=== PATIENT | female | born 1965 | race Caucasian/White ===

== ENCOUNTER → 2024-02-15 14:57 | Outpatient (REF) | payer MEDICAID, SELFPAY | LOC: RAD 14:57 | PROVIDERS: ATTENDING PHYSICIAN Internal Medicine Rheumatology | DX: M05.79 Rheumatoid arthritis with rheumatoid factor of multiple sites without organ or systems involvement (principal); Z51.81 Encounter for therapeutic drug level monitoring; R76.12 Nonspecific reaction to cell mediated immunity measurement of gamma interferon antigen response without active tuberculosis; Z91.89 Other specified personal risk factors, not elsewhere classified | CPT/HCPCS: 71046 ==

== ENCOUNTER 2025-05-18 16:03 | Inpatient (IN) | payer MEDICAID, SELFPAY ==
[2025-05-18] VITALS (9 sets, daily range): BP systolic 98–126; BP diastolic 67–84; BMI 17.4; BMI 16.2
[2025-05-18 13:56] LABS: Hematocrit 32.2 % (37.0-47.0); Hemoglobin 10.4 g/dL (12.0-16.0); Mean Corp Hgb Conc. 32.3 g/dL (33.0-37.0); Mean Corpuscular Volume 77.2 fL (81.0-99.0); Nucleated Red Blood Cells % 0 %; Platelet Count 519 10^3/uL (130-400); Red Cell Dist. Width 14.6 % (11.5-14.5)
[2025-05-18 14:26] LABS: Troponin I < 0.012 ng/ml
[2025-05-18 14:39] LABS: Blood Urea Nitrogen 48 mg/dl (7-17); Calcium 9.3 mg/dl (8.4-10.2); Carbon Dioxide 12 mmol/L (22-30); Chloride 107 mmol/L (98-107); Estimated Creatinine Clearance 53 ml/min; Glucose 101 mg/dl (70-99); Magnesium 2.2 mg/dl (1.6-2.3); Sodium 127 mmol/L (135-145); eGFR > 60.00
--- NOTE | 2025-05-18 14:40 | ED.GENMED ---
History of Present Illness
General
Chief Complaint: Weakness
Source: patient
Time Seen by Provider: 05/18/25 14:20
History of Present Illness
History of Present Illness:
59-year-old female presents to the emergency room for evaluation from [facility]. Patient has been undergoing wound care treatment there for lower extremity wounds. She has been developing increased swelling, erythema and pain.
Today they noted that she was lethargic. No known fever. Patient is tolerating oral intake. Patient resides at [facility] due to debilitating rheumatoid arthritis. She is taking a biologic, Orcenia, rheumatoid arthritis
Past History
Past History
ED Past Medical History: Other (RA)
ED Past Surgical History: None
Social History
Tobacco: Non-smoker
Alcohol: None
Drug: None
Personal: Single
Living: homeless
Phy Exam
Physical Exam
Physical Exam:
General: Awake, Alert, Oriented X3. Very thin, chronically ill-appearing
Vitals: Tachycardic
Head: Atraumatic
Eyes: Pupils equal, EOMI
Throat: Airway intact, no exudates
Neck: Trachea midline
Lungs: Clear and equal b/l
Heart: Regular rate, no murmurs
Abd: Soft, Nontender, No pulsatile mass
Neuro: Nonfocal
Skin: Warm, dry, no rash
Extremities: Joint deformities consistent with RA, pulses equal b/l, 1+ edema lower extremity, significant erythema bilateral lower leg, warmth to the bilateral lower extremities large ulcerative wounds bilaterally as well.
Course
Orders/Labs/Results
Orders:
Orders
05/18/25 13:36
EKG [Electrocardiogram (*1)] Urgent
Reason for Study: Fatigue / Weakness
05/18/25 13:37
EKG- Treatment ONCE
05/18/25 13:38
Basic Metabolic Panel Urgent
Complete Blood Count/With Diff Urgent
Ferritin Urgent
Comment: ADD ON
Folate Urgent
Comment: ADD ON
Magnesium Urgent
TSH Reflex To Free T4 Urgent
Comment: ADD ON
Troponin I Urgent
Vitamin B12 Urgent
Comment: ADD ON
05/18/25 14:40
CeFAZolin 2 GRAM [Ancef] 2 grams in 10 ml IV NOW
05/18/25 14:44
0.9% Sodium Chloride 1000 ml [Nss] 1,000 ml IV BOLUS
05/18/25 14:57
Potassium Urgent
Venous Blood Gas Urgent
%Oxygen/Room Air: ra
Blood Culture Q30M
VAL Source: Blood/Venous
Specimen Description:
05/18/25 15:05
Add On- LAB Urgent
Tests Added?: tsh with free t4 reflex, ferritin, tibc, iron, folate b12
Urine Osmolality Random [Osmolality, Random Urine] Routine
Date Specimen was Collected: 05/18/25
Time Specimen was Collected: 16:10
Urine Sodium Routine
Date Specimen was Collected: 05/18/25
Time Specimen was Collected: 16:10
05/18/25 15:24
Tramadol HCl [Ultram] 50 mg PO NOW STA
05/18/25 15:26
Albuterol Sulfate [Ventolin Nebules] 10 mg INH R NOW STA
Calcium Gluconate 1,000 mg IV NOW STA
Dextrose 50%-Water [Dextrose 50% Syringe] 12.5 grams IV [id number] PRN
Dextrose 50%-Water [Dextrose 50% Syringe] 25 grams IV NOW STA
Insulin Human Regular [Novolin R] 10 units IV NOW STA
Sodium Zirconium Cyclosilicate [Lokelma] 10 gram PO NOW STA
05/18/25 15:28
Bedside Glucose PRE IV Insulin- HyperK+ NOW
05/18/25 15:40
Admit/Transfer Patient As Directed
Co-Sign Provider:
Level of Care: Inpatient admission
Assign to:: Telemetry
Physician / Group: sebastián lee
Diagnosis: Hyperkalemia, metabolic acidosis, bilateral leg cellulitis, hypo-NA
Reason for Telemetry: Arrhythmia
Date to Stop Telemetry: 05/21/25
Time to Stop Telemetry: 11:00
Reason for Hospitalization: Hyperkalemia, metabolic acidosis, bilateral leg cellulitis, hypo-NA
Expected length of stay greater than two midnights?: Yes
ELOS- Estimated Length of Stay in days: 5
I certify the patient meets the requirements for IP care: Yes
Code Status As Directed
Resuscitation Status: Full Code
05/18/25 15:44
PRN Pain Medication Management As Directed
May give lesser potent ordered pain med per pt: Yes
preference::
Protocol:: Medication orders for pain may be administered in a
manner that supports deferring to patient preference
when the pt is:
- Requesting an ordered lesser potent pain medication.
Least to most potent pain medications are defined
as: acetaminophen < NSAID < tramadol < opioids
(morphine, oxycodone, hydromorphone).
- Requesting a lesser dose of the same medication IF
ORDERED.
- Requesting a less intrusive route of administration
if both routes are prescribed by the provider (PO <
IV).
05/18/25 16:09
Osmolality Serum [Serum Osmolality] Routine
Blood Culture Q30M
VAL Source: Blood/Venous
Specimen Description:
05/18/25 16:10
Urine Culture Reflexed from UA [Urinalysis Reflex To Culture] Routine
Date Specimen was Collected: 05/18/25
Time Specimen was Collected: 16:09
05/18/25 16:58
Bedside Glucose POST IV Insulin- HyperK+ Q1HX2,Q2HX2
05/18/25 17:58
Potassium Urgent
Comment: draw 2 hours after regular insulin IV administration
05/18/25 19:58
Potassium Urgent
Comment: draw 4 hours after Lokelma administered
05/21/25 11:00
DC Protocol for Telemetry ONCE
Abnormal Lab Results
05/18/25 05/18/25
13:38 14:57
WBC 13.0 H 10^3/uL
(4.8-10.8)
RBC 4.17 L 10^6/uL
(4.20-5.40)
Hgb 10.4 L g/dL
(12.0-16.0)
Hct 32.2 L %
(37.0-47.0)
MCV 77.2 L fL
(81.0-99.0)
MCH 24.9 L pg
(27.0-31.0)
MCHC 32.3 L g/dL
(33.0-37.0)
RDW 14.6 H %
(11.5-14.5)
Plt Count 519 H 10^3/uL
(130-400)
Abs Immat Gran (auto) 0.2 H 10^3/uL
(0-0.05)
Absolute Neuts (auto) 10.2 H 10^3/uL
(1.4-6.5)
Absolute Monos (auto) 1.2 H 10^3/uL
(0.1-0.6)
Immature Gran % 1.4 H %
(0-0.5)
Neutrophils % 78.7 H %
(42.2-75.2)
Lymphocytes % 9.9 L %
(20.5-51.1)
VBG pH 7.26 L
(7.32-7.43)
VBG pCO2 32 L mmHg
(35-48)
VBG pO2 56 H mmHg
(30-50)
VBG HCO3 14.4 L mmol/L
(22-27)
Sodium 127 L mmol/L
(135-145)
Potassium 7.0 H* mmol/L
(3.5-5.1)
Carbon Dioxide 12 L* mmol/L
(22-30)
BUN 48 H mg/dl
(7-17)
Glucose 101 H mg/dl
(70-99)
05/18/25 13:38
05/18/25 14:57
Vital Signs
Initial and Last Documented VS:
Initial Vital Signs
Pulse Resp Pulse Ox
119 18 99
05/18/25 13:38 05/18/25 13:38 05/18/25 13:38
Last Documented Vital Signs
Temp Pulse Resp BP Pulse Ox
97.5 F 114 14 114/79 99
05/18/25 13:46 05/18/25 14:00 05/18/25 14:00 05/18/25 14:00 05/18/25 14:43
MDM/Problems Addressed
Differential Diagnosis Includes:
Patient presents with weakness in addition to lower extremity redness and pain. Differential includes chronic venous stasis with cellulitis, lymphedema with cellulitis, dehydration, electrolyte abnormality
MDM/Problems Addressed:
Patient presents with weakness, lower extremity redness and pain. Clinically it appears she has a acute cellulitis of both of her lower extremities. She appears dry. Labs show significant abnormalities including prerenal azotemia with a BUN of
48. Sodium somewhat low at 127. She has a significantly low bicarb at 12 though no anion gap. Serum potassium is 7.0. Her EKG does show some peaking of her T waves. Therefore hyperkalemia was aggressively treated with calcium gluconate,
albuterol, insulin and dextrose, Lokelma. I suspect her potassium homeostasis will improve with hydration. I believe her bicarb will improve with hydration. VBG was obtained which shows the pH is a bit low at 7.7 but I do not think she would
require IV bicarb at this point.
*Pulse Oximetry
SaO2: 99
Oxygen Mode of Delivery: Room air
Patient hypoxic: no
*EKG
Interpreted by ED Provider?: Yes
Interpretation: abnormal
Heart Rate: 115
Rate: tachycardiac
Rhythm: sinus tachycardia
[place]: normal axis
Interval: normal interval
QRS Pattern: normal QRS
Ischemia: other (Peaked T waves)
*Windshield Technician Interpretation
Rate: tachycardiac
Interpretation: abnormal
Heart Rate: 115
Rhythm: sinus tachycardia
*Critical Care Note
Total Time (30-74mins, 75-104mins- exclusive of procedures): 38 min
comment:
Critical care statement: A total of 38 minutes of critical care time was provided for this patient. This includes management of unstable vital signs, evaluation of the patient at bedside, reviewing the patient's pertinent medical records, discussion
with consultants, review of old EKGs and review of pertinent medical records. This time with separate from time utilized to perform the aforementioned documented procedures
ED Attending Note
-
Portions of this chart may have been created with voice recognition software.� Occasional wrong word or��sound alike� substitutions may have occurred due to the inherent limitations of voice recognition software.
Discharge Plan
Departure
Patient Disposition: Admit
Date of Disposition: 05/18/25
Time of Disposition: 14:47
Admit to: Med/Surg
Presentation/result/management discussed w/ accepting MD/DO: Hospitalist
Condition: Fair
Discharge Problem:
Cellulitis of both lower extremities, Dehydration, Acute hyponatremia
Interventions
Interventions:
*Risk Screen - Suicide Last Done: 05/18/25 13:46
*General Assessment Last Done: 05/18/25 13:46
*Neglect/Abuse Screening Last Done: 05/18/25 13:46
*ED- Fall Risk Assessment Last Done: 05/18/25 13:46
*ED COVID-19 Vaccine History Last Done: 05/18/25 13:46
ED- Cardiac Assessment Last Done: 05/18/25 13:46
ED- Neurological Assessment Last Done: 05/18/25 13:46
ED- Pulmonary Assessment Last Done: 05/18/25 13:46
[2025-05-18] MEDS: ANCEF 10 IV (14:50)
[2025-05-18] MEDS: NSS 1000 IV ×2 (14:50→17:56)
[2025-05-18 15:09] LABS: Venous Blood Gas B.E. -11.6 mmol/L (-4 to +4); Venous Blood Gas O2 Sat % 90.6 %
--- NOTE | 2025-05-18 15:11 | HPS.HSE ---
Addendum entered and electronically signed by Ashwini Abdi MD 05/18/25 17:54:
I have personally seen and examined the patient. I have reviewed the patient with PROTECTIVE SIGNAL OPERATIONS SUPERVISOR or PA and agree with their note.
59-year-old female with rheumatoid arthritis, chronic lymphedema presenting with bilateral lower extremity cellulitis.
On exam patient appears to be in mild distress from pain, exhibits bilateral lower extremity edema with weeping, tenderness, erythema, and warmth. MMM, heart RRR, +murmur, abd soft, NT/ND/NABS, Lungs CTAB.
Assessment:
Sepsis secondary to bilateral lower extremity cellulitis
Acute metabolic acidosis
acute hyperkalemia
Hypovolemic hyponatremia
Anemia
Plan:
Check blood cultures
Empiric IV antibiotics
Hold off diuretics and give IV fluids until electrolytes normalized
Treat hyperkalemia with with protocol, monitor on telemetry
Check anemia panel, suspect iron deficiency will need iron supplementation when infection improves
Agree with holding immunosuppressants for RA in setting of acute infection
Original Note:
Family Physician
-
Family Physician: Ish Hall
Chief Complaint
-
Bilateral leg ulcerations with erythema, nausea, leg pain
History of Present Illness
59-year-old female from [facility] complaining of bilateral leg ulcerations for the past several months she has had erythema unknown duration and increased pain in her lower legs she has history of chronic bilateral leg lymphedema
chronic scales to lower extremities she stands walks only a few steps to a wheelchair. She complains of nausea With inability to eat she has not taken any of her a.m. pain medication today. She denies fever, chills, chest pain, palpitations, cough,
shortness of breath, abdominal pain, diarrhea
She has past medical history rheumatoid arthritis on Orencia and leflunomide, severe bilateral glenohumeral arthrosis, chronic rotator cuff arthropathy, chronic bilateral shoulder pain, depression, chronic pain on chronic oral opiates as needed,
chronic bilateral lower leg edema hypothyroidism, HTN, HLD,
Medical History
Past Medical History
Past Medical History: Reports Other
Additional Past Medical History:
rheumatoid arthritis on Orencia and leflunomide
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
Chronic ambulatory dysfunction uses wheelchair
severe bilateral glenohumeral arthrosis
chronic rotator cuff arthropathy
chronic bilateral shoulder pain
depression
chronic pain on chronic oral opiates as needed,
chronic bilateral lower leg edema
hypothyroidism
HTN
HLD
Past Surgical History: Reports None
Social History
Tobacco: Non-smoker
Alcohol: None
Drug: None
Personal: (Patient reports last year at age 54 [place])
Living: Alone
Employment: Disabled
Family History
Family History: Not pertinent
Allergies / Home Medications
Allergies reflects when Allergies were last updated in [employer].
Home Medications with original date entered in [employer]
Allergy/Medication List:
Allergies
Allergy/AdvReac Type Severity Reaction Status Date / Time
No Known Allergies Allergy Unverified 12/08/22 19:34
Home Medications
abatacept 125 mg/mL subcutaneous syringe (Orencia) 125 mg SC Q7D 05/18/25
acetaminophen 325 mg tablet (Tylenol) 650 mg PO Q4HPRN PRN fever 05/18/25
acetaminophen 325 mg tablet (Tylenol) 650 mg PO Q6HPRN PRN mild pain 05/18/25
aspirin 81 mg tablet,delayed release 81 mg PO DAILY 05/18/25
bisacodyl 10 mg rectal suppository (Dulcolax (bisacodyl)) 10 mg AL DAILYPRN PRN if no bm aftr mom 05/18/25
bupropion HCl 300 mg 24 hr tablet, extended release (Wellbutrin XL) 300 mg PO DAILY 05/18/25
celecoxib 100 mg capsule 100 mg PO DAILY 05/18/25
clopidogrel 75 mg tablet (Plavix) 75 mg PO DAILY 05/18/25
furosemide 40 mg tablet (Lasix) 40 mg PO DAILY 05/18/25
gabapentin 300 mg capsule 300 mg PO HS 05/18/25
gabapentin 300 mg capsule 600 mg PO DAILY 05/18/25
gemfibrozil 600 mg tablet 600 mg PO QPM 05/18/25
insulin lispro 100 unit/mL subcutaneous pen (Humalog KwikPen (U-100) Insulin) 1 sliding scale dose SC ACHS 05/18/25
leflunomide 20 mg tablet 20 mg PO DAILY 05/18/25
levothyroxine 150 mcg tablet (Synthroid) 150 mcg PO DAILY 05/18/25
mirtazapine 30 mg tablet (Remeron) 30 mg PO HS 05/18/25
naproxen 500 mg tablet 500 mg PO BID 05/18/25
nifedipine 60 mg tablet,extended release 24 hr 60 mg PO DAILY 05/18/25
oxycodone 10 mg tablet 10 mg PO Q6HPRN PRN severe pains(7-10) 05/18/25
oxycodone 5 mg tablet 5 mg PO Q4HPRN PRN severe pains (4-6) 05/18/25
polyethylene glycol 3350 17 gram oral powder packet (Miralax) 17 g PO BIDPRN PRN constipation 05/18/25
polyethylene glycol 3350 17 gram oral powder packet (Miralax) 17 g PO DAILY 05/18/25
rosuvastatin 20 mg tablet (Crestor) 20 mg PO QPM 05/18/25
sennosides 8.6 mg tablet (senna) 17.2 mg PO DAILY 05/18/25
sevelamer HCl 800 mg tablet 800 mg PO AC 05/18/25
tizanidine 2 mg tablet 2 mg PO Q6HPRN PRN spasms 05/18/25
tramadol 50 mg tablet 50 mg PO BID 05/18/25
tramadol 50 mg tablet 50 mg PO Q6HPRN PRN moderate pains 05/18/25
valsartan 320 mg tablet 320 mg PO DAILY 05/18/25
zinc oxide 10 % topical cream 1 applic topical DAILY b/l legs 05/18/25
Review of Systems
-
History Source: Patient
A 12 point ROS was completed and negative except as noted: Yes
Constitutional: Reports Fatigue; Denies Fever
EENT: Denies Sore Throat or Runny Nose
Respiratory: Denies Cough or Trouble Breathing
Cardiac: Denies Chest Pain, Palpitations or Syncope
Abdomen/GI: Reports Nausea; Denies Abdominal Pain, Vomiting, Diarrhea or Constipated
: Denies Dysuria, Frequency, Flank Pain, Incontinence or Difficulty Voiding
Musculoskeletal: Reports Edema (Bilateral lower legs +1 nonpitting); Denies Joint Pain
Skin: Reports Other (Scales to bilateral lower legs with anterior lower cruz ulcerations +1 nonpitting edema, ulceration left foot second anterior toe); Denies Itching or Rash
Neurological: Reports Weakness; Denies Dizzy or Headache
Endocrine: Reports No Symptoms
Hematologic/Lymphatic: Reports No Symptoms
Psych: Reports Calm
Physical Exam
Vital Signs
Vital Signs
Temp Pulse Resp BP Pulse Ox
97.5 F 114 14 114/79 99
05/18/25 13:46 05/18/25 14:00 05/18/25 14:00 05/18/25 14:00 05/18/25 14:43
Physical Exam
General: Comfortable, Conversant, Pain and Cachectic; No Fever, Chills or Slurred Speech
HEENT: NormoCephalic, Anicteric, Moist mucous membranes, PERRLA, [place] Conjunctivae and No Ptosis
Respiratory: Clear; No Wheezes, Rales or Rhonchi
Cardiac: S1/S2 and Tachycardia (Sinus); No Murmur, Rub or Gallop
Breast: Deferred by me
GI: Soft, Non Tender, Non Distended, Normal Bowel Sounds and No Hepatosplenomegaly
Rectal: Deferred by Provider
Genito-urinary: Deferred by me
Musculoskeletal: No Clubbing, No Cyanosis, No Edema (Scales to bilateral lower legs with anterior lower cruz ulcerations +1 nonpitting edema, ulceration left foot second anterior toe) and Other (Chronic deformities to fingers secondary to RA); No
Edema, Left Upper Extremity or Edema, Right Upper Extremity
Skin: Warm and Dry; No Jaundice
Neuro: AO x 3, Nonfocal/grossly intact, Cranial Nerves Intact and No Sensory Deficits; No Slurred Speech, Facial Droop, Tremors or Sedated
Psych: Calm
Laboratory Results
-
05/18/25 13:38
Laboratory Results
Total Bilirubin Cancelled 05/18/25 13:38
AST Cancelled 05/18/25 13:38
ALT Cancelled 05/18/25 13:38
Alkaline Phosphatase Cancelled 05/18/25 13:38
Troponin I < 0.012 ng/ml 05/18/25 13:38
Data Reviewed
-
Lab Data: Labs Reviewed by me
Impression/Plan
-
Impression/plan:
Admit to telemetry
#Bilateral leg cellulitis with chronic anterior ulcerations
#Chronic bilateral leg edema
- WBC 13 with left shift, afebrile 90 7.5F
- Blood cultures x 2
- IV Ancef
- Patient missed dose of tramadol naproxen this a.m. due to vomiting we will give tramadol now with crackers
#Acute dehydration with tachycardia secondary to diuretic/lack oral intake
# Acute metabolic acidosis
Bun 48, CO2 12
-Hold Lasix 40 mg daily
-VBG pending pH 7.26, pCO2 32, HCO3 14.4
- IV NSS 1 L given
-Continue IV NSS 60 cc an hour
#Acute hyperkalemia
K 7.0
IV insulin, IV dextrose, Lokelma 10 g now, calcium gluconate 1000 mg IV now
Repeat BMP in 4 hours follow BMP daily
-IV NSS 60 cc an hour
-- EKG sinus tach 115 bpm, QTc 370 no peaked T waves
- Continue 7 [place] 800 mg with meals
#Hypovolemic hyponatremia
NA 127
-Check TSH with free T4
-Check urine NA, urine Osmo, serum Osmo
#Anemia�microcytic
Hgb 10.4
-Check iron panel, B12, folate
#Hypothyroidism
-Check TSH with free T4 reflex
-Continue Synthroid 150 mcg p.o. daily,,
#Rheumatoid arthritis
#Chronic bilateral shoulder pain with severe bilateral glenohumeral arthrosis
# Chronic rotator cuff arthropathy
# Chronic ambulatory dysfunction uses walker at baseline
-HOLD Orencia and Leflunomide due to leg cellulitis
- Continue oxycodone 5 mg every 4 H as needed severe pain, oxycodone 10 mg every 6 hours as needed severe pain, tramadol 50 mg twice daily and every 6 hours as needed moderate pain, MiraLAX 17 g daily and twice daily as needed, senna 17.2 mg daily
-Continue Zanaflex 2 mg every 6 hours as needed spasms
- Continue gabapentin 600 mg a.m., 300 mg at bedtime
- Continue Celebrex 100 mg daily
#HTN
BP 114/79
-Continue valsartan 320 mg daily with hold parameters
#HLD
-Continue gemfibrozil 600 mg p.o. every afternoon, Crestor 20 mg every afternoon
#Protein calorie malnutrition/cachexia�BMI 17.4 kg
-Consult dietary
DVT prophylaxis
Subcu heparin
Full code
[2025-05-18 15:20] LABS: Potassium 7.0 mmol/L (3.5-5.1)
[2025-05-18] MEDS: ULTRAM 50 MG PO ×2 (15:59→20:42)
[2025-05-18 16:00] LABS: Glucose - Point of Care 95 mg/dl (70-99)
[2025-05-18] MEDS: LOKELMA 10 GRAM PO ×2 (16:00→22:19)
[2025-05-18] MEDS: CALCIUM GLUCONATE 1000 MG IV (16:02)
[2025-05-18] MEDS: VENTOLIN NEBULES 10 MG INH (16:02)
[2025-05-18] MEDS: DEXTROSE 50% SYRINGE 25 GRAMS IV (16:02)
[2025-05-18] MEDS: NOVOLIN R 10 UNITS IV (16:03)
[2025-05-18] MEDS: DILAUDID 1 MG IV (16:17)
--- NOTE | 2025-05-18 16:33 | EDRN ---
this RN called the receiving unit and notified them that paper report was going to be tubed up
[2025-05-18 16:54] LABS: Iron 34 ug/dl (37-170)
[2025-05-18 17:04] LABS: Total Iron Binding Capacity 216 ug/dl (265-497)
[2025-05-18 17:05] LABS: Glucose - Point of Care 163 mg/dl (70-99)
[2025-05-18] MEDS: ROXICODONE 10 MG PO (18:13)
--- NOTE | 2025-05-18 18:23 | PTCARENOTE ---
Pt admission completed. Reviewed med rec w/ patient, she denies taking many of the listed medications. Edelmira Black notified, awaiting her med list to be sent over.
[2025-05-18 18:24] LABS: Glucose - Point of Care 81 mg/dl (70-99)
[2025-05-18 19:25] LABS: Ferritin 70.5 ng/ml (11.1-264.0)
[2025-05-18 19:35] LABS: Urine Character Cloudy (Clear)
[2025-05-18 19:46] LABS: Blood Urea Nitrogen 44 mg/dl (7-17); Calcium 9.6 mg/dl (8.4-10.2); Carbon Dioxide 14 mmol/L (22-30); Chloride 108 mmol/L (98-107); Estimated Creatinine Clearance 58 ml/min; Glucose 111 mg/dl (70-99); Potassium 6.8 mmol/L (3.5-5.1); Sodium 126 mmol/L (135-145); eGFR > 60.00
[2025-05-18 19:53] LABS: Urine Squamous Cell 26-30 /LPF (Few)
[2025-05-18 19:56] LABS: Urine White Cell 26-30 /HPF (0-5)
[2025-05-18 19:57] LABS: Folate > 20.0 ng/ml (2.76-20); Vitamin B12 743 pg/ml (239-931)
[2025-05-18 20:00] LABS: Glucose - Point of Care 149 mg/dl (70-99)
[2025-05-18] MEDS: HEPARIN 5000 UNITS SC (20:43)
[2025-05-18] MEDS: REMERON PO (21:53)
[2025-05-18] MEDS: ANCEF 5 IV (22:19)
[2025-05-18 22:30] LABS: Glucose - Point of Care 125 mg/dl (70-99)
--- NOTE | 2025-05-18 23:53 | PTCARENOTE ---
received med list form [id number] and reconciled- house signaling design engineer corrected ordered meds
[2025-05-19] VITALS (8 sets, daily range): BP systolic 87–111; BP diastolic 50–76; PULSE 110; O2SAT 99; BMI 16.8
[2025-05-19] MEDS: ROXICODONE 10 MG PO ×4 (01:59→21:35)
[2025-05-19 02:47] LABS: Blood Urea Nitrogen 36 mg/dl (7-17); Calcium 8.8 mg/dl (8.4-10.2); Carbon Dioxide 15 mmol/L (22-30); Chloride 110 mmol/L (98-107); Estimated Creatinine Clearance 51 ml/min; Glucose 85 mg/dl (70-99); Potassium 6.2 mmol/L (3.5-5.1); Sodium 129 mmol/L (135-145); eGFR > 60.00
--- NOTE | 2025-05-19 03:03 | PTCARENOTE ---
pt with Lokelma x2 and iv inulin/ d50%- k and co2 improving. last k was critical 6.2- vp corporate partnerships ordered bolus and changed fluids to fluids with bicarb see mar
[2025-05-19] MEDS: NSS 500 IV (03:07)
[2025-05-19] MEDS: SODIUM BICARBONATE 1150 MEQ IV ×2 (03:59→15:00)
[2025-05-19] MEDS: ANCEF 5 IV ×3 (05:04→21:35)
[2025-05-19] MEDS: ULTRAM 50 MG PO ×2 (07:14→19:10)
[2025-05-19 08:06] LABS: Hematocrit 26.7 % (37.0-47.0); Hemoglobin 8.7 g/dL (12.0-16.0); Mean Corp Hgb Conc. 32.6 g/dL (33.0-37.0); Mean Corpuscular Volume 76.1 fL (81.0-99.0); Nucleated Red Blood Cells % 0 %; Platelet Count 397 10^3/uL (130-400); Red Cell Dist. Width 14.6 % (11.5-14.5)
[2025-05-19] MEDS: HEPARIN 5000 UNITS SC ×2 (08:46→19:10)
[2025-05-19] MEDS: LOKELMA 10 GRAM PO (08:47)
[2025-05-19 09:05] LABS: ALT (SGPT) < 10 U/L (0-35); AST (SGOT) 15 U/L (14-36); Albumin 2.5 g/dl (3.5-5.0); Alkaline Phosphatase 79 U/L (38-126); Blood Urea Nitrogen 28 mg/dl (7-17); Calcium 8.3 mg/dl (8.4-10.2); Carbon Dioxide 16 mmol/L (22-30); Chloride 111 mmol/L (98-107); Estimated Creatinine Clearance 68 ml/min; Glucose 93 mg/dl (70-99); Potassium 5.2 mmol/L (3.5-5.1); Sodium 131 mmol/L (135-145); Total Protein 5.5 g/dl (6.3-8.2); eGFR > 60.00
--- NOTE | 2025-05-19 11:29 | WOUNDNOTE ---
L MEDIAL POSTERIOR LOWER LEG
--- NOTE | 2025-05-19 11:31 | WOUNDNOTE ---
WO RN note: Patient admitted with Cellulitis of lower legs.
See H&P for complete history. Lives at [facility].
PMH: 59-year-old female with rheumatoid arthritis, chronic lymphedema presenting with bilateral lower extremity cellulitis.
Wound Location and type/assessment: Patient admitted with: redness, swelling and open draining full thickness ulcers on lower legs. PCT Catherine assisted with leg elevation to change dressing, patient reports severe pain upon touch. Drainage large plaza
color with foul odor. Heels are blanchable red, toes are deformed with a few scabs from RA. Patient reports she is most comfortable when legs dependent. Has had wounds for a few months and being treated at [facility]. Skin warm and dry, faint pedal pulses
palpable. Suspect wounds are vasculitic in nature due to pain and history of RA. Nurse Tracy reports she checked her sacrum and is intact, protective foam in use.
Appetite: Good.
Pressure redistribution devices in place: On Accumax, needs assist with turning and lifting legs. Air cushion placed under heels, tolerating for now. Encouraged leg elevation with pillow under legs to offload heels and control edema. Pressure ulcer
prevention measures reviewed with patient, states she understands.
Plan: Will order Dakin's for cleaning/soak prn odor if tolerates. Local wound care applied. Foams applied to heels. Will order Michael wraps to start in am if tolerates. Patient states she uses michael wraps daily at [facility] and removes at bedtime.
Will confirm orders with hospitalist and updated nurse.
Updated care plan and will follow as needed.
Note to case management of equipment requested for discharge: none
Recommend follow up at wound care center upon discharge.
[2025-05-19 13:43] LABS: Blood Urea Nitrogen 25 mg/dl (7-17); Calcium 7.8 mg/dl (8.4-10.2); Carbon Dioxide 20 mmol/L (22-30); Chloride 106 mmol/L (98-107); Estimated Creatinine Clearance 59 ml/min; Glucose 100 mg/dl (70-99); Potassium 4.4 mmol/L (3.5-5.1); Sodium 129 mmol/L (135-145); eGFR > 60.00
--- NOTE | 2025-05-19 16:15 | W.PN.HOSP.TC ---
Today's Communication/Plan
-
Continue IV fluids, IV antibiotics
Monitor sodium, bicarb, and potassium
Assessment / Plan
Assessment / Plan
59-year-old female with rheumatoid arthritis, chronic lymphedema presenting with bilateral lower extremity cellulitis.
#Sepsis secondary to bilateral lower extremity cellulitis
Insetting of bilateral lymphedema
Seen by wound care concern for vasculitis per them
Blood cultures no growth to date, urine cultures neg
Erythema is improving with Ancef continue for now
#Acute dehydration with tachycardia secondary to diuretic/lack oral intake
#Acute metabolic acidosis
Bun 48, CO2 12
-Hold Lasix 40 mg daily
-VBG pending pH 7.26, pCO2 32, HCO3 14.4
- IV NSS 1 L given
Patient is on D5 with sodium bicarb
#Acute hyperkalemia
no peak t waves on EKG
K 7.0 --> 5.2 after IV insulin/IV dextrose, Lokelma 10 g x3, calcium gluconate 1000 mg IV
Monitor BMP
Dietitian placed patient on low potassium diet
#Hypovolemic hyponatremia
NA 127-->131->129
TSH is within normal limit
Urine sodium is less than 5, U OSM 647 serum OSM 290
Concern for dehydration
#Anemia�microcytic
Hgb 10.4
-Checked iron panel, patient has low iron/TIBC/percent sat with normal ferritin, normal B12, elevated folate
will need IV iron supplementation when infection improves
#Hypothyroidism
TSH is within normal limit
-Continue Synthroid 150 mcg p.o. daily
#Rheumatoid arthritis
#Chronic bilateral shoulder pain with severe bilateral glenohumeral arthrosis
# Chronic rotator cuff arthropathy
# Chronic ambulatory dysfunction uses walker at baseline
-HOLD Orencia and Leflunomide due to leg cellulitis
- Continue oxycodone 5 mg every 4 H as needed severe pain, oxycodone 10 mg every 6 hours as needed severe pain, tramadol 50 mg twice daily and every 6 hours as needed moderate pain, MiraLAX 17 g daily and twice daily as needed, senna 17.2 mg daily
-Continue Zanaflex 2 mg every 6 hours as needed spasms
- Continue gabapentin 600 mg a.m., 300 mg at bedtime
- Continue Celebrex 100 mg daily
#HTN
BP is controlled
-Continue valsartan 320 mg daily with hold parameters
#HLD
-Continue gemfibrozil 600 mg p.o. every afternoon, Crestor 20 mg every afternoon
#Protein calorie malnutrition/cachexia�BMI 17.4 kg
-Consulted dietary
DVT prophylaxis
Subcu heparin
Anticipated Discharge: > 48 hours
Subjective/Interval History
-
Date of Service: May 19, 2025
Patient feels about the same but her legs are less red
Objective Data
-
Labs:
Laboratory Results
05/19/25 05/19/25 05/19/25
07:33 11:39 16:00
WBC 6.9
Hgb 8.7 L
Hct 26.7 L
Plt Count 397 D
Sodium 131 L 129 L Pending
Potassium 5.2 H 4.4 Pending
Chloride 111 H 106 Pending
Carbon Dioxide 16 L 20 L Pending
BUN 28 H 25 H Pending
Creatinine 0.7 0.8 Pending
Glucose 93 100 H Pending
Calcium 8.3 L 7.8 L Pending
Total Bilirubin 0.3
AST 15
ALT < 10
Alkaline Phosphatase 79
Vital Signs:
Vital Signs
Temp Pulse Resp BP Pulse Ox
98.3 F 116 18 102/76 94
05/19/25 15:31 05/19/25 15:31 05/19/25 15:31 05/19/25 15:31 05/19/25 15:31
I&O
05/18/25 05/19/25 05/20/25
06:59 06:59 06:59
Intake Total 1789
Balance 1789
Review of Systems
-
All other systems: Reviewed and negative
Physical Exam
-
General: No Apparent Distress and Cachectic
HEENT: Moist Mucous Membranes and PERRLA
Cardiac: Regular Rhythm, S1/S2 and Murmur
GI: Soft, Nontender, Nondistended and Normal Bowel Sounds
Musculoskeletal: Edema, Right Lower Extrem, Edema, Left Lower Extrem and Other ( Bilateral hands with deformities off interphalangeal joints and contractions similar appearance of the toes as well.)
Skin: Warm, Dry and Rash (Improving erythema of BLE, continued swelling and dry skin)
Neuro: Awake, Alert and AO x 3
Psych: Calm
[2025-05-19 20:24] LABS: Blood Urea Nitrogen 23 mg/dl (7-17); Calcium 7.4 mg/dl (8.4-10.2); Carbon Dioxide 27 mmol/L (22-30); Chloride 102 mmol/L (98-107); Estimated Creatinine Clearance 59 ml/min; Glucose 131 mg/dl (70-99); Potassium 4.1 mmol/L (3.5-5.1); Sodium 128 mmol/L (135-145); eGFR > 60.00
[2025-05-19] MEDS: REMERON PO (21:25)
[2025-05-20] VITALS (11 sets, daily range): BP systolic 76–133; BP diastolic 42–80; BMI 17.5
[2025-05-20] MEDS: ULTRAM 50 MG PO ×2 (01:32→07:49)
[2025-05-20] MEDS: SODIUM BICARBONATE 1150 MEQ IV (01:33)
[2025-05-20] MEDS: ANCEF 5 IV ×3 (05:02→21:41)
[2025-05-20] MEDS: ROXICODONE 10 MG PO ×2 (05:02→11:13)
[2025-05-20] MEDS: HEPARIN 5000 UNITS SC (07:50)
[2025-05-20 08:19] LABS: Hematocrit 22.3 % (37.0-47.0); Hemoglobin 7.4 g/dL (12.0-16.0); Mean Corp Hgb Conc. 33.2 g/dL (33.0-37.0); Mean Corpuscular Volume 75.9 fL (81.0-99.0); Nucleated Red Blood Cells % 0 %; Platelet Count 353 10^3/uL (130-400); Red Cell Dist. Width 14.4 % (11.5-14.5)
[2025-05-20 08:58] LABS: ALT (SGPT) < 10 U/L (0-35); AST (SGOT) 15 U/L (14-36); Albumin 2.2 g/dl (3.5-5.0); Alkaline Phosphatase 72 U/L (38-126); Blood Urea Nitrogen 16 mg/dl (7-17); Calcium 7.4 mg/dl (8.4-10.2); Carbon Dioxide 35 mmol/L (22-30); Chloride 97 mmol/L (98-107); Estimated Creatinine Clearance 83 ml/min; Glucose 98 mg/dl (70-99); Potassium 3.4 mmol/L (3.5-5.1); Sodium 130 mmol/L (135-145); Total Protein 4.9 g/dl (6.3-8.2); eGFR > 60.00
--- NOTE | 2025-05-20 09:41 | W.PN.HOSP.TC ---
Today's Communication/Plan
-
see bold
Assessment / Plan
Assessment / Plan
59-year-old female with rheumatoid arthritis, chronic lymphedema presenting with bilateral lower extremity cellulitis.
#Sepsis secondary to bilateral lower extremity cellulitis
Insetting of bilateral lymphedema
Seen by wound care - concern for vasculitis per them
Blood cultures no growth to date, urine cultures neg
Erythema is improving with Ancef continue for now
#Hypovolemic hyponatremia
TSH is within normal limit. Urine sodium is less than 5, U OSM 647 serum OSM 290
Concern for dehydration
Improving on IV fluids, add fluid restriction
# Iron deficiency anemia
Iron panel reviewed, patient has low iron/TIBC/percent sat with normal ferritin, normal B12, elevated folate
Will need PO iron supplementation when infection improves
#Acute dehydration with tachycardia secondary to diuretic/lack oral intake
#Acute metabolic acidosis
Bun 48, CO2 12, VBG pending pH 7.26, pCO2 32, HCO3 14.4
Hold Lasix 40 mg daily
Acidosis resolved on sodium bicarb
#Acute hyperkalemia
No peak t waves on EKG
Resolved status post IV insulin/IV dextrose, Lokelma 10 g x3, calcium gluconate 1000 mg IV
Changed to regular diet as patient's potassium is now low at 3.4
Trend potassium
#Hypothyroidism
TSH is within normal limit
Continue Synthroid 150 mcg p.o. daily
#Rheumatoid arthritis
#Chronic bilateral shoulder pain with severe bilateral glenohumeral arthrosis
#Chronic rotator cuff arthropathy
#Chronic ambulatory dysfunction uses walker at baseline
HOLD Orencia and Leflunomide due to leg cellulitis
Continue oxycodone 5 mg every 4 H as needed severe pain, oxycodone 10 mg every 6 hours as needed severe pain, tramadol 50 mg twice daily and every 6 hours as needed moderate pain, MiraLAX 17 g daily and twice daily as needed, senna 17.2 mg daily
Continue Zanaflex 2 mg every 6 hours as needed spasms
Continue gabapentin 600 mg a.m., 300 mg at bedtime
Continue Celebrex 100 mg daily
#Chronic debility
From [facility]
#HTN
Hold home valsartan 320 mg daily due to soft blood pressure
#HLD
Continue gemfibrozil 600 mg p.o. every afternoon, Crestor 20 mg every afternoon
#Protein calorie malnutrition/cachexia�BMI 17.4 kg
Dietary following
DVT prophylaxis - Subcu lovenox
Total time spent to see the patient on the floor, examine the patient, review data and lab results, discuss treatment plan with patient, nursing staff around 50 minutes.
Physical Exam
General: Appears chronically debilitated, no acute distress
HEENT: Normocephalic, Atraumatic, EOMI, MMM
Respiratory: Clear to Auscultation bilaterally
Cardiac: Normal S1/S2, Regular Rate and Rhythm
GI: Soft, Nontender, Nondistended, Normal Bowel Sounds
Extremities: No Clubbing, Cyanosis
Bilateral lower extremity edema noted
Wounds on bilateral lower extremity with scattered erythema
Neuro: Nonfocal/Grossly Intact
Psych: Appears anxious and teary
Anticipated Discharge: > 48 hours
Subjective/Interval History
-
Date of Service: May 20, 2025
Patient complains of diffuse pain from her rheumatoid arthritis. She also complains of bilateral leg pain. No fever, no vomiting.
Objective Data
-
Labs:
Laboratory Results
05/20/25
07:59
WBC 5.4
Hgb 7.4 L
Hct 22.3 L
Plt Count 353
Sodium 130 L
Potassium 3.4 L
Chloride 97 L
Carbon Dioxide 35 H
BUN 16
Creatinine 0.6
Glucose 98
Calcium 7.4 L
Total Bilirubin 0.3
AST 15
ALT < 10
Alkaline Phosphatase 72
Vital Signs:
Vital Signs
Temp Pulse Resp BP Pulse Ox
98.6 F 104 16 133/65 98
05/20/25 07:22 05/20/25 07:22 05/20/25 07:22 05/20/25 07:22 05/20/25 07:22
I&O
05/19/25 05/20/25 05/21/25
06:59 06:59 06:59
Intake Total 1790 / 1790 1800 / 1800
Output Total 1200 / 1200
Balance 1790 / 1790 600 / 600
--- NOTE | 2025-05-20 12:34 | CM ---
Met with patient to obtain information for assessment. 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 She receives assistance with her ADLs, personal care, dressing and bathing. She is able to feed herself and is set up by
staff. She uses a w/c and is not very ambulatory. She did relay that she can transfer independently from the bed to the chair, from the toilet to the chair.
Plan: Case management will continue to follow and assist with discharge planning. Back to [facility] when stable.
[2025-05-20] MEDS: DAKIN'S SOLUTION 0.125% 1/4 STRENGTH 473 ML TOPICAL (13:57)
[2025-05-20] MEDS: HYDROPHOR 1 APPLIC TOPICAL (13:58)
[2025-05-20] MEDS: DILAUDID 0.5 MG IV (14:17)
--- NOTE | 2025-05-20 15:25 | PTCARENOTE ---
Dr. Patel made aware pt. b/p 80/52 manually. New orders to follow.
--- NOTE | 2025-05-20 15:49 | PTCARENOTE ---
Rcvd Pt from primary RN. Pt is laying comfortably in bed. Pt is receiving a 250 bolus of NS due to hypotension. Per MD give bolus and midodrine. Pt is tolerating well. Will recheck BP
[2025-05-20] MEDS: NSS 250 IV ×2 (15:52→21:41)
[2025-05-20] MEDS: LOVENOX 40 MG SC (17:43)
[2025-05-20] MEDS: TYLENOL 650 MG PO (20:12)
[2025-05-20] MEDS: TORADOL 15 MG IV (20:22)
[2025-05-20] MEDS: ULTRAM PO (21:23)
[2025-05-20 22:11] LABS: Hematocrit 22.1 % (37.0-47.0); Hemoglobin 7.1 g/dL (12.0-16.0)
[2025-05-20] MEDS: REMERON PO (22:40)
[2025-05-21] VITALS (11 sets, daily range): BP systolic 80–118; BP diastolic 46–70; PULSE 93–94; O2SAT 95–97; BMI 17.8
--- NOTE | 2025-05-21 | PTCARENOTE ---
Patient manual BP 76/54 at 2132 after PRN midodrine at 2010. Patient AAOx3, other VS stable. C/o some light headedness and dizziness. 1x dose of NSS bolus and additional Midodrine ordered my DIRECTOR CONSUMER, see JAN. BP at 2239 was 87/54. Patient now
asymptomatic. DIRECTOR CONSUMER came to the floor to assess pt. H&H ordered. Hgb dropped from 7.4 to 7.1. Patient educated about a possible blood transfusion given low BP and hgb drop. Patient refused blood transfusion at this time stating she had a reaction in
the past, however, unable to provide specific adverse reactions to RN and DIRECTOR CONSUMER. DIRECTOR CONSUMER aware, no new orders at this time. BP 86/53 @ 2340. Call todd is within reach.
[2025-05-21] MEDS: TYLENOL 650 MG PO ×2 (04:04→20:57)
[2025-05-21] MEDS: ANCEF 5 IV ×3 (05:46→21:00)
[2025-05-21 07:32] LABS: Hematocrit 24.2 % (37.0-47.0); Hemoglobin 7.7 g/dL (12.0-16.0); Mean Corp Hgb Conc. 31.8 g/dL (33.0-37.0); Mean Corpuscular Volume 77.3 fL (81.0-99.0); Platelet Count 327 10^3/uL (130-400); Red Cell Dist. Width 14.6 % (11.5-14.5)
[2025-05-21 08:16] LABS: Blood Urea Nitrogen 19 mg/dl (7-17); Calcium 7.2 mg/dl (8.4-10.2); Carbon Dioxide 31 mmol/L (22-30); Chloride 97 mmol/L (98-107); Estimated Creatinine Clearance 63 ml/min; Glucose 90 mg/dl (70-99); Magnesium 1.6 mg/dl (1.6-2.3); Potassium 3.4 mmol/L (3.5-5.1); Sodium 128 mmol/L (135-145); eGFR > 60.00
--- NOTE | 2025-05-21 08:22 | PN.CDI ---
CDI
- -
CDI:
Physician Documentation Request
Admit Date: 05/18/25 16:03
Dear Doctor Do,
Patient admitted with sepsis.
05/20 PN, 'Protein calorie malnutrition/cachexia�BMI 17.4 kg.'
05/19 Nutrition note, 'With weight loss of > 7.5% in 3 months and < 75% estimated needs > 1 month pt meets AND/ASPEN criteria for moderate protein calorie malnutrition of SEC.'
Please provide in your note the diagnosis associated with above nutritional findings and your assessment:
Moderate protein calorie malnutrition
Other (please specify)
[place] Criteria ([facility] Hospitalist 2017)
2 or more criteria must be present for either
non severe or severe malnutrition
Note that the criteria differs related to the
presence of an acute or chronic illness
Acute Illness Chronic Illness
Energy Intake Non Severe: <75% for >7 days Non Severe: <75% for >1 month
Severe: <50% for >5 days Severe: <75% for >1 month
Weight Loss Non Severe: 1-2% over 1 week Non Severe: 5% over 1 month
5% over 1 month 7.5% over 3 months
7.5% over 3 months 10% over 6 months
1 year N/A 20% over 1 year
Severe: >2% over 1 week Severe: >5% over 1 month
>5% over 1 month >7.5% over 3 months
>7.5% over 3 months >10% over 6 months
1 year N/A >20% over 1 year
Body Fat Non Severe: Mild Decrease Non Severe: Mild Loss
Severe: Moderate Decrease Severe: Severe Loss
Muscle Mass Non Severe: Mild Decrease Non Severe: Mild Loss
Severe: Moderate Decrease Severe: Severe Loss
Fluid Accumulation Non Severe: Mild Accumulation Non Severe: Mild Accumulation
Severe: Moderate to severe Severe: Moderate to severe
accumulation accumulation
Reduced Chemical Engineering Professor Strength Non Severe: N/A Non Severe: N/A
Severe: Measurably reduced Severe: Measurably reduced
Use of terms such as suspected, likely, concern for, or probable (associated with a specific diagnosis that is being evaluated, monitored, or treated as if it exists) are acceptable and can be coded in the inpatient setting, when documented at the
time of discharge.
Thank you,
Carole PHILIPPE,RN,CCDS
CDI Specialist
Available via [place] text
Please use your independent medical judgment in providing your response.
[2025-05-21 08:34] LABS: Cortisol, Random 16.3 ug/dl
[2025-05-21] MEDS: ULTRAM PO ×2 (08:42→20:59)
--- NOTE | 2025-05-21 12:08 | W.CON.NEPH ---
Consultation
-
Date/Time Consultation Requested: 05/21/25 0900
Date/Time Consultation Performed: 05/21/25 1100
Requesting Provider: José Westbrook Do
Performing Provider: Julissa Webster
Reason for Consultation: Hyponatremia
Medical History
-
Chief Complaint: Bilateral leg ulcerations with erythema, nausea, leg pain
History of Present Illness:
59-year-old female With multiple medical problems resident of [facility] presented on 05/18 with complaining of bilateral leg ulcerations for the past several months with redness. She has a long-standing lower extremity lymphedema
along with the pain for which she takes narcotics. She diagnosed with the cellulitis of her legs and abscess. She also has significant hyperkalemia potassium of 7 and bicarbonate of 12 she was given bicarbonate fluids with holding Lasix. She
received Lokelma too. Now her potassium has improved significantly in fact on the low end at 3.4. Resolved metabolic acidosis with a bicarbonate level of 31 currently. She has mild hyponatremia since that admission at 127 which was improved with
the fluids to 131 however now decreasing trend to 128 hence nephrology consulted. she is a poor historian, currently only mumbling post tramadol. Her blood pressure also low end. She denies any chest pain or shortness of breath. No abdominal
pain. Has complaints about lower extremity pain. No reported fever. She maintains on Ancef for cellulitis.
Note she has past medical history rheumatoid arthritis on Orencia and leflunomide, severe bilateral glenohumeral arthrosis, chronic rotator cuff arthropathy, chronic bilateral shoulder pain, depression On Remeron, chronic pain on chronic oral
opiates as needed, naproxen, chronic bilateral lower leg edema on Lasix.
Past Medical History
rheumatoid arthritis on Orencia and leflunomide
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
Chronic ambulatory dysfunction uses wheelchair
severe bilateral glenohumeral arthrosis
chronic rotator cuff arthropathy
chronic bilateral shoulder pain
depression
chronic pain on chronic oral opiates as needed,
chronic bilateral lower leg edema
hypothyroidism
HTN
HLD
Social History
Tobacco: Non-Smoker
Alcohol: None
Drug: None
Personal: (Patient reports last year at age 54 MT)
Living: [facility]
Employment: Disabled
Family History
Family History: Unable to Obtain
Allergies / Home Medications
Allergy/AdvReac Type Severity Reaction Status Date / Time
No Known Allergies Allergy Unverified 12/08/22 19:34
�Medication �Instructions �Recorded �Confirmed �Type
abatacept 125 mg/mL subcutaneous 125 mg SC QWEEK Antirheumatic 05/18/25 05/18/25 History
syringe
acetaminophen 325 mg tablet 650 mg PO PRN PRN pain/fever 05/18/25 05/18/25 History
furosemide 40 mg tablet (Lasix) 40 mg PO DAILY Fluid 05/18/25 05/18/25 History
Retention/Swelling
leflunomide 20 mg tablet 20 mg PO DAILY Antirheumatic 05/18/25 05/18/25 History
mirtazapine 15 mg tablet (Remeron) 15 mg PO HS Mental Health/Anxiety 05/18/25 05/18/25 History
naproxen 500 mg tablet 500 mg PO BID INFLAMMATION/PAIN 05/18/25 05/18/25 History
oxycodone 10 mg tablet 10 mg PO Q6HPRN PRN severe 05/18/25 05/18/25 History
pains(7-10)
polyethylene glycol 3350 17 gram 17 g PO DAILY Constipation 05/18/25 05/18/25 History
oral powder packet (Miralax)
sennosides 8.6 mg capsule (senna) 8.6 mg PO DAILY Constipation 05/18/25 05/18/25 History
tramadol 50 mg tablet 50 mg PO BID Pain 05/18/25 05/18/25 History
tramadol 50 mg tablet 50 mg PO Q6HPRN PRN moderate pains 05/18/25 05/18/25 History
Review of Systems
-
poor historian has pain meds just before
Unable to obtain full review of systems at this time due to: Acuity
Physical Exam
Vital Signs
Vital Signs
Temp Pulse Resp BP Pulse Ox
99 F 103 16 90/51 100
05/21/25 11:37 05/21/25 11:37 05/21/25 11:37 05/21/25 11:37 05/21/25 11:37
Lab Results
WBC 5.6 10^3/uL (4.8-10.8) 05/21/25 07:12
RBC 3.13 10^6/uL (4.20-5.40) L 05/21/25 07:12
Hgb 7.7 g/dL (12.0-16.0) L 05/21/25 07:12
Hct 24.2 % (37.0-47.0) L 05/21/25 07:12
Plt Count 327 10^3/uL (130-400) 05/21/25 07:12
Sodium 128 mmol/L (135-145) L 05/21/25 07:12
Potassium 3.4 mmol/L (3.5-5.1) L 05/21/25 07:12
Chloride 97 mmol/L (98-107) L 05/21/25 07:12
Carbon Dioxide 31 mmol/L (22-30) H 05/21/25 07:12
BUN 19 mg/dl (7-17) H 05/21/25 07:12
Creatinine 0.8 mg/dL (0.6-1.0) 05/21/25 07:12
eGFR > 60.00 05/21/25 07:12
Glucose 90 mg/dl (70-99) 05/21/25 07:12
Calcium 7.2 mg/dl (8.4-10.2) L 05/21/25 07:12
Phosphorus 3.5 mg/dl (2.5-4.5) 05/21/25 07:12
Albumin 2.2 g/dl (3.5-5.0) L 05/20/25 07:59
Physical Exam
General: No Distress, Nontoxic and Other (sleepy)
HEENT: Ear/Nose Intact and Facial Symmetry
Respiratory: Clear (anteriorly), Normal Excursion and Nonlabored Respirations
Cardiac: S1/S2 and Regular Rate/Rhythm
Breast: Deferred by me
Abdomen: Soft, Nontender and Nondistended
Musculoskeletal: Edema (3+)
Skin: Other (LE wounds in bandage)
Neuro: Nonfocal/Grossly Intact
Psych: Appropriate
Data Reviewed
-
Labs: Labs Reviewed by me, Discussed with Nurse and Discussed with Patient
Assessment/Plan
-
IMP:
Sepsis secondary to bilateral lower extremity cellulitis
bilateral leg lymphedema
Hyponatremia
Hypotension without shock
hypoalbuminemia
Iron deficiency anemia
severe hyperkalemia with metabolic acidosis on admit-resolved
now mildly hypokalemia
Hypothyroidism
Rheumatoid arthritis
Chronic bilateral shoulder pain with severe bilateral glenohumeral arthrosis
Chronic rotator cuff arthropathy
Chronic ambulatory dysfunction uses walker at baseline
Chronic debility
HTN
HLD
Moderate protein calorie malnutrition/cachexia�BMI 17.4
Plan:
A/w LE cellulitis and sepsis
severe hyperkalemia and met acidosis improved post IVF bicarb
hyponatremia seem hypervolemia currently
U osmo 249, U na low at 6-poor po solute intake
check BNP, if high start lasix
BP are soft, cortisol ok -add midodrine
check echo
NSAIDs also will not help free water excretion-try to avoid
replace k
follow h/h, prn transfusion, ok for IV fe course as bld cx are neg
d/w nursing
labs in am
[2025-05-21] MEDS: ULTRAM 50 MG PO (12:42)
[2025-05-21] MEDS: KCL 10 MEQ PO (12:42)
--- NOTE | 2025-05-21 13:02 | W.PN.HOSP.TC ---
Today's Communication/Plan
-
see bold
Assessment / Plan
Assessment / Plan
59-year-old female with rheumatoid arthritis, chronic lymphedema presenting with bilateral lower extremity cellulitis.
#Sepsis secondary to bilateral lower extremity cellulitis
Insetting of bilateral lymphedema
Seen by wound care - concern for vasculitis per them
Blood cultures no growth to date, urine cultures neg
Erythema is improving with Ancef, continue for now
Can transition to Keflex upon discharge to complete a 10-day course
#Hyponatremia
Initially hypovolemic hyponatremia, now hypervolemic hyponatremia
TSH is within normal limit. 05/18 Urine sodium is less than 5, U OSM 647 serum OSM 290
05/21 serum OSM 269
Likely needs Lasix but blood pressure soft
Continue fluid restriction, recheck urine Na, urine OSM, consult nephrology
#Hypotension without shock
Due to hypoalbuminemia and opioids
Limit opioids, encourage protein intake, continue midodrine as needed, continue holding valsartan
# Iron deficiency anemia
Iron panel reviewed, patient has low iron/TIBC/percent sat with normal ferritin, normal B12, elevated folate
Will need PO iron supplementation when infection improves
#Acute dehydration with tachycardia secondary to diuretic/lack oral intake
#Acute metabolic acidosis
Bun 48, CO2 12, VBG pending pH 7.26, pCO2 32, HCO3 14.4
Hold Lasix 40 mg daily
Acidosis resolved on sodium bicarb
#Acute hyperkalemia, now mildly hypokalemia
No peak t waves on EKG
Resolved status post IV insulin/IV dextrose, Lokelma 10 g x3, calcium gluconate 1000 mg IV
Changed to regular diet as patient's potassium is now low at 3.4
Trend potassium
#Hypothyroidism
TSH is within normal limit
Continue Synthroid 150 mcg p.o. daily
#Rheumatoid arthritis
#Chronic bilateral shoulder pain with severe bilateral glenohumeral arthrosis
#Chronic rotator cuff arthropathy
#Chronic ambulatory dysfunction uses walker at baseline
HOLD Orencia and Leflunomide due to leg cellulitis
Continue oxycodone 5 mg every 4 H as needed severe pain, oxycodone 10 mg every 6 hours as needed severe pain, tramadol 50 mg twice daily and every 6 hours as needed moderate pain, MiraLAX 17 g daily and twice daily as needed, senna 17.2 mg daily
Continue Zanaflex 2 mg every 6 hours as needed spasms
Continue gabapentin 600 mg a.m., 300 mg at bedtime
Continue Celebrex 100 mg daily
#Chronic debility
From [facility]
#HTN
Hold home valsartan 320 mg daily due to soft blood pressure
#HLD
Continue gemfibrozil 600 mg p.o. every afternoon, Crestor 20 mg every afternoon
#Moderate protein calorie malnutrition/cachexia�BMI 17.4 kg
Patient's albumin is 2.2
Start chocolate Ensure twice daily�recommend continuing at [facility]
DVT prophylaxis - Subcu lovenox
Total time spent to see the patient on the floor, examine the patient, review data and lab results, discuss treatment plan with patient, nursing staff around 51 minutes.
Physical Exam
General: Appears chronically debilitated, no acute distress
HEENT: Normocephalic, Atraumatic, EOMI, MMM
Respiratory: Clear to Auscultation bilaterally
Cardiac: Normal S1/S2, Regular Rate and Rhythm
GI: Soft, Nontender, Nondistended, Normal Bowel Sounds
Extremities: No Clubbing, Cyanosis
Bilateral lower extremity edema noted
Wounds on bilateral lower extremity with scattered erythema
Neuro: Nonfocal/Grossly Intact
Psych: Appears anxious and teary
Anticipated Discharge: > 48 hours
Subjective/Interval History
-
Date of Service: May 21, 2025
Patient's blood pressure dropped yesterday after receiving IV Dilaudid. She reports having some lightheadedness with it. Lightheadedness currently resolved. She is in chronic pain from her rheumatoid arthritis. Also complains of pain in her
lower extremities. No fever, no vomiting.
Objective Data
-
Labs:
Laboratory Results
05/21/25
07:12
WBC 5.6
Hgb 7.7 L
Hct 24.2 L
Plt Count 327
Sodium 128 L
Potassium 3.4 L
Chloride 97 L
Carbon Dioxide 31 H
BUN 19 H
Creatinine 0.8
Glucose 90
Calcium 7.2 L
Vital Signs:
Vital Signs
Temp Pulse Resp BP Pulse Ox
99 F 94 16 107/65 100
05/21/25 11:37 05/21/25 12:28 05/21/25 11:37 05/21/25 12:28 05/21/25 11:37
I&O
05/20/25 05/21/25 05/22/25
06:59 06:59 06:59
Intake Total 1800 / 1800 1370 / 1370
Output Total 1200 / 1200 525 / 525
Balance 600 / 600 845 / 845
--- NOTE | 2025-05-21 13:30 | CM ---
Addendum entered by Heidi Cruz RN 05/21/25 14:29:
[facility] admissions liaison confirmed patient is [facility] resident of facility.
Original Note:
Reviewed the chart notes. CM left voice message for covering liaison from [facility] to confirm [facility] bed status. CM continues to be available to patient/family and is monitoring medical plan for needs at discharge.
Plan: Discharge back to [facility] when medically stable.
Call report to: [phone]
Fax report to: [phone]
[2025-05-21] MEDS: NAPROSYN 500 MG PO ×2 (14:22→20:58)
[2025-05-21] MEDS: HYDROPHOR 1 APPLIC TOPICAL (18:14)
[2025-05-21] MEDS: DAKIN'S SOLUTION 0.125% 1/4 STRENGTH 1 ML TOPICAL (18:14)
[2025-05-21] MEDS: LOVENOX SC (18:48)
--- NOTE | 2025-05-21 19:12 | PTCARENOTE ---
Patient refused IV Lasix and PO potassium. Education was provided on importance of taking her medication. Patient will reattempt to take with pbx inspector. Updated with pbx inspector RN.
[2025-05-21] MEDS: KCL 20 MEQ PO (20:57)
[2025-05-21] MEDS: REMERON PO (20:59)
[2025-05-22] MEDS: NSS 250 IV (00:11)
[2025-05-22 03:26] VITALS: BP 112/64
[2025-05-22 06:00] VITALS: BMI 18.2
[2025-05-22] MEDS: ANCEF 5 IV ×2 (06:14→13:46)
[2025-05-22 06:49] LABS: Hematocrit 24.1 % (37.0-47.0); Hemoglobin 7.8 g/dL (12.0-16.0); Mean Corp Hgb Conc. 32.4 g/dL (33.0-37.0); Mean Corpuscular Volume 77.0 fL (81.0-99.0); Platelet Count 381 10^3/uL (130-400); Red Cell Dist. Width 14.7 % (11.5-14.5)
[2025-05-22 07:00] VITALS: BP 110/68
[2025-05-22 07:15] LABS: Blood Urea Nitrogen 19 mg/dl (7-17); Calcium 7.6 mg/dl (8.4-10.2); Carbon Dioxide 31 mmol/L (22-30); Chloride 100 mmol/L (98-107); Estimated Creatinine Clearance 74 ml/min; Glucose 80 mg/dl (70-99); Potassium 4.0 mmol/L (3.5-5.1); Sodium 131 mmol/L (135-145); eGFR > 60.00
[2025-05-22 08:56] LABS: Glucose - Point of Care 78 mg/dl (70-99)
[2025-05-22] MEDS: ULTRAM 50 MG PO ×3 (09:04→20:55)
[2025-05-22] MEDS: NAPROSYN 500 MG PO (09:06)
--- NOTE | 2025-05-22 09:27 | W.PN.HOSP.TC ---
Today's Communication/Plan
-
Plan for discharge back to [facility] on Sunday
Assessment / Plan
Assessment / Plan
59-year-old female with rheumatoid arthritis, chronic lymphedema presenting with bilateral lower extremity cellulitis.
#Sepsis secondary to bilateral lower extremity cellulitis
Insetting of bilateral lymphedema
Seen by wound care - concern for vasculitis per them
Blood cultures no growth to date, urine cultures neg
Erythema is improving with Ancef D5, change to Keflex to complete a 10-day course
#Hyponatremia
Initially hypovolemic hyponatremia, now hypervolemic hyponatremia
TSH is within normal limit. 05/18 Urine sodium is less than 5, U OSM 647 serum OSM 290
05/21 serum OSM 269
05/22 sodium improved status post IV Lasix
Continue Lasix as per nephrology
#Hypotension without shock
Due to hypoalbuminemia and opioids
Limit opioids, encourage protein intake, continue midodrine as needed, continue holding valsartan
Started on midodrine 2.5 mg 3 times daily by nephrology
# Iron deficiency anemia
Iron panel reviewed, patient has low iron/TIBC/percent sat with normal ferritin, normal B12, elevated folate
Will need PO iron supplementation when infection improves
#Acute dehydration with tachycardia secondary to diuretic/lack oral intake
#Acute metabolic acidosis
Bun 48, CO2 12, VBG pending pH 7.26, pCO2 32, HCO3 14.4
Hold Lasix 40 mg daily
Acidosis resolved on sodium bicarb
#Acute hyperkalemia, now mildly hypokalemia
No peak t waves on EKG
Resolved status post IV insulin/IV dextrose, Lokelma 10 g x3, calcium gluconate 1000 mg IV
Potassium normal today
Trend potassium
#Hypothyroidism
TSH is within normal limit
Continue Synthroid 150 mcg p.o. daily
#Rheumatoid arthritis
#Chronic bilateral shoulder pain with severe bilateral glenohumeral arthrosis
#Chronic rotator cuff arthropathy
#Chronic ambulatory dysfunction uses walker at baseline
HOLD Orencia and Leflunomide due to leg cellulitis
Continue oxycodone 5 mg every 4 H as needed severe pain, oxycodone 10 mg every 6 hours as needed severe pain, tramadol 50 mg twice daily and every 6 hours as needed moderate pain, MiraLAX 17 g daily and twice daily as needed, senna 17.2 mg daily
Continue Zanaflex 2 mg every 6 hours as needed spasms
Continue gabapentin 600 mg a.m., 300 mg at bedtime
Continue Celebrex 100 mg daily
#Chronic debility
From [facility]
#HTN
Hold home valsartan 320 mg daily due to soft blood pressure
#HLD
Continue gemfibrozil 600 mg p.o. every afternoon, Crestor 20 mg every afternoon
#Moderate protein calorie malnutrition/cachexia�BMI 17.4 kg
Patient's albumin is 2.2
Started chocolate Ensure twice daily�recommend continuing at [facility]
DVT prophylaxis - Subcu lovenox
Total time spent to see the patient on the floor, examine the patient, review data and lab results, discuss treatment plan with patient, nursing staff around 41 minutes.
Physical Exam
General: Appears chronically debilitated, no acute distress
HEENT: Normocephalic, Atraumatic, EOMI, MMM
Respiratory: Clear to Auscultation bilaterally
Cardiac: Normal S1/S2, Regular Rate and Rhythm
GI: Soft, Nontender, Nondistended, Normal Bowel Sounds
Extremities: No Clubbing, Cyanosis
Bilateral lower extremity edema noted
Wounds on bilateral lower extremity with scattered erythema
Neuro: Nonfocal/Grossly Intact
Psych: Appears anxious and teary
Anticipated Discharge: 24 - 48 hours
Subjective/Interval History
-
Date of Service: May 22, 2025
Patient continues to complain of bilateral leg pain. Denies chest pain, shortness of breath.
Objective Data
-
Labs:
Laboratory Results
05/22/25
06:13
WBC 5.1
Hgb 7.8 L
Hct 24.1 L
Plt Count 381
Sodium 131 L
Potassium 4.0
Chloride 100
Carbon Dioxide 31 H
BUN 19 H
Creatinine 0.7
Glucose 80
Calcium 7.6 L
Vital Signs:
Vital Signs
Temp Pulse Resp BP Pulse Ox
98.6 F 103 20 110/78 99
05/22/25 07:00 05/22/25 09:05 05/22/25 07:00 05/22/25 09:05 05/22/25 07:00
I&O
05/21/25 05/22/25 05/23/25
06:59 06:59 06:59
Intake Total 1370 / 1370 1330 / 1330
Output Total 525 / 525 600 / 600
Balance 845 / 845 730 / 730
[2025-05-22 11:00] VITALS: BP 92/58
[2025-05-22] MEDS: DAKIN'S SOLUTION 0.125% 1/4 STRENGTH 473 ML TOPICAL (13:48)
[2025-05-22] MEDS: HYDROPHOR 1 APPLIC TOPICAL (13:48)
--- NOTE | 2025-05-22 15:03 | W.PN.NEPH.PH ---
Today's Communication / Plan
-
Maintain fluid restriction
Provide 20 mg of IV Lasix
Check urine protein to creatinine ratio artery edema in setting of albuminuria and hypoalbuminemia
Assessment/Plan
-
IMP:
Sepsis secondary to bilateral lower extremity cellulitis
bilateral leg lymphedema
Hyponatremia
Hypotension without shock
hypoalbuminemia
Iron deficiency anemia
severe hyperkalemia with metabolic acidosis on admit-resolved
now mildly hypokalemia
Hypothyroidism
Rheumatoid arthritis
Chronic bilateral shoulder pain with severe bilateral glenohumeral arthrosis
Chronic rotator cuff arthropathy
Chronic ambulatory dysfunction uses walker at baseline
Chronic debility
HTN
HLD
Moderate protein calorie malnutrition/cachexia�BMI 17.4
Plan:
A/w LE cellulitis and sepsis
severe hyperkalemia and met acidosis improved post IVF bicarb
hyponatremia seem hypervolemia responding to IV laix
U osmo 249, U na low at 6-poor po solute intake
BP are soft, cortisol ok : maintain midodrine
checkedecho
NSAIDs also will not help free water excretion-try to avoid
Quantitate underlying proteinuria with urine protein to creatinine ratio
follow h/h, prn transfusion, ok for IV fe course as bld cx are neg
d/w nursing
labs in am
-
-
Date of Service: May 22, 2025
CC / HPI / ROS
-
Chief Complaint:
Hyponatremia
Proteinuria
History of Present Illness:
Serum sodium up to 131
Hypotensive on midodrine
Review of Systems:
Grossly non oliguric
Continuous edema
No chest pain or shortness of breath at rest
Labs
-
Labs:
WBC 5.1 10^3/uL (4.8-10.8) 05/22/25 06:13
RBC 3.13 10^6/uL (4.20-5.40) L 05/22/25 06:13
Hgb 7.8 g/dL (12.0-16.0) L 05/22/25 06:13
Hct 24.1 % (37.0-47.0) L 05/22/25 06:13
Plt Count 381 10^3/uL (130-400) 05/22/25 06:13
Sodium 131 mmol/L (135-145) L 05/22/25 06:13
Potassium 4.0 mmol/L (3.5-5.1) 05/22/25 06:13
Chloride 100 mmol/L (98-107) 05/22/25 06:13
Carbon Dioxide 31 mmol/L (22-30) H 05/22/25 06:13
BUN 19 mg/dl (7-17) H 05/22/25 06:13
Creatinine 0.7 mg/dL (0.6-1.0) 05/22/25 06:13
eGFR > 60.00 05/22/25 06:13
Glucose 80 mg/dl (70-99) 05/22/25 06:13
Calcium 7.6 mg/dl (8.4-10.2) L 05/22/25 06:13
Phosphorus 3.5 mg/dl (2.5-4.5) 05/21/25 07:12
Qas-K-Qsjvtpthedk Pept 3490 pg/ml 05/21/25 07:12
Albumin 2.2 g/dl (3.5-5.0) L 05/20/25 07:59
Physical Exam
-
Vital Signs:
Vital Signs
Temp Pulse Resp BP Pulse Ox
98.5 F 110 18 91/52 99
05/22/25 11:00 05/22/25 13:48 05/22/25 11:00 05/22/25 13:48 05/22/25 11:18
Cardiovascular:: Regular rate and rhythm
Respiratory:: Bilateral: CTA
Lung Excursion:: Normal
Abdomen:: Nontender and Soft
Bowel Sounds:: Normal
Extremity Edema:: +2: Bilateral:
Trejo Catheter: No
[2025-05-22] MEDS: LASIX 20 MG IV (16:00)
[2025-05-22 16:06] VITALS: BP 89/52
[2025-05-22] MEDS: KEFLEX 500 MG PO ×2 (17:09→20:54)
[2025-05-22] MEDS: LOVENOX SC (17:09)
[2025-05-22 19:55] VITALS: BP 90/60
[2025-05-22] MEDS: REMERON 15 MG PO (20:55)
[2025-05-22 23:57] VITALS: BP 92/64
[2025-05-23 03:42] VITALS: BP 130/82
[2025-05-23] MEDS: ROXICODONE 10 MG PO ×2 (05:50→14:16)
[2025-05-23 06:00] VITALS: BMI 17.8
[2025-05-23 07:00] VITALS: BP 94/59
[2025-05-23] MEDS: KEFLEX 500 MG PO ×4 (07:45→20:25)
[2025-05-23] MEDS: ULTRAM 50 MG PO ×2 (07:45→20:24)
--- NOTE | 2025-05-23 08:37 | W.PN.HOSP.TC ---
Today's Communication/Plan
-
Discharge back to [facility] tomorrow if cleared by nephrology
Assessment / Plan
Assessment / Plan
59-year-old female with rheumatoid arthritis, chronic lymphedema presenting with bilateral lower extremity cellulitis.
#Sepsis secondary to bilateral lower extremity cellulitis
Insetting of bilateral lymphedema
Seen by wound care - concern for vasculitis per them
Blood cultures no growth to date, urine cultures neg
Erythema is improving with Ancef, changed to Keflex D6/10
#Hyponatremia
Initially hypovolemic hyponatremia, now hypervolemic hyponatremia
TSH is within normal limit. 05/18 Urine sodium is less than 5, U OSM 647 serum OSM 290
05/21 serum OSM 269
05/22 sodium improved status post IV Lasix
Continue IV Lasix as per nephrology
#Hypotension without shock
#Hypoalbuminemia
Hypotension due to hypoalbuminemia and opioids, nephrotic syndrome ruled out
Limit opioids, encourage protein intake
Started on midodrine 2.5 mg 3 times daily by nephrology
Continue midodrine as needed, continue holding valsartan
# Iron deficiency anemia
Iron panel reviewed, patient has low iron/TIBC/percent sat with normal ferritin, normal B12, elevated folate
Will need PO iron supplementation when infection improves
#Acute dehydration with tachycardia secondary to diuretic/lack oral intake
#Acute metabolic acidosis
Bun 48, CO2 12, VBG pending pH 7.26, pCO2 32, HCO3 14.4
Hold Lasix 40 mg daily
Acidosis resolved on sodium bicarb
#Acute hyperkalemia, now mildly hypokalemia
No peak t waves on EKG
Resolved status post IV insulin/IV dextrose, Lokelma 10 g x3, calcium gluconate 1000 mg IV
Potassium normal, trend potassium
#Hypothyroidism
TSH is within normal limit
Continue Synthroid 150 mcg p.o. daily
#Rheumatoid arthritis
#Chronic bilateral shoulder pain with severe bilateral glenohumeral arthrosis
#Chronic rotator cuff arthropathy
#Chronic ambulatory dysfunction uses walker at baseline
HOLD Orencia and Leflunomide due to leg cellulitis
Continue oxycodone 5 mg every 4 H as needed severe pain, oxycodone 10 mg every 6 hours as needed severe pain, tramadol 50 mg twice daily and every 6 hours as needed moderate pain, MiraLAX 17 g daily and twice daily as needed, senna 17.2 mg daily
Continue Zanaflex 2 mg every 6 hours as needed spasms
Continue gabapentin 600 mg a.m., 300 mg at bedtime
Continue Celebrex 100 mg daily
#Chronic debility
From [facility]
#HTN
Hold home valsartan 320 mg daily due to soft blood pressure
#HLD
Continue gemfibrozil 600 mg p.o. every afternoon, Crestor 20 mg every afternoon
#Moderate protein calorie malnutrition/cachexia�BMI 17.4 kg
Patient's albumin is 2.2
Started chocolate Ensure twice daily�recommend continuing at [facility]
DVT prophylaxis - Subcu lovenox
Total time spent to see the patient on the floor, examine the patient, review data and lab results, discuss treatment plan with patient, nursing staff around 40 minutes.
Physical Exam
General: Appears chronically debilitated, no acute distress
HEENT: Normocephalic, Atraumatic, EOMI, MMM
Respiratory: Clear to Auscultation bilaterally
Cardiac: Normal S1/S2, Regular Rate and Rhythm
GI: Soft, Nontender, Nondistended, Normal Bowel Sounds
Extremities: No Clubbing, Cyanosis
Bilateral lower extremity edema noted
Wounds on bilateral lower extremity with scattered erythema
Neuro: Nonfocal/Grossly Intact
Psych: Appears anxious and teary
Anticipated Discharge: Within 24 hours
Subjective/Interval History
-
Date of Service: May 23, 2025
Patient continues to complain of diffuse pain, especially in her legs. Denies chest pain, denies shortness of breath. No fever, no vomiting.
Objective Data
-
Labs:
Laboratory Results
05/23/25
06:00
WBC Pending
Hgb Pending
Hct Pending
Plt Count Pending
Sodium Pending
Potassium Pending
Chloride Pending
Carbon Dioxide Pending
BUN Pending
Creatinine Pending
Glucose Pending
Calcium Pending
Vital Signs:
Vital Signs
Temp Pulse Resp BP Pulse Ox
98.0 F 95 18 94/59 99
05/23/25 03:42 05/23/25 07:46 05/23/25 03:42 05/23/25 07:46 05/23/25 03:42
I&O
05/22/25 05/23/25 05/24/25
06:59 06:59 06:59
Intake Total 1330 / 1330 960 / 960
Output Total 600 / 600 1260 / 1260
Balance 730 / 730 -300 / -300
[2025-05-23 08:59] LABS: Hematocrit 25.9 % (37.0-47.0); Hemoglobin 8.2 g/dL (12.0-16.0); Mean Corp Hgb Conc. 31.7 g/dL (33.0-37.0); Mean Corpuscular Volume 77.5 fL (81.0-99.0); Platelet Count 406 10^3/uL (130-400); Red Cell Dist. Width 14.9 % (11.5-14.5)
[2025-05-23 09:23] LABS: Blood Urea Nitrogen 15 mg/dl (7-17); Calcium 7.9 mg/dl (8.4-10.2); Carbon Dioxide 30 mmol/L (22-30); Chloride 101 mmol/L (98-107); Estimated Creatinine Clearance 72 ml/min; Glucose 131 mg/dl (70-99); Potassium 4.0 mmol/L (3.5-5.1); Sodium 134 mmol/L (135-145); eGFR > 60.00
[2025-05-23 11:00] VITALS: BP 85/51
--- NOTE | 2025-05-23 12:35 | W.PN.NEPH.PH ---
Today's Communication / Plan
-
Maintain fluid restriction and IV Lasix
Follow BMP
Urine protein to creatinine ratio was not significant for nephrotic syndrome and thus does not explain hypoalbuminemia
Assessment/Plan
-
IMP:
Sepsis secondary to bilateral lower extremity cellulitis
bilateral leg lymphedema
Hyponatremia
Hypotension without shock
hypoalbuminemia
Iron deficiency anemia
severe hyperkalemia with metabolic acidosis on admit-resolved
now mildly hypokalemia
Hypothyroidism
Rheumatoid arthritis
Chronic bilateral shoulder pain with severe bilateral glenohumeral arthrosis
Chronic rotator cuff arthropathy
Chronic ambulatory dysfunction uses walker at baseline
Chronic debility
HTN
HLD
Moderate protein calorie malnutrition/cachexia�BMI 17.4
Plan:
A/w LE cellulitis and sepsis
Serum sodium rising to 134
severe hyperkalemia and met acidosis improved post IVF bicarb and diuresis
hyponatremia seem hypervolemia responding to IV lasix which will be continued
U osmo 249, U na low at 6-poor po solute intake
BP are soft, cortisol ok : maintain midodrine : Likely a product of compromised effective circulating volume in the setting of profound hypoalbuminemia
checked echo
NSAIDs also will not help free water excretion-try to avoid
Quantitate underlying proteinuria with urine protein to creatinine ratio: 1.3 grams, not consistent with nephrotic range proteinuria
follow h/h, prn transfusion, ok for IV fe course as bld cx are neg
labs in am
-
-
Date of Service: May 23, 2025
CC / HPI / ROS
-
Chief Complaint:
Hyponatremia
Proteinuria
History of Present Illness:
Serum sodium up to 134
Hypotensive on midodrine
Review of Systems:
Grossly non oliguric
Continuous edema
No chest pain or shortness of breath at rest
Labs
-
Labs:
WBC 5.5 10^3/uL (4.8-10.8) 05/23/25 08:37
RBC 3.34 10^6/uL (4.20-5.40) L 05/23/25 08:37
Hgb 8.2 g/dL (12.0-16.0) L 05/23/25 08:37
Hct 25.9 % (37.0-47.0) L 05/23/25 08:37
Plt Count 406 10^3/uL (130-400) H 05/23/25 08:37
Sodium 134 mmol/L (135-145) L 05/23/25 08:37
Potassium 4.0 mmol/L (3.5-5.1) 05/23/25 08:37
Chloride 101 mmol/L (98-107) 05/23/25 08:37
Carbon Dioxide 30 mmol/L (22-30) 05/23/25 08:37
BUN 15 mg/dl (7-17) 05/23/25 08:37
Creatinine 0.7 mg/dL (0.6-1.0) 05/23/25 08:37
eGFR > 60.00 05/23/25 08:37
Glucose 131 mg/dl (70-99) H 05/23/25 08:37
Calcium 7.9 mg/dl (8.4-10.2) L 05/23/25 08:37
Phosphorus 3.5 mg/dl (2.5-4.5) 05/21/25 07:12
Qlz-D-Duvpgyrykpa Pept 3490 pg/ml 05/21/25 07:12
Albumin 2.2 g/dl (3.5-5.0) L 05/20/25 07:59
Physical Exam
-
Vital Signs:
Vital Signs
Temp Pulse Resp BP Pulse Ox
98 F 102 16 85/51 100
05/23/25 11:00 05/23/25 12:10 05/23/25 11:00 05/23/25 12:10 05/23/25 11:00
Cardiovascular:: Regular rate and rhythm
Respiratory:: Bilateral: CTA
Lung Excursion:: Normal
Abdomen:: Nontender and Soft
Bowel Sounds:: Normal
Extremity Edema:: +2: Bilateral:
Trejo Catheter: No
[2025-05-23] MEDS: LASIX 20 MG IV (14:11)
[2025-05-23] MEDS: HYDROPHOR 1 APPLIC TOPICAL (14:17)
[2025-05-23] MEDS: DAKIN'S SOLUTION 0.125% 1/4 STRENGTH 473 ML TOPICAL (14:17)
[2025-05-23 15:00] VITALS: BP 97/60
--- NOTE | 2025-05-23 15:48 | CM ---
Patient seen at bedside on . Patient with no concerns today and Patient plan is to return to SNF when medically appropriate. CM will continue to follow for discharge planning needs.
Plan; return to SNF; [facility]
Call report to: [phone]
Fax report to: [phone]
[2025-05-23] MEDS: LOVENOX SC (17:15)
[2025-05-23 19:15] VITALS: BP 111/72
[2025-05-23] MEDS: REMERON 15 MG PO (20:24)
[2025-05-23 23:17] VITALS: BP 109/70
[2025-05-24 03:54] VITALS: BP 138/78
[2025-05-24] MEDS: ROXICODONE 10 MG PO ×3 (05:32→17:46)
[2025-05-24 06:00] VITALS: BMI 18.1
[2025-05-24 07:50] VITALS: BP 99/66
[2025-05-24 08:43] LABS: Blood Urea Nitrogen 15 mg/dl (7-17); Calcium 7.9 mg/dl (8.4-10.2); Carbon Dioxide 32 mmol/L (22-30); Chloride 101 mmol/L (98-107); Estimated Creatinine Clearance 86 ml/min; Glucose 103 mg/dl (70-99); Potassium 4.3 mmol/L (3.5-5.1); Sodium 134 mmol/L (135-145); eGFR > 60.00
[2025-05-24] MEDS: ULTRAM 50 MG PO (09:04)
[2025-05-24] MEDS: LASIX 20 MG IV (09:05)
[2025-05-24] MEDS: KEFLEX 500 MG PO ×2 (09:05→13:36)
--- NOTE | 2025-05-24 09:17 | W.PN.HOSP.TC ---
Today's Communication/Plan
-
Cleared by nephrology for discharge back to [facility] today
Assessment / Plan
Assessment / Plan
59-year-old female with rheumatoid arthritis, chronic lymphedema presenting with bilateral lower extremity cellulitis.
#Sepsis secondary to bilateral lower extremity cellulitis
#Chronic lower extremity wounds
Insetting of bilateral lymphedema
Seen by wound care - concern for vasculitis per them
Blood cultures no growth to date, urine cultures neg
Status post IV Ancef, continue Keflex D7/10 to complete a 10-day course
Needs stephen wrap 24x7 to the legs, along with elevation of the feet to the level of the heart 2h out of 6h
#Hyponatremia
Initially hypovolemic hyponatremia, now hypervolemic hyponatremia
TSH a.m. cortisol within normal limits
Appreciate nephrology input, patient's sodium has improved with IV Lasix
Nephrology recommends discharge on Lasix 80 mg p.o. daily, increased from her previous dose of 40 mg p.o. daily
#Hypotension without shock
#Hypoalbuminemia
Hypotension due to hypoalbuminemia and opioids, nephrotic syndrome ruled out
Limit opioids, encourage protein intake
Started on midodrine 2.5 mg 3 times daily by nephrology -continue upon discharge
Continue midodrine as needed, permanently discontinue her previous antihypertensives
# Iron deficiency anemia
Iron panel reviewed, patient has low iron/TIBC/percent sat with normal ferritin, normal B12, elevated folate
Will discharge on oral iron daily
#Acute dehydration with tachycardia secondary to diuretic/lack oral intake
#Acute metabolic acidosis
Bun 48, CO2 12, VBG pending pH 7.26, pCO2 32, HCO3 14.4
Hold Lasix 40 mg daily
Acidosis resolved on sodium bicarb
#Acute hyperkalemia, now mildly hypokalemia
No peak t waves on EKG
Resolved status post IV insulin/IV dextrose, Lokelma 10 g x3, calcium gluconate 1000 mg IV
Potassium normal, trend potassium
#Hypothyroidism
TSH is within normal limit
Continue Synthroid 150 mcg p.o. daily
#Rheumatoid arthritis
#Chronic bilateral shoulder pain with severe bilateral glenohumeral arthrosis
#Chronic rotator cuff arthropathy
#Chronic ambulatory dysfunction uses walker at baseline
HOLD Orencia and Leflunomide due to leg cellulitis
Continue oxycodone 5 mg every 4 H as needed severe pain, oxycodone 10 mg every 6 hours as needed severe pain, tramadol 50 mg twice daily and every 6 hours as needed moderate pain, MiraLAX 17 g daily and twice daily as needed, senna 17.2 mg daily
Continue Zanaflex 2 mg every 6 hours as needed spasms
Continue gabapentin 600 mg a.m., 300 mg at bedtime
Continue Celebrex 100 mg daily
#Chronic debility
From [facility]
#HTN
Hold home valsartan 320 mg daily due to soft blood pressure
#HLD
Continue gemfibrozil 600 mg p.o. every afternoon, Crestor 20 mg every afternoon
#Moderate protein calorie malnutrition/cachexia�BMI 17.4 kg
Patient's albumin is 2.2
Started chocolate Ensure twice daily�recommend continuing at [facility]
DVT prophylaxis - Subcu lovenox
Physical Exam
General: Appears chronically debilitated, no acute distress
HEENT: Normocephalic, Atraumatic, EOMI, MMM
Respiratory: Clear to Auscultation bilaterally
Cardiac: Normal S1/S2, Regular Rate and Rhythm
GI: Soft, Nontender, Nondistended, Normal Bowel Sounds
Extremities: No Clubbing, Cyanosis
Bilateral lower extremity edema noted
Wounds on bilateral lower extremity with scattered erythema
Neuro: Nonfocal/Grossly Intact
Psych: Appears anxious and teary
Anticipated Discharge: Today
Subjective/Interval History
-
Date of Service: May 24, 2025
Patient continues to have chronic diffuse body pain, bilateral lower extremity leg pain as well. She states the leg pain has been more recent. No chest pain, no shortness of breath. No fever, no vomiting.
Objective Data
-
Labs:
Laboratory Results
05/24/25
08:17
Sodium 134 L
Potassium 4.3
Chloride 101
Carbon Dioxide 32 H
BUN 15
Creatinine 0.6
Glucose 103 H
Calcium 7.9 L
Vital Signs:
Vital Signs
Temp Pulse Resp BP Pulse Ox
98.9 F 93 16 100/66 99
05/24/25 07:50 05/24/25 07:50 05/24/25 07:50 05/24/25 09:05 05/24/25 07:50
I&O
05/23/25 05/24/25 05/25/25
06:59 06:59 06:59
Intake Total 960 / 960 600 / 600
Output Total 1260 / 1260 750 / 750 275 / 275
Balance -300 / -300 -150 / -150 -275 / -275
[2025-05-24 11:05] VITALS: BP 101/58
--- NOTE | 2025-05-24 12:18 | W.PN.NEPH.PH ---
Today's Communication / Plan
-
Stable for discharge
Would discharge on 80 mg p.o. daily of Lasix
Assessment/Plan
-
IMP:
Sepsis secondary to bilateral lower extremity cellulitis
bilateral leg lymphedema
Hyponatremia
Hypotension without shock
hypoalbuminemia
Iron deficiency anemia
severe hyperkalemia with metabolic acidosis on admit-resolved
now mildly hypokalemia
Hypothyroidism
Rheumatoid arthritis
Chronic bilateral shoulder pain with severe bilateral glenohumeral arthrosis
Chronic rotator cuff arthropathy
Chronic ambulatory dysfunction uses walker at baseline
Chronic debility
HTN
HLD
Moderate protein calorie malnutrition/cachexia�BMI 17.4
Plan:
A/w LE cellulitis and sepsis
Serum sodium rising to 134
severe hyperkalemia and met acidosis improved post IVF bicarb and diuresis
hyponatremia seem hypervolemia responding to IV lasix
Stable for discharge I would escalate Lasix to 80 mg p.o. daily at discharge
U osmo 249, U na low at 6-poor po solute intake
BP are soft, cortisol ok : maintain midodrine : Likely a product of compromised effective circulating volume in the setting of profound hypoalbuminemia
checked echo
NSAIDs also will not help free water excretion-try to avoid
Quantitated underlying proteinuria with urine protein to creatinine ratio: 1.3 grams, not consistent with nephrotic range proteinuria
f
-
-
Date of Service: May 24, 2025
CC / HPI / ROS
-
Chief Complaint:
Hyponatremia
Proteinuria
History of Present Illness:
Serum sodium up to 134
Hypotensive on midodrine
Review of Systems:
Grossly non oliguric
Continuous edema
No chest pain or shortness of breath at rest
Labs
-
Labs:
WBC 5.5 10^3/uL (4.8-10.8) 05/23/25 08:37
RBC 3.34 10^6/uL (4.20-5.40) L 05/23/25 08:37
Hgb 8.2 g/dL (12.0-16.0) L 05/23/25 08:37
Hct 25.9 % (37.0-47.0) L 05/23/25 08:37
Plt Count 406 10^3/uL (130-400) H 05/23/25 08:37
Sodium 134 mmol/L (135-145) L 05/24/25 08:17
Potassium 4.3 mmol/L (3.5-5.1) 05/24/25 08:17
Chloride 101 mmol/L (98-107) 05/24/25 08:17
Carbon Dioxide 32 mmol/L (22-30) H 05/24/25 08:17
BUN 15 mg/dl (7-17) 05/24/25 08:17
Creatinine 0.6 mg/dL (0.6-1.0) 05/24/25 08:17
eGFR > 60.00 05/24/25 08:17
Glucose 103 mg/dl (70-99) H 05/24/25 08:17
Calcium 7.9 mg/dl (8.4-10.2) L 05/24/25 08:17
Phosphorus 3.5 mg/dl (2.5-4.5) 05/21/25 07:12
Eeg-F-[place] Pept 3490 pg/ml 05/21/25 07:12
Albumin 2.2 g/dl (3.5-5.0) L 05/20/25 07:59
Physical Exam
-
Vital Signs:
Vital Signs
Temp Pulse Resp BP Pulse Ox
98.8 F 99 16 101/58 100
05/24/25 11:05 05/24/25 11:05 05/24/25 11:05 05/24/25 11:05 05/24/25 11:05
Cardiovascular:: Regular rate and rhythm
Respiratory:: Bilateral: CTA
Lung Excursion:: Normal
Abdomen:: Nontender and Soft
Bowel Sounds:: Normal
Extremity Edema:: +2: Bilateral:
Trejo Catheter: No
--- NOTE | 2025-05-24 13:56 | CM ---
Patient seen at bedside on . Patient for return to SNF and asking for late transfer. Patient completed IMM and signed form placed on chart. CM notified Admissions at [facility] and transfer forms completed for transfer. CM will continue
to follow for discharge planning needs.
Plan; return to SNF; [facility]
Call report to: [phone]
Fax report to: [phone]
--- NOTE | 2025-05-24 14:45 | W.DCSUMMARY ---
Discharge Summary
Discharge Data
Date of Admission: 05/18/25
Date of Discharge: 05/24/25
-
Pending Results: No
Hospital Course
Discharge diagnosis:
Sepsis secondary to bilateral lower extremity cellulitis
Chronic lymphedema with chronic lower extremity wounds
Hypotension without shock
Hypoalbuminemia
Iron deficiency anemia
Hyperkalemia followed by hypokalemia
Dehydration
Acute metabolic acidosis
Hypothyroidism
Rheumatoid arthritis
Chronic bilateral shoulder pain with severe bilateral glenohumeral arthrosis
Chronic rotator cuff arthropathy
Chronic ambulatory dysfunction uses walker at baseline
Chronic debility
Moderate protein calorie malnutrition
Consults: Nephrology
Hospital course:
59-year-old female with a past medical history of rheumatoid arthritis, chronic pain syndrome on chronic opioids, hypertension, and hypothyroidism who was admitted for sepsis secondary to bilateral lower extremity cellulitis. Patient was treated
with IV Ancef. Her leukocytosis resolved. She is transitioned to Keflex to complete a 10-day course. She has chronic lymphedema, and needs to use her Michael wraps 24 hours a day 7 days a week to the legs, along with elevation of the feet to the
level of the heart.
Patient was initially hyperkalemic with a potassium of 7.0. She was treated with IV insulin, IV dextrose, Lokelma, and calcium gluconate. Hyperkalemia resolved. She then was hypokalemic, and received potassium supplementation. Her potassium
normalized.
Patient initially had hypovolemic hyponatremia. She was treated with IV fluids. Her sodium improved. She then had hypervolemic hyponatremia. She was seen in conjunction with nephrology. She was treated with IV Lasix. Nephrology recommends that
she be discharged on Lasix 80 mg p.o. daily, increased from her previous dose of 40 mg p.o. daily.
Patient had hypotension without shock. This is due to hypoalbuminemia from moderate protein calorie malnutrition, and chronic opioid use. She was started on midodrine 2.5 mg TID by nephrology, and can continue this upon discharge. Her previous
antihypertensive medications were discontinued.
Patient also had iron deficiency anemia. She is discharged on ferrous sulfate 325 mg p.o. daily.
Patient has chronic diffuse pain. She states that her bilateral lower extremity pain is new. She does have a history of rheumatoid arthritis. Recommend that she follow-up with her usual farm machinery engine mechanic in the office as soon as possible. She also
needs to follow-up with her primary care doctor in 1 week.
Disposition: [facility]
Discharge planning: Required 41 minutes
Discharge Plan
-
Patient Disposition: Jail/SNF
Discharge Diagnosis/Procedures: Lower extremity cellulitis, hyponatremia, protein calorie malnutrition, hypotension, rheumatoid arthritis with chronic pain
Condition: Fair
Diet: 2 Gram Sodium
Additional Diets: Ensure chocolate protein shake twice a day
Activity: As tolerated
Activity Restrictions/Additional Instructions:
Continue Keflex 500 mg 4 times a day for 4 more days.
Increase your protein intake.
Needs michael wrap 24x7 to the legs, along with elevation of the feet to the level of the heart 2h out of 6h.
Local care to the wounds
Follow-up with your primary care doctor in 1 week, and your usual farm machinery engine mechanic as soon as possible.
Wound Care Instructions
moisturize legs with mineral oil/aquaphor daily after bathing
Legs: Dakin's for cleaning/soak prn odor if tolerates, otherwise use saline
Adaptic, alginate, abd pad and kerlix daily and prn drainage/odor.
Michael wraps knee high daily, remove at hs
Leg elevation when sitting
Follow up at wound care center call for an appointment.
Referrals:
Ish Hall MD [Family Provider] - in one week
Prescriptions:
New
midodrine 5 mg Tablet
2.5 mg PO TID@0800,1300,1800 Qty: 30 0RF
cephalexin 500 mg Capsule
500 mg PO QID 4 Days Qty: 0 0RF
ferrous sulfate 325 mg (65 mg iron) tablet
325 mg PO DAILY Qty: 30 0RF
Continued
tramadol 50 mg Tablet
50 mg PO BID
tramadol 50 mg Tablet
50 mg PO Q6HPRN PRN (Reason: moderate pains)
oxycodone 10 mg Tablet
10 mg PO Q6HPRN PRN (Reason: severe pains(7-10))
acetaminophen 325 mg Tablet
650 mg PO PRN PRN (Reason: pain/fever)
polyethylene glycol 3350 [Miralax] 17 gram Powder In Packet
17 g PO DAILY
leflunomide 20 mg Tablet
20 mg PO DAILY
mirtazapine [Remeron] 15 mg Tablet
15 mg PO HS
senna 8.6 mg Capsule
8.6 mg PO DAILY
abatacept 125 mg/mL Syringe
125 mg SC QWEEK
Changed
furosemide [Lasix] 40 mg Tablet
80 mg PO DAILY Qty: 0 0RF
Discontinued
naproxen 500 mg Tablet
500 mg PO BID
Discharge Orders:
Discharge Patient (As Directed); Ordered 05/24/25
Ordered By: José Patel
Discharge Date and Time
Print Language: MAURITIAN
[2025-05-24 15:10] VITALS: BP 98/58
[2025-05-24] MEDS: DAKIN'S SOLUTION 0.125% 1/4 STRENGTH 5 ML TOPICAL (15:16)
[2025-05-24] MEDS: HYDROPHOR 1 APPLIC TOPICAL (15:17)
--- NOTE | 2025-05-24 16:20 | PTCARENOTE ---
Patient non compliant with leg elevation and stephen wraps. Patients reports she can not tolerate. Education provided. Edelmira hare notified in report.
== END 2025-05-24 18:28 | DRG 872 ==
LOC: 4 EAST ACU 16:03
PROVIDERS: Clinical Nurse Specialist Family Health; Nurse Practitioner Family; Specialist; Student in an Organized Health Care Education/Training Program; ADMITTING PHYSICIAN Internal Medicine; ATTENDING PHYSICIAN Family Medicine; CONSULT PHYSICIAN Internal Medicine; EMERGENCY PHYSICIAN Emergency Medicine; FAMILY PHYSICIAN Internal Medicine
DX: A41.9 Sepsis, unspecified organism (principal); L03.115 Cellulitis of right lower limb; E87.1 Hypo-osmolality and hyponatremia; L03.116 Cellulitis of left lower limb; E87.21 Acute metabolic acidosis; E44.0 Moderate protein-calorie malnutrition; Z68.1 Body mass index [BMI] 19.9 or less, adult; R64 Cachexia; L97.919 Non-pressure chronic ulcer of unspecified part of right lower leg with unspecified severity; L97.929 Non-pressure chronic ulcer of unspecified part of left lower leg with unspecified severity; Z59.00 Homelessness unspecified; T50.2X5A Adverse effect of carbonic-anhydrase inhibitors, benzothiadiazides and other diuretics, initial encounter; E86.0 Dehydration; E86.1 Hypovolemia; E87.5 Hyperkalemia; I89.0 Lymphedema, not elsewhere classified; D50.9 Iron deficiency anemia, unspecified; M06.9 Rheumatoid arthritis, unspecified; I10 Essential (primary) hypertension; I95.9 Hypotension, unspecified; E88.09 Other disorders of plasma-protein metabolism, not elsewhere classified; E03.9 Hypothyroidism, unspecified; E78.5 Hyperlipidemia, unspecified; M19.011 Primary osteoarthritis, right shoulder; M19.012 Primary osteoarthritis, left shoulder; R26.2 Difficulty in walking, not elsewhere classified; R53.81 Other malaise; F32.A Depression, unspecified; R80.9 Proteinuria, unspecified; E87.6 Hypokalemia; Z79.899 Other long term (current) drug therapy; Z79.1 Long term (current) use of non-steroidal anti-inflammatories (NSAID); Z79.891 Long term (current) use of opiate analgesic
CPT/HCPCS: 80048; 80053; 81003; 81015; 82533; 82570; 82607; 82728; 82746; 82805; 82962; 83540; 83550; 83605; 83735; 83880; 83930; 83935; 84100; 84132; 84156; 84300; 84443; 84484; 85014; 85018; 85025; 85027; 86850; 86900; 86901; 87040; 87070; 87086; 93005; 93306; 96361; 96374; 97163; 97167; 97530; 97535; 99291

== ENCOUNTER 2025-06-04 16:55 | Inpatient (IN) | payer MEDICAID, SELFPAY ==
[2025-06-04] VITALS (11 sets, daily range): BP systolic 103–152; BP diastolic 57–100; BMI 14.7; BMI 16.2
[2025-06-04 12:40] LABS: Hematocrit 31.0 % (37.0-47.0); Hemoglobin 9.6 g/dL (12.0-16.0); Mean Corp Hgb Conc. 31.0 g/dL (33.0-37.0); Mean Corpuscular Volume 76.0 fL (81.0-99.0); Platelet Count 937 10^3/uL (130-400); Red Cell Dist. Width 15.5 % (11.5-14.5)
[2025-06-04 12:56] LABS: Nucleated Red Blood Cells % 0 %
--- NOTE | 2025-06-04 14:05 | ED.GENMED ---
History of Present Illness
<Lory Barnes SECTION CHIEF - Last Filed: 06/04/25 22:55>
General
Chief Complaint: Skin Problem
Source: patient and jail records
Exam Limitations: none
Time Seen by Provider: 06/04/25 14:05
Nursing documentation reviewed up to this point in time: agreed with except (Patient denies difficulty swallowing. She states it 'just because my throat is so dry.' She is drinking water at this time without problem)
History of Present Illness
History of Present Illness:
59-year-old female from [facility], with history of GERD, malnutrition, PVD, depression, RA, bilateral lower extremity cellulitis/lymphedema, depression presents from [facility] for bilateral LE pain, swelling, oozing. Has severe
burning pain in her legs. She reports that this pain has been persistent and is significant in intensity. The patient denies experiencing any fever, chills, chest pain, difficulty breathing, or abdominal pain.
Past History
<Lory Barnes SECTION CHIEF - Last Filed: 06/04/25 22:55>
Past History
ED Past Medical History: Other (RA, malnutrition, bilateral LE lymphedema, cellulitis, PVD, depression, GERD, RA, polyarthritis)
ED Past Surgical History: None
Social History
Tobacco: Non-smoker
Alcohol: None
Drug: None
Personal: Single
Living: jail
Review of Systems
<Lory Barnes, SECTION CHIEF - Last Filed: 06/04/25 22:55>
Review of Systems
Allergies reviewed?: Yes
All Other Systems: ROS reviewed and negative except as documented in HPI and ROS
Constitutional: Denies fever
Respiratory: Denies trouble breathing
Cardiac: Denies chest pain
ABD/GI: Denies abdominal pain, nausea, vomiting or diarrhea
: Denies dysuria
Musculoskeletal: Reports edema (Bilateral lower extremity, significant swelling,)
Skin: Reports other (Seeping Wounds of bilateral lower extremities, swelling, pain)
Phy Exam
<Lory Barnes SECTION CHIEF - Last Filed: 06/04/25 22:55>
Physical Exam
Physical Exam:
GENERAL: No acute distress. A&Ox3. Cachectic
CONSTITUTIONAL: Temp 98.7 p.o.
EYES: clear, conjunctivae normal
ENMT: Very dry cracked lips, dry mucus membranes, Pharynx nl
RESPIRATORY: Regular respirations, nonlabored, lungs clear.
CARDIOVASCULAR: Regular rate and rhythm, no murmurs, no rubs. Tachycardic 130, sinus on bedside monitor
GI: Soft, nontender, normal BS
MUSCULOSKELETAL: Significant bilateral lower extremity edema. Limited range of motion of legs due to the pain and size of the legs
SKIN: Warm, dry, pink, seeping wounds bilateral lower extremities, from just below knees to the tips of toes: swelling, redness, exquisitely tender. Feet are warm, reddened
PSYCH: Depressed mood and affect. Well kept, interactive and appropriate
NEUROLOGIC: Awake, alert and oriented. No focal neurological deficits
Course
<Lory Barnes, SECTION CHIEF - Last Filed: 06/04/25 22:55>
Orders/Labs/Results
Orders:
Orders
06/04/25 Lunch
Potassium, 2 Gram
06/04/25 12:27
Complete Blood Count/With Diff Urgent
06/04/25 14:12
HYDROmorphone [Dilaudid] 0.5 mg IV NOW STA
06/04/25 14:13
Ondansetron Injectable [Zofran] 4 mg IV NOW STA
06/04/25 14:23
IV Insert/Care/Rem.- Treatment PRN
0.9% Sodium Chloride 1000 ml [Nss] 1,300 ml IV NOW STA
HYDROmorphone [Dilaudid] 0.5 mg IV NOW STA
Ondansetron Injectable [Zofran] 4 mg IV NOW STA
Piperacillin/Tazo 4.5 Gram [Zosyn] 4.5 gram in 100 ml IV NOW
06/04/25 14:24
CR Chest Portable - 1 View Urgent
Comment:
Reason For Exam: sepsis
Reason Study Needs to be Portable: Patient Unstable
06/04/25 14:35
Comprehensive Metabolic Panel Urgent
Lactic Acid Q4H
Comment: CANCEL 2nd LACTIC ACID IF 1st LACTIC ACID IS LESS THAN 2
Blood Culture Q30M
VAL Source: Blood/Venous
Specimen Description:
Blood Culture Q30M
VAL Source: Blood/Venous
Specimen Description:
06/04/25 14:39
Acetaminophen [Tylenol] 1,000 mg PO NOW STA
06/04/25 15:34
Electrocardiogram (*1) Urgent
Reason for Study: Other
Other Reason for Exam: Hyperkalemia
EKG- Treatment ONCE
06/04/25 15:35
0.9% Sodium Chloride 1000 ml [Nss] 1,000 ml IV BOLUS
Calcium Gluconate 1,000 mg IV NOW STA
Dextrose 50%-Water [Dextrose 50% Syringe] 12.5 grams IV [id number] PRN
Dextrose 50%-Water [Dextrose 50% Syringe] 25 grams IV NOW STA
Insulin Human Regular [Novolin R] 10 units IV NOW STA
Sodium Bicarbonate 50 meq IV NOW STA
Bedside Glucose PRE IV Insulin- HyperK+ NOW
06/04/25 15:36
Bladder Scan- Treatment ONCE
06/04/25 15:41
Sodium Zirconium Cyclosilicate [Lokelma] 10 gram PO NOW STA
06/04/25 16:45
Admit/Transfer Patient As Directed
Co-Sign Provider:
Level of Care: Inpatient admission
Assign to:: IMU- Intermediate Care
Physician / Group: Christiane Starkey
Diagnosis: sepsis cellulitis, hyperkalemia
Reason for Hospitalization: sepsis cellulitis, hyperkalemia
Expected length of stay greater than two midnights?: Yes
ELOS- Estimated Length of Stay in days: 4
I certify the patient meets the requirements for IP care: Yes
PRN Pain Medication Management As Directed
May give lesser potent ordered pain med per pt: Yes
preference::
Protocol:: Medication orders for pain may be administered in a
manner that supports deferring to patient preference
when the pt is:
- Requesting an ordered lesser potent pain medication.
Least to most potent pain medications are defined
as: acetaminophen < NSAID < tramadol < opioids
(morphine, oxycodone, hydromorphone).
- Requesting a lesser dose of the same medication IF
ORDERED.
- Requesting a less intrusive route of administration
if both routes are prescribed by the provider (PO <
IV).
06/04/25 16:46
Code Status As Directed
Resuscitation Status: Full Code
06/04/25 16:49
Urinalysis Reflex To Culture Urgent
Date Specimen was Collected: 06/04/25
Time Specimen was Collected: 16:48
Urine Creatinine Routine
Date Specimen was Collected: 06/04/25
Time Specimen was Collected: 16:48
Urine Microscopic Reflex Cult Urgent
Urine Sodium Routine
Date Specimen was Collected: 06/04/25
Time Specimen was Collected: 16:48
Urine Culture Urgent
VAL Source: U
Specimen Description:
Date Specimen was Collected: 06/04/25
Time Specimen was Collected: 16:48
06/04/25 17:05
Bedside Glucose POST IV Insulin- HyperK+ Q1HX2,Q2HX2
06/04/25 17:23
HYDROmorphone [Dilaudid] 0.5 mg IV Q3HPRN PRN
06/04/25 18:35
BMP [Basic Metabolic Panel] Urgent
06/04/25 19:40
Acetaminophen [Tylenol] 650 mg PO Q4HPRN PRN mild pain/fever
Bisacodyl [Dulcolax] 10 mg RECTAL [id number] PRN
Docusate W/Senna [Senokot-S] 1 tablet PO BIDPRN PRN
Midodrine [ProAmatine] 2.5 mg PO TID@0800,1300,1800
Oxycodone [Roxicodone] 10 mg PO Q6HPRN PRN severe pain severe pain
Polyethylene Glycol Powder [Miralax] 17 grams PO DAILYPRN PRN
Polyethylene Glycol Powder [Miralax] 17 grams PO DAILYPRN PRN Constipation
Sterile Water For Inj [Sterile Water For Injection 1000 ml] 1,000 ml Sodium Bicarbonate 150 meq IV 125 mls/hr
06/04/25 19:40
NEPHROLOGY CONSULT Routine
Consulting Provider: Arvind Dolan
Was physician already notified: Yes
WOUND/OSTOMY CONSULT Routine
Reason for Consult: bilateral lower extremity wounds
Activity As Directed
Activity Level: As Tolerated
Vital Signs As Directed
Frequency: Per unit guidelines
DX Deep Vein Thrombosis Video Routine
06/04/25 20:00
Heparin 5,000 units SC Q12
Tramadol HCl [Ultram] 50 mg PO BID
06/04/25 22:00
Ferrous Sulfate [Feosol] 325 mg PO HS
Mirtazapine [Remeron] 15 mg PO HS
Piperacillin/Tazo 2.25 Gram [Zosyn] 2.25 grams in 50 ml IV Q6H
06/05/25 06:00
Basic Metabolic Panel IN AM
Complete Blood Count/With Diff IN AM
Magnesium IN AM
06/05/25 08:00
Sennosides [Senokot] 8.6 mg PO DAILY
Abnormal Lab Results
06/04/25 06/04/2525
12:27 14:35 16:04
WBC 25.3 H 10^3/uL
(4.8-10.8)
RBC 4.08 L 10^6/uL
(4.20-5.40)
Hgb 9.6 L g/dL
(12.0-16.0)
Hct 31.0 L %
(37.0-47.0)
MCV 76.0 L fL
(81.0-99.0)
MCH 23.5 L pg
(27.0-31.0)
MCHC 31.0 L g/dL
(33.0-37.0)
RDW 15.5 H %
(11.5-14.5)
Plt Count 937 H 10^3/uL
(130-400)
Abs Immat Gran (auto) 1.8 H 10^3/uL
(0-0.05)
Absolute Neuts (auto) 20.5 H 10^3/uL
(1.4-6.5)
Absolute Monos (auto) 0.9 H 10^3/uL
(0.1-0.6)
Immature Gran % 7.0 H %
(0-0.5)
Neutrophils % 80.9 H %
(42.2-75.2)
Lymphocytes % 7.9 L %
(20.5-51.1)
Sodium 126 L mmol/L
(135-145)
Potassium 8.1 H* mmol/L
(3.5-5.1)
Carbon Dioxide 16 L mmol/L
(22-30)
BUN 91 H mg/dl
(7-17)
Creatinine 2.2 H mg/dL
(0.6-1.0)
Alkaline Phosphatase 153 H U/L
(38-126)
Albumin 3.1 L g/dl
(3.5-5.0)
Ur Occult Blood Reflex
Leukocyte Esterase Rfl
Urine RBC
Urine WBC (Reflex)
Urine Bacteria (Reflex)
Urine Sodium
Urine Albumin (Reflex)
POC Glucose 316 H mg/dl
(70-99)
06/04/25
16:49
WBC
RBC
Hgb
Hct
MCV
MCH
MCHC
RDW
Plt Count
Abs Immat Gran (auto)
Absolute Neuts (auto)
Absolute Monos (auto)
Immature Gran %
Neutrophils %
Lymphocytes %
Sodium
Potassium
Carbon Dioxide
BUN
Creatinine
Alkaline Phosphatase
Albumin
Ur Occult Blood Reflex 4+ A
(Negative)
Leukocyte Esterase Rfl 3+ A
(Negative)
Urine RBC 30-40 A /HPF
(0-2)
Urine WBC (Reflex) 70-80 A /HPF
(0-5)
Urine Bacteria (Reflex) Many A
(Negative)
Urine Sodium 5 L mmol/L
(30-90)
Urine Albumin (Reflex) 2+ A
(Neg - Trace)
POC Glucose
06/04/25 12:27
06/04/25 14:35
Vital Signs
Initial and Last Documented VS:
Initial Vital Signs
BP
152/100
06/04/25 12:03
Last Documented Vital Signs
Temp Pulse Resp BP Pulse Ox
98.0 F 124 21 118/77 99
06/04/25 22:28 06/04/25 20:43 06/04/25 12:15 06/04/25 20:43 06/04/25 19:30
<Jose R Ortiz, DO - Last Filed: 06/04/25 15:43>
Orders/Labs/Results
Orders:
Orders
06/04/25 Lunch
Potassium, 2 Gram
06/04/25 12:27
Complete Blood Count/With Diff Urgent
06/04/25 14:12
HYDROmorphone [Dilaudid] 0.5 mg IV NOW STA
06/04/25 14:13
Ondansetron Injectable [Zofran] 4 mg IV NOW STA
06/04/25 14:23
IV Insert/Care/Rem.- Treatment PRN
0.9% Sodium Chloride 1000 ml [Nss] 1,300 ml IV NOW STA
HYDROmorphone [Dilaudid] 0.5 mg IV NOW STA
Ondansetron Injectable [Zofran] 4 mg IV NOW STA
Piperacillin/Tazo 4.5 Gram [Zosyn] 4.5 gram in 100 ml IV NOW
06/04/25 14:24
CR Chest Portable - 1 View Urgent
Comment:
Reason For Exam: sepsis
Reason Study Needs to be Portable: Patient Unstable
06/04/25 14:35
Comprehensive Metabolic Panel Urgent
Lactic Acid Q4H
Comment: CANCEL 2nd LACTIC ACID IF 1st LACTIC ACID IS LESS THAN 2
Blood Culture Q30M
VAL Source: Blood/Venous
Specimen Description:
Blood Culture Q30M
VAL Source: Blood/Venous
Specimen Description:
06/04/25 14:39
Acetaminophen [Tylenol] 1,000 mg PO NOW STA
06/04/25 15:34
Electrocardiogram (*1) Urgent
Reason for Study: Other
Other Reason for Exam: Hyperkalemia
EKG- Treatment ONCE
06/04/25 15:35
0.9% Sodium Chloride 1000 ml [Nss] 1,000 ml IV BOLUS
Calcium Gluconate 1,000 mg IV NOW STA
Dextrose 50%-Water [Dextrose 50% Syringe] 12.5 grams IV [id number] PRN
Dextrose 50%-Water [Dextrose 50% Syringe] 25 grams IV NOW STA
Insulin Human Regular [Novolin R] 10 units IV NOW STA
Sodium Bicarbonate 50 meq IV NOW STA
Bedside Glucose PRE IV Insulin- HyperK+ NOW
06/04/25 15:36
Bladder Scan- Treatment ONCE
06/04/25 15:41
Sodium Zirconium Cyclosilicate [Lokelma] 10 gram PO NOW STA
06/04/25 16:45
Admit/Transfer Patient As Directed
Co-Sign Provider:
Level of Care: Inpatient admission
Assign to:: IMU- Intermediate Care
Physician / Group: Christiane Starkey
Diagnosis: sepsis cellulitis, hyperkalemia
Reason for Hospitalization: sepsis cellulitis, hyperkalemia
Expected length of stay greater than two midnights?: Yes
ELOS- Estimated Length of Stay in days: 4
I certify the patient meets the requirements for IP care: Yes
PRN Pain Medication Management As Directed
May give lesser potent ordered pain med per pt: Yes
preference::
Protocol:: Medication orders for pain may be administered in a
manner that supports deferring to patient preference
when the pt is:
- Requesting an ordered lesser potent pain medication.
Least to most potent pain medications are defined
as: acetaminophen < NSAID < tramadol < opioids
(morphine, oxycodone, hydromorphone).
- Requesting a lesser dose of the same medication IF
ORDERED.
- Requesting a less intrusive route of administration
if both routes are prescribed by the provider (PO <
IV).
06/04/25 16:46
Code Status As Directed
Resuscitation Status: Full Code
06/04/25 16:49
Urinalysis Reflex To Culture Urgent
Date Specimen was Collected: 06/04/25
Time Specimen was Collected: 16:48
Urine Creatinine Routine
Date Specimen was Collected: 06/04/25
Time Specimen was Collected: 16:48
Urine Microscopic Reflex Cult Urgent
Urine Sodium Routine
Date Specimen was Collected: 06/04/25
Time Specimen was Collected: 16:48
Urine Culture Urgent
VAL Source: U
Specimen Description:
Date Specimen was Collected: 06/04/25
Time Specimen was Collected: 16:48
06/04/25 17:05
Bedside Glucose POST IV Insulin- HyperK+ Q1HX2,Q2HX2
06/04/25 17:23
HYDROmorphone [Dilaudid] 0.5 mg IV Q3HPRN PRN
06/04/25 18:35
BMP [Basic Metabolic Panel] Urgent
06/04/25 19:40
Acetaminophen [Tylenol] 650 mg PO Q4HPRN PRN mild pain/fever
Bisacodyl [Dulcolax] 10 mg RECTAL Q49HLRY PRN
Docusate W/Senna [Senokot-S] 1 tablet PO BIDPRN PRN
Midodrine [ProAmatine] 2.5 mg PO TID@0800,1300,1800
Oxycodone [Roxicodone] 10 mg PO Q6HPRN PRN severe pain severe pain
Polyethylene Glycol Powder [Miralax] 17 grams PO DAILYPRN PRN
Polyethylene Glycol Powder [Miralax] 17 grams PO DAILYPRN PRN Constipation
Sterile Water For Inj [Sterile Water For Injection 1000 ml] 1,000 ml Sodium Bicarbonate 150 meq IV 125 mls/hr
06/04/25 19:40
NEPHROLOGY CONSULT Routine
Consulting Provider: Arvind Dolan
Was physician already notified: Yes
WOUND/OSTOMY CONSULT Routine
Reason for Consult: bilateral lower extremity wounds
Activity As Directed
Activity Level: As Tolerated
Vital Signs As Directed
Frequency: Per unit guidelines
DX Deep Vein Thrombosis Video Routine
06/04/25 20:00
Heparin 5,000 units SC Q12
Tramadol HCl [Ultram] 50 mg PO BID
06/04/25 22:00
Ferrous Sulfate [Feosol] 325 mg PO HS
Mirtazapine [Remeron] 15 mg PO HS
Piperacillin/Tazo 2.25 Gram [Zosyn] 2.25 grams in 50 ml IV Q6H
06/05/25 06:00
Basic Metabolic Panel IN AM
Complete Blood Count/With Diff IN AM
Magnesium IN AM
06/05/25 08:00
Sennosides [Senokot] 8.6 mg PO DAILY
Abnormal Lab Results
06/04/25 06/04/25 06/04/25
12:27 14:35 16:04
WBC 25.3 H 10^3/uL
(4.8-10.8)
RBC 4.08 L 10^6/uL
(4.20-5.40)
Hgb 9.6 L g/dL
(12.0-16.0)
Hct 31.0 L %
(37.0-47.0)
MCV 76.0 L fL
(81.0-99.0)
MCH 23.5 L pg
(27.0-31.0)
MCHC 31.0 L g/dL
(33.0-37.0)
RDW 15.5 H %
(11.5-14.5)
Plt Count 937 H 10^3/uL
(130-400)
Abs Immat Gran (auto) 1.8 H 10^3/uL
(0-0.05)
Absolute Neuts (auto) 20.5 H 10^3/uL
(1.4-6.5)
Absolute Monos (auto) 0.9 H 10^3/uL
(0.1-0.6)
Immature Gran % 7.0 H %
(0-0.5)
Neutrophils % 80.9 H %
(42.2-75.2)
Lymphocytes % 7.9 L %
(20.5-51.1)
Sodium 126 L mmol/L
(135-145)
Potassium 8.1 H* mmol/L
(3.5-5.1)
Carbon Dioxide 16 L mmol/L
(22-30)
BUN 91 H mg/dl
(7-17)
Creatinine 2.2 H mg/dL
(0.6-1.0)
Alkaline Phosphatase 153 H U/L
(38-126)
Albumin 3.1 L g/dl
(3.5-5.0)
Ur Occult Blood Reflex
Leukocyte Esterase Rfl
Urine RBC
Urine WBC (Reflex)
Urine Bacteria (Reflex)
Urine Sodium
Urine Albumin (Reflex)
POC Glucose 316 H mg/dl
(70-99)
06/04/25
16:49
WBC
RBC
Hgb
Hct
MCV
MCH
MCHC
RDW
Plt Count
Abs Immat Gran (auto)
Absolute Neuts (auto)
Absolute Monos (auto)
Immature Gran %
Neutrophils %
Lymphocytes %
Sodium
Potassium
Carbon Dioxide
BUN
Creatinine
Alkaline Phosphatase
Albumin
Ur Occult Blood Reflex 4+ A
(Negative)
Leukocyte Esterase Rfl 3+ A
(Negative)
Urine RBC 30-40 A /HPF
(0-2)
Urine WBC (Reflex) 70-80 A /HPF
(0-5)
Urine Bacteria (Reflex) Many A
(Negative)
Urine Sodium 5 L mmol/L
(30-90)
Urine Albumin (Reflex) 2+ A
(Neg - Trace)
POC Glucose
06/04/25 12:27
06/04/25 14:35
Vital Signs
Initial and Last Documented VS:
Initial Vital Signs
BP
152/100
06/04/25 12:03
Last Documented Vital Signs
Temp Pulse Resp BP Pulse Ox
98.0 F 124 21 118/77 99
06/04/25 22:28 06/04/25 20:43 06/04/25 12:15 06/04/25 20:43 06/04/25 19:30
<Lory Barnes SECTION CHIEF - Last Filed: 06/04/25 22:55>
MDM/Problems Addressed
Differential Diagnosis Includes:
The Differential Diagnosis includes, in no particular order and is not limited to:
1. Peripheral neuropathy
2. Chronic venous insufficiency
3. Deep vein thrombosis (DVT)
4. Peripheral artery disease (PAD)
MDM/Problems Addressed:
59-year-old female from [facility], with history of GERD, malnutrition, PVD, depression, RA, bilateral lower extremity cellulitis/lymphedema, depression presents from [facility] for bilateral LE pain, swelling, oozing. Has severe
burning pain in her legs. She reports that this pain has been persistent and is significant in intensity. The patient denies experiencing any fever, chills, chest pain, difficulty breathing, or abdominal pain.
Afebrile
Plan:
1. The patient will be admitted to the hospital.
2. Admit for Administration of intravenous antibiotics.
3. Pain management to ensure the patient is comfortable.
4. US to r/o DVT
CBC: WBC 25.3 with a shift
CMP: Potassium 8.1, sodium 126, BUN/creatinine 81/2.[address] Ortiz consulted and into evaluate patient. Hyperkalemia protocol followed
Plan: Admit: ICU, Dr. Ortiz spoke with hospitalist and transportation refrigeration technician. Leg ultrasounds canceled
<Lory Barnes SECTION CHIEF - Last Filed: 06/04/25 22:55>
*Pulse Oximetry
SaO2: 100
Patient hypoxic: no
*Critical Care Note
Total Time (30-74mins, 75-104mins- exclusive of procedures): Not Applicable
ED Attending Note
<Lory Barnes SECTION CHIEF - Last Filed: 06/04/25 22:55>
-
Portions of this chart may have been created with voice recognition software.� Occasional wrong word or��sound alike� substitutions may have occurred due to the inherent limitations of voice recognition software.
<Jose R Ortiz, DO - Last Filed: 06/04/25 15:43>
ED Attending Note
Patient seen and examined by attending physician: Yes
I performed the substantive portion of visit, reviewed & personally made and approve the management plan that is documented in note by myself or CAMERON.: Yes
ED Attending Note:
Seen with SECTION CHIEF examined independently ill-appearing female malodorous wounds labs noted SABINA hyperkalemia leukocytosis
Admitted previously with similar presentation
Will treat her aggressively for hyperkalemia, nephrology consultation hospitalist admission
Discharge Plan
Departure
Patient Disposition: Admit
Date of Disposition: 06/04/25
Time of Disposition: 15:54
Admit to: ICU
Presentation/result/management discussed w/ accepting MD/DO: Hospitalist
Condition: Serious
Discharge Problem:
Cellulitis of both lower extremities, Sepsis, SABINA (acute kidney injury), Acute hyperkalemia, Acute hyponatremia
Interventions
Interventions:
*Risk Screen - Suicide Last Done: 06/04/25 12:03
*General Assessment Last Done: 06/04/25 12:03
*Neglect/Abuse Screening Last Done: 06/04/25 12:03
*ED- Fall Risk Assessment Last Done: 06/04/25 12:03
*ED COVID-19 Vaccine History Last Done: 06/04/25 20:02
*Nursing Disposition Last Done: 06/04/25 19:34
ED-Skin Assessment Last Done: 06/04/25 12:40
Discharge Date and Time
Discharge Date/Time: 06/04/25 19:35
[2025-06-04] MEDS: ZOSYN 100 IV (14:45)
[2025-06-04] MEDS: TYLENOL 1000 MG PO (14:45)
[2025-06-04] MEDS: ZOFRAN 4 MG IV (14:45)
[2025-06-04] MEDS: DILAUDID 0.5 MG IV ×3 (14:46→22:42)
[2025-06-04] MEDS: NSS 1300 ML IV (14:46)
[2025-06-04 15:06] LABS: ALT (SGPT) < 10 U/L (0-35); AST (SGOT) 18 U/L (14-36); Albumin 3.1 g/dl (3.5-5.0); Alkaline Phosphatase 153 U/L (38-126); Blood Urea Nitrogen 91 mg/dl (7-17); Calcium 9.1 mg/dl (8.4-10.2); Carbon Dioxide 16 mmol/L (22-30); Chloride 99 mmol/L (98-107); Estimated Creatinine Clearance 19 ml/min; Glucose 86 mg/dl (70-99); Potassium 8.1 mmol/L (3.5-5.1); Sodium 126 mmol/L (135-145); Total Protein 6.9 g/dl (6.3-8.2); eGFR 25.51
[2025-06-04] MEDS: NOVOLIN R 10 UNITS IV (15:42)
[2025-06-04] MEDS: CALCIUM GLUCONATE 1000 MG IV (15:44)
[2025-06-04] MEDS: SODIUM BICARBONATE 50 MEQ IV (15:45)
[2025-06-04] MEDS: LOKELMA 10 GRAM PO ×2 (15:51→20:46)
[2025-06-04] MEDS: DEXTROSE 50% SYRINGE 25 GRAMS IV ×2 (15:55→21:17)
[2025-06-04] MEDS: NSS 1000 IV (15:56)
[2025-06-04 16:06] LABS: Glucose - Point of Care 316 mg/dl (70-99)
--- NOTE | 2025-06-04 16:09 | HPS.HSE ---
Family Physician
-
Family Physician: Ish Hall
Chief Complaint
-
bilateral lower extremity pain and oozing
History of Present Illness
Ms. Yeimi Day is a 59 yo woman with hx chronic lymphedema with chronic bilateral lower extremity wounds, JANIYA, hypothyroidism, chronic pain syndrome on opiates, RA, chronic ambulatory dysfunction, presents to the ER from [facility] for
bilateral lower extremity pain and oozing.
Patient is a poor historian. She states her legs are very painful and it has been going on for a couple of months. She is a [place] resident and non-ambulatory at baseline.
She denies fevers/chills. No chest pain or shortness of breath. When asked if she has been eating or drinking she reports 'a little.'
Patient was hospitalized 05/18-05/24/25 for sepsis secondary to bilateral lower extremity cellulitis. She was treated with IV Cefazolin and discharged on oral Keflex. During this admission she also presented with hyperkalemia. Her lasix dose was
increased from 40mg to 80mg. She was started on midodrine for hypotension.
Medical History
Past Medical History
Past Medical History: Reports Other
Additional Past Medical History:
rheumatoid arthritis on Orencia and leflunomide
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
Chronic ambulatory dysfunction uses wheelchair
severe bilateral glenohumeral arthrosis
chronic rotator cuff arthropathy
chronic bilateral shoulder pain
depression
chronic pain on chronic oral opiates as needed,
chronic bilateral lower leg edema
hypothyroidism
HTN
HLD
Past Surgical History: Reports None
Social History
Tobacco: Non-smoker
Alcohol: None
Drug: None
Personal: (Patient reports last year at age 54 PA)
Living: Alone
Employment: Disabled
Family History
Family History: Not pertinent
Allergies / Home Medications
Allergies reflects when Allergies were last updated in [facility].
Home Medications with original date entered in [facility]
Allergy/Medication List:
Allergies
Allergy/AdvReac Type Severity Reaction Status Date / Time
No Known Allergies Allergy Unverified 12/08/22 19:34
Home Medications
acetaminophen 325 mg tablet 650 mg PO Q4HPRN PRN mild pain/fever 05/18/25
leflunomide 20 mg tablet 20 mg PO DAILY@1200 Antirheumatic 05/18/25
mirtazapine 15 mg tablet (Remeron) 15 mg PO HS Mental Health/Anxiety 05/18/25
oxycodone 10 mg tablet 10 mg PO Q6HPRN PRN severe pain 05/18/25
polyethylene glycol 3350 17 gram oral powder packet (Miralax) 17 g PO DAILYPRN PRN Constipation 05/18/25
tramadol 50 mg tablet 50 mg PO BID Pain 05/18/25
tramadol 50 mg tablet 50 mg PO Q6HPRN PRN moderate pain 05/18/25
furosemide 40 mg tablet (Lasix) 80 mg (2 x 40 mg) PO DAILY Fluid Retention/Swelling #0 tabs 05/24/25
midodrine 5 mg tablet 2.5 mg (1/2 x 5 mg) PO TID@0800,1300,1800 #30 tabs 05/24/25
abatacept 125 mg/mL subcutaneous syringe (Orencia) 125 mg SC MO 06/04/25
acetic acid 0.25 % irrigation solution 1 irrig irrigation BID B/L LE WOUND 06/04/25
ferrous sulfate 325 mg (65 mg iron) tablet 325 mg PO HS 06/04/25
naproxen 500 mg tablet (Naprosyn) 500 mg PO BID Pain 06/04/25
sennosides 8.6 mg tablet (senna) 8.6 mg PO DAILY 06/04/25
zinc oxide 10 % topical cream 1 applic topical DAILY B/L LEGS 06/04/25
Review of Systems
-
History Source: Patient
A 12 point ROS was completed and negative except as noted: Yes
Physical Exam
Vital Signs
Vital Signs
Pulse Resp BP Pulse Ox
130 21 109/57 99
06/04/25 16:00 06/04/25 12:15 06/04/25 16:00 06/04/25 15:45
Physical Exam
General: Appears Chronically Ill and Other (frail appearing)
HEENT: PERRLA
Respiratory: Clear; No Wheezes
Cardiac: S1/S2 and Regular Rhythm
GI: Soft and Non Tender
Musculoskeletal: Edema, Left Lower Extremity and Edema, Right Lower Extremity
Skin: Other (bilateral lymphedema with chronic wounds and skin peeling )
Neuro: AO x 3
Psych: Calm
Laboratory Results
-
06/04/25 12:27
Laboratory Results
Lactic Acid 1.7 mmol/L (0.7-2.0) 06/04/25 14:35
Total Bilirubin 0.7 mg/dl (0.2-1.3) 06/04/25 14:35
AST 18 U/L (14-36) 06/04/25 14:35
ALT < 10 U/L (0-35) 06/04/25 14:35
Alkaline Phosphatase 153 U/L (38-126) H 06/04/25 14:35
Data Reviewed
-
Diagnostic Radiology: Report Reviewed by me
Lab Data: Labs Reviewed by me
Impression/Plan
-
Ms. Yeimi Day is a 59 yo woman with hx chronic lymphedema with chronic bilateral lower extremity wounds, JANIYA, hypothyroidism, chronic pain syndrome on opiates, RA, chronic ambulatory dysfunction, presents to the ER from [facility] for
bilateral lower extremity pain and oozing.
Triage VS: P 116, RR 21, BP 152/100, SpO2 99%
LABS: WBC 25.3, Hg 9.6, PLT 937, Na 126, K+ 8.1, Cr 2.2, Alk Phos 153
CXR
IMPRESSION:
No acute cardiopulmonary process.
MAR: calcium, IV insulin with glucose, sodium bicarb, Lokelma, Tylenol, Dilaudid x 2
Severe Sepsis secondary to Lower extremity cellulitis
-patient with leukocytosis, tachycardia and tachypnea with e/o end organ damage with SABINA
-admit to IMU (given hyper K)
-follow up cultures
-patient recently admitted for b/l LE cellulitis responded to IV Cefazolin
-will broaden to IV Zosyn for now
-MRSA swab negative last admit
-ID consulted
-wound care
-hold ELECTRIC SHIPYARD OPERATOR Leflunomide
-hold ELECTRIC SHIPYARD OPERATOR Lasix
Hyperkalemia
-s/p treatment with IV calcium, IV insulin, Lokelma, 2L IVF
-repeat K at 6PM with remainder of BMP
Chronic bilateral lower extremity lymphedema and swelling
-hold ELECTRIC SHIPYARD OPERATOR lasix
-wound consult as above
Acute Kidney Injury
-patient appears dry, s/p 2L as above
-sodium bicarb drip
-bladder scan
-renal US
-nephrology consulted
-hold ELECTRIC SHIPYARD OPERATOR NSAID
Chronic Hypotension
-ELECTRIC SHIPYARD OPERATOR midodrine
chronic pain
opiate dependence
RA
-hold ELECTRIC SHIPYARD OPERATOR Leflunomide
-patient receives abatacept on Mondays
Anxiety
-ELECTRIC SHIPYARD OPERATOR Remeron
DVT Ppx Hep subQ
FULL CODE
76 minutes spent on patient care
--- NOTE | 2025-06-04 16:49 | W.CON.NEPH ---
Consultation
-
Date/Time Consultation Requested: June 04, 2025 at 3 PM
Date/Time Consultation Performed: June 04, 2025 at 4:30 PM
Requesting Provider: Dr. Ortiz
Performing Provider: Dr. Dolan
Reason for Consultation: Acute kidney injury
Medical History
-
Chief Complaint: Acute kidney injury
History of Present Illness:
59-year-old female from [facility], with history of GERD, malnutrition, PVD, depression, RA, bilateral lower extremity cellulitis/lymphedema, depression presents from [facility] for bilateral LE pain, swelling, oozing.
Patient acute kidney injury and hyperkalemia with a creatinine of 2.2 from baseline 0.6 and a potassium of 8.1.
She has severe rheumatoid arthritis and recently started on Orencia.
Receiving IV fluids in the emergency room. She was a given hyperkalemia protocol to include insulin, sodium bicarbonate, calcium gluconate.
Past Medical History
rheumatoid arthritis on Orencia and leflunomide
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
Chronic ambulatory dysfunction uses wheelchair
severe bilateral glenohumeral arthrosis
chronic rotator cuff arthropathy
chronic bilateral shoulder pain
depression
chronic pain on chronic oral opiates as needed,
chronic bilateral lower leg edema
hypothyroidism
HTN
HLD
Social History
Tobacco: Non-Smoker
Alcohol: None
Drug: None
Personal: (Patient reports last year at age 54 [place])
Living: Intermediate
Employment: Disabled
Family History
Family History: Unable to Obtain
Allergies / Home Medications
Allergy/AdvReac Type Severity Reaction Status Date / Time
No Known Allergies Allergy Unverified 12/08/22 19:34
�Medication �Instructions �Recorded �Confirmed �Type
acetaminophen 325 mg tablet 650 mg PO Q4HPRN PRN mild 05/18/25 06/04/25 History
pain/fever
leflunomide 20 mg tablet 20 mg PO DAILY@1200 Antirheumatic 05/18/25 06/04/25 History
mirtazapine 15 mg tablet (Remeron) 15 mg PO HS Mental Health/Anxiety 05/18/25 06/04/25 History
oxycodone 10 mg tablet 10 mg PO Q6HPRN PRN severe pain 05/18/25 06/04/25 History
polyethylene glycol 3350 17 gram 17 g PO DAILYPRN PRN Constipation 05/18/25 06/04/25 History
oral powder packet (Miralax)
tramadol 50 mg tablet 50 mg PO BID Pain 05/18/25 06/04/25 History
tramadol 50 mg tablet 50 mg PO Q6HPRN PRN moderate pain 05/18/25 06/04/25 History
furosemide 40 mg tablet (Lasix) 80 mg (2 x 40 mg) PO DAILY Fluid 05/24/25 06/04/25 Rx
Retention/Swelling #0 tabs
midodrine 5 mg tablet 2.5 mg (1/2 x 5 mg) PO 05/24/25 06/04/25 Rx
TID@0800,1300,1800 #30 tabs
abatacept 125 mg/mL subcutaneous 125 mg SC MO 06/04/25 06/04/25 History
syringe (Orencia)
acetic acid 0.25 % irrigation 1 irrig irrigation BID B/L LE WOUND 06/04/25 06/04/25 History
solution
ferrous sulfate 325 mg (65 mg 325 mg PO HS 06/04/25 06/04/25 History
iron) tablet
naproxen 500 mg tablet (Naprosyn) 500 mg PO BID Pain 06/04/25 06/04/25 History
sennosides 8.6 mg tablet (senna) 8.6 mg PO DAILY 06/04/25 06/04/25 History
zinc oxide 10 % topical cream 1 applic topical DAILY B/L LEGS 06/04/25 06/04/25 History
Review of Systems
-
Leg edema with oozing and pain
All other systems: Negative unless noted
Physical Exam
Vital Signs
Vital Signs
Pulse Resp BP Pulse Ox
118 21 109/57 100
06/04/25 16:30 06/04/25 12:15 06/04/25 16:00 06/04/25 16:30
Lab Results
WBC 25.3 10^3/uL (4.8-10.8) H 06/04/25 12:27
RBC 4.08 10^6/uL (4.20-5.40) L 06/04/25 12:27
Hgb 9.6 g/dL (12.0-16.0) L 06/04/25 12:27
Hct 31.0 % (37.0-47.0) L 06/04/25 12:27
Plt Count 937 10^3/uL (130-400) H 06/04/25 12:27
eGFR 25.51 06/04/25 14:35
Albumin 3.1 g/dl (3.5-5.0) L 06/04/25 14:35
Physical Exam
General no acute distress
HEENT no cephalic atraumatic extraocular muscle intact no scleral icterus no JVD neck supple
lungs clear to auscultation bilateral
heart regular S1-S2 positive
abdomen soft nontender positive bowel sounds
extremities edema with bruising lower extremity bilateral with upper extremity contractions
Neurologically nonfocal alert and oriented x 3
Skin no lesions no abrasions no petechiae
Psych normal affect no bizarre behavior
Data Reviewed
-
Radiology: Image Personally Visualized and interpreted
Labs: Labs Reviewed by me, Discussed with Physician and Discussed with Patient
Assessment/Plan
-
59-year-old female from [facility], with history of GERD, malnutrition, PVD, depression, RA, bilateral lower extremity cellulitis/lymphedema, depression presents from [place] for bilateral LE pain, swelling, oozing.
Patient acute kidney injury and hyperkalemia with a creatinine of 2.2 from baseline 0.6 and a potassium of 8.1.
She has severe rheumatoid arthritis and recently started on Orencia.
IMP:
Acute kidney injury with life-threatening hyperkalemia
Sepsis secondary to bilateral lower extremity cellulitis
bilateral leg lymphedema
Hyponatremia
hypoalbuminemia
Iron deficiency anemia
Hypothyroidism
Rheumatoid arthritis
Chronic bilateral shoulder pain with severe bilateral glenohumeral arthrosis
Chronic rotator cuff arthropathy
Chronic ambulatory dysfunction uses walker at baseline
Chronic debility
HTN
HLD
Moderate protein calorie malnutrition/cachexia�BMI 17.4
Plan:
Agree with IV fluids
Last admission indicated 1.3 g proteinuria
Await urine indices
Panculture
Status post insulin bicarbonate calcium gluconate
Recheck labs ordered for 6 PM
Check renal imaging
Monitor urine output
Renal dose all medications
Outpatient records show naproxen 500 mg twice a day
At this time no acute need for hemodialysis though did discuss with the patient if potassium does not improve that would be indicated though I expect with IV fluids we will see improvement
[2025-06-04 16:58] LABS: Urine Character Cloudy (Clear)
[2025-06-04 17:06] LABS: Glucose - Point of Care 118 mg/dl (70-99)
[2025-06-04 17:20] LABS: Urine Squamous Cell 26-30 /LPF (Few)
[2025-06-04 17:22] LABS: Urine Red Blood Cell 30-40 /HPF (0-2); Urine White Cell 70-80 /HPF (0-5)
[2025-06-04 19:02] LABS: Blood Urea Nitrogen 80 mg/dl (7-17); Calcium 8.1 mg/dl (8.4-10.2); Carbon Dioxide 18 mmol/L (22-30); Chloride 104 mmol/L (98-107); Estimated Creatinine Clearance 21 ml/min; Glucose 67 mg/dl (70-99); Potassium 6.6 mmol/L (3.5-5.1); Sodium 129 mmol/L (135-145); eGFR 28.60
[2025-06-04] MEDS: ROXICODONE 10 MG PO (19:49)
[2025-06-04] MEDS: ULTRAM 50 MG PO (20:41)
[2025-06-04] MEDS: HEPARIN 5000 UNITS SC (20:44)
[2025-06-04] MEDS: FEOSOL 325 MG PO ×2 (20:44→20:45)
--- NOTE | 2025-06-04 20:52 | W.PN.UPDATE ---
Update Note
Progress Note Update
K improved from 8.1 to 6.6. Patient had low blood glucose to 67 improved post eating to 109
IV Calcium ordered
Further Lokelma dosing ordered
I will order insulin 5 units IV + dextrose; changed sodium bicarb drip to include D5
will check glucose 1 and 2 hours post administration with next BMP scheduled for 11PM
Renal consult in place for tomorrow
plan discussed with RN
[2025-06-04 20:57] LABS: Glucose - Point of Care 109 mg/dl (70-99)
[2025-06-04] MEDS: SODIUM BICARBONATE 1150 MEQ IV (21:16)
[2025-06-04] MEDS: NOVOLIN R 0.05 UNITS IV (21:17)
[2025-06-04] MEDS: CALCIUM GLUCONATE 100 IV (22:08)
[2025-06-04 22:17] LABS: Glucose - Point of Care 212 mg/dl (70-99)
--- NOTE | 2025-06-04 22:20 | PTCARENOTE ---
Patient arrived to IMU at change of shift. Patient aao x3, c/o pain 9/10 throughout body. Patient relates pain to RA and b/l LE weeping wounds. Pain medication administered as ordered. Patient refusing some pm medications. VAT RN contacted, 2 new
lines placed. B/L Le with alginate covering entire LE from ankle to knee, and resting on covidien, sacrum and perineum noted with MASD and scattered stage 2 PU's. Calazyme ointment applied to sacrum and perineum. Purewick applied to lessen moisture.
Patient remains on 1:1. Call todd within reach. Will continue to monitor patient closely.
[2025-06-04] MEDS: ZOSYN 50 IV (22:41)
[2025-06-04 23:33] LABS: Glucose - Point of Care 158 mg/dl (70-99)
[2025-06-05] VITALS (20 sets, daily range): BP systolic 91–118; BP diastolic 54–79; BMI 16.2
[2025-06-05 00:12] LABS: Blood Urea Nitrogen 73 mg/dl (7-17); Calcium 8.5 mg/dl (8.4-10.2); Carbon Dioxide 17 mmol/L (22-30); Chloride 104 mmol/L (98-107); Estimated Creatinine Clearance 26 ml/min; Glucose 135 mg/dl (70-99); Potassium 6.1 mmol/L (3.5-5.1); Sodium 128 mmol/L (135-145); eGFR 37.38
[2025-06-05 00:15] LABS: Glucose - Point of Care 135 mg/dl (70-99)
[2025-06-05] MEDS: DILAUDID 0.5 MG IV ×2 (00:20→12:31)
[2025-06-05] MEDS: LOKELMA 10 GRAM PO ×3 (00:44→05:06)
--- NOTE | 2025-06-05 01:28 | PTCARENOTE ---
Wound care provided, RN spent approx 1.5 hours soaking and removing Alginate dressing from NH. Unable to remove all alginate despite all attempts. Patient c/o 10/10 pain during wound care despite medication prior to performing wound care. 1x dose of
dilaudid 0.5mg iv ordered and administered. RN reviewed wound care with patient. RN cleansed wounds with soap and water, covered with adaptic and abd pads beneath b/l le. Foul odor noted from b/l le wounds, pink wound bed in some areas, other areas
covered with yellow slough, few areas of necrosis noted as well.
Patients 2300 potassium level 6.1, FURNITURE DESIGNER aware, lokelma ordered and administered. Will continue to monitor patient closely.
[2025-06-05 01:58] LABS: Glucose - Point of Care 119 mg/dl (70-99)
[2025-06-05 04:11] LABS: Glucose - Point of Care 123 mg/dl (70-99)
[2025-06-05] MEDS: ZOSYN 50 IV ×2 (05:06→09:23)
[2025-06-05] MEDS: SODIUM BICARBONATE 1150 MEQ IV (05:06)
[2025-06-05] MEDS: ROXICODONE 10 MG PO ×3 (05:39→21:41)
[2025-06-05 05:48] LABS: Hematocrit 20.5 % (37.0-47.0); Hemoglobin 6.7 g/dL (12.0-16.0); Mean Corp Hgb Conc. 32.7 g/dL (33.0-37.0); Mean Corpuscular Volume 72.4 fL (81.0-99.0); Platelet Count 631 10^3/uL (130-400); Red Cell Dist. Width 14.8 % (11.5-14.5)
--- NOTE | 2025-06-05 05:51 | PTCARENOTE ---
Received call from lab, patients hgb 6.7, down from 9.6 last night in the ED. RN notified BEHAVIORAL HEALTH TECH. Am care provided, patient medicated prior to am care.
[2025-06-05 06:05] LABS: Nucleated Red Blood Cells % 0.1 %
[2025-06-05 06:07] LABS: Blood Urea Nitrogen 58 mg/dl (7-17); Calcium 7.5 mg/dl (8.4-10.2); Carbon Dioxide 23 mmol/L (22-30); Chloride 101 mmol/L (98-107); Estimated Creatinine Clearance 38 ml/min; Glucose 122 mg/dl (70-99); Magnesium 2.1 mg/dl (1.6-2.3); Potassium 4.8 mmol/L (3.5-5.1); Sodium 131 mmol/L (135-145); eGFR 52.80
--- NOTE | 2025-06-05 07:16 | PTCARENOTE ---
Medication Quinten accidently scanned 2x around midnight, only 1 dose given. Unable to edit as second rn no longer present to correct.
[2025-06-05] MEDS: ULTRAM 50 MG PO ×2 (07:58→19:32)
[2025-06-05] MEDS: HEPARIN 5000 UNITS SC (07:59)
[2025-06-05] MEDS: SENOKOT PO (07:59)
[2025-06-05 08:13] LABS: Hematocrit 21.1 % (37.0-47.0); Hemoglobin 6.8 g/dL (12.0-16.0); Mean Corp Hgb Conc. 32.2 g/dL (33.0-37.0); Mean Corpuscular Volume 74.0 fL (81.0-99.0); Platelet Count 612 10^3/uL (130-400); Red Cell Dist. Width 15.1 % (11.5-14.5)
--- NOTE | 2025-06-05 08:25 | CON.ID ---
Consultation
-
Date/Time Consultation Requested: June 04, 20251939
Date/Time Consultation Performed: June 05, 2025 0830
Requesting Provider: Dr. Christiane Starkey
Performing Provider: Dr. Kitty Carpenter
Reason for Consultation: Lymphedema with bilateral lower extremity wounds
Chief Complaint / Past History
Chief Complaint
Painful and draining bilateral lower extremity wounds.
History of Present Illness
59-year-old female with history of RA on leflunomide and biologic, bilateral lower extremity lymphedema with chronic bilateral lower extremity wound who presented from [facility] yesterday with significant drainage from bilateral lower
extremity wounds. She reports the wounds started approximately 3 months ago and have been nonhealing. She has chronic lower extremity lymphedema from rheumatoid arthritis for which she was using compressions. She reports she had vascular workup
with good arterial circulation. Her biologic treatment were recently changed twice due to possible source of her lower extremity wounds. She was recently hospitalized here May 18 to May 24 for cellulitis of the lower extremities, treated with IV
cefazolin then discharged on cephalexin x 4 more days. However patient reports no significant improvement. The wounds deteriorated, then started draining copious yellowish fluids. The dressings were soaked. She complains of wound pain. No
fevers or chills. In ED white count 25.3, patient in SABINA, potassium 8.1. She is currently on Zosyn.
Past History
Additional Past Medical History:
RA on leflunomide and Orencia
HTN
Hypothyroidism
BLE lymphedema
Chronic BLE wounds
Chronic pain
Depression
Non-ambulatory
[facility] resident
Allergy History:
No Known Allergies Allergy (Unverified 12/08/22 19:34)
Medications Reviewed: Yes
Current Antibiotics:
Zosyn d2
Social History
Tobacco: Non-Smoker
Alcohol: None
Drug: None
Personal:
Living: Skilled Nursing ([facility])
Family History
Family History: Not Pertinent
Review of Systems
Review of Systems
General: Negative Fever, Chills or Change in Appetite
HEENT: Negative Sinus Problems or Headache
Cardiovascular: Negative Chest Pain
Respiratory: Negative Dyspnea or Cough
Gasteroenterology: Negative Nausea, Vomiting or Diarrhea
Endocrine: Weakness
All systems: All other systems were reviewed and were negative
Vital Signs
Temp Pulse Resp BP Pulse Ox
98.1 F 105 23 101/54 98
06/05/25 07:01 06/05/25 07:59 06/05/25 06:15 06/05/25 07:59 06/05/25 06:15
Physical Exam
Physical Exam
Constitutional: Chronically Ill, Non-toxic and Cachetic
Eyes: No Conjunctival Hemorrhage and Sclera Anicteric
Cardiovascular: Regular Rate and S1/S2
Pulmonary: Clear
Gastrointestinal: Soft, Non Tender, Non Distended and Normal Bowel Sounds
Genito-Urinary: Negative CVA Tenderness
Extremities: Edema (BLE) and Erythema (bilateral ankle/foot; dressings dry)
Musculoskeletal: Other (Joint deformities from RA)
Wound: Other (Reviewed wound photos from ED: BLE very dry skin. BLE cruz to ankle with skin breakdown, large superficial wounds, yellow-plaza exudate slough. )
Neurological: AO x 3
Lab / Diagnostic Study Results
06/05/25 07:15
06/05/25 05:24
Abs Immat Gran (auto) 1.0 10^3/uL (0-0.05) H 06/05/25 05:24
Absolute Neuts (auto) 14.0 10^3/uL (1.4-6.5) H 06/05/25 05:24
Absolute Lymphs (auto) 1.3 10^3/uL (1.2-3.4) 06/05/25 05:24
Absolute Monos (auto) 0.8 10^3/uL (0.1-0.6) H 06/05/25 05:24
Absolute Basos (auto) 0.1 10^3/uL (0-0.2) 06/05/25 05:24
Immature Gran % 6.0 % (0-0.5) H 06/05/25 05:24
Neutrophils % 81.6 % (42.2-75.2) H 06/05/25 05:24
Lymphocytes % 7.4 % (20.5-51.1) L 06/05/25 05:24
Monocytes % 4.4 % (1.7-9.3) 06/05/25 05:24
Eosinophils % 0.2 % (0-6) 06/05/25 05:24
Basophils % 0.4 % (0-2) 06/05/25 05:24
Lactic Acid Cancelled 06/04/25 18:30
Ur Squamous Epith Cells 26-30 /LPF (Few) 06/04/25 16:49
Microbiology Results
Micro:
06/04/25 23:44 MRSA Screen - Pending
Nose
06/04/25 16:49 Urine Culture - Pending
Urine
06/04/25 14:35 Blood Culture - Pending
Blood/Venous
06/04/25 14:35 Blood Culture - Pending
Blood/Venous
06/04/25 CXR: No acute cardiopulmonary process.
Assessment / Plan
# BLE wound cellulitis
# Leukocytosis
# SABINA
# Chronic non-healing wounds BLE
# Chronic lymphedema
# RA on Orencia, leflunomide
# Protein-calorie malnutrition
- Wound care consulted
- KAL compression as tolerated
- Elevate LE
- Replace Zosyn with meropenem (renally adjusted), for possible MDRO ([facility] resident)
- Trend wbc
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
RA on leflunomide and Orencia
HTN
Hypothyroidism
BLE lymphedema
Chronic BLE wounds
Chronic pain
Depression
Non-ambulatory
SNF resident
--- NOTE | 2025-06-05 08:30 | PTCARENOTE ---
Dr. Resendiz and Dr. Shearer made aware that patient's hmg is 6.8. Dr. Shearer at bedside. Care ongoing.
[2025-06-05] MEDS: NSS 1000 IV (10:53)
--- NOTE | 2025-06-05 11:36 | W.PN.NEPH.PH ---
Today's Communication / Plan
-
Normal saline
Assessment/Plan
-
59-year-old female from [facility], with history of GERD, malnutrition, PVD, depression, RA, bilateral lower extremity cellulitis/lymphedema, depression presents from [facility] for bilateral LE pain, swelling, oozing.
Patient acute kidney injury and hyperkalemia with a creatinine of 2.2 from baseline 0.6 and a potassium of 8.1.
She has severe rheumatoid arthritis and recently started on Orencia.
IMP:
Acute kidney injury with life-threatening hyperkalemia
Sepsis secondary to bilateral lower extremity cellulitis
bilateral leg lymphedema
Hyponatremia
hypoalbuminemia
Iron deficiency anemia
Hypothyroidism
Rheumatoid arthritis
Chronic bilateral shoulder pain with severe bilateral glenohumeral arthrosis
Chronic rotator cuff arthropathy
Chronic ambulatory dysfunction uses walker at baseline
Chronic debility
HTN
HLD
Moderate protein calorie malnutrition/cachexia�BMI 17.4
Plan:
Agree with IV fluids
Last admission indicated 1.3 g proteinuria
Await urine indices
Panculture
Status post insulin bicarbonate calcium gluconate
Check renal imaging= no obstructive pathology
Monitor urine output
Renal dose all medications
Outpatient records show naproxen 500 mg twice a day
Renal function and potassium improved with medical management
Hemoglobin 6.7 transfuse deferred to primary team
-
-
Date of Service: June 05, 2025
CC / HPI / ROS
-
Chief Complaint:
Presents with leg bruising and pain
History of Present Illness:
Acute kidney injury and hyperkalemia prerenal responded to IV fluids with lower extremity cellulitis on antibiotics
Review of Systems:.
No chest pain or shortness of breath
Labs
-
Labs:
WBC 16.9 10^3/uL (4.8-10.8) H 06/05/25 07:15
RBC 2.85 10^6/uL (4.20-5.40) L 06/05/25 07:15
Hgb 6.8 g/dL (12.0-16.0) L* 06/05/25 07:15
Hct 21.1 % (37.0-47.0) L 06/05/25 07:15
Plt Count 612 10^3/uL (130-400) H 06/05/25 07:15
Sodium 131 mmol/L (135-145) L 06/05/25 05:24
Potassium 4.8 mmol/L (3.5-5.1) 06/05/25 05:24
Chloride 101 mmol/L (98-107) 06/05/25 05:24
Carbon Dioxide 23 mmol/L (22-30) 06/05/25 05:24
BUN 58 mg/dl (7-17) H 06/05/25 05:24
Creatinine 1.2 mg/dL (0.6-1.0) H 06/05/25 05:24
eGFR 52.80 06/05/25 05:24
Glucose 122 mg/dl (70-99) H 06/05/25 05:24
Calcium 7.5 mg/dl (8.4-10.2) L 06/05/25 05:24
Albumin 3.1 g/dl (3.5-5.0) L 06/04/25 14:35
Physical Exam
-
Vital Signs:
Vital Signs
Temp Pulse Resp BP Pulse Ox
99.6 F 94 15 93/63 96
06/05/25 11:21 06/05/25 11:12 06/05/25 11:12 06/05/25 11:12 06/05/25 11:12
Cardiovascular:: Regular rate and rhythm
Respiratory:: Bilateral: CTA
Lung Excursion:: Normal
Abdomen:: Nontender and Soft
Bowel Sounds:: Normal
Extremity Edema:: +2: Bilateral:
Trejo Catheter: No
--- NOTE | 2025-06-05 11:44 | CM ---
Patient from [facility] with Hx severe rheumatoid arthritis with Dx BLE wound cellulitis, sepsis, Hyperkalemia, SABINA. Room air. Receiving IVF, IV Abx, Lokelma. Per nurse; assist of 2, bedrest, 1:1 Observation for suicide risk. Wound care
nurse consult pending. Psych Consult pending.
CM Consult: Suicide Risk and Advanced Directive
Met with patient who says she feels she is being treated okay at [facility] and she wishes to return there.
Provided Advanced Directive with pen and instructions; patient unsure if she will complete.
Patient confirms she has no family. Her only contact is Ayla Zhang, a friend.
Spoke with Adolfo Aguilar & Bassem, Engineering Programmer [facility];
the patient resides there in LTC on an PR bed hold.
She is A/O at baseline, assisted with ADLs.
The patient is w/c bound and transfers independently.
She is seen by their wound care nurse weekly.
Per Bassem, the patient needs a lot of encouragement in regard to her care.
She has been depressed since her boyfriend several months ago.
The ph for report [phone], fax [phone].
Plan return to [facility] when medically ready.
--- NOTE | 2025-06-05 13:44 | CON.MD ---
Addendum entered and electronically signed by Andreea Alvarez MD 06/05/25 14:13:
tsh b12 folate all checked and nl in may
Original Note:
Consultation - Medical
-
patient seen chart reviewed. this consult is being done on june 05 2025. i spoke with nursing. the patient is a 59 year old woman with multiple medical problems who is in constant pain.she resides at [facility]. she comes to w cellulitis of
lower limbs superimposed on chronic lymphedema. she was here in may for same and rx with antibiotics. she has long hx of depression. she has never wanted to be on antidepressants but did consent months ago (she was seen by dr handy in 2022 and
had never taken antidep meds up until then) but does not feel mirtazapine 15 mg has helped her at all. she would like to stop taking it. she had made some comments about wanting to hence this consult but said she did not mean it...she had no
intent or plan..has never made a suicide attempt and would not make one. she has trouble sleeping bc of the pain. she does not enjoy much. she has very little energy (see list of medical issues below). there is nothing to suggest bipolar or
psychosis. very poor appetite bmi has fallen considerably since last seen by psych. patient has some hesitation re transfusion although i did explain to her the risk vs benefit here and she seemed to understand
past psych hx no prior psych hospital stays. she had not taken meds until the last year or so. she has been in psychotherapy in the distant past.
family hx denied
substance abuse denied
medical hx see above..recent admit for sepsis secondary to cellulitis... rheumatoid arthritis all over joint pain significant deformity in her hands...hypothyroid...severe anemia w hgb 6.8 transfusion was suggested but patient refused. ..ghada cr
normalizing now 1.2....htn hld hyperkalemia 8.1 on admit to 4+.... dehydrated at admit bun even now is 58 sodium 131 ca 7.5 glucose 122
social resides at [facility] given her infirmity. currently not ambulatory. lost sig other over a year ago. . she and ex had tried to get back together did not work. no kids. had two cats forced to give up when went to [facility]. 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 had three sisters one dec not close to the other two. grew up in [facility] mother when she was only [age] years old
mse alert ox3 pleasant and cooperative patient obviously very frail and in some discomfort. speech soft nl rate goal directed mood is depressed affect appropriate no si aver intelligence insight judgment impaired.
dx major depression recurrent severe
recommendation will halve dose of remeron and dc in a few days to avoid cholinergic rebound. would suggest cymbalta but only in kidney function improves and serum sodium comes up a bit. it could help with pain as well. patient agreeable to this
plan. i explained to her why she should accept transfusion and how in my opinion the benefits outweigh the risks. it is my impression she will allow transfusion. in any case i do think she has capacity to make her own medical decisions at this
point . psych will see her over the weekend.
[2025-06-05] MEDS: STERILE WATER FOR INJECTION 10 ML IV ×2 (14:03→21:27)
[2025-06-05] MEDS: MERREM 500 MG IV ×2 (14:03→21:27)
[2025-06-05] MEDS: BENADRYL 25 MG PO (14:10)
[2025-06-05] MEDS: TYLENOL 650 MG PO (14:10)
--- NOTE | 2025-06-05 14:17 | W.PN.HOSP.TC ---
Today's Communication/Plan
-
Stop Sodium Bicarbonate and D5, change to NSS 100ml/hr
Transfuse 1 pack RBC
Psychiatic consult
1-1 observation watch
Continue wound care
Surgical consult for wound debridement
Assessment / Plan
Assessment / Plan
59 year old female from [facility], with history past medical history ambulatory dysfunction, depression, rheumatoid arthritis, peripheral vascular disease, and gastroesophageal reflux disease presents to the ER with bilateral leg
pain on bilateral lower extremity erythematous wound with serous exudate and desquamation of surrounding skin. She reported persistent pain in her legs describe as severe and persistent.� The patient denies experiencing any fever, chills, chest
pain, difficulty breathing, or abdominal pain.�
The patient recently admitted was recently admitted from May 18, 2025 to May 24, 2025 for sepsis secondary to bilateral lower extremity cellulitis.�
Severe Sepsis secondary to Lower extremity cellulitis
-patient with leukocytosis, tachycardia and tachypnea signs of Acute Kidney Injury (1.2 H creatinine)
-URINE: occult blood reflex 4+, RBC- 30-40, wbc 70-80, urine albumin 2+, Leukocyte esterase 3+, bacteria- many
(WBC was 25.3, current:17.1)
Chest xray: no acute cardiopulmonary process
Renal: unremarkable
-follow up cultures: mrsa,urine, blood/venous pending
-Start IV Zosyn
-ID consulted
-wound care, surgical consult for wound debridement
-hold RECORDS ANALYSIS MANAGER Leflunomide
-hold RECORDS ANALYSIS MANAGER Lasix
#Anemia:
Hgb: 6.7 Low
-1 packed RBC given, Hgb post transfusion: 8.8
-currently on NSS 100ml/hr
Hyperkalemia
Was 6.1H�> 4.8�
ECG- sinus tachycardia
-given treatment with IV calcium, IV insulin, Lokelma, 2L IVF
-glucose- 122
-repeat K at 6PM with remainder of BMP
Hba1c pending
#Acute Kidney Injury
-sodium bicarb drip given
-renal US: unremarkable
-nephrology consulted
-hold NSAID
#Depression
- Psychiatric consult initiated
- 1-1 Observation watch
#Chronic Hypotension
-continue midodrine
#Rheumatoid Arthritis
-hold Leflunomide
-patient receives abatacept on Mondays
#Anxiety
-Continue Remeron
Anticipated Discharge: > 48 hours
Subjective/Interval History
-
Date of Service: June 05, 2025
The patient states that she feels tired and complained about her wound pain. She stated that she felt overwhelmed and was teary when procedures were being explained.
Objective Data
-
Labs:
Laboratory Results
06/05/25 06/05/25
05:24 07:15
WBC 17.1 H 16.9 H
Hgb 6.7 L* D 6.8 L*
Hct 20.5 L* 21.1 L
Plt Count 631 H D 612 H
Sodium 131 L
Potassium 4.8
Chloride 101
Carbon Dioxide 23
BUN 58 H
Creatinine 1.2 H
Glucose 122 H
Calcium 7.5 L
Vital Signs:
Vital Signs
Temp Pulse Resp BP Pulse Ox
98.6 F 92 14 92/61 97
06/05/25 14:10 06/05/25 12:30 06/05/25 12:00 06/05/25 12:30 06/05/25 12:00
I&O
06/04/25 06/05/25 06/06/25
06:59 06:59 06:59
Intake Total 1030 / 1030
Balance 1030 / 1030
Review of Systems
-
History Source: Patient
Constitutional: Reports Weakness and Other (Denies fever or chills)
EENT: Reports Other
Respiratory: Reports Other (Denies cough, trouble breathing, wheezing)
Cardiac: Reports Other (Denies chest pain, palpitations)
Abdomen/GI: Reports Other (Denies vomiting and diarrhea)
Musculoskeletal: Reports Joint Pain
Skin: Reports Other (bilateral lower extremity erythema, serous exudate, desquamation of surrounding skin.)
Neuro: Reports Weakness
Psych: Reports Depressed and Other
Physical Exam
-
General: Conversant, Appears Chronically Ill and Cachectic
HEENT: Normocephalic, Atraumatic and Anicteric
Respiratory: Clear to Auscultation
Cardiac: Regular Rhythm and S1/S2
Breast: Deferred by me
GI: Soft and Nontender
Musculoskeletal: Edema, Left Upper Extrem, Edema, Right Lower Extrem and Other ((+) contractures on both hands)
Skin: Warm
Neuro: AO x 3
Psych: Depressed
--- NOTE | 2025-06-05 14:53 | PTCARENOTE ---
1:1 for suicide removed d/t psych deeming patient not suicidal. Safe environment maintained. Call todd within reach. Care ongoing.
[2025-06-05] MEDS: DAKIN'S SOLUTION 0.125% 1/4 STRENGTH 473 ML TOPICAL ×2 (14:58→21:26)
--- NOTE | 2025-06-05 15:28 | CON.GS ---
Addendum entered and electronically signed by Adolfo David MD 06/05/25 17:13:
Patient seen and examined with surgical FEEDER OPERATOR AUTOMATIC. Agree with documented consultation with additions noted here.
HPI: 59-year-old female with advanced rheumatoid arthritis resulting in severe bilateral glenohumeral arthrosis, rotator cuff arthropathy, chronic shoulder pain, hand and foot arthropathy with contractures limiting her mobility. She also has a
history of chronic bilateral lower extremity lymphedema she was recently hospitalized. 05/18/2025 through 05/24/2025 With bilateral lower extremity cellulitis and sepsis. Local wound care was provided as it was predominantly a cellulitic process
with overlying skin changes but no open wounds. She resides at [facility] and was readmitted to the hospitalist service yesterday afternoon due to worsening bilateral lower extremity wounds and pain.
Patient advises that she has been unable to ambulate now for a significant amount of time, at least months and her pain has been progressive and deteriorating in her lower extremities.
Afebrile, tachycardia but normotensive.
Chronically ill-appearing, older than her stated age. She appears to be in distress secondary to chronic pain and acute pain from her lower extremities.
Wound care nursing present during our evaluation and had removed the dressing. Below the level of the knees and down through the ankle there are multiple superficial to full-thickness areas of skin with circumferentially with areas of thin and
thick eschar and sloughing. She has extreme tenderness limiting evaluation. No areas of wet gangrene. No purulence.
Assessment/plan: 59-year-old female nonambulatory due to progressive severe rheumatoid arthritis and chronic lower extremity lymphedema presenting with cellulitis and necrotic bilateral lower extremity wounds.
Difficult situation with poor long-term wound healing chances. In the immediate future recommend local wound care with Dakin's to allow a bit more further demarcation of the current eschars. Will continue to follow as anticipating need for
surgical debridement in the near future.
Original Note:
Consultation
-
Date/Time Consultation Performed: 06/05/25 [id number]
Performing Provider: Negar
Medical History
-
Chief Complaint: BLLE pain/wounds
History of Present Illness:
Ms Day is a 59 yo female with a h/o RA, lower extremity lymphedema for which she uses compression wraps and nonhealing wounds to the bilateral lower extremities which developed a few months ago with recent admission in mid May for lower
extremity cellulitis treated with cefazolin then cephalexin who presents from [facility] with worsening wounds to both lower extremities and increased pain and drainage. Below the level of the knees and down to below the ankles, there are
multiple superficial to full thickness skin wounds circumferentially with several areas of eschar and multiple areas of slough. The largest area of eschar is just lateral to the mid tibial area of the right leg. She reports significant pain and
tenderness to her legs. She denies fevers or chills. She denies numbness or tingling.
Past Medical History
Past Medical History: HTN, Hypothyroidism, Psychiatric (depression) and Other (RA on Leflunomide and Orencia, nonambulatory, BLLE wound and lymphedema, chronic pain)
Past Surgical History: None
Social History
Tobacco: Non-Smoker
Alcohol: None
Personal:
Living: Senior Living
Employment: Disabled
Family History
Family History: Reviewed & Not Pertinent
Allergies / Home Medications
Allergy/AdvReac Type Severity Reaction Status Date / Time
No Known Allergies Allergy Unverified 12/08/22 19:34
�Medication �Instructions �Recorded �Confirmed �Type
acetaminophen 325 mg tablet 650 mg PO Q4HPRN PRN mild 05/18/25 06/04/25 History
pain/fever
leflunomide 20 mg tablet 20 mg PO DAILY@1200 Antirheumatic 05/18/25 06/04/25 History
mirtazapine 15 mg tablet (Remeron) 15 mg PO HS Mental Health/Anxiety 05/18/25 06/04/25 History
oxycodone 10 mg tablet 10 mg PO Q6HPRN PRN severe pain 05/18/25 06/04/25 History
polyethylene glycol 3350 17 gram 17 g PO DAILYPRN PRN Constipation 05/18/25 06/04/25 History
oral powder packet (Miralax)
tramadol 50 mg tablet 50 mg PO BID Pain 05/18/25 06/04/25 History
tramadol 50 mg tablet 50 mg PO Q6HPRN PRN moderate pain 05/18/25 06/04/25 History
furosemide 40 mg tablet (Lasix) 80 mg (2 x 40 mg) PO DAILY Fluid 05/24/25 06/04/25 Rx
Retention/Swelling #0 tabs
midodrine 5 mg tablet 2.5 mg (1/2 x 5 mg) PO 05/24/25 06/04/25 Rx
TID@0800,1300,1800 #30 tabs
abatacept 125 mg/mL subcutaneous 125 mg SC MO Rheumatoid arthritis 06/04/25 06/04/25 History
syringe (Orencia)
acetic acid 0.25 % irrigation 1 irrig irrigation BID B/L LE WOUND 06/04/25 06/04/25 History
solution
ferrous sulfate 325 mg (65 mg 325 mg PO HS Supplement 06/04/25 06/04/25 History
iron) tablet
naproxen 500 mg tablet (Naprosyn) 500 mg PO BID Pain 06/04/25 06/04/25 History
sennosides 8.6 mg tablet (senna) 8.6 mg PO DAILY Constipation 06/04/25 06/04/25 History
zinc oxide 10 % topical cream 1 applic topical DAILY B/L LEGS 06/04/25 06/04/25 History
Review of Systems
-
History Source: Patient
All other systems: Negative unless noted
A 10 point review of systems was completed, and was negative except as per HPI.
Physical Exam
Vital Signs
Temp Pulse Resp BP Pulse Ox
98.5 F 113 21 104/61 100
06/05/25 15:03 06/05/25 15:03 06/05/25 15:03 06/05/25 15:03 06/05/25 15:03
06/04/25 06/05/25 06/06/25
06:59 06:59 06:59
Actual Weight 46.777 kg
Body Mass Index (BMI) 16.2
Lab Results
06/05/25 05:24
WBC 16.9 10^3/uL (4.8-10.8) H 06/05/25 07:15
Hgb 6.8 g/dL (12.0-16.0) L* 06/05/25 07:15
Hct 21.1 % (37.0-47.0) L 06/05/25 07:15
Plt Count 612 10^3/uL (130-400) H 06/05/25 07:15
Abs Immat Gran (auto) 1.0 10^3/uL (0-0.05) H 06/05/25 05:24
Neutrophils % 81.6 % (42.2-75.2) H 06/05/25 05:24
Physical Exam
General: Pain (with exam); Negative Comfortable
HEENT: Normocephalic
Cardiac: Peripheral Edema (1+ BLLE) and Other (cap refill <3 sec, DP by doppler/palpable)
Skin: Warm and Other (Below the level of the knees and down to just below the ankles; multiple superficial to full thickness skin wounds circumferentially with several areas of eschar and multiple areas of slough)
Neuro: Awake, Alert and AO x 3
Psych: Other (anxious, crying out)
Data Reviewed
-
Labs: Labs Reviewed by me, Discussed with Physician, Discussed with Nurse and Discussed with Family
Old Records: Reviewed
Assessment / Plan
-
Ms Day is a 59 yo female with a h/o RA, lower extremity lymphedema for which she uses compression wraps and nonhealing wounds to the bilateral lower extremities which developed a few months ago with recent admission in mid May for lower
extremity cellulitis treated with cefazolin then cephalexin who presents from [facility] with worsening wounds to both lower extremities and increased pain and drainage.
Below the level of the knees and down to just below the ankles, there are multiple superficial to full thickness skin wounds circumferentially with several areas of eschar and multiple areas of slough. The largest area of eschar is just lateral to
the mid tibial area of the right leg. Afebrile. VSS. Leukocytosis present, trended down from 25.3 to 16.9 since admission. Chronic anemia present, h/h decreased with volume resuscitation (declined transfusion). Wounds are not bleeding. SABINA present
on arrival with improvement after volume resuscitation.
Plan:
Continue local wound care with Dakin's soaks and BID dressing changes. No compression wraps
Continue ABX as per ID
Cx pending
Analgesics/medical management as per primary team
Will likely need eventual operative debridement of her wounds, timing TBD. Tentatively early next week pending pt course
--- NOTE | 2025-06-05 16:11 | WOUNDNOTE ---
BUTTOCKS 1965 [id number]
--- NOTE | 2025-06-05 16:13 | WOUNDNOTE ---
WO RN note: Patient admitted with bilateral LE wounds , SABINA
See H&P for complete history.
PMH: RA, lymphedema, HTN, hypothyroidism, worsening LE wounds when comparing wounds from prior admission
Wound Location and type/assessment: Patient admitted with LE wounds. Patient reports wounds worsened after staff put on compression too tight recently. Some areas of the wounds appear to be superficial, and other areas are covered with thick slough
and and soft eschar. Wound run circumferentially bilaterally.
Patient was medicated for pain before and during wound care. + audible pulses. Support given by nursing staff during all aspects of care. Patient has Purwick for moisture management. Buttocks with scattered open areas likely related to MASD. Also
noted on buttock was some darker, chronic appearing blanchable skin. Heels intact.
Appetite: Poor
Pressure redistribution devices in place: Centrella Max Air, heels off-loaded with pillows under calves.
Plan: Wounds cleaned with Dakins and adaptic, ABD and kerlix applied. Plan is for local wound care over the weekend and tentative debridement by surgery next week. Wound cultures also completed. Orders confirmed with Dr. Shearer and EDUARDO Abraham updated.
Will continue to follow
Will confirm orders with hospitalist and update nurse.
Updated care plan and will follow as needed.
Note to case management of equipment requested for discharge: Patient should have air mattress at facility
Recommend follow up at wound care center upon discharge.
--- NOTE | 2025-06-05 18:00 | PTCARENOTE ---
Patient AOx3. Patient is flat and withdrawn. Lethargic throughout shift, but arouses to voice. On RA with SpO2 greater than 92%. NSR-sinus tachy on monitor. BP soft, but gets scheduled midodrine. Incontinent to urine. Purewick in place. Poor
appetite. Takes pills with applesauce. Wound care completed with C nurse. Assist x2 in bed. IVF running per order. 1 unit of PRBC's infused per order. Tylenol and Benadryl given prior to infusion per order. Pain medication provided to patient per
MAR. Call todd within reach, bed in lowest position, and bed of wheels locked. Safe environment maintained.
[2025-06-05 18:33] LABS: Hematocrit 27.0 % (37.0-47.0); Hemoglobin 8.8 g/dL (12.0-16.0); Mean Corp Hgb Conc. 32.6 g/dL (33.0-37.0); Mean Corpuscular Volume 75.8 fL (81.0-99.0); Platelet Count 587 10^3/uL (130-400); Red Cell Dist. Width 15.7 % (11.5-14.5)
[2025-06-05] MEDS: FEOSOL 325 MG PO (19:32)
[2025-06-05] MEDS: HEPARIN SC (19:40)
[2025-06-06] VITALS (11 sets, daily range): BP systolic 90–109; BP diastolic 56–75; BMI 17.2
[2025-06-06] MEDS: NSS 1000 IV ×2 (00:43→09:28)
--- NOTE | 2025-06-06 01:05 | PTCARENOTE ---
patient AAOx3, flat and withdrawn. On RA sating in high 90s. NSR on monitor, BPs can be soft. Patient refuses certain medications for this RN, see MAR. Patient incontinent, purewick in place. NS running at 100ml/hr. Assessment and vital signs as
documented. call todd in reach.
[2025-06-06] MEDS: ROXICODONE 10 MG PO ×4 (04:05→22:24)
[2025-06-06] MEDS: DILAUDID 0.5 MG IV ×2 (04:51→15:47)
[2025-06-06] MEDS: STERILE WATER FOR INJECTION 10 ML IV ×3 (05:26→22:24)
[2025-06-06] MEDS: MERREM 500 MG IV ×3 (05:26→22:24)
--- NOTE | 2025-06-06 05:58 | PTCARENOTE ---
pre medicated patient prior to wound care. Patient was reluctant to receive wound care because of the intense pain. pain medication given, see MAR. otherwise no acute events overnight. assessment and vital signs as charted. call todd in reach.
[2025-06-06 05:59] LABS: Hematocrit 24.0 % (37.0-47.0); Hemoglobin 7.8 g/dL (12.0-16.0); Mean Corp Hgb Conc. 32.5 g/dL (33.0-37.0); Mean Corpuscular Volume 75.7 fL (81.0-99.0); Platelet Count 553 10^3/uL (130-400); Red Cell Dist. Width 15.4 % (11.5-14.5)
[2025-06-06 06:13] LABS: Blood Urea Nitrogen 36 mg/dl (7-17); Calcium 7.1 mg/dl (8.4-10.2); Carbon Dioxide 29 mmol/L (22-30); Chloride 103 mmol/L (98-107); Estimated Creatinine Clearance 61 ml/min; Glucose 89 mg/dl (70-99); Potassium 3.9 mmol/L (3.5-5.1); Sodium 134 mmol/L (135-145); eGFR > 60.00
[2025-06-06] MEDS: SENOKOT PO ×2 (09:27→09:34)
[2025-06-06] MEDS: ULTRAM 50 MG PO ×2 (09:27→19:32)
[2025-06-06] MEDS: HEPARIN SC ×2 (09:28→19:32)
[2025-06-06] MEDS: DAKIN'S SOLUTION 0.125% 1/4 STRENGTH TOPICAL ×2 (09:29→19:32)
--- NOTE | 2025-06-06 10:01 | PTCARENOTE ---
Assumed care of pt at change of shift. Pt resting comfortably in bed. Refused Heparin and senakot with AM meds - educated on blood clot prevention and bowel regimen. Pt stated that she only has a BM once a week - no BM documented since admission,
abd soft. RAC and R wrist IV's infiltrated when flushed - both IV's removed. Reports 8/10 pain, informed unable to get Oxy until 1000, refused dilaudid at this time. Will continue to monitor and assess.
--- NOTE | 2025-06-06 11:26 | W.PN.SURGUPD ---
Surgical Update
Surgical Update
Patient seen in follow-up. Resting comfortably in hospital bed.
She underwent dressing changes this morning which she tolerated but with considerable discomfort.
Overall feeling better than at time of admission.
Will reassess her wounds tomorrow a.m. with dressing change. Advised nursing to notify our service for evaluation at that time.
Probable plan for OR debridement and washout this upcoming week now that medically stabilizing (transfused, creatinine improving)
--- NOTE | 2025-06-06 11:55 | W.PN.ID1 ---
Date of Service
Date of Service: June 06, 2025
Today's Communication
Continue meropenem.
Assessment / Plan
# BLE wound cellulitis
# Leukocytosis - trending down
# SABINA
# Chronic non-healing wounds BLE
# Chronic lymphedema
# RA on Orencia, leflunomide
# Protein-calorie malnutrition
- Wound care consulted
- KAL compression as tolerated
- Elevate LE
- Appreciate surgical eval
- Continue meropenem (renally adjusted)
- Trend wbc
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
RA on leflunomide and Orencia
HTN
Hypothyroidism
BLE lymphedema
Chronic BLE wounds
Chronic pain
Depression
Non-ambulatory
SNF resident
Chief Complaint
-: Cellulitis
Subjective / Review of Systems
Wound pain stable.
Vital Signs / Physical Exam
Vital Signs
Vital Signs
Temp Pulse Resp BP Pulse Ox
98.4 F 77 12 109/75 97
06/06/25 11:18 06/06/25 03:30 06/06/25 03:30 06/06/25 09:27 06/06/25 03:30
Physical Exam
Constitutional: Chronically Ill and Cachetic
Cardiovascular: Regular Rate and S1/S2
Pulmonary: Clear
Gastrointestinal: Soft, Non Tender and Non Distended
Extremities: Edema (BLE) and Erythema (Foot erythema improved)
Wound: Other (Reviewed wound photos: BLE large wounds with necrotic tissue)
Neurological: AO x 3
Objective Data
Lab Data
Lab Results
06/06/25 05:06
06/06/25 05:06
Estimated Creat Clear 61 ml/min 06/06/25 05:06
Lactic Acid Cancelled 06/04/25 18:30
Total Bilirubin 0.7 mg/dl (0.2-1.3) 06/04/25 14:35
AST 18 U/L (14-36) 06/04/25 14:35
ALT < 10 U/L (0-35) 06/04/25 14:35
Alkaline Phosphatase 153 U/L (38-126) H 06/04/25 14:35
Most recent labs reviewed.
Micro Results:
06/04/25 23:44 MRSA Screen - Final
Nose No Methicillin Resistant Staphylococcus aureus isolated.
06/05/25 15:03 Wound Culture - Pending
Leg - Left Gram Stain - Preliminary
06/05/25 15:03 Wound Culture - Pending
Leg - Right Gram Stain - Preliminary
06/04/25 14:35 Blood Culture - Preliminary
Blood/Venous No Growth in 24 hours- Final report to follow
06/04/25 14:35 Blood Culture - Preliminary
Blood/Venous No Growth in 24 hours- Final report to follow
06/04/25 16:49 Urine Culture - Final
Urine
06/04/25 CXR: No acute cardiopulmonary process.
--- NOTE | 2025-06-06 12:02 | W.PN.UPDATE ---
Update Note
Progress Note Update
Patient initially was rather depressed particularly about being in pain and feeling pessimistic about her progress. Later in our conversation she became more engaged and talked about some positive times and memories from her past, particularly
related to her who unfortunately from [place].
She denies hopelessness or suicidal thoughts; does not like her current placement as apparently most of the residents have dementia and allegedly walk into her room and take her possessions.
She does not want to continue taking the Remeron and refused it yesterday so I will D/C. At this time she is not interested in trying Cymbalta.
Supportive intervention given.
Will continue F/U.
--- NOTE | 2025-06-06 14:24 | W.PN.HOSP.TC ---
Addendum entered and electronically signed by Parker Resendiz MD 06/06/25 15:16:
Chronic nonhealing wounds bilateral lower extremity
Presenting with severe sepsis likely related to chronic wounds which have been nonhealing
Continue IV antibiotics, started on meropenem per ID recs
IV fluids
Wound care
Surgery consult for eval of wound debridement
Wound culture
Michael compression
SABINA complicated by none anion gap metabolic acidosis along with hyperkalemia
Improving on bicarb drip
Transition bicarb drip to NS
Monitor urinary output
Avoid nephrotoxins hypotension
Hyperkalemia resolved
Avoid QT sparing agents
Original Note:
Today's Communication/Plan
-
Remeron stopped
Continue monitoring the patient
Continue wound care with Dakin's Solution
Continue Meropenem
Assessment / Plan
Assessment / Plan
59 year old female from [facility], with history past medical history ambulatory dysfunction, depression, rheumatoid arthritis, peripheral vascular disease, and gastroesophageal reflux disease presents to the ER with bilateral leg
pain on bilateral lower extremity erythematous wound with serous exudate and desquamation of surrounding skin. She reported persistent pain in her legs describe as severe and persistent.� The patient denies experiencing any fever, chills, chest
pain, difficulty breathing, or abdominal pain.�
The patient recently admitted was recently admitted from May 18, 2025 to May 24, 2025 for sepsis secondary to bilateral lower extremity cellulitis.�
Severe Sepsis secondary to Lower extremity cellulitis
-patient with leukocytosis, tachycardia and tachypnea signs of Acute Kidney Injury (1.2 H creatinine)
-URINE: occult blood reflex 4+, RBC- 30-40, wbc 70-80, urine albumin 2+, Leukocyte esterase 3+, bacteria- many
(WBC was 25.3, current:12.1)
Chest xray and Renal KIKA- unremarkable
-follow up cultures: urine, blood/venous pending
MRSA (-)
-On IV meropenem
-Continue wound care with Dakins--- surgery suggest further demarcation of current eschars before proceeding with surgical debridement.
- Continue pain management- Tramadol 50mg PO BID
-hold at home Leflunomide
-hold at home Lasix
ID, Surgery following
#Anemia:
Hgb: 6.7 Low
-1 packed RBC given, Hgb post transfusion: 8.8--> currently: 7.8
-currently on NSS 100ml/hr
-Ferrous Sulfate 325mg PO
-continue to monitor Hgb and sign of bleeding
-Transfuse <7hgb
Hyperkalemia
Was 6.1H�> 3.9 today
ECG- sinus tachycardia
-given treatment with IV calcium, IV insulin, Lokelma, 2L IVF
-glucose- 89
-Hba1c- 5.3
#Acute Kidney Injury
-Creatinine- 0.8 N today
-renal US: unremarkable
-hold NSAID
Nephrology following
#Major Depression, recurrent severe
#Anxiety
-1-1 Observation watch as needed
Psychiatric consult: Patient is with Major Depression, recurrent, severe
Plan: Discontinue Remeron per patient's request , Start Cymbalta when kidney function and serum sodium increases
Psychiatry following
#Chronic Hypotension
-continue midodrine
#Rheumatoid Arthritis
-hold Leflunomide
-patient receives abatacept on Mondays
Anticipated Discharge: > 48 hours
Subjective/Interval History
-
Date of Service: June 06, 2025
The patient says she feels better, and had no adverse reaction to the blood transfusion. Her legs are still painful, with accompanying tingling sensations.
Objective Data
-
Labs:
Laboratory Results
06/06/25
05:06
WBC 12.6 H
Hgb 7.8 L
Hct 24.0 L
Plt Count 553 H
Sodium 134 L
Potassium 3.9
Chloride 103
Carbon Dioxide 29
BUN 36 H
Creatinine 0.8
Glucose 89
Calcium 7.1 L
Vital Signs:
Vital Signs
Temp Pulse Resp BP Pulse Ox
98.4 F 84 12 101/58 98
06/06/25 11:18 06/06/25 13:00 06/06/25 13:00 06/06/25 13:28 06/06/25 13:00
I&O
06/05/25 06/06/25 06/07/25
06:59 06:59 06:59
Intake Total 2079 / 2079
Output Total 700 / 700
Balance 1380 / 1380
Review of Systems
-
History Source: Patient
Constitutional: Reports Weakness (less compared to yesterday) and Other (No fever, no chills)
Respiratory: Reports Other (Denies cough, trouble breathing, wheezing)
Cardiac: Reports Other (Denies chest pain, palpitations)
Abdomen/GI: Reports Other (Denies vomiting and diarrhea)
Genitourinary: Reports Other (Denies dysuria)
Musculoskeletal: Reports Joint Pain
Skin: Reports Other (bilateral lower extremity erythema, serous exudate, desquamation of surrounding skin.)
Neuro: Reports Weakness
Psych: Reports Depressed
Physical Exam
-
General: Conversant, Appears Chronically Ill and Cachectic
HEENT: Normocephalic, Atraumatic, Anicteric and Other ((+) erythematous sores with yellowish exudates on the lips)
Respiratory: Clear to Auscultation
Cardiac: Regular Rhythm and S1/S2
Breast: Deferred by me
GI: Soft and Nontender
Musculoskeletal: Edema, Left Upper Extrem, Edema, Right Lower Extrem and Other ((+) contractures on both hands)
Skin: Warm and Other (bilateral lower extremity erythema, serous exudate, desquamation of surrounding skin)
Neuro: AO x 3
Psych: Calm
--- NOTE | 2025-06-06 16:42 | W.PN.NEPH.PH ---
Today's Communication / Plan
-
follow labs
Assessment/Plan
-
59-year-old female from [facility], with history of GERD, malnutrition, PVD, depression, RA, bilateral lower extremity cellulitis/lymphedema, depression presents from [facility] for bilateral LE pain, swelling, oozing.
Patient acute kidney injury and hyperkalemia with a creatinine of 2.2 from baseline 0.6 and a potassium of 8.1.
She has severe rheumatoid arthritis and recently started on Orencia.
IMP:
Acute kidney injury with life-threatening hyperkalemia
Sepsis secondary to bilateral lower extremity cellulitis
bilateral leg lymphedema
Hyponatremia
hypoalbuminemia
Iron deficiency anemia
Hypothyroidism
Rheumatoid arthritis
Chronic bilateral shoulder pain with severe bilateral glenohumeral arthrosis
Chronic rotator cuff arthropathy
Chronic ambulatory dysfunction uses walker at baseline
Chronic debility
HTN
HLD
Moderate protein calorie malnutrition/cachexia�BMI 17.4
Plan:
cr now normalized
hyponatremia improving too
hyperkalemia resolved, renal US non acute
Last admission indicated 1.3 g proteinuria-need to f/u as out pt
BP soft chronically
wt is increasing, likely wean off IVF
felt LE edema is likely from hypoalbuminemia
avoid nephrotoxins and NSAIDs
-
-
Date of Service: June 06, 2025
CC / HPI / ROS
-
Chief Complaint:
SABINA
History of Present Illness:
cr normal 0.8, k normal
sodium better at 134
hb low 7.8
wt is up
Review of Systems:.
No chest pain or shortness of breath
chr LE edema with wounds
Labs
-
Labs:
WBC 12.6 10^3/uL (4.8-10.8) H 06/06/25 05:06
RBC 3.17 10^6/uL (4.20-5.40) L 06/06/25 05:06
Hgb 7.8 g/dL (12.0-16.0) L 06/06/25 05:06
Hct 24.0 % (37.0-47.0) L 06/06/25 05:06
Plt Count 553 10^3/uL (130-400) H 06/06/25 05:06
Sodium 134 mmol/L (135-145) L 06/06/25 05:06
Potassium 3.9 mmol/L (3.5-5.1) 06/06/25 05:06
Chloride 103 mmol/L (98-107) 06/06/25 05:06
Carbon Dioxide 29 mmol/L (22-30) 06/06/25 05:06
BUN 36 mg/dl (7-17) H 06/06/25 05:06
Creatinine 0.8 mg/dL (0.6-1.0) 06/06/25 05:06
eGFR > 60.00 06/06/25 05:06
Glucose 89 mg/dl (70-99) 06/06/25 05:06
Calcium 7.1 mg/dl (8.4-10.2) L 06/06/25 05:06
Albumin 3.1 g/dl (3.5-5.0) L 06/04/25 14:35
Physical Exam
-
Vital Signs:
Vital Signs
Temp Pulse Resp BP Pulse Ox
98.4 F 84 12 101/58 97
06/06/25 11:18 06/06/25 13:00 06/06/25 13:00 06/06/25 13:28 06/06/25 15:16
Cardiovascular:: Regular rate and rhythm
Respiratory:: Bilateral: CTA
Lung Excursion:: Normal
Abdomen:: Nontender and Soft
Bowel Sounds:: Normal
Extremity Edema:: +2: Bilateral:
Trejo Catheter: No
[2025-06-06] MEDS: NSS IV (17:39)
--- NOTE | 2025-06-06 18:03 | PTCARENOTE ---
Pt continues to refuse all turns due to lower leg pain; Pt became soiled with urine due to purewick not working properly - did eventually agree to allow nurses to clean her. Perineal care done and purewick changed - sacral foam applied over
multiple small stage II pressure ulcers, small foam applied over st II's on right buttock and small foam placed over large pressure ulcer or possible skin tear on left buttock. Pt refused daytime wound care for b/l lower legs; Will continue to
monitor and assess.
--- NOTE | 2025-06-06 20:02 | PTCARENOTE ---
Received patient from previous RN. Patient refused wound care to be done during day shift. This RN asked patient if wound care could be done tonight before bed with pre medication. Patient refused wound care before bed as well. Explained and
educated patient on importance of wound care of lower extremities. Patient stated she will see how she feels in the morning and could possibly do wound care then. Patient also refused to be turned or moved in the bed due to pain. Will continue to
monitor patient. call todd in reach.
[2025-06-07] VITALS (12 sets, daily range): BP systolic 92–119; BP diastolic 56–86; BMI 17.0
[2025-06-07 04:08] LABS: Hematocrit 26.4 % (37.0-47.0); Hemoglobin 8.3 g/dL (12.0-16.0); Mean Corp Hgb Conc. 31.4 g/dL (33.0-37.0); Mean Corpuscular Volume 77.2 fL (81.0-99.0); Platelet Count 528 10^3/uL (130-400); Red Cell Dist. Width 15.9 % (11.5-14.5)
[2025-06-07 04:30] LABS: Blood Urea Nitrogen 21 mg/dl (7-17); Calcium 7.7 mg/dl (8.4-10.2); Carbon Dioxide 27 mmol/L (22-30); Chloride 106 mmol/L (98-107); Estimated Creatinine Clearance 80 ml/min; Glucose 82 mg/dl (70-99); Potassium 3.7 mmol/L (3.5-5.1); Sodium 135 mmol/L (135-145); eGFR > 60.00
[2025-06-07] MEDS: STERILE WATER FOR INJECTION 10 ML IV ×4 (04:53→23:49)
[2025-06-07] MEDS: MERREM 500 MG IV ×4 (04:53→23:49)
[2025-06-07] MEDS: ROXICODONE 10 MG PO ×3 (04:53→19:41)
[2025-06-07] MEDS: DAKIN'S SOLUTION 0.125% 1/4 STRENGTH TOPICAL (09:41)
[2025-06-07] MEDS: HEPARIN SC ×2 (09:41→19:45)
[2025-06-07] MEDS: ULTRAM 50 MG PO ×2 (09:42→19:42)
[2025-06-07] MEDS: SENOKOT PO (09:42)
--- NOTE | 2025-06-07 09:45 | W.PN.ID1 ---
Date of Service
Date of Service: June 07, 2025
Today's Communication
Continue meropenem.
Assessment / Plan
# BLE wound cellulitis
# Leukocytosis - trending down
# SABINA - resolved
# Chronic non-healing wounds BLE
# Chronic lymphedema
# RA on Orencia, leflunomide
# Protein-calorie malnutrition
- Elevate LE
- Appreciate surgical eval
- Continue meropenem(d3), dose increased
- Trend wbc
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
RA on leflunomide and Orencia
HTN
Hypothyroidism
BLE lymphedema
Chronic BLE wounds
Chronic pain
Depression
Non-ambulatory
SNF resident
Chief Complaint
-: Cellulitis
Subjective / Review of Systems
Wounds pain stable
Vital Signs / Physical Exam
Vital Signs
Vital Signs
Temp Pulse Resp BP Pulse Ox
97.5 F 86 13 100/61 95
06/07/25 07:33 06/07/25 02:00 06/07/25 02:00 06/07/25 02:00 06/06/25 20:58
Physical Exam
Constitutional: Chronically Ill
Cardiovascular: Regular Rate and S1/S2
Pulmonary: Clear
Gastrointestinal: Soft, Non Tender and Non Distended
Extremities: Edema (BLE)
Wound: Other (BLE dressings with drainage strikethrough)
Neurological: AO x 3
Objective Data
Lab Data
Lab Results
06/07/25 03:56
06/07/25 03:56
Estimated Creat Clear 80 ml/min 06/07/25 03:56
Lactic Acid Cancelled 06/04/25 18:30
Total Bilirubin 0.7 mg/dl (0.2-1.3) 06/04/25 14:35
AST 18 U/L (14-36) 06/04/25 14:35
ALT < 10 U/L (0-35) 06/04/25 14:35
Alkaline Phosphatase 153 U/L (38-126) H 06/04/25 14:35
Most recent labs reviewed.
Micro Results:
06/05/25 15:03 Wound Culture - Preliminary
Leg - Right Gram Stain - Preliminary
06/04/25 14:35 Blood Culture - Preliminary
Blood/Venous No Growth in 48 hours- Final report to follow
06/04/25 14:35 Blood Culture - Preliminary
Blood/Venous No Growth in 48 hours- Final report to follow
06/05/25 15:03 Wound Culture - Preliminary
Leg - Left Gram Stain - Preliminary
06/04/25 23:44 MRSA Screen - Final
Nose No Methicillin Resistant Staphylococcus aureus isolated.
06/04/25 16:49 Urine Culture - Final
Urine
06/04/25 CXR: No acute cardiopulmonary process.
[2025-06-07] MEDS: DILAUDID 0.5 MG IV (10:03)
--- NOTE | 2025-06-07 10:19 | W.PN.GS2 ---
Addendum entered and electronically signed by Adolfo David MD 06/07/25 10:31:
Patient seen and examined with surgical AIRCRAFT STRESS ANALYST and nursing staff.
Dilaudid administered for dressing change. Despite this patient still with rather severe and inadequately controlled pain.
AFVSS
Leukocytosis improving. SABINA resolved.
Bilateral lower extremities with areas of superficial sloughing and necrosis. Patient did not tolerate more than visual inspection.
Strong 2+ palpable right dorsalis pedis pulse, left side insert but suspected 1+ palpable dorsalis pedis pulse
Assessment/plan: 59-year-old female with acute on chronic lower extremity wounds with resultant ulceration/necrosis and superimposed cellulitis with complicated skin infection. Polymicrobial including Pseudomonas, Enterobacter and strep
Recommended further evaluation under anesthesia with local debridement of bilateral lower extremity wounds and thorough washout.
This will require a full general endotracheal anesthesia
Appears to be medically stable in comparison to the time of admission to undergo surgery
Nursing requesting assessment of sacral wound as well while under anesthesia
Patient added onto the OR schedule for tomorrow 06/08/2025
N.p.o. after midnight except clears
Antibiotics per ID
Original Note:
Today's Communication / Plan
-
Debridement in OR Sunday
Assessment / Plan
-
59-year-old female jail patient who is nonambulatory due to progressive severe rheumatoid arthritis and chronic lower extremity lymphedema presenting with cellulitis and necrotic bilateral lower extremity wounds
AFVSS
Leukocytosis improved. H/H stable s/p transfusion
SABINA resolved
Wound cx with gram +cocci and rods, ID and sensitivities pending
Plan:
Will plan debridement of the lower extremities in the OR tomorrow
NPO after MN for OR
Analgesics prn
ABX as per ID
Subjective Data
-
Date of Service: June 07, 2025
Pt seen and examined at bedside with Dr. David. Denies n/v. Severe pain with dressing changes.
Objective Data
-
Intake and Output
06/06/25 06/07/25 06/08/25
06:59 06:59 06:59
Intake Total 2079 / 2080
Output Total 700 / 700 450 / 450
Balance 1380 / 1380 -450 / -450
Intake:
Oral fluids 480 / 480
IV fluids (Total) 1300 / 1300
IV piggybacks 50 / 50
Blood Product Amount Infused ( 250 / 250
mL)
Packed Rbc Leukoreduced Unit 250 / 250
[id number]
Output:
Urine, Voided 700 / 700 450 / 450
Vital Signs
Temp Pulse Resp BP Pulse Ox
97.5 F 86 13 100/61 95
06/07/25 07:33 06/07/25 02:00 06/07/25 02:00 06/07/25 02:00 06/06/25 20:58
Lab Results
06/07/25 03:56
06/07/25 03:56
Calcium 7.7 mg/dl (8.4-10.2) L 06/07/25 03:56
Magnesium 2.1 mg/dl (1.6-2.3) 06/05/25 05:24
Total Bilirubin 0.7 mg/dl (0.2-1.3) 06/04/25 14:35
AST 18 U/L (14-36) 06/04/25 14:35
ALT < 10 U/L (0-35) 06/04/25 14:35
Alkaline Phosphatase 153 U/L (38-126) H 06/04/25 14:35
Total Protein 6.9 g/dl (6.3-8.2) 06/04/25 14:35
Albumin 3.1 g/dl (3.5-5.0) L 06/04/25 14:35
Physical Exam
-
NAD
BLLE knee to just below ankle circumferentially with superficial to full-thickness areas of skin with areas of thin and thick eschar and sloughing. skin pealing. Malodorous thick, purulent drainage.
+DP pulses right stronger than left but palpable, unable to palpate PT pulses d/t wounds, good cap refill
--- NOTE | 2025-06-07 11:20 | W.PN.HOSP.TC ---
Addendum entered and electronically signed by Parker Resendiz MD 06/07/25 17:01:
Acute on Chronic nonhealing wounds bilateral lower extremity
Presenting with severe sepsis likely related to chronic wounds which have been nonhealing
Continue IV antibiotics, started on meropenem per ID recs
IV fluids
Wound care
Surgery plans for OR on Sunday for debridement
Wound culture growing pseudo and enterbacter cloacae and group g streo
Michael compression
SABINA resolved
Hyperkalemia resolved
Avoid QT sparing agents
Original Note:
Today's Communication/Plan
-
Continue monitoring the patient
Continue wound care with Dakin's Solution
Continue Meropenem
Assessment / Plan
Assessment / Plan
59 year old female from [facility], with history past medical history ambulatory dysfunction, depression, rheumatoid arthritis, peripheral vascular disease, and gastroesophageal reflux disease presents to the ER with bilateral leg
pain on bilateral lower extremity erythematous wound with serous exudate and desquamation of surrounding skin. She reported persistent pain in her legs describe as severe and persistent.� The patient denies experiencing any fever, chills, chest
pain, difficulty breathing, or abdominal pain.�
The patient recently admitted was recently admitted from May 18, 2025 to May 24, 2025 for sepsis secondary to bilateral lower extremity cellulitis.�
#Severe Sepsis secondary to Lower extremity Wounds
-patient with leukocytosis, tachycardia and tachypnea signs of Acute Kidney Injury�
-URINE: occult blood reflex 4+, RBC- 30-40, wbc 70-80, urine albumin 2+, Leukocyte esterase 3+, bacteria- many
(WBC was 25.3, current:12.1)
Chest xray and Renal KIKA- unremarkable
(1.2 H creatinine�> 0.6N
Wound culture- (+) enterobacter cloacae, pseudomonas aeruginosa, Group G streptococcus
MRSA (-)
-Continue IV meropenem 500mg
-Continue wound care with Dakins--- For OR tomorrow
- Continue pain management- Tramadol 50mg PO BID
-hold at home Leflunomide
-hold at home Lasix
ID, Surgery following
#Anemia:
Hgb: 8.3 N, MCV Low
-Ferrous Sulfate 325mg PO
-continue to monitor Hgb and sign of bleeding
-Transfuse <7hgb
-IV fluids terminated
#Hyperkalemia
3.7 Stable
Hba1c- 5.3
ECG- sinus tachycardia
-given treatment with IV calcium, IV insulin, Lokelma, 2L IVF
-glucose- 82
#Acute Kidney Injury
-Creatinine- 0.6 N today
-Sodium: 135 N
-renal US: unremarkable
-continue to avoid nephrotoxins and hold NSAID
-Proteinuria follow up as outpatient
-Nephrology following
#Hypocalcemia
7.7 L corrected for albumin 7.65
-patient asymptomatic, normal rhythm
#Major Depression, recurrent severe
#Anxiety
Psychiatric consult: Patient is with Major Depression, recurrent, severe
Plan: Discontinue Remeron per patient's request ,
refused cymbalta for now)
Want to change in senior living expressed
Psychiatry following
#Chronic Hypotension
-continue midodrine
#Rheumatoid Arthritis
-hold Leflunomide
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
Anticipated Discharge: > 48 hours
Subjective/Interval History
-
Date of Service: June 07, 2025
The patient continues pain in her legs with some tingling sensation that she describes as 'little needles poking her feet'
Objective Data
-
Labs:
Laboratory Results
06/07/25
03:56
WBC 10.9 H
Hgb 8.3 L
Hct 26.4 L
Plt Count 528 H
Sodium 135
Potassium 3.7
Chloride 106
Carbon Dioxide 27
BUN 21 H
Creatinine 0.6
Glucose 82
Calcium 7.7 L
Vital Signs:
Vital Signs
Temp Pulse Resp BP Pulse Ox
97.5 F 109 17 96/62 95
06/07/25 07:33 06/07/25 10:00 06/07/25 10:00 06/07/25 10:00 06/06/25 20:58
I&O
06/06/25 06/07/25 06/08/25
06:59 06:59 06:59
Intake Total 2079
Output Total 700 / 700 450 / 450
Balance 1380 / 1380 -450 / -450
Review of Systems
-
History Source: Patient
Constitutional: Reports Weakness (less compared to yesterday) and Other (No fever, no chills)
EENT: Reports Other
Respiratory: Reports Other (Denies cough, trouble breathing, wheezing)
Cardiac: Reports Other (Denies chest pain, palpitations)
Abdomen/GI: Reports Other (Denies vomiting and diarrhea)
Genitourinary: Reports Other (Denies dysuria)
Musculoskeletal: Reports Joint Pain
Skin: Reports Other (needle like sensation on the wound site)
Neuro: Reports Weakness
Psych: Reports Anxious
Physical Exam
-
General: Conversant, Appears Chronically Ill and Cachectic
HEENT: Normocephalic, Atraumatic, Anicteric and Other ((+) erythematous sores with yellowish exudates on the lips)
Respiratory: Clear to Auscultation
Cardiac: Regular Rhythm and S1/S2
Breast: Deferred by me
GI: Soft and Nontender
Rectal: Deferred by Provider
Musculoskeletal: Edema, Left Upper Extrem, Edema, Right Lower Extrem and Other ((+) contractures on both hands)
Skin: Warm and Other (bilateral lower extremity erythema, serous exudate, desquamation of surrounding skin)
Neuro: AO x 3
Psych: Calm
--- NOTE | 2025-06-07 12:52 | W.PN.NEPH.PH ---
Today's Communication / Plan
-
prn lasix
Assessment/Plan
-
59-year-old female from [facility], with history of GERD, malnutrition, PVD, depression, RA, bilateral lower extremity cellulitis/lymphedema, depression presents from [facility] for bilateral LE pain, swelling, oozing.
Patient acute kidney injury and hyperkalemia with a creatinine of 2.2 from baseline 0.6 and a potassium of 8.1.
She has severe rheumatoid arthritis and recently started on Orencia.
IMP:
Acute kidney injury with life-threatening hyperkalemia
Sepsis secondary to bilateral lower extremity cellulitis
bilateral leg lymphedema
Hyponatremia
hypoalbuminemia
Iron deficiency anemia
Hypothyroidism
Rheumatoid arthritis
Chronic bilateral shoulder pain with severe bilateral glenohumeral arthrosis
Chronic rotator cuff arthropathy
Chronic ambulatory dysfunction uses walker at baseline
Chronic debility
HTN
HLD
Moderate protein calorie malnutrition/cachexia�BMI 17.4
Plan:
hyponatremia and SABINA resolved
renal US non acute
Last admission indicated 1.3 g proteinuria-need to f/u as out pt
BP soft chronically on low dose midodrine
wt is up from admit, prn lasix
avoid nephrotoxins and NSAIDs
abx per ID , for OR tomorrow
will s/o, call with?s
-
-
Date of Service: June 07, 2025
CC / HPI / ROS
-
Chief Complaint:
SABINA
History of Present Illness:
cr normal 0.8, k normal
sodium better at 135
hb better at 8.3
wt no change today
Review of Systems:.
No chest pain or shortness of breath
chr LE edema with wounds
Labs
-
Labs:
WBC 10.9 10^3/uL (4.8-10.8) H 06/07/25 03:56
RBC 3.42 10^6/uL (4.20-5.40) L 06/07/25 03:56
Hgb 8.3 g/dL (12.0-16.0) L 06/07/25 03:56
Hct 26.4 % (37.0-47.0) L 06/07/25 03:56
Plt Count 528 10^3/uL (130-400) H 06/07/25 03:56
Sodium 135 mmol/L (135-145) 06/07/25 03:56
Potassium 3.7 mmol/L (3.5-5.1) 06/07/25 03:56
Chloride 106 mmol/L (98-107) 06/07/25 03:56
Carbon Dioxide 27 mmol/L (22-30) 06/07/25 03:56
BUN 21 mg/dl (7-17) H 06/07/25 03:56
Creatinine 0.6 mg/dL (0.6-1.0) 06/07/25 03:56
eGFR > 60.00 06/07/25 03:56
Glucose 82 mg/dl (70-99) 06/07/25 03:56
Calcium 7.7 mg/dl (8.4-10.2) L 06/07/25 03:56
Albumin 3.1 g/dl (3.5-5.0) L 06/04/25 14:35
Physical Exam
-
Vital Signs:
Vital Signs
Temp Pulse Resp BP Pulse Ox
99.0 F 109 17 96/62 95
06/07/25 11:52 06/07/25 10:00 06/07/25 10:00 06/07/25 10:00 06/06/25 20:58
Cardiovascular:: Regular rate and rhythm
Respiratory:: Bilateral: CTA
Lung Excursion:: Normal
Abdomen:: Nontender and Soft
Bowel Sounds:: Normal
Extremity Edema:: +3: Bilateral:
Trejo Catheter: No
--- NOTE | 2025-06-07 13:52 | W.PN.UPDATE ---
Update Note
Progress Note Update
Patient was in good mood, hopeful about her surgical procedure scheduled tomorrow. She would rather not return to [facility] facility as she feels she is not getting adequate care there but does not know if there are other options. On the long
run she wants to live independently with assistance. Denies depression or hopelessness, affect is brighter.
Discussed mindfulness and strategies to distract herself with activities she finds interesting and enjoyable.
She is glad she is off the Remeron and is considering trying Cymbalta.
Supportive intervention given.
--- NOTE | 2025-06-07 14:55 | PTCARENOTE ---
pt refusing turning in bed. RN educated patient on importance of turning in order to prevent further skin breakdown. Educated pt that we could give her medication for turning being painful. Pt continued to decline.
[2025-06-07] MEDS: DAKIN'S SOLUTION 0.125% 1/4 STRENGTH 473 ML TOPICAL (22:12)
[2025-06-07] MEDS: FEOSOL 325 MG PO (22:15)
[2025-06-08] VITALS (15 sets, daily range): BP systolic 96–144; BP diastolic 59–108; BMI 17.9
--- NOTE | 2025-06-08 00:48 | PTCARENOTE ---
Assumed care for patient overnight. Pt AAOx3, anxious, tearful at times due to pain. Pt experiencing 9/10 pain to b/l lower legs. PRN Oxycodone administered see JAN. NSR to ST on the monitor. SpO2 95% on room air. Pt is incontinent of urine. Pure
wick replaced and perineal care done. Full bed bath and linens changed. Sacral foam reinforced. Pt tolerating turning. Pt does complain of pain when repositioning. IV abx administered see JAN. Pt NPO for debridement 06/08. Call todd is within reach.
[2025-06-08] MEDS: ROXICODONE 10 MG PO ×2 (02:30→20:10)
--- NOTE | 2025-06-08 03:45 | PTCARENOTE ---
Patient originally allowing turns and repositioning. Pt now requesting the pillow be removed from her side and refusing to be turned due to pain.
[2025-06-08] MEDS: MERREM 500 MG IV (05:17)
[2025-06-08] MEDS: STERILE WATER FOR INJECTION 10 ML IV ×3 (05:17→23:06)
--- NOTE | 2025-06-08 05:32 | PTCARENOTE ---
Patient refusing wound care for b/l lower legs. Pre medication offered. Despite education and encouragement pt adamantly refusing due to level of pain an discomfort. Plans to go to OR today for debridement. Explained to pt the need for wound care
following the debridement and the importance, pt is agreeable. Will pass along to dayshift.
[2025-06-08 06:01] LABS: Hematocrit 23.6 % (37.0-47.0); Hemoglobin 7.5 g/dL (12.0-16.0); Mean Corp Hgb Conc. 31.8 g/dL (33.0-37.0); Mean Corpuscular Volume 77.1 fL (81.0-99.0); Platelet Count 424 10^3/uL (130-400); Red Cell Dist. Width 16.1 % (11.5-14.5)
[2025-06-08 06:21] LABS: Blood Urea Nitrogen 11 mg/dl (7-17); Calcium 7.3 mg/dl (8.4-10.2); Carbon Dioxide 26 mmol/L (22-30); Chloride 105 mmol/L (98-107); Estimated Creatinine Clearance 84 ml/min; Glucose 93 mg/dl (70-99); Sodium 132 mmol/L (135-145); eGFR > 60.00
[2025-06-08 06:26] LABS: Potassium 3.9 mmol/L (3.5-5.1)
--- NOTE | 2025-06-08 09:01 | PTCARENOTE ---
Patient received from metal framer. Patient resting comfortably inbed. AAO, VSS. Continues with complaints of pain all over, especially in the lower legs. Wound care done overnight, will attempt wound care depending on when she is going to OR.
Plan for OR today for debriedment and remains NPO, no other testing scheduled. Call todd in reach.
[2025-06-08] MEDS: DAKIN'S SOLUTION 0.125% 1/4 STRENGTH 473 ML TOPICAL (09:13)
[2025-06-08] MEDS: HEPARIN SC ×2 (09:13→20:11)
[2025-06-08] MEDS: ULTRAM 50 MG PO ×2 (09:14→20:10)
[2025-06-08] MEDS: SENOKOT PO (09:15)
--- NOTE | 2025-06-08 11:17 | PTCARENOTE ---
Patient off to OR. Noon Amanda sent with patient. Chart with patient.
[2025-06-08] MEDS: MERREM IV (11:52)
[2025-06-08] MEDS: STERILE WATER FOR INJECTION IV (11:52)
--- NOTE | 2025-06-08 12:49 | CM ---
CM reviewed chart- pt remains in IMU and ADC >48 hours
Per pysch note from 06/07, pt may not want to return to [facility] for continued LTC
CM attempted bedside meeting to further discuss
Pt off unit in OR for excision and debridement of B/L wounds
Plan to follow up with pt on dc dispo
Discharge Disposition- return to [facility] for LTC vs new bed search
[2025-06-08] MEDS: DILAUDID 0.25 MG IV (13:13)
--- NOTE | 2025-06-08 14:38 | W.IMMPOSTOP ---
Surgical Immed Post Op Note
-
Primary Surgeon: Twan Veronica MD
Assisting Surgeon: None
Pre-op Diagnosis: Infected bilateral lower extremity wounds
Post-op Diagnosis: Infected bilateral lower extremity wounds, stage II decubitus ulcer
Procedure Performed: Excision and debridement of bilateral lower extremity wounds (RLE: 24 x 30 cm, LLE: 20 x 30 cm)
Anesthesia Type: General
Specimen / Cultures: Bilateral lower extremity wounds for tissue culture
Estimated Blood Loss: 7 cc
Complications: None
Operative Findings: Large but superficial bilateral circumferential lower extremity purulent/infected wounds. Some areas of necrosis debrided back to healthy tissue. The right lower extremity was slightly larger, roughly 24 x 30 cm. The left
lower extremity final wound dimensions was 20 x 30 cm. We also examined the patient's sacral area, she did have a small stage II decubitus ulcer over her right ischium (roughly 2.5 cm in diameter), stage I ulcers were noted over the sacrum and left
ischium.
POST OP PLAN:
Imaging: None
Labs: Routine AM
Diet: Advance to Regular as tolerated
Analgesia: Pain control per primary
Neuro/vascular checks: Per unit
AC/AP: Okay to resume therapeutic anticoagulation, okay for DVT prophylaxis.
Activity: Ad Beatriz, offload wounds as much as possible.
Wound/Incisions/Drains: Change wound dressings daily. Adaptic over the superficial wounds (3-4 large strips were needed to cover her wounds), followed by Cosmo and Roe.
Abx: Continue antibiotics, follow-up culture
Dispo: IMU.
--- NOTE | 2025-06-08 14:45 | PN.CDI ---
CDI
- -
CDI:
Physician Documentation Request
Admit Date: 06/04/25 16:55
Dear So,
Patient admitted with severe sepsis.
06/05 Nursing skin assessment, 'Stage 2 bilateral buttock pressure injuries, POA.'
Physician documentation of the type and location of wounds is required for compliant documentation. Based on the above clinical findings and your assessment, please provide the following in your progress note:
Type (etiology) of ulcer/wound:
- Pressure (decubitus) ulcer
- Other
- Unable to determine
For a pressure ulcer, please also include the stage* of the ulcer:
- Stage 1 - Skin intact, non-blanchable redness
- Stage 2 - Partial thickness loss of dermis, includes intact or open blister
- Stage 3 - Full thickness tissue not including bone, tendon or muscle
- Stage 4 - Full thickness tissue loss, including exposed bone, tendon or muscle
- Unstageable - Full thickness loss in which the base of the ulcer is covered by slough (yellow, plaza, cosme, green or brown) and/or eschar (plaza, brown or black) in the wound bed.
- Unable to determine
Use of terms such as suspected, likely, concern for, or probable (associated with a specific diagnosis that is being evaluated, monitored, or treated as if it exists) are acceptable and can be coded in the inpatient setting, when documented at the
time of discharge.
Thank you,
Carole PHILIPPE,RN,CCDS
CDI Specialist
Available via [employer] text
Please use your independent medical judgment in providing your response.
*Source: National Pressure Ulcer Advisory Panel (NPUAP)
--- NOTE | 2025-06-08 16:14 | W.PN.ID1 ---
Date of Service
Date of Service: June 08, 2025
Today's Communication
Replace meropenem with cefepime.
Assessment / Plan
# BLE wound cellulitis
# Leukocytosis - resolved
# SABINA - resolved
# Chronic non-healing wounds BLE
# Chronic lymphedema
# RA on Orencia, leflunomide
# Protein-calorie malnutrition
- Appreciate surgical eval s/p I+D today, cx pending
- Deescalate meropenem(d4), to cefepime
# Conditions BUSINESS DEVELOPMENT
RA on leflunomide and Orencia
HTN
Hypothyroidism
BLE lymphedema
Chronic BLE wounds
Chronic pain
Depression
Non-ambulatory
SNF resident
Chief Complaint
-: Cellulitis
Vital Signs / Physical Exam
Vital Signs
Vital Signs
Temp Pulse Resp BP Pulse Ox
97.5 F 65 11 127/77 96
06/08/25 15:41 06/08/25 14:14 06/08/25 14:00 06/08/25 14:14 06/08/25 14:00
Physical Exam
Constitutional: Chronically Ill
Cardiovascular: Regular Rate and S1/S2
Pulmonary: Clear
Gastrointestinal: Soft, Non Tender and Non Distended
Extremities: Edema (BLE)
Wound: Other (BLE postop dressings)
Neurological: AO x 3
Objective Data
Lab Data
Lab Results
06/08/25 05:14
06/08/25 05:14
Estimated Creat Clear 84 ml/min 06/08/25 05:14
Lactic Acid Cancelled 06/04/25 18:30
Total Bilirubin 0.7 mg/dl (0.2-1.3) 06/04/25 14:35
AST 18 U/L (14-36) 06/04/25 14:35
ALT < 10 U/L (0-35) 06/04/25 14:35
Alkaline Phosphatase 153 U/L (38-126) H 06/04/25 14:35
Most recent labs reviewed.
Micro Results:
06/08/25 12:40 Wound Culture - Pending
Leg - Left Gram Stain - Preliminary
06/04/25 14:35 Blood Culture - Preliminary
Blood/Venous No Growth in 4 days- Final report to follow
06/04/25 14:35 Blood Culture - Preliminary
Blood/Venous No Growth in 4 days- Final report to follow
06/05/25 15:03 Wound Culture - Final
Leg - Left Enterobacter cloacae
Pseudomonas aeruginosa
Group G Streptococcus
Gram Stain - Final
06/05/25 15:03 Wound Culture - Final
Leg - Right Enterobacter cloacae
Pseudomonas aeruginosa
Group G Streptococcus
Gram Stain - Final
06/04/25 23:44 MRSA Screen - Final
Nose No Methicillin Resistant Staphylococcus aureus isolated.
06/04/25 16:49 Urine Culture - Final
Urine
06/04/25 CXR: No acute cardiopulmonary process.
--- NOTE | 2025-06-08 17:24 | W.SUR.PREOP ---
Pre-Operative Surgical Note
-
I have examined this patient prior to the performance of the scheduled procedure.
The patient's condition is unchanged from the time of the current History and
Physical and the patient is able to undergo the scheduled procedure.
--- NOTE | 2025-06-08 17:24 | OR.RPT ---
Operative Report
Operative Report
Patient Name: Yeimi Day
: 1965
Date of Operation: 06/08/2025
Preoperative Diagnosis: Infected bilateral lower extremity wounds
Postoperative Diagnosis: Infected bilateral lower extremity wounds, stage II d decubitus ulcer
Procedure(s):
Excision and debridement of right lower extremity infected wound (RLE: 24 x 30 cm)
Excisional debridement of left lower extremity infected wound (LLE: 20 x 30 cm)
Surgeon(s):
Dr. Veronica
Elementary School Registrar(s):
None
Anesthesia: General
Estimated Blood Loss: 7 cc
Urine Output: None
Drains/Lines/Implants: None
Specimens:
Bilateral lower extremity wound tissue for culture and Gram stain
Indication for surgery:
This is a 59-year-old female with severe rheumatoid arthritis who was found to have extensive infected/necrotic wounds bilateral lower extremities who was unable to tolerate bedside debridement.. After thorough discussion of the risk benefits and
alternatives the patient was consented for an open debridement under anesthesia.
Operative Findings: Large but superficial bilateral circumferential lower extremity purulent/infected wounds. Some areas of necrosis debrided back to healthy tissue. The right lower extremity was slightly larger, roughly 24 x 30 cm. The left
lower extremity final wound dimensions was 20 x 30 cm. We also examined the patient's sacral area, she did have a small stage II decubitus ulcer over her left ischial tuberosity (roughly 2.5 cm in diameter), stage I ulcers were noted over the
sacrum and right ischial tuberosity.
Details of the operation:
The patient was brought to the operating room, placed supine and general anesthesia was initiated with the help of an LMA. Bilateral lower extremities were prepped and draped in the usual fashion with Betadine. A team timeout was performed
confirming the patient, location of the wound and intended procedure as well as confirming all appropriate preoperative antibiotics and medications have been given.
The patient had an irregularly shaped superficial but circumferential wound on her right lower extremity with necrotic tissue that was debrided until we encountered healthy bleeding tissue underneath. There was a fair amount of pus which was sent
along with the skin for tissue culture. The wounds were irrigated and hemostasis was achieved. The right lower extremity wound measured 24 x 30 cm. It was covered with Adaptic followed by ABDs and Kerlix wrap. We then turned our attention to the
left lower extremity wound which was managed in a similar way, with sharp debridement using 15 blade scalpel. Here the wound measured roughly 20 x 30 cm. This was also addressed in a similar manner to the right wound. The patient was then rotated
on her side briefly to examine her sacrum demonstrated the stage I decubitus ulcers over her sacrum and right ischial tuberosity. She had a small roughly 2.5 cm very superficial stage II decubitus ulcer over her left ischial tuberosity. These were
dressed with padded dressings. The patient was brought to the PACU for recovery. All counts were correct at the end of the procedure.
I was the attending physician and performed the procedure with no assistance. I was present for all portions of the case
Twan Veronica MD
[2025-06-08] MEDS: MAXIPIME 1000 MG IV ×2 (17:47→23:06)
--- NOTE | 2025-06-08 18:02 | W.PN.HOSP.TC ---
Addendum entered and electronically signed by Renan Boland MD 06/08/25 20:55:
Attending Addendum-
I saw and evaluated the patient. I reviewed the resident�s note and agree with findings and plan as documented in the resident�s note. Sub: Complains of mild pain in b/l LE. Denies fevers chills CP SOB. Full 12 point ROS reviewed and negative except
as documented Exam: Vitals reviewed in chart GEN-NAD heart RRR lungs clear abd soft b/L LE wrapped lymphedema pulses intact
Plan:
#Sepsis secondary to B/L LE cellulitis secondary to chronic LE wounds
-Wound culture- (+) enterobacter cloacae, pseudomonas aeruginosa, Group G streptococcus, MRSA (-)
-Continue meropenem for now day #4-sensi pending
-For OR today for debridement
-Continue pain management
-ID, Surgery following- appreciate input
# Iron Def Anemia
-cont PO iron
-continue to monitor Hgb
-trending down
-Transfuse <7hgb
#Hyponatremia
- hypervolemic, check serum osm
- CTM
- repeat BMP in am
#Hyperkalemia
- resolved
#Acute Kidney Injury
-resolved
-Nephrology following
-repeat BMP in am
#Major Depression, recurrent severe
#Anxiety
Psych on board
Remeron DC'd cont cymbalta
# Stage 2 b/l buttock pressure ulcer-POA
- cont wound care
#Chronic Hypotension
-continue midodrine
#Rheumatoid Arthritis
-hold Leflunomide
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
Code- FULL
DVTp- hep
Dispo From [facility] would like to explore different facility
ACP
Patient consented to discuss, was alone, time spent explanation of advance directives, changes in health status, patient�s health care wishes if the patient becomes unable to make health decisions, goals of care, code status, and prognosis 'do
whatever you can to save me'- 16 minutes
Time spent coordinating care, review of plan of care with resident, personally reviewed previous records in EMR, med rec, labs, radiology, d/w nursing, total time documented is exclusive of any additional time listed that was spent in advance care
planning discussion -� 51 minutes
Original Note:
Today's Communication/Plan
-
Post Excision and debridement
Wound care as surgery recommendation
Wound culture pending
Meropenem changed to Cefepime
Continue monitoring the patient
Assessment / Plan
Assessment / Plan
59 year old female from [facility], with history past medical history ambulatory dysfunction, depression, rheumatoid arthritis, peripheral vascular disease, and gastroesophageal reflux disease presents to the ER with bilateral leg
pain on bilateral lower extremity erythematous wound with serous exudate and desquamation of surrounding skin. She reported persistent pain in her legs describe as severe and persistent.� The patient denies experiencing any fever, chills, chest
pain, difficulty breathing, or abdominal pain.�
The patient recently admitted was recently admitted from May 18, 2025 to May 24, 2025 for sepsis secondary to bilateral lower extremity cellulitis.�
#Severe Sepsis secondary to Lower extremity Wounds
-patient with leukocytosis, tachycardia and tachypnea signs of Acute Kidney Injury�
-URINE: occult blood reflex 4+, RBC- 30-40, wbc 70-80, urine albumin 2+, Leukocyte esterase 3+, bacteria- many
(WBC was 25.3, current:12.1)
Chest xray and Renal KIKA- unremarkable
(1.2 H creatinine�> 0.6N
Wound culture- (+) enterobacter cloacae, pseudomonas aeruginosa, Group G streptococcus
MRSA (-)
Excision and Debridement:
Infected bilateral lower extremity wounds, stage II decubitus ulcer over right ischium (2.5cm diameter), stage I ulcers over sacrum, left ischium
-Started on cefepime
-Per surgery: offload wounds, change wound dressings daily.� Adaptic over the superficial wounds (3-4 large strips were needed to cover her wounds), followed by Cosmo and Roe
-Wound culture pending
-Diet to regular as tolerated
- Continue pain management- Tramadol 50mg PO BID
-hold at home Leflunomide
-hold at home Lasix
ID, Surgery following
#Anemia:
Hgb: 7.5, MCV Low
-Ferrous Sulfate 325mg PO
-continue to monitor Hgb and sign of bleeding
-Transfuse <7hgb
#Hyperkalemia
3.9 Stable
#Acute Kidney Injury
-Creatinine- 0.6 N today
-Sodium: 132 L
-renal US: unremarkable
-continue to avoid nephrotoxins and hold NSAID
-Proteinuria follow up as outpatient
-Nephrology following
#Hypocalcemia
7.3 L corrected for albumin 8.8
-patient asymptomatic, normal rhythm
#Major Depression, recurrent severe
#Anxiety
Psychiatric consult: Patient is with Major Depression, recurrent, severe
Want to change in [facility]DC expressed
Psychiatry following
Psychiatric consult as outpatient
#Chronic Hypotension
-continue midodrine
#Rheumatoid Arthritis
-hold Leflunomide
Anticipated Discharge: 24 - 48 hours
Subjective/Interval History
-
Date of Service: June 08, 2025
Objective Data
-
Labs:
Laboratory Results
06/08/25
05:14
Sodium 132 L
Potassium 3.9
Chloride 105
Carbon Dioxide 26
BUN 11
Creatinine 0.6
Glucose 93
Calcium 7.3 L
Vital Signs:
Vital Signs
Temp Pulse Resp BP Pulse Ox
97.5 F 97 11 106/63 96
06/08/25 15:41 06/08/25 17:46 06/08/25 14:00 06/08/25 17:46 06/08/25 14:00
I&O
06/07/25 06/08/25 06/09/25
06:59 06:59 06:59
Intake Total 50 / 50
Output Total 450 / 450 250 / 250
Balance -450 / -450 -250 / -250 50 / 50
[2025-06-08] MEDS: FEOSOL 325 MG PO (23:06)
--- NOTE | 2025-06-08 23:45 | PTCARENOTE ---
Addendum entered by Leigh Davila RN 06/09/25 05:43:
Patient experiencing 8/10 pain to b/l lower legs, despite oral dose of Oxycodone. Pt tearful at this time. Emotional support provided. PRN Dilaudid administered for breakthrough pain see JAN.
Original Note:
Assumed care for patient overnight. Pt overall in better spirits after debridement in OR today. Pt AAOx3, slightly drowsy. Pt had 8/10 pain in lower legs, PRN Oxycodone administered see JAN. NSR on the monitor. Pt remains on room air. Purewick in
place. Pt had episode of saturated incontinence. Full linen change and partial bath. Sacral foams intact. Original post op dressings of b/l lower legs intact. Call todd is within reach.
[2025-06-09] VITALS (12 sets, daily range): BP systolic 88–127; BP diastolic 57–85; BMI 17.6
[2025-06-09] MEDS: ROXICODONE 10 MG PO ×3 (02:14→15:14)
[2025-06-09] MEDS: TYLENOL 650 MG PO (02:15)
[2025-06-09] MEDS: MAXIPIME 1000 MG IV ×3 (05:20→17:48)
[2025-06-09] MEDS: STERILE WATER FOR INJECTION 10 ML IV ×3 (05:20→17:48)
[2025-06-09] MEDS: DILAUDID 0.5 MG IV ×2 (05:29→09:47)
[2025-06-09 05:36] LABS: Hematocrit 24.0 % (37.0-47.0); Hemoglobin 7.7 g/dL (12.0-16.0); Mean Corp Hgb Conc. 32.1 g/dL (33.0-37.0); Mean Corpuscular Volume 76.7 fL (81.0-99.0); Platelet Count 370 10^3/uL (130-400); Red Cell Dist. Width 16.6 % (11.5-14.5)
[2025-06-09 06:04] LABS: Blood Urea Nitrogen 16 mg/dl (7-17); Calcium 7.5 mg/dl (8.4-10.2); Carbon Dioxide 25 mmol/L (22-30); Chloride 108 mmol/L (98-107); Estimated Creatinine Clearance 83 ml/min; Glucose 114 mg/dl (70-99); Potassium 4.3 mmol/L (3.5-5.1); Sodium 133 mmol/L (135-145); eGFR > 60.00
--- NOTE | 2025-06-09 07:24 | W.PN.GS2 ---
Addendum entered and electronically signed by Octavio Pedersen MD 06/09/25 10:46:
Patient seen and examined.
Dressing change performed at bedside. Bilateral LE with scattered superficial wounds extending from knee to ankle, clean and dry with no worsening evidence of erythema or signs of infection. Significant pain with dressing changes.
-- No need for further surgical debridement
-- Continue with local bedside wound care
-- Call with questions or concerns
Original Note:
Today's Communication / Plan
-
sterile dressing done.
Assessment / Plan
-
59-year-old female halfway patient who is nonambulatory due to progressive severe rheumatoid arthritis and chronic lower extremity lymphedema presenting with cellulitis and necrotic bilateral lower extremity wounds.
# B/L lower extremities pain secondary to cellulitis/ Severe sepsis:
-Patient is afebrile, stable vitals.
-WBC-10.8-->15.9 (h)
-Wound cx with Enterobacter cloacae, Pseudomonas aeruginosa, Group G streptococcus.
-s/p DAY 1 : B/L lower extremities excision and debridement.
-Meropenamstopped and switched to Cefipime 1000mg DAY 1.
- Sterile dressing applied to wound.
-offload wounds, change wound dressings daily.� Adaptic over the superficial wounds (3-4 large strips were needed to cover her wounds), followed by Paola
# SABINA resolved
Subjective Data
-
Date of Service: June 09, 2025
Overnight the patient does concern for b/l lower extremity pain like yesterday. Non radiating, not associated with fever, chills, edema, numbness.
Objective Data
-
Intake and Output
06/08/25 06/09/25 06/10/25
06:59 06:59 06:59
Intake Total 290 / 290
Output Total 250 / 250 100 / 100
Balance -250 / -250 190 / 190
Intake:
Oral fluids 240 / 240
IV fluids (Total) 50 / 50
normosol 50 / 50
Output:
Urine, Voided 250 / 250 100 / 100
Other:
How many times incontinent 1
SMALL amount urine
How many times incontinent 1 1
SATURATED amount urine
Vital Signs
Temp Pulse Resp BP Pulse Ox
98.1 F 71 17 117/61 98
06/09/25 03:12 06/09/25 04:00 06/09/25 04:00 06/09/25 04:00 06/09/25 04:00
Lab Results
06/09/25 05:19
06/09/25 05:19
Calcium 7.5 mg/dl (8.4-10.2) L 06/09/25 05:19
Magnesium 2.1 mg/dl (1.6-2.3) 06/05/25 05:24
Total Bilirubin 0.7 mg/dl (0.2-1.3) 06/04/25 14:35
AST 18 U/L (14-36) 06/04/25 14:35
ALT < 10 U/L (0-35) 06/04/25 14:35
Alkaline Phosphatase 153 U/L (38-126) H 06/04/25 14:35
Total Protein 6.9 g/dl (6.3-8.2) 06/04/25 14:35
Albumin 3.1 g/dl (3.5-5.0) L 06/04/25 14:35
Physical Exam
-
Patient has a romero catheter: No
Patient has a central line: No
--- NOTE | 2025-06-09 08:20 | PTCARENOTE ---
Patient received from scene shifter. Patient resting comfortably in bed. AAO, VSS. Continues with complaints of pain all over, especially in the lower legs. Wound care to be done later today, will reach out to wound RN for first post-op change.
No testing scheduled at this time. Call todd in reach.
[2025-06-09] MEDS: ULTRAM 50 MG PO ×2 (08:38→19:44)
[2025-06-09] MEDS: HEPARIN SC ×2 (08:38→19:44)
[2025-06-09] MEDS: SENOKOT PO (08:38)
--- NOTE | 2025-06-09 09:21 | W.PN.HOSP.TC ---
Addendum entered and electronically signed by Renan Boland MD 06/09/25 21:09:
Attending Addendum-
I saw and evaluated the patient. I reviewed the resident�s note and agree with findings and plan as documented in the resident�s note. Sub: complains of considerable pain in b/l LE s/p dressing change this am. Denies fevers chills CP SOB. Full 12
point ROS reviewed and negative except as documented Exam: Vitals reviewed in chart GEN-NAD heart RRR lungs clear abd soft b/L LE wrapped, very sensitive to touch, pulses intact Skin dry poor skin turgor
Plan:
#Sepsis secondary to B/L LE cellulitis secondary to chronic LE wounds
- new leukocytosis likely stress related- repeat BMP in am
-Wound culture-Enterobacter, pseudomonas, Group G strep- sensi resulted
-deescalated meropenem -> cefepime (day#5)
-/- OR b/l excision and debridement
-Continue pain management
-ID, Surgery following- appreciate input
# Iron Def Anemia
-cont PO iron
-continue to monitor Hgb
-trending down
-Transfuse <7hgb
#Hyponatremia
- improving
- hypovolemic, hypotonic
- start IVF
- CTM
- repeat BMP in am
#Acute Kidney Injury
-resolved
-Nephrology signed off
#Major Depression, recurrent severe
#Anxiety
Psych on board
Remeron DC'd patient does not want to start Cymbalta yet
# Stage 2 b/l buttock pressure ulcer-POA
- cont wound care
#Chronic Hypotension
-continue midodrine
#Rheumatoid Arthritis
-hold Leflunomide
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
Code- FULL
DVTp- hep
Dispo- From [facility]
Time spent coordinating care, review of plan of care with resident, personally reviewed previous records in EMR, med rec, labs, radiology, d/w nursing, total time -� 52 minutes
Original Note:
Today's Communication/Plan
-
Wound care as surgery recommendation
Wound culture pending
Step down patient level of care
NSS 70m/hrl to hydrate
Cefepime day #2
PRN pain medication before dressing change
Continue monitoring the patient
SNF plan (?)
Assessment / Plan
Assessment / Plan
59 year old female from [facility], with history past medical history ambulatory dysfunction, depression, rheumatoid arthritis, peripheral vascular disease, and gastroesophageal reflux disease presents to the ER with bilateral leg
pain on bilateral lower extremity erythematous wound with serous exudate and desquamation of surrounding skin. She reported persistent pain in her legs describe as severe and persistent.� The patient denies experiencing any fever, chills, chest
pain, difficulty breathing, or abdominal pain.�
The patient recently admitted was recently admitted from May 18, 2025 to May 24, 2025 for sepsis secondary to bilateral lower extremity cellulitis.�
#Severe Sepsis secondary to Bilateral Lower extremity Cellulitis due to chronic Lower Extremity Wounds
#Stage 2 bilateral buttock pressure injuries, POA
Wound culture- (+) enterobacter cloacae, pseudomonas aeruginosa, Group G streptococcus
MRSA (-)
Excision and Debridement:
Infected bilateral lower extremity wounds, stage II decubitus ulcer over right ischium (2.5cm diameter), stage I ulcers over sacrum, left ischium
WBC 15.9 , tachycardia noted
-Started on cefepime 1000mg #1
-Per surgery: offload wounds, change wound dressings daily.� Adaptic over the superficial wounds (3-4 large strips were needed to cover her wounds), followed by [facility]
-Wound culture pending
-Diet to regular as tolerated
- Continue pain management- Tramadol 50mg PO BID
-NSS 70ml/hr to rehydrate
-hold at home Leflunomide
-hold at home Lasix
ID, Surgery following
#Anemia:
Hgb: 7.7, MCV Low
-Ferrous Sulfate 325mg PO
-continue to monitor Hgb and sign of bleeding
-Transfuse <7hgb
#Hyperkalemia
4.3 Stable
#Acute Kidney Injury
-resolved
-Creatinine- 0.5 N today
-Sodium: 133 L
-continue to avoid nephrotoxins and hold NSAID
-Proteinuria follow up as outpatient
-Nephrology following
#Hypocalcemia
7.5 L corrected for albumin 9
-patient asymptomatic, normal rhythm
#Major Depression, recurrent severe
#Anxiety
Psychiatric consult: Patient is with Major Depression, recurrent, severe
Expressed wanting to change alf, but is expressed that she is okay going back today
Psychiatry following
Psychiatric consult as outpatient
#Chronic Hypotension
-continue midodrine
#Rheumatoid Arthritis
-hold Leflunomide
DVT prophylaxis: Heparin
Anticipated Discharge: 24 - 48 hours
Subjective/Interval History
-
Date of Service: June 09, 2025
The patient still reports some pain in her legs, but she states that she's feeling better. She had bowel movement yesterday. No weakness, lightheaded, fever noted today.
Objective Data
-
Labs:
Laboratory Results
06/09/25
05:19
WBC 15.9 H
Hgb 7.7 L
Hct 24.0 L
Plt Count 370
Sodium 133 L
Potassium 4.3
Chloride 108 H
Carbon Dioxide 25
BUN 16
Creatinine 0.5 L
Glucose 114 H
Calcium 7.5 L
Vital Signs:
Vital Signs
Temp Pulse Resp BP Pulse Ox
98.3 F 107 17 105/74 98
06/09/25 07:36 06/09/25 08:38 06/09/25 04:00 06/09/25 08:38 06/09/25 04:00
I&O
06/08/25 06/09/25 06/10/25
06:59 06:59 06:59
Intake Total 290 / 290
Output Total 250 / 250 100 / 100
Balance -250 / -250 190 / 190
Review of Systems
-
History Source: Patient
Constitutional: Reports Other (No fever, no chills)
EENT: Reports No Symptoms Reported
Respiratory: Reports Other (Denies cough, trouble breathing, wheezing)
Cardiac: Reports Other (Denies chest pain, palpitations)
Abdomen/GI: Reports Other (Denies vomiting and diarrhea)
Genitourinary: Reports Other (Denies dysuria)
Musculoskeletal: Reports Joint Pain
Skin: Reports Other (pain at lower extremities)
Neuro: Reports Other (Denies numbness, headaches, weakness, lightheadedness)
Psych: Reports Anxious
Physical Exam
-
General: Conversant and Cachectic
HEENT: Normocephalic, Atraumatic and Anicteric
Respiratory: Clear to Auscultation
Cardiac: Regular Rhythm and S1/S2
Breast: Deferred by me
GI: Soft and Nontender
Rectal: Deferred by Provider
Musculoskeletal: Edema, Left Upper Extrem, Edema, Right Lower Extrem and Other ((+) contractures on both hands)
Skin: Warm and Other ((+) bilateral lower extremity wounds)
Neuro: AO x 3
Psych: Calm
--- NOTE | 2025-06-09 10:36 | WOUNDNOTE ---
BILATERAL LEGS POST DEBRIDEMENT
--- NOTE | 2025-06-09 10:37 | WOUNDNOTE ---
WOC RN NOTE: Followed up with patient today for dressing change of LE. Patient is s/p bilateral LE debridement 06/08. Wound care completed today as ordered with Dr. Pedersen. Patient was medicated for pain prior to wound care. Patient reported and
demonstrated high level of pain during wound care. Support was given and breaks were taken to help improve tolerance. EDUARDO Graham given update. Will continue to follow during in-patient stay.
[2025-06-09] MEDS: NSS 1000 IV (12:30)
--- NOTE | 2025-06-09 13:37 | W.PN.ID1 ---
Date of Service
Date of Service: June 09, 2025
Today's Communication
Continue cefepime.
Assessment / Plan
# BLE wound cellulitis
# Leukocytosis - postop
# SABINA - resolved
# Chronic non-healing wounds BLE
# Chronic lymphedema
# RA on Orencia, leflunomide
# Protein-calorie malnutrition
- 8/4 s/p I+D today, cx pending
- Continue cefepime
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
RA on leflunomide and Orencia
HTN
Hypothyroidism
BLE lymphedema
Chronic BLE wounds
Chronic pain
Depression
Non-ambulatory
SNF resident
Chief Complaint
-: Cellulitis
Subjective / Review of Systems
Some post-op pain.
Vital Signs / Physical Exam
Vital Signs
Vital Signs
Temp Pulse Resp BP Pulse Ox
98.8 F 108 17 127/78 98
06/09/25 11:48 06/09/25 12:31 06/09/25 04:00 06/09/25 12:31 06/09/25 04:00
Physical Exam
Constitutional: No Acute Distress and Comfortable
Gastrointestinal: Soft, Non Tender and Non Distended
Extremities: Edema (BLE)
Wound: Other (BLE dressings dry)
Neurological: AO x 3
Objective Data
Lab Data
Lab Results
06/09/25 05:19
06/09/25 05:19
Estimated Creat Clear 83 ml/min 06/09/25 05:19
Lactic Acid Cancelled 06/04/25 18:30
Total Bilirubin 0.7 mg/dl (0.2-1.3) 06/04/25 14:35
AST 18 U/L (14-36) 06/04/25 14:35
ALT < 10 U/L (0-35) 06/04/25 14:35
Alkaline Phosphatase 153 U/L (38-126) H 06/04/25 14:35
Most recent labs reviewed.
Micro Results:
06/08/25 12:40 Wound Culture - Preliminary
Leg - Left Gram Stain - Preliminary
06/04/25 14:35 Blood Culture - Preliminary
Blood/Venous No Growth in 4 days- Final report to follow
06/04/25 14:35 Blood Culture - Preliminary
Blood/Venous No Growth in 4 days- Final report to follow
06/05/25 15:03 Wound Culture - Final
Leg - Left Enterobacter cloacae
Pseudomonas aeruginosa
Group G Streptococcus
Gram Stain - Final
06/05/25 15:03 Wound Culture - Final
Leg - Right Enterobacter cloacae
Pseudomonas aeruginosa
Group G Streptococcus
Gram Stain - Final
06/04/25 23:44 MRSA Screen - Final
Nose No Methicillin Resistant Staphylococcus aureus isolated.
06/04/25 16:49 Urine Culture - Final
Urine
06/04/25 CXR: No acute cardiopulmonary process.
--- NOTE | 2025-06-09 14:07 | W.PN.UPDATE ---
Update Note
Progress Note Update
Pt seen, reviewed with nursing staff. Pt had excision and debridement of bilat lower extremity wounds yesterday. Pt resting comfortably, alert. Pt continues to c/o generalized pain, has hands severely affected by RA. Pt states her mood is as
usual, appetite is okay- ate lunch. Sodium is slowly improving, still slightly low at 133. Discussed the option of trying Cymbalta- pt stated she really doesn't want to take an additional medication.
Imp: Unspecified depressive d/o, stable overall
Rec: will follow intermittently, hold off antidepressant for now per pt's preference, reassess as needed
--- NOTE | 2025-06-09 14:56 | CM ---
CM reviewed chart
Post-op therapy orders placed and pending
Bedside meeting with pt
Discussed different SNF options- reviewed [place] [facility] on the [place] area
Advised search could be extended to surrounding area
Pt declined alternative SNF bed search at this time
Plan at this time is to return to [facility]
CM will continue to follow for dc planning
Discharge Disposition- return [facility] for LTC
[2025-06-09] MEDS: FEOSOL 325 MG PO (23:59)
[2025-06-10] VITALS (12 sets, daily range): BP systolic 91–124; BP diastolic 55–85; BMI 18.4
[2025-06-10] MEDS: MAXIPIME 1000 MG IV ×5 (00:59→23:50)
[2025-06-10] MEDS: STERILE WATER FOR INJECTION 10 ML IV ×5 (00:59→23:51)
[2025-06-10] MEDS: NSS 1000 IV (04:15)
[2025-06-10] MEDS: ROXICODONE 10 MG PO ×4 (04:15→20:58)
[2025-06-10] MEDS: TYLENOL 650 MG PO (04:15)
[2025-06-10 05:00] LABS: Hematocrit 24.9 % (37.0-47.0); Hemoglobin 7.9 g/dL (12.0-16.0); Mean Corp Hgb Conc. 31.7 g/dL (33.0-37.0); Mean Corpuscular Volume 77.8 fL (81.0-99.0); Platelet Count 354 10^3/uL (130-400); Red Cell Dist. Width 16.8 % (11.5-14.5)
--- NOTE | 2025-06-10 05:12 | PTCARENOTE ---
Patient slept well throughout the night. NSR on the monitor. Remains on room air. IVF cont. IV abx administered. Pt having 8/10 pain, PRN Oxycodone and PRN Tylenol administered see JAN. Pt continues to refuse turning due to pain and discomfort
despite thorough education about skin breakdown prevention. b/l legs raised on a pillow, dressings clean dry and intact. Call todd within reach.
[2025-06-10 05:26] LABS: Blood Urea Nitrogen 15 mg/dl (7-17); Calcium 7.4 mg/dl (8.4-10.2); Carbon Dioxide 24 mmol/L (22-30); Chloride 110 mmol/L (98-107); Estimated Creatinine Clearance 87 ml/min; Glucose 87 mg/dl (70-99); Potassium 4.5 mmol/L (3.5-5.1); Sodium 135 mmol/L (135-145); eGFR > 60.00
[2025-06-10] MEDS: ULTRAM 50 MG PO ×2 (07:42→20:57)
[2025-06-10] MEDS: HEPARIN SC ×2 (09:23→20:57)
[2025-06-10] MEDS: SENOKOT PO (09:24)
--- NOTE | 2025-06-10 09:50 | W.PN.ID1 ---
Date of Service
Date of Service: June 10, 2025
Today's Communication
- Continue cefepime
- At time of dc, transition to Levofloxacin 750mg po daily 06/15.
Assessment / Plan
# BLE wound cellulitis
# Leukocytosis - postop
# SABINA - resolved
# Chronic non-healing wounds BLE
# Chronic lymphedema
# RA on Orencia, leflunomide
# Protein-calorie malnutrition
- 06/08 s/p I+D, cx GNR, Group G strep
- Continue cefepime
- At time of dc, transition to Levofloxacin 750mg po daily 06/15.
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
RA on leflunomide and Orencia
HTN
Hypothyroidism
BLE lymphedema
Chronic BLE wounds
Chronic pain
Depression
Non-ambulatory
SNF resident
Chief Complaint
-: Cellulitis
Subjective / Review of Systems
Feeling improved.
Vital Signs / Physical Exam
Vital Signs
Vital Signs
Temp Pulse Resp BP Pulse Ox
98.7 F 83 18 97/59 99
06/10/25 07:24 06/10/25 06:08 06/10/25 06:08 06/10/25 06:08 06/10/25 06:08
Physical Exam
Constitutional: No Acute Distress and Comfortable
Gastrointestinal: Soft, Non Tender and Non Distended
Extremities: Edema (BLE)
Wound: Other (Reviewed 06/09 wound photos, BLE wound much improved without necrosis/drainage)
Neurological: AO x 3
Objective Data
Lab Data
Lab Results
06/10/25 04:40
06/10/25 04:40
Estimated Creat Clear 87 ml/min 06/10/25 04:40
Lactic Acid Cancelled 06/04/25 18:30
Total Bilirubin 0.7 mg/dl (0.2-1.3) 06/04/25 14:35
AST 18 U/L (14-36) 06/04/25 14:35
ALT < 10 U/L (0-35) 06/04/25 14:35
Alkaline Phosphatase 153 U/L (38-126) H 06/04/25 14:35
Most recent labs reviewed.
Micro Results:
06/08/25 12:40 Wound Culture - Preliminary
Leg - Left Gram negative bacilli
Group G Streptococcus
Gram Stain - Preliminary
06/04/25 14:35 Blood Culture - Final
Blood/Venous No Growth - Final Report
06/04/25 14:35 Blood Culture - Final
Blood/Venous No Growth - Final Report
06/05/25 15:03 Wound Culture - Final
Leg - Left Enterobacter cloacae
Pseudomonas aeruginosa
Group G Streptococcus
Gram Stain - Final
06/05/25 15:03 Wound Culture - Final
Leg - Right Enterobacter cloacae
Pseudomonas aeruginosa
Group G Streptococcus
Gram Stain - Final
06/04/25 23:44 MRSA Screen - Final
Nose No Methicillin Resistant Staphylococcus aureus isolated.
06/04/25 16:49 Urine Culture - Final
Urine
06/04/25 CXR: No acute cardiopulmonary process.
--- NOTE | 2025-06-10 11:18 | PN.CDI ---
CDI
- -
CDI:
Physician Documentation Request
Admit Date: 06/04/25 16:55
Dear ,
Patient admitted with severe sepsis.
06/08 Nutrition note, 'BMI: 16.2 (underweight). Weight history (12/08/22) 128 lbs. Patient meets AND and ASPEN criteria for severe protein calorie malnutrition of chronic disease due to a loss of more than 7.5% BW over 3 months and less than 75% of
estimated nutrition needs met for more than 1 month.
Please provide in your note the diagnosis associated with the above findings and your assessment:
Severe protein calorie malnutrition of chronic illness
Other (please specify)
[place] Criteria ([facility] Hospitalist 2017)
2 or more criteria must be present for either
non severe or severe malnutrition
Note that the criteria differs related to the
presence of an acute or chronic illness
Chronic Illness
Energy Intake Non Severe: <75% for >1 month
Severe: <75% for >1 month
Weight Loss Non Severe: 5% over 1 month
7.5% over 3 months
10% over 6 months
20% over 1 year
Severe: >5% over 1 month
>7.5% over 3 months
>10% over 6 months
>20% over 1 year
Body Fat Non Severe: Mild Loss
Severe: Severe Loss
Muscle Mass Non Severe: Mild Loss
Severe: Severe Loss
Fluid Accumulation Non Severe: Mild Accumulation
Severe: Moderate to severe
accumulation
Reduced Case Fitter Strength Non Severe: N/A
Severe: Measurably reduced
Use of terms such as suspected, likely, concern for, or probable (associated with a specific diagnosis that is being evaluated, monitored, or treated as if it exists) are acceptable and can be coded in the inpatient setting, when documented at the
time of discharge.
Thank you,
Carole LAZON,RN,CCDS
CDI Specialist
Available via [place] text
Please use your independent medical judgment in providing your response.
[2025-06-10] MEDS: DILAUDID 0.5 MG IV (14:33)
--- NOTE | 2025-06-10 15:54 | W.PN.UPDATE ---
Update Note
Progress Note Update
patient seen chart reviewed. discussed with nursing. patient was in a lot of pain. she said that when they changed her dressing, the bandages got stuck and it caused a lot of discomfort. i had spoke with patient last week about considering
cymbalta. she has to this point decided she did not want to add more medications to her current regimen but will keep it in mind. i did tell her i would stop by sunday to offer support.
--- NOTE | 2025-06-10 17:21 | W.PN.HOSP.TC ---
Addendum entered and electronically signed by Renan Boland MD 06/10/25 22:07:
Attending Addendum-
I saw and evaluated the patient. I reviewed the resident�s note and agree with findings and plan as documented in the resident�s note. Sub: complains of pain during dressing change. Denies fevers chills CP SOB. Full 12 point ROS reviewed and
negative except as documented Exam: Vitals reviewed in chart GEN-NAD heart RRR lungs clear abd soft b/L LE wrapped, sensitive to touch, pulses intact Skin hydrated
Plan:
#Sepsis secondary to B/L LE cellulitis secondary to chronic LE wounds
-leukocytosis likely stress related-improving
-Wound culture-Enterobacter, pseudomonas, Group G strep- sensi resulted
-deescalated meropenem -> cefepime (day#6)
-06/08- OR b/l excision and debridement
-Continue pain management
-ID, Surgery following- appreciate input
-on DC levaquin until 06/15
# Iron Def Anemia
-cont PO iron
-continue to monitor Hgb
-improved
-Transfuse <7 hb
#Hyponatremia
- resolved s/p IVF
- CTM
- repeat BMP in am
#Acute Kidney Injury
-resolved
#Major Depression, recurrent severe
#Anxiety
Psych on board
Remeron DC'd patient does not want to start Cymbalta yet
# Stage 2 b/l buttock pressure ulcer-POA
- cont wound care
#Chronic Hypotension
-increase midodrine
#Rheumatoid Arthritis
-hold Leflunomide
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
- encourage po and supplements
Code- FULL
DVTp- hep
Dispo- From [facility] DC in am if able
Time spent coordinating care, review of plan of care with resident, personally reviewed previous records in EMR, med rec, labs, radiology, d/w nursing, total time -� 51 minutes
Original Note:
Today's Communication/Plan
-
Wound care as surgery recommendation
Wound culture pending
Step down patient level of care
Cefepime day #3
PRN pain medication before dressing change
Continue monitoring the patient
Possible discharge tomorrow
Assessment / Plan
Assessment / Plan
59 year old female from [facility], with history past medical history ambulatory dysfunction, depression, rheumatoid arthritis, peripheral vascular disease, and gastroesophageal reflux disease presents to the ER with bilateral leg
pain on bilateral lower extremity erythematous wound with serous exudate and desquamation of surrounding skin. She reported persistent pain in her legs describe as severe and persistent.� The patient denies experiencing any fever, chills, chest
pain, difficulty breathing, or abdominal pain.�
The patient recently admitted was recently admitted from May 18, 2025 to May 24, 2025 for sepsis secondary to bilateral lower extremity cellulitis.�
# Bilateral Lower extremity Cellulitis due to chronic Lower Extremity Wounds
#Stage 2 bilateral buttock pressure injuries, POA
Wound culture- (+) enterobacter cloacae, pseudomonas aeruginosa, Group G streptococcus
MRSA (-)
Excision and Debridement:
Infected bilateral lower extremity wounds, stage II decubitus ulcer over right ischium (2.5cm diameter), stage I ulcers over sacrum, left ischium
WBC 15.9 ----> 14.5 today
-On cefepime 1000mg #3
-continue wound care
-post surgical wound culture pending
-Diet to regular as tolerated
- Continue pain management- Tramadol 50mg PO BID, Hydromorphone Hcl 0.5 IV Q3HPRN, Oxycodone Hcl 10mg Q6HPRN
-hold at home Leflunomide
-hold at home Lasix
ID, Surgery following
#Anemia:
Hgb: 7.9, MCV Low
-Ferrous Sulfate 325mg PO
-continue to monitor Hgb and sign of bleeding
-Transfuse <7hgb
#Hyperkalemia
4.5 Stable
#Acute Kidney Injury
-resolved
-Creatinine- 0.6 N today
-Sodium: 135 L
-continue to avoid nephrotoxins and hold NSAID
-Proteinuria follow up as outpatient
-Nephrology following
#Hypocalcemia
7.4 L corrected for albumin 8.8
-patient asymptomatic, normal rhythm
#Major Depression, recurrent severe
#Anxiety
Psychiatry following
Psychiatric consult as outpatient
#Chronic Hypotension
-continue midodrine
#Rheumatoid Arthritis
-hold Leflunomide
#Severe protein calorie malnutrition of chronic illness
-Nutrition management:
-encourage intakes >50% at each meal
-Monitor PO intakes, labs, weights, skin
DVT prophylaxis: Heparin
Anticipated Discharge: Within 24 hours
Subjective/Interval History
-
Date of Service: June 10, 2025
The patient continues to have pain in her legs. She expressed that it's worse during dressing changes. She does not report any fever, weakness, lightheadedness, or any difficulty in urination.
Objective Data
-
Labs:
Laboratory Results
06/10/25
04:40
Sodium 135
Potassium 4.5
Chloride 110 H
Carbon Dioxide 24
BUN 15
Creatinine 0.6
Glucose 87
Calcium 7.4 L
Vital Signs:
Vital Signs
Temp Pulse Resp BP Pulse Ox
98.4 F 83 18 97/59 99
06/10/25 15:37 06/10/25 06:08 06/10/25 06:08 06/10/25 06:08 06/10/25 11:37
I&O
06/09/25 06/10/25 06/11/25
06:59 06:59 06:59
Intake Total 290 / 290 240 / 240
Output Total 100 / 100
Balance 190 / 190 240 / 240
Review of Systems
-
History Source: Patient
Constitutional: Reports Other (Denies fever and chills)
EENT: Reports No Symptoms Reported
Respiratory: Reports Other (Denies cough, trouble breathing, and wheezing)
Cardiac: Reports Other (Denies chest pain and palpitations)
Abdomen/GI: Reports Other (Denies vomiting and diarrhea)
Genitourinary: Reports Other (Denies dysuria)
Musculoskeletal: Reports Joint Pain
Skin: Reports Other (pain at lower extremities)
Neuro: Reports Other (Denies numbness, headaches, weakness and lightheadedness)
Psych: Reports Anxious
Physical Exam
-
General: Conversant and Cachectic
HEENT: Normocephalic, Atraumatic and Anicteric
Respiratory: Clear to Auscultation
Cardiac: Regular Rhythm and S1/S2
Breast: Deferred by me
GI: Soft and Nontender
Rectal: Deferred by Provider
Musculoskeletal: Edema, Left Upper Extrem, Edema, Right Lower Extrem and Other ((+) contractures on both hands)
Skin: Warm and Other ((+) bilateral lower extremity erythema with well-demarcated wound margins and serosanguinous exudate )
Neuro: AO x 3
Psych: Calm
[2025-06-10] MEDS: FEOSOL 325 MG PO (20:57)
[2025-06-11] VITALS (11 sets, daily range): BP systolic 91–131; BP diastolic 57–83; BMI 18.5
--- NOTE | 2025-06-11 04:28 | PTCARENOTE ---
Received pt at change of shift. Pt c/o of pain 08/14 b/l LE. PRN medication administered. B/l LE wound care completed for the day on ; bandage C/D/I. +PP with doppler. PW replaced; pericare performed. Pt resting in bed with call todd in
reach.
[2025-06-11 05:22] LABS: Hematocrit 24.1 % (37.0-47.0); Hemoglobin 7.6 g/dL (12.0-16.0); Mean Corp Hgb Conc. 31.5 g/dL (33.0-37.0); Mean Corpuscular Volume 77.0 fL (81.0-99.0); Platelet Count 331 10^3/uL (130-400); Red Cell Dist. Width 17.0 % (11.5-14.5)
[2025-06-11 05:39] LABS: Blood Urea Nitrogen 13 mg/dl (7-17); Calcium 7.2 mg/dl (8.4-10.2); Carbon Dioxide 24 mmol/L (22-30); Chloride 109 mmol/L (98-107); Estimated Creatinine Clearance 87 ml/min; Glucose 93 mg/dl (70-99); Potassium 4.2 mmol/L (3.5-5.1); Sodium 135 mmol/L (135-145); eGFR > 60.00
[2025-06-11] MEDS: MAXIPIME 1000 MG IV (06:37)
[2025-06-11] MEDS: STERILE WATER FOR INJECTION 10 ML IV (06:37)
--- NOTE | 2025-06-11 08:09 | W.PN.ID1 ---
Date of Service
Date of Service: June 11, 2025
Today's Communication
Transition cefepime to Levofloxacin 750mg po daily through 06/15.
ID will sign off.
Assessment / Plan
# BLE wound cellulitis
# Leukocytosis - postop
# SABINA - resolved
# Chronic non-healing wounds BLE
# Chronic lymphedema
# RA on Orencia, leflunomide
# Protein-calorie malnutrition
- Wound swab cx: polymicrobial org
- 06/08 s/p I+D, cx GNR, Group G strep
- transition cefepime to Levofloxacin 750mg po daily through 06/15.
ID will sign off.
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
RA on leflunomide and Orencia
HTN
Hypothyroidism
BLE lymphedema
Chronic BLE wounds
Chronic pain
Depression
Non-ambulatory
SNF resident
Chief Complaint
-: Cellulitis
Subjective / Review of Systems
Waiting for pain pill and breakfast.
Vital Signs / Physical Exam
Vital Signs
Vital Signs
Temp Pulse Resp BP Pulse Ox
99 F 72 14 98/58 100
06/11/25 02:39 06/11/25 06:00 06/11/25 06:00 06/11/25 06:00 06/11/25 06:00
Physical Exam
Constitutional: No Acute Distress and Comfortable
Gastrointestinal: Soft, Non Tender and Non Distended
Extremities: Edema (BLE)
Wound: Other (BLE wound dressings dry.)
Neurological: AO x 3
Objective Data
Lab Data
Lab Results
06/11/25 04:58
06/11/25 04:58
Estimated Creat Clear 87 ml/min 06/11/25 04:58
Lactic Acid Cancelled 06/04/25 18:30
Total Bilirubin 0.7 mg/dl (0.2-1.3) 06/04/25 14:35
AST 18 U/L (14-36) 06/04/25 14:35
ALT < 10 U/L (0-35) 06/04/25 14:35
Alkaline Phosphatase 153 U/L (38-126) H 06/04/25 14:35
Most recent labs reviewed.
Micro Results:
06/08/25 12:40 Wound Culture - Preliminary
Leg - Left Gram negative bacilli
Group G Streptococcus
Gram Stain - Preliminary
06/04/25 14:35 Blood Culture - Final
Blood/Venous No Growth - Final Report
06/04/25 14:35 Blood Culture - Final
Blood/Venous No Growth - Final Report
06/05/25 15:03 Wound Culture - Final
Leg - Left Enterobacter cloacae
Pseudomonas aeruginosa
Group G Streptococcus
Gram Stain - Final
06/05/25 15:03 Wound Culture - Final
Leg - Right Enterobacter cloacae
Pseudomonas aeruginosa
Group G Streptococcus
Gram Stain - Final
06/04/25 23:44 MRSA Screen - Final
Nose No Methicillin Resistant Staphylococcus aureus isolated.
06/04/25 16:49 Urine Culture - Final
Urine
06/04/25 CXR: No acute cardiopulmonary process.
[2025-06-11] MEDS: HEPARIN 5000 UNITS SC (08:17)
[2025-06-11] MEDS: ULTRAM 50 MG PO ×2 (08:18→20:56)
[2025-06-11] MEDS: ROXICODONE 10 MG PO ×3 (08:18→20:57)
[2025-06-11] MEDS: SENOKOT 8.6 MG PO (08:19)
[2025-06-11] MEDS: LEVAQUIN 750 MG PO (08:21)
[2025-06-11] MEDS: DULCOLAX 10 MG RECTAL (09:47)
[2025-06-11] MEDS: MIRALAX 17 GRAMS PO (09:47)
[2025-06-11] MEDS: SENOKOT-S 1 TABLET PO ×2 (09:47→20:56)
--- NOTE | 2025-06-11 10:20 | PTCARENOTE ---
Pt expressing 8/10 LE pain. PRN Roxicodone 10mg PO and scheduled Tramadol 50mg PO BID. Pt expressing 6/10 after administration. No bowel movement observed this admission. Senokot and Miralax administered without effect. PRN Dulcolax administered.
--- NOTE | 2025-06-11 12:15 | W.PN.HOSP.TC ---
Addendum entered and electronically signed by Renan Boland MD 06/11/25 20:51:
Attending Addendum-
I saw and evaluated the patient. I reviewed the resident�s note and agree with findings and plan as documented in the resident�s note. S: has not had BM for one week. States she normally has bms once a week. 'can i stay one more night?' Denies
fevers chills CP SOB. Full 12 point ROS reviewed and negative except as documented Exam: Vitals reviewed in chart GEN-NAD heart RRR lungs clear abd soft b/L LE wrapped, sensitive to touch, pulses intact Skin hydrated
Plan:
#Sepsis secondary to B/L LE cellulitis secondary to chronic LE wounds
-leukocytosis likely stress incused post OP-improving
-Wound culture-Enterobacter, pseudomonas, Group G strep- sensi resulted
-deescalated meropenem -> cefepime (day#7)
-06/08- OR b/l excision and debridement- wound cx sent- Providencia rettgeri-new, Pseudomonas species, Gram negative bacilli, Group G Streptococcus
-Continue pain management
-ID, Surgery following- appreciate input
-cont levaquin until 06/15
# Iron Def Anemia
-cont PO iron
-continue to monitor Hgb
-improved
-Transfuse <7 hb
#Hyponatremia
- resolved s/p IVF
- CTM
- repeat BMP in am
#Acute Kidney Injury
-resolved
#Major Depression, recurrent severe
#Anxiety
Psych on board
Remeron DC'd patient does not want to start Cymbalta yet
# Stage 2 b/l buttock pressure ulcer-POA
- cont wound care
#Chronic Hypotension
-increased midodrine
#Rheumatoid Arthritis
-hold Leflunomide
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
- encourage po and supplements
Code- FULL
DVTp- hep
Dispo- From [facility] DC in am if able- DC delayed due to facility requirement of having a BM
Time spent coordinating care, review of plan of care with resident, personally reviewed previous records in EMR, med rec, labs, radiology, d/w nursing, CM total time -� 53 minutes
Original Note:
Today's Communication/Plan
-
Continue Levofloxacin 750mg PO through 06/15/2025 as outpatient
Continue wound care
Bowel regimen
SNF arranged
Assessment / Plan
Assessment / Plan
59 year old female from [facility], with history past medical history ambulatory dysfunction, depression, rheumatoid arthritis, peripheral vascular disease, and gastroesophageal reflux disease presents to the ER with bilateral leg
pain on bilateral lower extremity erythematous wound with serous exudate and desquamation of surrounding skin. She reported persistent pain in her legs describe as severe and persistent.� The patient denies experiencing any fever, chills, chest
pain, difficulty breathing, or abdominal pain.�
The patient recently admitted was recently admitted from May 18, 2025 to May 24, 2025 for sepsis secondary to bilateral lower extremity cellulitis.�
# Bilateral Lower extremity Cellulitis due to chronic Lower Extremity Wounds
#Stage 2 bilateral buttock pressure injuries, POA
Wound culture- (+) enterobacter cloacae, pseudomonas aeruginosa, Group G streptococcus
MRSA (-)
Excision and Debridement:
Infected bilateral lower extremity wounds, stage II decubitus ulcer over right ischium (2.5cm diameter), stage I ulcers over sacrum, left ischium
WBC 15.9 ----> 14.5-->13.0 today
-On Levofloxacin 750 mg PO day#1 to be continued through 06/15/2025 as outpatient.
-continue wound care
-post surgical wound culture pending
-Diet to regular as tolerated
-Continue pain management- Tramadol 50mg PO BID, Oxycodone Hcl 10mg Q6HPRN as outpatient.
-hold at home Leflunomide
-hold at home Lasix
ID, Surgery following
-OT/PT
#Constipation
-the patient states that 1-2 bowel movement per week her normal frequency
-continue bowel regimen as outpatient
#Anemia:
Hgb: 7.6, MCV Low
-Ferrous Sulfate 325mg PO
-continue to monitor Hgb and sign of bleeding
-Transfuse <7hgb
#Hyperkalemia
4.2 Stable
#Acute Kidney Injury
-resolved
-Creatinine- 0.6 N today
-Sodium: 135 L
-continue to avoid nephrotoxins and hold NSAID
-Proteinuria follow up as outpatient
-Nephrology following
#Hypocalcemia
7.2 L corrected for albumin 8.7
-patient asymptomatic, normal rhythm
#Major Depression, recurrent severe
#Anxiety
Psychiatry following
Psychiatric consult as outpatient
#Chronic Hypotension
-stable
-continue midodrine
#Rheumatoid Arthritis
-hold Leflunomide
#Severe protein calorie malnutrition of chronic illness
-Nutrition management:
-encourage intakes >50% at each meal
-Monitor PO intakes, labs, weights, skin
The patient was seen, examined, and deemed ready for discharge, with appropriate medication and wound care instructions.
Delay in discharge due to the patient being unable to pass bowel movement.
DVT prophylaxis: Heparin
Anticipated Discharge: Today
Subjective/Interval History
-
Date of Service: June 11, 2025
The patient continues to report leg pain, same intensity as the day before. She has not had any bowel movements, but reports that she always has bowel movement approximately once a week, thus it's not unusual for her. She denies fever, chills,
lightheadedness, nausea and vomiting.
Objective Data
-
Labs:
Laboratory Results
06/11/25
04:58
WBC 13.0 H
Hgb 7.6 L
Hct 24.1 L
Plt Count 331
Sodium 135
Potassium 4.2
Chloride 109 H
Carbon Dioxide 24
BUN 13
Creatinine 0.6
Glucose 93
Calcium 7.2 L
Vital Signs:
Vital Signs
Temp Pulse Resp BP Pulse Ox
98.1 F 98 15 122/79 100
06/11/25 07:25 06/11/25 10:00 06/11/25 10:00 06/11/25 10:00 06/11/25 10:00
I&O
06/10/25 06/11/25 06/12/25
06:59 06:59 06:59
Intake Total 240 / 240 240 / 240
Output Total 600 / 600
Balance -360 / -360 240 / 240
Review of Systems
-
History Source: Patient
Constitutional: Reports Other (Denies fever and chills)
EENT: Reports No Symptoms Reported
Respiratory: Reports Other (Denies cough, trouble breathing, and wheezing)
Cardiac: Reports Other (Denies chest pain and palpitations)
Abdomen/GI: Reports Other (Denies vomiting and diarrhea)
Genitourinary: Reports Other (Denies dysuria)
Musculoskeletal: Reports Joint Pain
Skin: Reports Other (pain at lower extremities)
Neuro: Reports Other (Denies numbness, headaches, weakness and lightheadedness)
Psych: Reports Anxious
Physical Exam
-
General: Conversant and Cachectic
HEENT: Normocephalic, Atraumatic and Anicteric
Respiratory: Clear to Auscultation
Cardiac: Regular Rhythm and S1/S2
Breast: Deferred by me
GI: Soft, Nontender and Normal Bowel Sounds
Rectal: Deferred by Provider
Musculoskeletal: Edema, Right Lower Extrem, Edema, Left Lower Extrem and Other ((+) contractures on both hands)
Skin: Warm and Other ((+) bilateral lower extremity erythema with well-demarcated wound margins and serosanguinous exudate )
Neuro: AO x 3
Psych: Calm
--- NOTE | 2025-06-11 13:39 | CM ---
Chart reviewed and plan is for patient to return to [facility] when stable, per physician patient has been cleared for discharge today. Patient would need ambulance transport as patient is currently [facility] assist X2.
[place]
Report [phone]
fax [phone]
[2025-06-11] MEDS: TYLENOL 650 MG PO (14:17)
[2025-06-11] MEDS: DILAUDID 0.5 MG IV (15:09)
--- NOTE | 2025-06-11 18:42 | PTCARENOTE ---
Pt without observed bowel movements. Milk of Magnesia x1 and milk and molasses enema ordered. Pt refusing. Upset and yelling, 'No I don't want it!'
[2025-06-11] MEDS: FEOSOL 325 MG PO (20:56)
[2025-06-11] MEDS: HEPARIN SC (20:56)
--- NOTE | 2025-06-11 22:45 | PTCARENOTE ---
Received pt at change of shift. Pt c/o 08/14 b/l LE pain. PRN pain medication administered. Pt had large loose BM this evening (as documented on worklist). Pt being transferred to 4 bed 436-1. Report given to RN. Pt sent with all belongings.
--- NOTE | 2025-06-11 23:20 | PTCARENOTE ---
Pt arrived to room 436-01. Pt AAOx3, VSS. Pt oriented to room, call todd placed within reach. Bed alarm in place.
[2025-06-12 03:00] VITALS: BP 121/78
[2025-06-12] MEDS: ROXICODONE 10 MG PO ×2 (03:10→13:03)
--- NOTE | 2025-06-12 06:25 | PTCARENOTE ---
Pt arrived to room 436-01. Pt AAOx3, VSS. Pt oriented to room, call todd placed within reach. Bed alarm in [facility]
[2025-06-12 07:50] VITALS: BP 130/85
[2025-06-12] MEDS: SENOKOT-S PO (08:21)
[2025-06-12] MEDS: SENOKOT PO (08:21)
[2025-06-12] MEDS: LEVAQUIN 750 MG PO (08:22)
[2025-06-12] MEDS: ULTRAM 50 MG PO (08:22)
[2025-06-12] MEDS: HEPARIN SC (08:22)
[2025-06-12 09:40] LABS: Hematocrit 23.3 % (37.0-47.0); Hemoglobin 7.4 g/dL (12.0-16.0); Mean Corp Hgb Conc. 31.8 g/dL (33.0-37.0); Mean Corpuscular Volume 76.6 fL (81.0-99.0); Platelet Count 346 10^3/uL (130-400); Red Cell Dist. Width 17.0 % (11.5-14.5)
--- NOTE | 2025-06-12 09:49 | W.PN.HOSP.TC ---
Addendum entered and electronically signed by Renan Boland MD 06/12/25 21:41:
Attending Addendum-
I saw and evaluated the patient. I reviewed the resident�s note and agree with findings and plan as documented in the resident�s note. S: had bm ready to go back home to [place]. Full 12 point ROS reviewed and negative except as documented Exam: Vitals
reviewed in chart GEN-NAD heart RRR lungs clear abd soft b/L LE wrapped, sensitive to touch, pulses intact Skin hydrated
Plan:
#Sepsis secondary to B/L LE cellulitis secondary to chronic LE wounds
-leukocytosis likely stress induced post OP-improving
-Wound culture-Enterobacter, pseudomonas, Group G strep- sensi resulted
-deescalated meropenem -> cefepime to levaquin (day#8)
-06/08- OR b/l excision and debridement- wound cx sent- Providencia rettgeri-new, Pseudomonas species, Gram negative bacilli, Group G Streptococcus-sensi reviewed
-Continue pain management
-ID, Surgery following- appreciate input
-cont levaquin until 06/15
# Iron Def Anemia
-cont PO iron
-continue to monitor Hgb
-low but stable no signs of acure bleed
-Transfuse <7 hb
#Hyponatremia
- resolved s/p IVF
- CTM
- repeat BMP in am
#Acute Kidney Injury
-resolved
#Major Depression, recurrent severe
#Anxiety
Psych on board
Remeron DC'd patient does not want to start Cymbalta yet
# Stage 2 b/l buttock pressure ulcer-POA
- cont wound care
#Chronic Hypotension
-increased midodrine
#Rheumatoid Arthritis
-hold Leflunomide
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
- encourage po and supplements
Code- FULL
DVTp- hep
Dispo- From [facility] - DC
Time spent coordinating care, DC planning, review of DC plan of care with resident, transition of care, review of records, med rec/scripts sent electronically, consults, notes, d/w consultants, nursing, and CM� 31 mins >50% of this time was devoted
to counseling and coordination of care
Original Note:
Today's Communication/Plan
-
Continue Levofloxacin 750mg PO through 06/15/2025 as outpatient
Continue wound care
Bowel regimen
SNF arranged
Assessment / Plan
Assessment / Plan
59 year old female from [facility], with history past medical history ambulatory dysfunction, depression, rheumatoid arthritis, peripheral vascular disease, and gastroesophageal reflux disease presents to the ER with bilateral leg
pain on bilateral lower extremity erythematous wound with serous exudate and desquamation of surrounding skin. She reported persistent pain in her legs describe as severe and persistent.� The patient denies experiencing any fever, chills, chest
pain, difficulty breathing, or abdominal pain.�
The patient recently admitted was recently admitted from May 18, 2025 to May 24, 2025 for sepsis secondary to bilateral lower extremity cellulitis.�
# Bilateral Lower extremity Cellulitis due to chronic Lower Extremity Wounds
Wound culture (06/08/2025): Providencia rettgeri,� Pseudomonas� aeruginosa,� Klebsiella pneumoniae
Wound culture(06/05/2025)- enterobacter cloacae, pseudomonas aeruginosa, Group G streptococcus
MRSA (-)
S/P Excision and Debridement (06/08/2025)
Infected bilateral lower extremity wounds, stage II decubitus ulcer over right ischium (2.5cm diameter), stage I ulcers over sacrum, left ischium
WBC 15.9 --> 14.5-->13.0--> 12.3 today
-On Levofloxacin 750 mg PO day#2 to be continued through 06/15/2025 as outpatient.
-continue wound care
-Diet to regular as tolerated
-Continue pain management- Tramadol 50mg PO BID, Oxycodone Hcl 10mg Q6HPRN as outpatient.
-hold at home Leflunomide
-hold at home Lasix
ID, Surgery following
-OT/PT
#Constipation
-(+) bm
-continue bowel regimen as outpatient
#Stage 2 bilateral buttock pressure injuries, POA
- continue wound care
#Anemia:
Hgb: 7.4, MCV Low
-Ferrous Sulfate 325mg PO
-continue to monitor Hgb and sign of bleeding
-Transfuse <7hgb
#Hyperkalemia
stable
#Acute Kidney Injury
-resolved
-continue to avoid nephrotoxins and hold NSAID
-Proteinuria follow up as outpatient
-Nephrology following
#Hypocalcemia
-patient asymptomatic, normal rhythm
#Major Depression, recurrent severe
#Anxiety
Psychiatry following
Psychiatric consult as outpatient
#Chronic Hypotension
-stable
-continue midodrine
#Rheumatoid Arthritis
-hold Leflunomide
#Severe protein calorie malnutrition of chronic illness
-Nutrition management:
-encourage intakes >50% at each meal
-Monitor PO intakes, labs, weights, skin
The patient was seen, examined, and deemed ready for discharge, with appropriate medication and wound care instructions.
DVT prophylaxis: Heparin
Anticipated Discharge: Today
Subjective/Interval History
-
Date of Service: June 12, 2025
The patient has less pain in her legs today. She denies any fever, chills, or weakness.
Objective Data
-
Labs:
Laboratory Results
06/12/25
09:17
WBC 12.3 H
Hgb 7.4 L
Hct 23.3 L
Plt Count 346
Sodium Pending
Potassium Pending
Chloride Pending
Carbon Dioxide Pending
BUN Pending
Creatinine Pending
Glucose Pending
Calcium Pending
Vital Signs:
Vital Signs
Temp Pulse Resp BP Pulse Ox
98.9 F 102 18 130/85 98
06/12/25 07:50 06/12/25 08:22 06/12/25 07:50 06/12/25 08:22 06/12/25 07:50
I&O
06/11/25 06/12/25 06/13/25
06:59 06:59 06:59
Intake Total 240 / 240 360 / 360
Output Total 600 / 600
Balance -360 / -360 360 / 360
Review of Systems
-
History Source: Patient
Constitutional: Reports Other (Denies fever and chills)
EENT: Reports No Symptoms Reported
Respiratory: Reports Other (Denies cough, trouble breathing, and wheezing)
Cardiac: Reports Other (Denies chest pain and palpitations)
Abdomen/GI: Reports Other (Denies vomiting and diarrhea)
Genitourinary: Reports Other (Denies dysuria)
Musculoskeletal: Reports Joint Pain
Skin: Reports Other (pain at lower extremities)
Neuro: Reports Other (Denies numbness, headaches, weakness and lightheadedness)
Psych: Reports Anxious
Physical Exam
-
General: Conversant and Cachectic
HEENT: Normocephalic and Atraumatic
Respiratory: Clear to Auscultation
Cardiac: Regular Rhythm and S1/S2
Breast: Deferred by me
GI: Soft, Nontender and Normal Bowel Sounds
Rectal: Deferred by Provider
Genito-urinary: Other (Purewick)
Musculoskeletal: Edema, Right Lower Extrem, Edema, Left Lower Extrem and Other ((+) contractures on both hands)
Skin: Warm and Other ((+) bilateral lower extremity wounds)
Neuro: AO x 3
Psych: Calm
--- NOTE | 2025-06-12 10:53 | CM ---
Met with pt at bedside. chart reviewed. Cleared for discharge, await d/c order. Will arrange for transportation
Plan: Return to [facility].
[facility]
Report [phone]
fax [phone]
[2025-06-12 11:15] VITALS: BP 121/80
[2025-06-12 11:47] LABS: Blood Urea Nitrogen 9 mg/dl (7-17); Calcium 7.6 mg/dl (8.4-10.2); Carbon Dioxide 24 mmol/L (22-30); Chloride 109 mmol/L (98-107); Estimated Creatinine Clearance 87 ml/min; Glucose 94 mg/dl (70-99); Potassium 4.2 mmol/L (3.5-5.1); Sodium 134 mmol/L (135-145); eGFR > 60.00
[2025-06-12] MEDS: TYLENOL 650 MG PO (14:39)
[2025-06-12 15:50] VITALS: BP 106/68
--- NOTE | 2025-06-12 18:01 | W.DCSUMMARY ---
Addendum entered and electronically signed by Renan Boland MD 06/12/25 21:41:
Read, reviewed, and agree. See same day progress note for additional details.
Aung Boland MD
Original Note:
Documented by User: Kusum Shearer MD, Resident 06/12/25 18:25
Discharge Summary
Discharge Data
Date of Admission: 06/04/25
Date of Discharge: 06/12/25
-
Pending Results: No
Hospital Course
Discharging Physician : Renan Boland MD, Kusum Shearer MD
Disposition : SNF
Primary care physician : Ish Hall
Principal Discharge diagnosis : Sepsis secondary to Bilateral Lower Extremity Cellulitis due to Chronic Lower Extremity Wounds, Acute Kidney Injury, Stage 2 Bilateral Buttock Pressure Ulcer, Major Depression
Chronic Discharge diagnosis : Chronic Hypotension, Rheumatoid Arthritis, Iron Deficiency Anemia
Hospital Course : 59-year-old female with history of RA on leflunomide and biologic, bilateral lower extremity lymphedema with chronic bilateral lower extremity wound who presented from [facility] yesterday with significant drainage from
bilateral lower extremity wounds.� She reports the wounds started approximately 3 months ago and have been nonhealing.� She has chronic lower extremity lymphedema from rheumatoid arthritis for which she was using compressions.� She reports she had
vascular workup with good arterial circulation.� Her biologic treatment were recently changed twice due to possible source of her lower extremity wounds.� She was recently hospitalized here May 18 to May 24 for cellulitis of the lower extremities,
treated with IV cefazolin then discharged on cephalexin x 4 more days.� However patient reports no significant improvement.� The wounds deteriorated, then started draining copious yellowish fluids.� The dressings were soaked.� She complains of wound
pain.� No fevers or chills.��
In ED white count 25.3, Cr 2.2, potassium 8.1.� She was given a hyperkalemia protocol to include insulin, sodium bicarbonate, calcium gluconate.� She was also started on Zosyn.�
The following problems were addressed during this admission:
#Sepsis secondary to Bilateral Lower extremity Cellulitis due to chronic Lower Extremity Wounds
Wound culture (06/05/2025)- enterobacter cloacae, pseudomonas aeruginosa, Group G streptococcus
Wound culture (06/08/2025)- Providencia rettgeri, Pseudomonas aeruginosa, Klebsiella pneumoniae
Excision and Debridement (06/08/2025):
Infected bilateral lower extremity wounds, stage II decubitus ulcer over right ischium (2.5cm diameter), stage I ulcers over sacrum, left ischium
- Levofloxacin 750mg po daily 06/15. #2 (Previous inpatient antibiotic history: Zosyn 4.5g #1, Zosyn 2.5g #2, Meropenem #3, Cefepime #4)
- wound care
- pain management- Tramadol 50mg PO BID, oxycodone hcl PO q6PRN
#Anemia:
-given 1 PRBC
-asymptomatic
-Ferrous Sulfate 325mg PO
#Hyperkalemia
Stable
#Acute Kidney Injury
-resolved
-continue to avoid nephrotoxins and hold NSAID
-Proteinuria follow up as outpatient
#Hypocalcemia
-patient asymptomatic, normal rhythm
#Major Depression, recurrent severe
#Anxiety
-1 on 1 observation started and later discontinued after inpatient psychiatric consult
-remeron was discontinued per patient's request
Psychiatric consult as outpatient
#Chronic Hypotension
-continue midodrine
#Rheumatoid Arthritis
-pain management
Important imaging findings :
Chest X Ray (06/04/2025):
FINDINGS:
HEART: Normal in size.
VASCULATURE: No significant vascular congestion.
LUNGS: The lungs are clear.
PLEURAL SPACE: No pneumothorax. No pleural effusion.
HILUM/MEDIASTINUM: Hilar and mediastinal margins are within normal limits.
IMPRESSION:
No acute cardiopulmonary process
Renal Ultrasound (06/04/2025)
FINDINGS:
Right kidney:
Size: 9.2 x 3.5 x 3.6 cm. Parenchymal echotexture remains within normal limits, isoechoic with liver.
No sonographically demonstrable mass.
No shadowing renal calculus or hydronephrosis.
Left kidney:
Size: 9.3 x 3.5 x 3.6 cm. Parenchymal echotexture remains within normal limits, isoechoic with spleen.
No sonographically demonstrable mass.
No shadowing renal calculus or hydronephrosis.
Urinary bladder:
Limited. Underdistended. Urinary bladder volume 87 mL. No bladder calculus. No sonographically demonstrable bladder mass. Bilateral ureteral jets are reproduced.
IMPRESSION:
No shadowing renal or bladder calculus. No hydronephrosis or obstructive uropathy. Renal parenchymal echotexture remains within normal limits.
Procedure findings :
Excision and Debridement (06/08/2025):
Infected bilateral lower extremity wounds, stage II decubitus ulcer over right ischium (2.5cm diameter), stage I ulcers over sacrum, left ischium
Discharge Plan
-
Patient Disposition: Retirement/SNF
Discharge Diagnosis/Procedures: Bilateral Lower extremity Cellulitis due to chronic Lower Extremity Wounds, Stage 2 bilateral buttock pressure injuries, Acute Kidney Injury, Major Depression, Severe Protein Calorie Malnutrition of chronic illness
Condition: Fair
Diet: Regular
Activity: As tolerated
Driving Restrictions: As prior to admission
Bathing Restrictions: OK to Shower
Activity Restrictions/Additional Instructions:
Wound Care Instructions
LE wounds- Please medicate patient for pain prior to wound care. Clean LE wound with normal saline and apply adaptic dressing, ABD and wrap with ronda. Change daily and PRN drainage. No compressive dressings
Patient should have air bed at facility
Turning schedule
Keep heels off-loaded with pillow or air cushion under calves
Barrier ointment to buttocks
Referrals:
Ish Hall MD [Family Provider] - in less than 1 week
Andreea Alvarez MD [Active, Psychiatry]
Julissa Mackenzie MD [Active, Nephrology]
Additional Discharge Medication Instructions: Continue Levofloxacin 750mg by mouth, once a day through 06/15/2025
Wound care as instructed (please refer above)
Prescriptions:
New
levofloxacin 750 mg Tablet
750 mg PO DAILY Qty: 3 0RF
Continued
tramadol 50 mg Tablet
50 mg PO BID
tramadol 50 mg Tablet
50 mg PO Q6HPRN PRN (Reason: moderate pain)
oxycodone 10 mg Tablet
10 mg PO Q6HPRN PRN (Reason: severe pain )
acetaminophen 325 mg Tablet
650 mg PO Q4HPRN PRN (Reason: mild pain/fever)
polyethylene glycol 3350 [Miralax] 17 gram Powder In Packet
17 g PO DAILYPRN PRN (Reason: Constipation)
leflunomide 20 mg Tablet
20 mg PO DAILY@1200
furosemide [Lasix] 40 mg Tablet
80 mg PO DAILY Qty: 0 0RF
naproxen [Naprosyn] 500 mg Tablet
500 mg PO BID
zinc oxide 10 % Cream
1 applic TOPICAL DAILY
sennosides [senna] 8.6 mg Tablet
8.6 mg PO DAILY
acetic acid 0.25 % Solution
1 irrig IRRIGATION BID
Orencia 125 mg/mL Syringe
125 mg SC MO
ferrous sulfate 325 mg (65 mg iron) tablet
325 mg PO HS
midodrine 5 mg Tablet
2.5 mg PO TID@0800,1300,1800 Qty: 30 0RF
Discontinued
mirtazapine [Remeron] 15 mg Tablet
15 mg PO HS
Discharge Orders:
Discharge Patient (As Directed); Ordered 06/12/25
Ordered By: Kusum Shearer
Discharge Date and Time
Discharge Date/Time: 06/12/25 17:27
Print Language: CYMRO

Documented by User: Renan Boland MD 06/12/25 21:38
Discharge Summary
Discharge Data
Date of Admission: 06/04/25
Date of Discharge: 06/12/25
Discharge Plan
-
Patient Disposition: Retirement/SNF
Discharge Diagnosis/Procedures: Bilateral Lower extremity Cellulitis due to chronic Lower Extremity Wounds, Stage 2 bilateral buttock pressure injuries, Acute Kidney Injury, Major Depression, Severe Protein Calorie Malnutrition of chronic illness
Condition: Fair
Diet: Regular
Activity: As tolerated
Driving Restrictions: As prior to admission
Bathing Restrictions: OK to Shower
Activity Restrictions/Additional Instructions:
Wound Care Instructions
LE wounds- Please medicate patient for pain prior to wound care. Clean LE wound with normal saline and apply adaptic dressing, ABD and wrap with ronda. Change daily and PRN drainage. No compressive dressings
Patient should have air bed at facility
Turning schedule
Keep heels off-loaded with pillow or air cushion under calves
Barrier ointment to buttocks
Referrals:
Ish Hall MD [Family Provider] - in less than 1 week
Andreea Alvarez MD [Active, Psychiatry]
Julissa Mackenzie MD [Active, Nephrology]
Additional Discharge Medication Instructions: Continue Levofloxacin 750mg by mouth, once a day through 06/15/2025
Wound care as instructed (please refer above)
Prescriptions:
New
levofloxacin 750 mg Tablet
750 mg PO DAILY Qty: 3 0RF
Continued
tramadol 50 mg Tablet
50 mg PO BID
tramadol 50 mg Tablet
50 mg PO Q6HPRN PRN (Reason: moderate pain)
oxycodone 10 mg Tablet
10 mg PO Q6HPRN PRN (Reason: severe pain )
acetaminophen 325 mg Tablet
650 mg PO Q4HPRN PRN (Reason: mild pain/fever)
polyethylene glycol 3350 [Miralax] 17 gram Powder In Packet
17 g PO DAILYPRN PRN (Reason: Constipation)
leflunomide 20 mg Tablet
20 mg PO DAILY@1200
furosemide [Lasix] 40 mg Tablet
80 mg PO DAILY Qty: 0 0RF
naproxen [Naprosyn] 500 mg Tablet
500 mg PO BID
zinc oxide 10 % Cream
1 applic TOPICAL DAILY
sennosides [senna] 8.6 mg Tablet
8.6 mg PO DAILY
acetic acid 0.25 % Solution
1 irrig IRRIGATION BID
Orencia 125 mg/mL Syringe
125 mg SC MO
ferrous sulfate 325 mg (65 mg iron) tablet
325 mg PO HS
midodrine 5 mg Tablet
2.5 mg PO TID@0800,1300,1800 Qty: 30 0RF
Discontinued
mirtazapine [Remeron] 15 mg Tablet
15 mg PO HS
Discharge Orders:
Discharge Patient (As Directed); Ordered 06/12/25
Ordered By: Kusum Shearer
Discharge Date and Time
Discharge Date/Time: 06/12/25 17:27
Print Language: CYMRO
== END 2025-06-12 17:27 | DRG 853 ==
LOC: 4 WEST ACU 16:55
PROVIDERS: Nurse Practitioner Gerontology; Registered Nurse; Surgery; ADMITTING PHYSICIAN Student in an Organized Health Care Education/Training Program; ATTENDING PHYSICIAN Family Medicine; CONSULT PHYSICIAN Internal Medicine Infectious Disease; CONSULT PHYSICIAN Internal Medicine Nephrology; CONSULT PHYSICIAN Psychiatry & Neurology Psychiatry; CONSULT PHYSICIAN Surgery; EMERGENCY PHYSICIAN Emergency Medicine; FAMILY PHYSICIAN Internal Medicine
PROC: 30233N1 Transfusion of Nonautologous Red Blood Cells into Peripheral Vein, Percutaneous Approach (ICD-10-PCS; 2025-06-05)
PROC: 0JBL0ZZ Excision of Right Upper Leg Subcutaneous Tissue and Fascia, Open Approach (ICD-10-PCS; 2025-06-08)
PROC: 0JBM0ZZ Excision of Left Upper Leg Subcutaneous Tissue and Fascia, Open Approach (ICD-10-PCS; 2025-06-08)
DX: A41.9 Sepsis, unspecified organism (principal); E43 Unspecified severe protein-calorie malnutrition; L03.115 Cellulitis of right lower limb; L03.116 Cellulitis of left lower limb; N17.9 Acute kidney failure, unspecified; E87.1 Hypo-osmolality and hyponatremia; F11.20 Opioid dependence, uncomplicated; R64 Cachexia; Z68.1 Body mass index [BMI] 19.9 or less, adult; E87.20 Acidosis, unspecified; F33.9 Major depressive disorder, recurrent, unspecified; K21.9 Gastro-esophageal reflux disease without esophagitis; I73.9 Peripheral vascular disease, unspecified; M06.9 Rheumatoid arthritis, unspecified; I89.0 Lymphedema, not elsewhere classified; E87.5 Hyperkalemia; E03.9 Hypothyroidism, unspecified; R26.2 Difficulty in walking, not elsewhere classified; M19.011 Primary osteoarthritis, right shoulder; M19.012 Primary osteoarthritis, left shoulder; G89.4 Chronic pain syndrome; I10 Essential (primary) hypertension; E78.5 Hyperlipidemia, unspecified; I95.89 Other hypotension; F41.9 Anxiety disorder, unspecified; E83.51 Hypocalcemia; L89.322 Pressure ulcer of left buttock, stage 2; L89.312 Pressure ulcer of right buttock, stage 2; L89.151 Pressure ulcer of sacral region, stage 1; B96.89 Other specified bacterial agents as the cause of diseases classified elsewhere; B96.5 Pseudomonas (aeruginosa) (mallei) (pseudomallei) as the cause of diseases classified elsewhere; B95.1 Streptococcus, group B, as the cause of diseases classified elsewhere; K59.00 Constipation, unspecified; D50.9 Iron deficiency anemia, unspecified; E88.09 Other disorders of plasma-protein metabolism, not elsewhere classified; R65.20 Severe sepsis without septic shock; Z79.69 Long term (current) use of other immunomodulators and immunosuppressants; Z63.4 Disappearance and death of family member; Z63.8 Other specified problems related to primary support group
CPT/HCPCS: 51798; 71045; 76770; 80048; 80053; 81003; 81015; 82570; 82962; 83605; 83735; 83930; 84300; 85025; 85027; 86850; 86900; 86901; 86920; 87040; 87070; 87077; 87086; 87147; 87186; 87205; 93005; 96361; 96365; 96375; 97163; 99285; P9016

== ENCOUNTER 2025-06-20 19:07 | Emergency (ER) | payer MEDICAID, SELFPAY ==
[2025-06-20 19:09] VITALS: BMI 18.0
[2025-06-20 19:16] VITALS: BP 92/54
[2025-06-20 19:17] VITALS: BP 92/54
[2025-06-20 20:05] VITALS: BP 91/62
[2025-06-20 20:39] LABS: Hematocrit 25.7 % (37.0-47.0); Hemoglobin 8.3 g/dL (12.0-16.0); Mean Corp Hgb Conc. 32.3 g/dL (33.0-37.0); Mean Corpuscular Volume 76.7 fL (81.0-99.0); Nucleated Red Blood Cells % 0 %; Platelet Count 397 10^3/uL (130-400); Red Cell Dist. Width 18.3 % (11.5-14.5)
[2025-06-20 21:00] VITALS: BP 86/54
[2025-06-20 21:04] LABS: ALT (SGPT) < 10 U/L (0-35); AST (SGOT) 14 U/L (14-36); Albumin 2.2 g/dl (3.5-5.0); Alkaline Phosphatase 89 U/L (38-126); Blood Urea Nitrogen 18 mg/dl (7-17); Calcium 7.8 mg/dl (8.4-10.2); Carbon Dioxide 27 mmol/L (22-30); Chloride 100 mmol/L (98-107); Estimated Creatinine Clearance 70 ml/min; Glucose 103 mg/dl (70-99); Potassium 4.6 mmol/L (3.5-5.1); Sodium 130 mmol/L (135-145); Total Protein 5.1 g/dl (6.3-8.2); eGFR > 60.00
[2025-06-20 22:00] VITALS: BP 93/59
[2025-06-20] MEDS: DILAUDID 0.5 MG IV (22:01)
--- NOTE | 2025-06-20 22:15 | ED.GENMED ---
History of Present Illness
General
Chief Complaint: Skin Problem
Source: patient and records
Time Seen by Provider: 06/20/25 21:35
History of Present Illness
History of Present Illness:
60-year-old female sent to the emergency room from [facility] for evaluation of pain and drainage from her lower extremities. Patient has chronic wounds in her lower extremities. She was actually admitted here to week ago for cellulitis and
wound infection. Wounds were debrided on June 09. She completed a course of antibiotics. Patient and apparently caregivers were concerned dressings were saturated with material that she might have an infection. Patient is afebrile. She does
have significant pain with dressing changes but this is not any different when she was admitted. Patient does not feel she is getting adequate pain control.
Past History
Past History
ED Past Medical History: Other (RA, malnutrition, bilateral LE lymphedema, cellulitis, PVD, depression, GERD, RA, polyarthritis)
ED Past Surgical History: None
Social History
Tobacco: Non-smoker
Alcohol: None
Drug: None
Personal: Single
Living: snf
Phy Exam
Physical Exam
Physical Exam:
General: Awake, Alert, Oriented X3. No acute distress, appears chronically ill with stigmata of rheumatoid arthritis
Vitals: unremarkable
Head: Atraumatic
Eyes: Pupils equal, EOMI
Throat: Airway intact, no exudates
Neck: Trachea midline
Lungs: Clear and equal b/l
Heart: Regular rate, no murmurs
Neuro: Nonfocal
Skin: Warm, dry, no rash
Extremities: pulses equal b/l, superficial wounds bilateral lower extremities from the mid tibia down to the ankle. There is dried blood noted on the surface of the wounds but no purulent discharge is noted on the wound itself. The surrounding
tissue was not particularly erythematous. The dressings that were removed to have what appeared to be serosanguineous drainage which is dried and perhaps an eschar.
Course
Orders/Labs/Results
Orders:
Orders
06/20/25 20:29
Complete Blood Count/With Diff Urgent
Comprehensive Metabolic Panel Urgent
Blood Culture Routine
VAL Source: Blood/Venous
Specimen Description:
06/20/25 21:59
HYDROmorphone [Dilaudid] 0.5 mg IV NOW STA
Abnormal Lab Results
06/20/25
20:29
RBC 3.35 L 10^6/uL
(4.20-5.40)
Hgb 8.3 L g/dL
(12.0-16.0)
Hct 25.7 L %
(37.0-47.0)
MCV 76.7 L fL
(81.0-99.0)
MCH 24.8 L pg
(27.0-31.0)
MCHC 32.3 L g/dL
(33.0-37.0)
RDW 18.3 H %
(11.5-14.5)
Abs Immat Gran (auto) 0.2 H 10^3/uL
(0-0.05)
Absolute Neuts (auto) 7.3 H 10^3/uL
(1.4-6.5)
Absolute Lymphs (auto) 1.1 L 10^3/uL
(1.2-3.4)
Absolute Monos (auto) 1.2 H 10^3/uL
(0.1-0.6)
Immature Gran % 1.9 H %
(0-0.5)
Lymphocytes % 11.1 L %
(20.5-51.1)
Monocytes % 12.3 H %
(1.7-9.3)
Sodium 130 L mmol/L
(135-145)
BUN 18 H mg/dl
(7-17)
Glucose 103 H mg/dl
(70-99)
Calcium 7.8 L mg/dl
(8.4-10.2)
Total Protein 5.1 L g/dl
(6.3-8.2)
Albumin 2.2 L g/dl
(3.5-5.0)
06/20/25 20:29
06/20/25 20:29
Vital Signs
Initial and Last Documented VS:
Initial Vital Signs
Resp
18
06/20/25 19:09
Last Documented Vital Signs
Temp Pulse Resp BP Pulse Ox
98.6 F 91 10 86/54 99
06/20/25 19:17 06/20/25 21:00 06/20/25 21:00 06/20/25 21:00 06/20/25 21:00
MDM/Problems Addressed
Differential Diagnosis Includes:
Healing wounds, infected wounds
MDM/Problems Addressed:
Patient presents for evaluation of lower extremity wounds. They are painful and large do not feel there is any sign of acute infection. Dressings are not surprisingly soiled with serosanguineous drainage given the nature of the wounds but I do not
see any actual purulent material. She is afebrile. Her white count is normal. I do not believe the patient requires hospitalization or further antibiotics. Continued outpatient wound care.
*Pulse Oximetry
SaO2: 99
Oxygen Mode of Delivery: Room air
Patient hypoxic: no
*Critical Care Note
Total Time (30-74mins, 75-104mins- exclusive of procedures): Not Applicable
ED Attending Note
-
Portions of this chart may have been created with voice recognition software.� Occasional wrong word or��sound alike� substitutions may have occurred due to the inherent limitations of voice recognition software.
Discharge Plan
Departure
Patient Disposition: Custodial/SNF
Date of Disposition: 06/20/25
Time of Disposition: 22:19
Condition: Good
Discharge Problem:
Open wound, lower leg
Instructions: Wound Care (DC)
Prescriptions:
No Action
tramadol 50 mg Tablet
50 mg PO BID
tramadol 50 mg Tablet
50 mg PO Q6HPRN PRN (Reason: moderate pain)
oxycodone 10 mg Tablet
10 mg PO Q6HPRN PRN (Reason: severe pain )
acetaminophen 325 mg Tablet
650 mg PO Q4HPRN PRN (Reason: fever>100)
polyethylene glycol 3350 [Miralax] 17 gram Powder In Packet
17 g PO DAILYPRN PRN (Reason: Constipation)
leflunomide 20 mg Tablet
20 mg PO DAILY
furosemide [Lasix] 40 mg Tablet
80 mg PO DAILY Qty: 0 0RF
Rx Instructions:
hold for systolic BP <105 and HR <60
naproxen [Naprosyn] 500 mg Tablet
500 mg PO BID
zinc oxide 10 % Cream
1 applic TOPICAL TID
sennosides [senna] 8.6 mg Tablet
8.6 mg PO DAILY
acetic acid 0.25 % Solution
1 irrig IRRIGATION BID
Orencia 125 mg/mL Syringe
125 mg SC MO
ferrous sulfate 325 mg (65 mg iron) tablet
325 mg PO DAILY
mirtazapine 15 mg Tablet
15 mg PO HS
midodrine 5 mg tablet
2.5 mg PO TID
Rx Instructions:
hold for SBD>130
Referrals:
Ish Hall MD [Family Provider]
Activity Restrictions/Additional Instructions:
The wounds are painful they do not appear acutely infected. Continue with meticulous wound care as an outpatient. Patient may benefit from aggressive analgesia prior to wound changes.
Interventions
Interventions:
*Risk Screen - Suicide Last Done: 06/20/25 19:09
*General Assessment Last Done: 06/20/25 19:09
*Neglect/Abuse Screening Last Done: 06/20/25 19:09
*ED- Fall Risk Assessment Last Done: 06/20/25 19:09
*ED COVID-19 Vaccine History Last Done: 06/20/25 19:09
ED-Skin Assessment Last Done: 06/20/25 19:29
Discharge Date and Time
Print Language: GREEK
[2025-06-20 23:00] VITALS: BP 89/66
[2025-06-20] MEDS: ROXICODONE 10 MG PO (23:20)
[2025-06-21] VITALS: BP 98/63
[2025-06-21 01:09] VITALS: BP 87/59
[2025-06-21 02:03] VITALS: BP 88/55
== END 2025-06-21 02:24 ==
LOC: EMR 19:07
PROVIDERS: EMERGENCY PHYSICIAN Emergency Medicine; FAMILY PHYSICIAN Internal Medicine
DX: S81.802A Unspecified open wound, left lower leg, initial encounter (principal); S81.801A Unspecified open wound, right lower leg, initial encounter; X58.XXXA Exposure to other specified factors, initial encounter
CPT/HCPCS: 96374; 99284; 80053; 85025; 87040

== ENCOUNTER 2025-07-06 17:00 | Inpatient (IN) | payer MEDICAID, SELFPAY ==
[2025-07-06] VITALS (31 sets, daily range): BP systolic 81–123; BP diastolic 53–100; BMI 16.6; BMI 16.5
--- NOTE | 2025-07-06 10:32 | ED.GENMED ---
History of Present Illness
General
Chief Complaint: Change in Mental Status
Source: patient
Exam Limitations: none
Time Seen by Provider: 07/06/25 10:01
Nursing documentation reviewed up to this point in time: agreed with
History of Present Illness
History of Present Illness:
60-year-old female presenting to the emergency department today with concerns of altered mental status hallucinations talking to people that are not in the room this morning. Found a blood pressure in the 90s and was tachycardic and febrile. Has
had diarrhea for the past 5 days. She denies any specific symptoms during my questioning she has limited understanding of why she is here and denies any specific symptoms. She denies any previous hallucinations
Past History
Past History
ED Past Medical History: Other (RA, malnutrition, bilateral LE lymphedema, cellulitis, PVD, depression, GERD, RA, polyarthritis)
ED Past Surgical History: None
Social History
Tobacco: Non-smoker
Alcohol: None
Drug: None
Personal: Single
Living: detention
Review of Systems
Review of Systems
Allergies reviewed?: Yes
All Other Systems: ROS reviewed and negative except as documented in HPI and ROS
Phy Exam
Physical Exam
Physical Exam:
GENERAL: Alert , in no apparent distress
EYE: pupils equal and reactive
NECK: Supple, no significant adenopathy.
ENT: o/p clr, mmm.
CARDIAC: Regular rate and rhythm .
LUNGS: Clear breath sounds bilaterally, no acute respiratory distress, no wheezes/rales/rhonchi
ABDOMEN: Soft, without focal tenderness, no r/g, no cvat
NEUROLOGICAL: Alert and oriented, no focal neuro deficits
SKIN: Significant wounds to the lower extremities bilaterally right sided roughly 15 x 5 cm stage II ulcer serosanguineous discharge no redness or warmth surrounding generally uncomfortable in the area superficial wounds to the left lower extremity
at the cruz warm and dry, skin intact.
MUSCULOSKELETAL: No edema, well perfused.
PSYCH: Normal and appropriate interaction.
Course
Orders/Labs/Results
Orders:
Orders
07/06/25 10:34
EKG [Electrocardiogram (*1)] Urgent
Reason for Study: Fatigue / Weakness
EKG- Treatment ONCE
COVID-19 Antigen Urgent
Source: Nasal Swab
STOOL [C difficile Antigen & Toxins] Urgent
VAL Source: Feces/Stool
Specimen Description:
Date Specimen was Collected: 07/06/25
Time Specimen was Collected: 10:31
Stool Culture Urgent
VAL Source: Feces/Stool
Specimen Description:
Date Specimen was Collected: 07/06/25
Time Specimen was Collected: 10:31
07/06/25 11:10
Basic Metabolic Panel Urgent
CBC/With Diff [Complete Blood Count/With Diff] Urgent
Lactic Acid Urgent
TSH Reflex To Free T4 Urgent
Blood Culture Q30M
VAL Source: Blood/Venous
Specimen Description:
07/06/25 11:43
Add On- LAB Urgent
Tests Added?: TSH reflex to culture
07/06/25 12:18
Wound Culture [Wound/Abscess/Other Culture] Urgent
VAL Source: Ulcer
Specimen Description:
HYDROmorphone [Dilaudid] 0.5 mg IV NOW STA
07/06/25 12:19
0.9% Sodium Chloride 1000 ml [Nss] 1,000 ml IV BOLUS
07/06/25 12:24
Urinalysis Reflex To Culture Urgent
Date Specimen was Collected: 07/06/25
Time Specimen was Collected: 12:14
Urine Microscopic Reflex Cult Urgent
Urine Culture Urgent
VAL Source: U
Specimen Description:
Date Specimen was Collected: 07/06/25
Time Specimen was Collected: 12:14
07/06/25 13:47
Cefepime HCl [Maxipime] 1,000 mg IV NOW STA
07/06/25 13:48
Vancomycin 1 Gram/200 ml [Vancocin] 1 gram in 200 ml IV NOW
07/06/25 14:06
Sterile Water [Sterile Water For Injection] 10 ml .ROUTE .[facility]
07/06/25 14:30
Blood Culture Q30M
VAL Source: Blood/Venous
Specimen Description:
07/06/25 15:03
0.9% Sodium Chloride 500 ml [Nss] 500 ml IV BOLUS
Abnormal Lab Results
07/06/25 07/06/25
11:10 12:24
WBC 21.7 H 10^3/uL
(4.8-10.8)
RBC 3.43 L 10^6/uL
(4.20-5.40)
Hgb 8.2 L g/dL
(12.0-16.0)
Hct 25.8 L %
(37.0-47.0)
MCV 75.2 L fL
(81.0-99.0)
MCH 23.9 L pg
(27.0-31.0)
MCHC 31.8 L g/dL
(33.0-37.0)
RDW 18.2 H %
(11.5-14.5)
Plt Count 401 H 10^3/uL
(130-400)
Abs Immat Gran (auto) 0.7 H 10^3/uL
(0-0.05)
Absolute Neuts (auto) 17.3 H 10^3/uL
(1.4-6.5)
Absolute Monos (auto) 1.8 H 10^3/uL
(0.1-0.6)
Immature Gran % 3.4 H %
(0-0.5)
Neutrophils % 79.7 H %
(42.2-75.2)
Lymphocytes % 8.1 L %
(20.5-51.1)
Sodium 127 L mmol/L
(135-145)
Creatinine 0.5 L mg/dL
(0.6-1.0)
Calcium 7.2 L mg/dl
(8.4-10.2)
Ur Occult Blood Reflex 1+ A
(Negative)
Leukocyte Esterase Rfl 3+ A
(Negative)
Urine RBC 3-6 A /HPF
(0-2)
Urine WBC (Reflex) 30-40 A /HPF
(0-5)
Urine Bacteria (Reflex) Few A
(Negative)
Urine Albumin (Reflex) 2+ A
(Neg - Trace)
07/06/25 11:10
07/06/25 11:10
Vital Signs
Initial and Last Documented VS:
Initial Vital Signs
Temp Pulse Resp BP Pulse Ox
100.5 F H 117 15 104/81 100
07/06/25 09:42 07/06/25 09:42 07/06/25 09:42 07/06/25 09:42 07/06/25 09:42
Last Documented Vital Signs
Temp Pulse Resp BP Pulse Ox
100.5 F H 111 19 101/63 91
07/06/25 09:42 07/06/25 14:15 07/06/25 14:15 07/06/25 14:00 07/06/25 13:00
MDM/Problems Addressed
MDM/Problems Addressed:
60-year-old female presenting with altered mental status. Not acting herself according to nursing facility. Does have chronic wounds to her lower extremities without significant redness or warmth surrounding does not appear to be obviously
infected. No foul smell. Low-grade temperature on arrival 100.5 heart rate in the 110s. With concerns for potential sepsis patient was given fluids as well as empiric antibiotics. White count was found to be 21.7 but normal lactic acid level.
Patient does have a low sodium level of 127. Potassium had to be repeated as it was hemolyzed. Urinalysis potentially with UTI. Antibiotic coverage for previous micro growth.
*Pulse Oximetry
SaO2: 95
Oxygen Mode of Delivery: Room air
Patient hypoxic: no (96)
*Critical Care Note
Total Time (30-74mins, 75-104mins- exclusive of procedures): Not Applicable
ED Attending Note
-
Portions of this chart may have been created with voice recognition software.� Occasional wrong word or��sound alike� substitutions may have occurred due to the inherent limitations of voice recognition software.
Discharge Plan
Departure
Patient Disposition: Admit
Date of Disposition: 07/06/25
Time of Disposition: 15:08
Admit to: Med/Surg
Admit to doctor: Richardsony
Presentation/result/management discussed w/ accepting MD/DO: Hospitalist
Patient with high blood pressure during this ER visit?: No
Condition: Fair
Covid-19: Not Applicable
Discharge Problem:
Urinary tract infection, AMS (altered mental status)
Prescriptions:
No Action
oxycodone 10 mg Tablet
10 mg PO Q6HPRN PRN (Reason: severe pain )
acetaminophen 325 mg Tablet
650 mg PO Q4HPRN PRN (Reason: fever>100)
polyethylene glycol 3350 [Miralax] 17 gram Powder In Packet
17 g PO DAILYPRN PRN (Reason: Constipation)
leflunomide 20 mg Tablet
20 mg PO DAILY
furosemide [Lasix] 40 mg Tablet
80 mg PO DAILY Qty: 0 0RF
Rx Instructions:
hold for systolic BP <105 and HR <60
naproxen [Naprosyn] 500 mg Tablet
500 mg PO BID@
sennosides [senna] 8.6 mg Tablet
8.6 mg PO DAILY
Orencia 125 mg/mL Syringe
125 mg SC MO
ferrous sulfate 325 mg (65 mg iron) tablet
325 mg PO HS
mirtazapine 15 mg Tablet
15 mg PO HS
midodrine 5 mg tablet
5 mg PO TID
Rx Instructions:
hold for SBD>130
hydroxyzine HCl 25 mg Tablet
25 mg PO Q6HPRN PRN (Reason: ANXIETY)
Referrals:
Ish Hall MD [Family Provider]
Interventions
Interventions:
*Risk Screen - Suicide Last Done: 07/06/25 09:57
*General Assessment Last Done: 07/06/25 09:57
*Neglect/Abuse Screening Last Done: 07/06/25 09:57
*ED- Fall Risk Assessment Last Done: 07/06/25 14:21
*ED COVID-19 Vaccine History Last Done: 07/06/25 14:21
ED- Neurological Assessment Last Done: 07/06/25 10:01
ED Swallowing Screen Last Done: 07/06/25 13:20
Discharge Date and Time
Print Language: CZECH
[2025-07-06 11:35] LABS: Hematocrit 25.8 % (37.0-47.0); Hemoglobin 8.2 g/dL (12.0-16.0); Mean Corp Hgb Conc. 31.8 g/dL (33.0-37.0); Mean Corpuscular Volume 75.2 fL (81.0-99.0); Nucleated Red Blood Cells % 0 %; Platelet Count 401 10^3/uL (130-400); Red Cell Dist. Width 18.2 % (11.5-14.5)
[2025-07-06 11:40] LABS: COVID-19 Antigen Negative (Negative)
[2025-07-06 12:02] LABS: Blood Urea Nitrogen 17 mg/dl (7-17); Calcium 7.2 mg/dl (8.4-10.2); Carbon Dioxide 25 mmol/L (22-30); Chloride 100 mmol/L (98-107); Estimated Creatinine Clearance 75 ml/min; Glucose 88 mg/dl (70-99); Sodium 127 mmol/L (135-145); eGFR > 60.00
[2025-07-06] MEDS: DILAUDID 0.5 MG IV (12:25)
[2025-07-06] MEDS: NSS 1000 IV (12:29)
[2025-07-06 13:24] LABS: Urine Character Clear (Clear)
[2025-07-06] MEDS: MAXIPIME 1000 MG IV (14:33)
[2025-07-06] MEDS: VANCOCIN 200 IV (14:46)
[2025-07-06 14:48] LABS: Urine White Cell 30-40 /HPF (0-5)
--- NOTE | 2025-07-06 16:00 | W.PN.UPDATE ---
Update Note
Progress Note Update
60-year-old female with rheumatoid arthritis on leflunomide and abatacept, chronic hypotension on midodrine, iron deficiency anemia, lymphedema, severe MDD and anxiety, stage II sacral ulcers, severe protein calorie malnutrition that is presenting
from [place] [facility] to the hospital today with change in mental status. Patient was noted to be talking to people that were not in the room this morning by staff at the facility. Blood pressure at that time noted to be near 90 mmHg systolic,
tachycardic and febrile. Per history has had diarrhea for 5 days prior to arrival. She was recently hospitalized here through 06/12/2025 with sepsis secondary to lower extremity cellulitis in the context of her chronic LE wounds with culture showing
Enterobacter, Pseudomonas, providentca, group G strep. Was discharged on Levaquin through the end of 06/15. Return to the ED on 06/20/2025 due to saturation of her LE dressings, recommended to discharge with analgesics and meticulous wound care.
Upon arrival was febrile 100.5 �F, hypotensive with SBP in 80s, tachycardic with heart rate near 110/min. Labs with WBC 21.7 and neutrophilic predominant, hemoglobin 8.2, MCV 75.2, sodium 127. Viral panel negative. UA with 3+ leukocyte esterase,
30-40 WBC per hpf, few bacteria. ECG with sinus tachycardia and short [place] intervals are no ischemic findings. C. difficile testing was antigen positive but toxin negative. Blood culture x 2, stool culture, and urine culture obtained on arrival.
Was started on IV cefepime and vancomycin in the ED, given 1 L of IV fluids.
AO x 1 to 2, frail and cachectic appearing. Tachycardic with regular rhythm, no murmurs or gallops, normal S1 and 2. Lungs CTA bilaterally, nonlabored. Chronic LE lymphedema, palpable pulses. LE wounds without purulent drainage or significant
erythema. Sacral wounds without purulence or erythema. No focal deficits.
Acute metabolic encephalopathy. Suspect secondary to sepsis as below. Will monitor mental status, encourage delirium precautions with optimal natural lighting. Frequent redirection. Avoid sedating agents.
Sepsis secondary to C. difficile colitis +/- UTI. Urinalysis fairly equivocal. Has had frequent watery diarrhea for 5 days as well as urinary frequency. C. difficile with positive antigen and negative toxin. Recently completed antibiotics,
Levaquin. Blood, stool, urine cultures pending. Currently on IV cefepime and vancomycin. Will transition from IV cefepime to IV Zosyn. Start oral vancomycin 125 mg PO empirically for now. Trend CBC and temperature curve, follow Cx. Monitor
bowel movement form. Continue maintenance IVF. Hold immunosuppressants for RA. Consider ID consult
Hypovolemic hyponatremia. Likely secondary to diarrhea, home Lasix of 80 mg daily, altered mentation. Sodium 127 on arrival. Will continue with maintenance IV fluids empirically for now and trend BMP. Will consider checking urine osmolality and
urine sodium if worsening. Encourage p.o. intake as mental status improved. Hold lasix for now.
Rheumatoid arthritis. Was scheduled to be started on Skyrizi today per patient's history, though unable to make appointment as she came here. Will need close follow-up with her rpg programmer analyst at time of discharge.
I will be admitting Yeimi Day to IMU. She is at high risk for worsening morbidity due to sepsis and will require intensive monitoring of infectious markers and will readjustment of her antimicrobial regimen. I discussed this case with the
ED attending. I reviewed the case with the resident and agree with all documentation unless otherwise specified.
[2025-07-06] MEDS: NSS 500 IV (16:14)
--- NOTE | 2025-07-06 16:16 | HPS.HSE ---
Family Physician
-
Family Physician: Ish Hall
Chief Complaint
-
Profuse watery diarrhea
History of Present Illness
60-year-old female with a past medical history of rheumatoid arthritis, malnutrition, bilateral lymphedema, recent admission for lower extremity cellulitis presents to the hospital due to altered mental status as per her facility as well as
increased profuse watery diarrhea for the past few days. She states that she has had this diarrhea for few days now and she has had at least 6-10 instances of diarrhea per day. She does not endorse any abdominal pain or any nausea or vomiting,
just the profuse diarrhea. She says that she might have some increased frequency of urination as well however she has been a bit confused today. From records from her facility at [facility], they state that she has been mentally altered today,
and had some slurring of speech. Also did not have any idea where she was and was bit confused. This seems to have resolved but she has some underlying confusion as well. She had recently been on a course of Levaquin for her lower extremity
cellulitis which she had finished few days back. She was supposed to get her dose of Skyrizi for her rheumatoid arthritis today but was unable to because coming to the hospital. Currently she does not have any acute symptoms that she is worried
about, does not report any shortness of breath, chest pain, headaches, abdominal pain or any dysuria. She was feeling a bit cold when she was examined.
Medical History
Past Medical History
Past Medical History: Reports Other
Additional Past Medical History:
Rheumatoid arthritis on Orencia and leflunomide, chronic ambulatory dysfunction, chronic deformities of bilateral fingers, severe glenohumeral arthrosis, depression, hypertension, hyperlipidemia, hypothyroidism
Past Surgical History: Reports Other
Additional Past Surgical History:
Knee replacements
Social History
Tobacco: Non-smoker
Alcohol: Occasional (Socially around once a week)
Drug: None
Personal:
Living: Penitentiary ([facility])
Employment: Disabled
Family History
Family History: Not pertinent
Allergies / Home Medications
Allergies reflects when Allergies were last updated in [facility].
Home Medications with original date entered in [facility]
Allergy/Medication List:
Allergies
Allergy/AdvReac Type Severity Reaction Status Date / Time
No Known Allergies Allergy Verified 06/20/25 19:08
Home Medications
acetaminophen 325 mg tablet 650 mg PO Q4HPRN PRN fever>100 05/18/25
leflunomide 20 mg tablet 20 mg PO DAILY Antirheumatic 05/18/25
oxycodone 10 mg tablet 10 mg PO Q6HPRN PRN severe pain 05/18/25
polyethylene glycol 3350 17 gram oral powder packet (Miralax) 17 g PO DAILYPRN PRN Constipation 05/18/25
furosemide 40 mg tablet (Lasix) 80 mg (2 x 40 mg) PO DAILY Fluid Retention/Swelling #0 tabs 05/24/25
abatacept 125 mg/mL subcutaneous syringe (Orencia) 125 mg SC MO Rheumatoid arthritis 06/04/25
ferrous sulfate 325 mg (65 mg iron) tablet 325 mg PO HS ANEMIA 06/04/25
naproxen 500 mg tablet (Naprosyn) 500 mg PO BID@08,17 Pain 06/04/25
sennosides 8.6 mg tablet (senna) 8.6 mg PO DAILY Constipation 06/04/25
midodrine 5 mg tablet 5 mg PO TID Hypotension 06/20/25
mirtazapine 15 mg tablet 15 mg PO HS Depression 06/20/25
hydroxyzine HCl 25 mg tablet 25 mg PO Q6HPRN PRN ANXIETY 07/06/25
Review of Systems
-
History Source: Patient and Penitentiary
Constitutional: Reports Chills; Denies Fever
EENT: Reports No Symptoms
Respiratory: Reports No Symptoms
Cardiac: Reports No Symptoms
Abdomen/GI: Reports Diarrhea (Profuse watery, 6-10 times a day)
: Reports Frequency
Musculoskeletal: Reports Joint Pain (Chronic rheumatoid arthritis) and Joint Swelling (Chronic rheumatoid arthritis)
Skin: Reports No Symptoms (Lower bilateral extremity mild erythema)
Neurological: Reports Other (Mild confusion)
Endocrine: Reports No Symptoms
Hematologic/Lymphatic: Reports No Symptoms
Psych: Reports No Symptoms
Physical Exam
Vital Signs
Vital Signs
Temp Pulse Resp BP Pulse Ox
100.5 F H 102 16 96/65 91
07/06/25 09:42 07/06/25 15:45 07/06/25 15:45 07/06/25 15:00 07/06/25 13:00
Physical Exam
General: No Apparent Distress, Comfortable, Conversant, Chills, Appears Chronically Ill and Cachectic
HEENT: NormoCephalic and Anicteric
Respiratory: Clear and Non Labored Respirations
Cardiac: S1/S2 and Regular Rhythm; No Murmur
GI: Soft, Non Tender, Non Distended and Normal Bowel Sounds
Musculoskeletal: Other (Chronic deformities of fingers in bilateral hands)
Skin: Warm and Dry
Neuro: Awake, Alert, Oriented and AO x 3
Psych: Calm and Confused (Mild confusion at times)
Laboratory Results
-
07/06/25 11:10
Laboratory Results
Lactic Acid 1.2 mmol/L (0.7-2.0) 07/06/25 11:10
Total Bilirubin Cancelled 07/06/25 11:10
AST Cancelled 07/06/25 11:10
ALT Cancelled 07/06/25 11:10
Alkaline Phosphatase Cancelled 07/06/25 11:10
Data Reviewed
-
Lab Data: Labs Reviewed by me, Discussed with Physician and Discussed with Patient
Impression/Plan
-
Assessment:
60-year-old female with past medical history of rheumatoid arthritis, malnutrition, bilateral lymphedema, cellulitis came to the ED due to recent history of increased profuse watery diarrhea around 6-10 instances per day. She is also reports some
possible increased frequency of urination. In the ED she was found to have sepsis and was started on IV fluids and given antibiotics. Urine culture shows possible UTI however there is concern of possible C. difficile infection due to recent
antibiotic use. Stool sample shows C. difficile antigen positivity however toxin is negative. Blood cultures and urine cultures were drawn. We will admit to the hospital in the IMU for further fluids, antibiotics, and supportive therapy.
Plan:
# Sepsis likely from enterocolitis from C. difficile infection
- Patient was recently on antibiotic treatment, and her symptoms got worse after finishing the antibiotic course
- C. difficile antigen positive, toxin negative but highly suspicious of C. difficile
- Will start lactated ringer solution 80 mL/hr
- Will give p.o. vancomycin 125 mg Q6
- C. difficile precautions
- Will check chest x-ray
- CTA of abdomen/pelvis if symptoms worsen
- Awaiting blood cultures, urine cultures
- Can consider ID consult
# Possible UTI
- UA taken in the ED shows some leukocytes, and leukocyte esterase positivity
- Raises concern for possible UTI
- Was given a dose of vancomycin and cefepime in the ED
- Will switch over the cefepime to Zosyn, and stop vancomycin
- Awaiting urine cultures
- On lactated Ringer's 80 mL/h
# Acute metabolic encephalopathy
- Most likely secondary to sepsis however patient says that she usually has slurring in her speech unclear if she was actually altered mentally
- Did have some confusion while we saw her in the ED this day
- Will continue monitor mental status with precautions
- Will avoid setting agents
# Hypovolemic hyponatremia
- Most likely secondary to diarrhea, Lasix, causing altered mentation
- Sodium was 127 on arrival
- Will continue monitoring BMP, will continue with IV fluid maintenance therapy
- Will check urine sodium if sodium levels continue to be altered
- Holding Lasix
# Rheumatoid arthritis
- Holding patient's Orencia, leflunomide
- Needs to follow-up with rheumatology in outpatient setting
# Lower extremity swelling
- Holding Lasix for now, will restart once patient stable
Full code
DVT prophylaxis: Lovenox
[2025-07-06 16:48] LABS: Potassium 3.3 mmol/L (3.5-5.1)
[2025-07-06] MEDS: ZOSYN 50 IV (21:01)
[2025-07-06] MEDS: LR 1000 IV (21:01)
[2025-07-06] MEDS: REMERON 15 MG PO (21:02)
[2025-07-06] MEDS: FEOSOL 325 MG PO (21:02)
[2025-07-06] MEDS: LOVENOX 40 MG SC (21:03)
[2025-07-06] MEDS: KCL ELIXIR 40 MEQ PO (21:03)
[2025-07-06] MEDS: NAPROSYN 500 MG PO (21:57)
[2025-07-06] MEDS: FIRVANQ 125 MG PO ×2 (21:57→23:55)
[2025-07-06 22:57] LABS: Hematocrit 23.5 % (37.0-47.0); Hemoglobin 7.6 g/dL (12.0-16.0); Mean Corp Hgb Conc. 32.3 g/dL (33.0-37.0); Mean Corpuscular Volume 73.2 fL (81.0-99.0); Red Cell Dist. Width 18.4 % (11.5-14.5)
[2025-07-06 23:15] LABS: Platelet Count 326 10^3/uL (130-400)
[2025-07-06] MEDS: TYLENOL 650 MG PO (23:15)
[2025-07-06 23:27] LABS: Blood Urea Nitrogen 13 mg/dl (7-17); Calcium 6.9 mg/dl (8.4-10.2); Carbon Dioxide 20 mmol/L (22-30); Chloride 106 mmol/L (98-107); Estimated Creatinine Clearance 75 ml/min; Glucose 86 mg/dl (70-99); Magnesium 2.0 mg/dl (1.6-2.3); Potassium 4.2 mmol/L (3.5-5.1); Sodium 128 mmol/L (135-145); eGFR > 60.00
[2025-07-06] MEDS: CALCIUM GLUCONATE 100 IV (23:55)
[2025-07-07] VITALS (17 sets, daily range): BP systolic 84–126; BP diastolic 53–85; BMI 16.6
[2025-07-07] MEDS: ZOSYN 50 IV ×4 (01:27→20:06)
--- NOTE | 2025-07-07 02:27 | PTCARENOTE ---
received patient from ed via stretcher. Patient is AAOx3. On RA and sinus tach. Patient is having soft bps, systolic in the 90s. Patient came in with many wounds, see documentation. Patient is talking to people who are not there and can have
confused conversation, but is orientated to person place and time. Patient has been incontinent of bowl and bladder. This RN asked patient if she knows when she needs to use the bathroom and patient replied yes but patient is remaining incontinent.
LR running and IV ABX. Repleted calcium. assessment and vital signs as documented. call todd i reach.
--- NOTE | 2025-07-07 04:25 | PTCARENOTE ---
Patient is an extremely hard stick for blood work. TT VAT team. Vat team made two failed attempts at blood work. Will notify phlebotomy when they arrive.
[2025-07-07] MEDS: FIRVANQ 125 MG PO ×3 (06:00→17:55)
--- NOTE | 2025-07-07 06:14 | PTCARENOTE ---
patient incontinent of multiple loose BM and urine throughout shift, requiring multiple complete linen changes. Patient has CHG bath, as well as edita care. Wounds assessed and redressed. wound consult placed.
--- NOTE | 2025-07-07 07:21 | W.PN.HOSP.TC ---
Addendum entered and electronically signed by Joao Vital DO 07/08/25 14:26:
CDI: Chronic severe protein calorie malnutrition; stage III pressure injury to buttocks with stage I pressure injury to bilateral heels both POA
Original Note:
Today's Communication/Plan
-
Transfuse blood
Continue monitoring bowel movements
Waiting on cultures
Assessment / Plan
Assessment / Plan
Assessment:
60-year-old female with past medical history of rheumatoid arthritis, malnutrition, bilateral lymphedema, cellulitis came to the ED due to recent history of increased profuse watery diarrhea around 6-10 instances per day. She is also reports some
possible increased frequency of urination. In the ED she was found to have sepsis and was started on IV fluids and given antibiotics. Urine culture shows possible UTI however there is concern of possible C. difficile infection due to recent
antibiotic use. Stool sample shows C. difficile antigen positivity however toxin is negative. Blood cultures and urine cultures were drawn. We will admit to the hospital in the IMU for further fluids, antibiotics, and supportive therapy.
Plan:
# Sepsis likely from enterocolitis from C. difficile infection
- Patient was recently on antibiotic treatment, and her symptoms got worse after finishing the antibiotic course
- C. difficile antigen positive, toxin negative but highly suspicious of C. difficile
- Will start lactated ringer solution 80 mL/hr
- Will give p.o. vancomycin 125 mg Q6
- C. difficile precautions
- CTA of abdomen/pelvis if symptoms worsen
- Can consider ID consult
- Still waiting on cultures, patient continues to have multiple loose bowel movements
- Chest x-ray was unremarkable
# Anemia
- Hemoglobin fell to 6.5 today
- Will transfuse to keep hemoglobin > 7
- Continue monitoring CBC
- Has been anemic in the past, may be worsened with IV fluids dilution
- Will check iron levels, TIBC, ferritin, Vitamin B12, Folate
- Replete Iron if low
#Hypocalcemia
- Calcium levels remaining low
- Continue to monitor and repleting levels
#Hypokalemia
- Most likely due to GI losses
- Continue monitoring and repletion
# Possible UTI
- UA taken in the ED shows some leukocytes, and leukocyte esterase positivity
- Raises concern for possible UTI
- Was given a dose of vancomycin and cefepime in the ED
- Will switch over the cefepime to Zosyn, and stop vancomycin
- Awaiting urine cultures
- On lactated Ringer's 80 mL/h
# Acute metabolic encephalopathy
- Most likely secondary to sepsis however patient says that she usually has slurring in her speech unclear if she was actually altered mentally
- Did have some confusion while we saw her in the ED this day
- Will continue monitor mental status with precautions
- Will avoid sedating agents
# Hypovolemic hyponatremia
- Most likely secondary to diarrhea, Lasix, causing altered mentation
- Sodium was 127 on arrival
- Will continue monitoring BMP, will continue with IV fluid maintenance therapy
- Will check urine sodium if sodium levels continue to be altered
- Holding Lasix
# Sacral ulcer POA
- wound care consulted, input appreciated
#Bilateral lower extremity healing cellulitis
- wound care consulted, input appreciated
# Rheumatoid arthritis
- Holding patient's Orencia, leflunomide
- Needs to follow-up with rheumatology in outpatient setting
# Lower extremity swelling
- Holding Lasix for now, will restart once patient stable
# Malnutrition (BMI <17)
- will encourage PO intake
- Regular diet, Will consult gravity prospecting operator services
Full code
DVT prophylaxis: Lovenox
Anticipated Discharge: > 48 hours
Subjective/Interval History
-
Date of Service: July 07, 2025
Patient seen this morning, was resting comfortably. As per nurse, had multiple loose bowel movements last night requiring multiple but she changes. Patient states that she has not really improved from yesterday and still feels around the same.
Does not report any abdominal pain.
Objective Data
-
Labs:
Laboratory Results
07/06/25 07/07/25
22:43 07:10
WBC 17.4 H Pending
Hgb 7.6 L Pending
Hct 23.5 L Pending
Plt Count 326 Pending
Sodium 128 L Pending
Potassium 4.2 D Pending
Chloride 106 Pending
Carbon Dioxide 20 L Pending
BUN 13 Pending
Creatinine 0.5 L Pending
Glucose 86 Pending
Calcium 6.9 L* Pending
Total Bilirubin Pending
AST Pending
ALT Pending
Alkaline Phosphatase Pending
Vital Signs:
Vital Signs
Temp Pulse Resp BP Pulse Ox
98.1 F 89 19 111/85 94
07/07/25 03:11 07/07/25 06:15 07/07/25 06:15 07/07/25 04:00 07/07/25 00:12
Review of Systems
-
History Source: Patient
Constitutional: Reports No Symptoms
EENT: Reports No Symptoms Reported
Respiratory: Reports No Symptoms
Cardiac: Reports No Symptoms
Abdomen/GI: Reports Diarrhea (Multiple loose stools)
Genitourinary: Reports No Symptoms
Skin: Reports No Symptoms
Physical Exam
-
General: No Apparent Distress, Comfortable, Conversant and Cachectic
HEENT: Normocephalic and Atraumatic
Respiratory: Clear to Auscultation and Non Labored Respirations
Cardiac: Regular Rhythm and S1/S2
GI: Soft, Nontender, Nondistended and Normal Bowel Sounds
Musculoskeletal: Other (Bilateral hand deformity, lower extremities bandaged, nonerythematous)
Skin: Warm, Dry and Decubitus Ulcers (Ulceration on the sacral area on her back)
Neuro: Awake, Alert, Oriented, AO x 3, No Motor Deficits and No Sensory Deficits
Psych: Calm
Data Reviewed
-
Labs: Labs Reviewed by me, Discussed with Physician, Discussed with Nurse and Discussed with Patient
[2025-07-07 07:29] LABS: Hematocrit 20.5 % (37.0-47.0); Hemoglobin 6.5 g/dL (12.0-16.0); Mean Corp Hgb Conc. 31.7 g/dL (33.0-37.0); Mean Corpuscular Volume 74.5 fL (81.0-99.0); Nucleated Red Blood Cells % 0 %; Platelet Count 326 10^3/uL (130-400); Red Cell Dist. Width 18.5 % (11.5-14.5)
[2025-07-07 08:07] LABS: ALT (SGPT) < 10 U/L (0-35); AST (SGOT) 12 U/L (14-36); Albumin 1.5 g/dl (3.5-5.0); Alkaline Phosphatase 91 U/L (38-126); Blood Urea Nitrogen 12 mg/dl (7-17); Calcium 6.7 mg/dl (8.4-10.2); Carbon Dioxide 22 mmol/L (22-30); Chloride 108 mmol/L (98-107); Estimated Creatinine Clearance 75 ml/min; Glucose 76 mg/dl (70-99); Potassium 3.3 mmol/L (3.5-5.1); Sodium 131 mmol/L (135-145); Total Protein 3.8 g/dl (6.3-8.2); eGFR > 60.00
--- NOTE | 2025-07-07 08:17 | PTCARENOTE ---
Patient Hemoglobin low in blood work this AM 6.5. Order obtained from resident for 1 unit of PRBC's and type and screen.
[2025-07-07] MEDS: CALCIUM GLUCONATE 100 IV (09:13)
[2025-07-07] MEDS: LR 1000 IV (09:17)
[2025-07-07] MEDS: NAPROSYN PO ×2 (09:19→18:58)
[2025-07-07] MEDS: KCL 270 MEQ IV ×2 (12:04→20:06)
[2025-07-07] MEDS: ROXICODONE 10 MG PO (12:44)
[2025-07-07 12:53] LABS: Magnesium 1.8 mg/dl (1.6-2.3)
--- NOTE | 2025-07-07 13:46 | WOUNDNOTE ---
SACRUM/BILATERAL BUTTOCKS
--- NOTE | 2025-07-07 13:47 | WOUNDNOTE ---
SACRUM/BILATERAL BUTTOCKS
--- NOTE | 2025-07-07 13:47 | WOUNDNOTE ---
LEFT ANTERIOR LOWER LEG
--- NOTE | 2025-07-07 13:48 | WOUNDNOTE ---
RIGHT ANTEROMEDIAL LOWER LEG
--- NOTE | 2025-07-07 13:49 | WOUNDNOTE ---
RIGHT ANTERIOR LOWER LEG
--- NOTE | 2025-07-07 13:49 | WOUNDNOTE ---
BILATERAL LOWER LEGS
--- NOTE | 2025-07-07 13:49 | WOUNDNOTE ---
LEFT 2ND TOE
--- NOTE | 2025-07-07 14:02 | PTCARENOTE ---
Wound flight kitchen manager to room to do wound care and pictures. Pre-medicated patient prior. Transfusing patient with one unit PRBC's and replacing electrolytes as ordered. Patient INC of stool and urine. Patient is alert and orient, tearful and refuses
nursing care. She just wants to go home. SR on monitor.
--- NOTE | 2025-07-07 14:10 | WOUNDNOTE ---
WO RN note: Patient admitted with bilateral LE wounds , diarrhea and weight loss, C-diff positive
See H&P for complete history.
PMH: RA, lymphedema, HTN, hypothyroidism, worsening LE wounds when comparing wounds from prior admission. Patient reports several days of diarrhea and worsening buttock wounds. Her BMI is 16.
Wound Location and type/assessment: Patient admitted with healing LE wounds from prior admission and Stage 3 PI to buttocks likely resulting from fecal incontinence, pressure, and protein calorie malnutrition. See worklist for measurements and
details. MASD to groin. Patient also has scabbed area on left second toe. Also noted is dry to skin to lower back likely from friction and shearing. Patient medicated for pain prior to assessment and given support by nursing staff during all aspects
on wound and incontinence care. Stage 1 to bilateral heels.
Appetite: Poor
Pressure redistribution devices in place: Centrella Max Air, heels off-loaded with pillows under calves, turning schedule.
Plan: Wound care provided to LE as ordered. Recommend trying fecal management system for fecal incontinence of loose stools. Apply Calazime to open areas OR apply Honey Gel, adaptic, 4x4 and secure with transparent dressing. Recommended dietary
consult to Dr. Hall as patient's BMI is 16 and antifungal powder to perineum and fungal appearing skin. Bilateral adhesive foam to heels. Updated care plan and will follow as needed.
Note to case management of equipment requested for discharge: Patient should have air mattress at facility
Recommend follow up at wound care center upon discharge.
[2025-07-07 14:40] LABS: Iron 23 ug/dl (37-170)
[2025-07-07 14:50] LABS: Total Iron Binding Capacity 112 ug/dl (265-497)
[2025-07-07 15:36] LABS: Ferritin 328.0 ng/ml (11.1-264.0)
[2025-07-07] MEDS: FLUSH (NSS) 1 FLUSH IV (15:45)
--- NOTE | 2025-07-07 15:56 | CM ---
Patient chart reviewed
IA completed
dx: Enterocolitis
C. difficile antigen positive, toxin negative but highly suspicious of C. difficile
PMH: rheumatoid arthritis, malnutrition, bilateral lymphedema, cellulitis
spoke with Lauren from [facility] where the patient is a LTC resident there with bed hold
The patient is w/c bound and transfers independently, assisted with ADL's
Referral entered in [facility] for [facility]
PCP: Ish Hall
Pharmacy: [facility]
PLAN: Return to [facility] when medically stable
[facility] rept #: [phone] fax #: [phone]
[2025-07-07 16:07] LABS: Folate 16.4 ng/ml (2.76-20); Vitamin B12 989 pg/ml (239-931)
[2025-07-07] MEDS: LOVENOX 40 MG SC (17:55)
--- NOTE | 2025-07-07 18:00 | PTCARENOTE ---
Patient received one unit of PRBC's without incident. VS stable (see work list).
[2025-07-07 19:03] LABS: Hematocrit 30.5 % (37.0-47.0); Hemoglobin 9.9 g/dL (12.0-16.0)
[2025-07-07] MEDS: FEOSOL PO ×2 (20:07→20:57)
[2025-07-07] MEDS: REMERON PO ×2 (20:07→20:57)
--- NOTE | 2025-07-07 21:00 | PTCARENOTE ---
pt refused pm PO medications. patient education provided regarding medication indication and use.
[2025-07-08] VITALS (12 sets, daily range): BP systolic 93–131; BP diastolic 63–96; PULSE 98; BMI 17.1
[2025-07-08] MEDS: FIRVANQ 125 MG PO ×4 (00:23→18:31)
[2025-07-08] MEDS: ZOSYN 50 IV ×2 (02:45→09:39)
[2025-07-08] MEDS: LR IV (07:12)
[2025-07-08] MEDS: LR 1000 IV ×2 (07:32→18:31)
[2025-07-08 07:56] LABS: Hematocrit 25.8 % (37.0-47.0); Hemoglobin 8.6 g/dL (12.0-16.0); Mean Corp Hgb Conc. 33.3 g/dL (33.0-37.0); Mean Corpuscular Volume 76.6 fL (81.0-99.0); Nucleated Red Blood Cells % 0 %; Platelet Count 365 10^3/uL (130-400); Red Cell Dist. Width 18.8 % (11.5-14.5)
--- NOTE | 2025-07-08 08:30 | W.PN.HOSP.TC ---
Today's Communication/Plan
-
Most likely downgrade from [facility]
Continue p.o. vancomycin
Continue IV fluids
Continue iron supplementation
Continue monitoring bowel movements
Assessment / Plan
Assessment / Plan
Assessment:
60-year-old female with past medical history of rheumatoid arthritis, malnutrition, bilateral lymphedema, cellulitis came to the ED due to recent history of increased profuse watery diarrhea around 6-10 instances per day. She is also reports some
possible increased frequency of urination. In the ED she was found to have sepsis and was started on IV fluids and given antibiotics. Urine culture shows possible UTI however there is concern of possible C. difficile infection due to recent
antibiotic use. Stool sample shows C. difficile antigen positivity however toxin is negative. Blood cultures and urine cultures were drawn. Admitted to the IMU for further fluids, antibiotics and supportive therapy. Patient symptoms continue to
improve however she had electrolyte imbalances due to her persistent diarrhea. Electrolytes continue to be repleted and she has diet as tolerated. Dietitian and technology resource teacher were both consulted due to patient's malnutrition history.
Plan:
# Sepsis likely from enterocolitis from C. difficile infection
- Patient was recently on antibiotic treatment, and her symptoms got worse after finishing the antibiotic course
- C. difficile antigen positive, toxin negative but highly suspicious of C. difficile
- Will start lactated ringer solution 80 mL/hr
- Will give p.o. vancomycin 125 mg Q6
- C. difficile precautions
- CTA of abdomen/pelvis if symptoms worsen
- Can consider ID consult
- Still waiting on cultures, patient continues to have multiple loose bowel movements
- Chest x-ray was unremarkable
# Iron deficiency anemia
- Hemoglobin fell to 6.5, transfused 1 unit of blood yesterday, hemoglobin improved after
- Will transfuse to keep hemoglobin > 7
- Continue monitoring CBC
- Has been anemic in the past, may be worsened with IV fluids dilution
- Iron levels showed decreased iron, decreased TIBC, but increased ferritin (most likely due to underlying inflammatory disease RA)
- Started IV iron repletion
#Hypocalcemia
- Calcium was repleted yesterday
- Continue to monitor and repleting levels
#Hypokalemia
- Most likely due to GI losses
- Continue monitoring and repletion
# Possible UTI
- UA taken in the ED shows some leukocytes, and leukocyte esterase positivity
- Concern for possible UTI but urine culture is negative
- Was given a dose of vancomycin and cefepime in the ED
- Urine culture is negative, will discontinue Zosyn today
# Acute metabolic encephalopathy
- Most likely secondary to sepsis however patient says that she usually has slurring in her speech. Unclear if she was actually altered mentally
- Did have some confusion while we saw her in the ED, and then continued confusion while admitted
- Will continue monitor mental status with precautions
- Will avoid sedating agents
# Hypovolemic hyponatremia
- Most likely secondary to diarrhea, Lasix, causing altered mentation
- Sodium was 127 on arrival
-Sodium has been improving
- Will continue monitoring BMP, will continue with IV fluid maintenance therapy
- Will check urine sodium if sodium levels continue to be altered
- Holding Lasix
# Multiple skin ulcerations
- Stage 3 Pressure ulcer sacrum...Stage 1 pressure ulcers bilateral heels
- wound care consulted, input appreciated
#Bilateral lower extremity healing cellulitis
- wound care consulted, input appreciated
# Rheumatoid arthritis
- Holding patient's Orencia, leflunomide
- Needs to follow-up with rheumatology in outpatient setting
# Lower extremity swelling
- Holding Lasix for now, will restart once patient stable
# Severe protein calorie malnutrition of chronic disease
- will encourage PO intake
- Regular diet, consulted technology resource teacher, and dietitian services. Input appreciated
Full code
DVT prophylaxis: Lovenox
Anticipated Discharge: Within 24 hours
Subjective/Interval History
-
Date of Service: July 08, 2025
Patient says that she has been feeling a little bit better from yesterday. Reports that she still had some loose stools yesterday but lower in frequency. She is feeling a little bit weak still, and says that she has been having some difficulty
getting up. Does not report any chest pain, shortness of breath, or any abdominal pain. Has some nausea but I told her that she has some antinausea medications available as needed. Has not reported any fever or chills.
Objective Data
-
Labs:
Laboratory Results
07/08/25
07:35
WBC 14.0 H
Hgb 8.6 L
Hct 25.8 L
Plt Count 365
Sodium Pending
Potassium Pending
Chloride Pending
Carbon Dioxide Pending
BUN Pending
Creatinine Pending
Glucose Pending
Calcium Pending
Total Bilirubin Pending
AST Pending
ALT Pending
Alkaline Phosphatase Pending
Vital Signs:
Vital Signs
Temp Pulse Resp BP Pulse Ox
97.9 F 105 19 105/87 98
07/08/25 07:30 07/08/25 06:00 07/08/25 06:00 07/08/25 06:00 07/07/25 22:43
I&O
07/07/25 07/08/25 07/09/25
06:59 06:59 06:59
Intake Total 2240 / 2240
Balance 2240 / 2240
Review of Systems
-
History Source: Patient
Constitutional: Reports No Symptoms
EENT: Reports No Symptoms Reported
Respiratory: Reports No Symptoms
Cardiac: Reports No Symptoms
Abdomen/GI: Reports Diarrhea (Multiple loose stools)
Genitourinary: Reports No Symptoms
Skin: Reports No Symptoms
Physical Exam
-
General: No Apparent Distress, Comfortable, Conversant and Cachectic
HEENT: Normocephalic and Atraumatic
Respiratory: Clear to Auscultation and Non Labored Respirations
Cardiac: Regular Rhythm and S1/S2
GI: Soft, Nontender, Nondistended and Normal Bowel Sounds
Musculoskeletal: Other (Bilateral hand deformity, lower extremities bandaged, nonerythematous)
Skin: Warm, Dry and Decubitus Ulcers (Ulceration on the sacral area on her back)
Neuro: Awake, Alert, Oriented, AO x 3, No Motor Deficits and No Sensory Deficits
Psych: Calm
Data Reviewed
-
Labs: Labs Reviewed by me, Discussed with Physician, Discussed with Nurse and Discussed with Patient
[2025-07-08 09:26] LABS: ALT (SGPT) < 10 U/L (0-35); AST (SGOT) 10 U/L (14-36); Albumin 1.6 g/dl (3.5-5.0); Alkaline Phosphatase 91 U/L (38-126); Blood Urea Nitrogen 9 mg/dl (7-17); Calcium 6.9 mg/dl (8.4-10.2); Carbon Dioxide 18 mmol/L (22-30); Chloride 109 mmol/L (98-107); Estimated Creatinine Clearance 77 ml/min; Glucose 63 mg/dl (70-99); Potassium 4.4 mmol/L (3.5-5.1); Sodium 130 mmol/L (135-145); Total Protein 4.0 g/dl (6.3-8.2); eGFR > 60.00
[2025-07-08] MEDS: NAPROSYN 500 MG PO (09:39)
[2025-07-08] MEDS: ZOFRAN 4 MG IV (09:44)
--- NOTE | 2025-07-08 10:05 | PN.CDI ---
CDI
- -
CDI:
Physician Documentation Request
Admit Date: 07/06/25 17:00
Dear Doctor Isabel,
Patient admitted with sepsis.
07/08 PN, 'Sacral ulcer POA.'
07/07 WCN note, 'Patient admitted with...Stage 3 PI to buttocks...Stage 1 to bilateral heels.'
Physician documentation of the type and location of wounds is required for compliant documentation. Based on the above clinical findings and your assessment, please provide the following in your progress note:
Type (etiology) of ulcer/wound:
- Pressure (decubitus) ulcer
- Other
- Unable to determine
For a pressure ulcer, please also include the stage* of the ulcer:
- Stage 1 - Skin intact, non-blanchable redness
- Stage 2 - Partial thickness loss of dermis, includes intact or open blister
- Stage 3 - Full thickness tissue not including bone, tendon or muscle
- Stage 4 - Full thickness tissue loss, including exposed bone, tendon or muscle
- Unstageable - Full thickness loss in which the base of the ulcer is covered by slough (yellow, plaza, cosme, green or brown) and/or eschar (plaza, brown or black) in the wound bed.
- Unable to determine
Use of terms such as suspected, likely, concern for, or probable (associated with a specific diagnosis that is being evaluated, monitored, or treated as if it exists) are acceptable and can be coded in the inpatient setting, when documented at the
time of discharge.
Thank you,
Carole PHILIPPE,RN,CCDS
CDI Specialist
Available via [place] text
Please use your independent medical judgment in providing your response.
*Source: National Pressure Ulcer Advisory Panel (NPUAP)
--- NOTE | 2025-07-08 10:17 | PN.CDI ---
CDI
- -
CDI:
Physician Documentation Request
Admit Date: 07/06/25 17:00
Dear Doctor Isabel,
Patient admitted with sepsis.
07/08 PN ,'Malnutrition (BMI <17).'
07/07 Nutrition note, 'She also states that she lost 25 lbs over the past 3 months. This would be a 19.7% BW loss over 3 months (significant). Patient meets AND and ASPEN criteria for severe protein calorie malnutrition of chronic disease due to
severe fat loss at her rib cage and severe muscle loss at her clavicle.'
Please provide in your note the diagnosis associated with the above findings and your assessment:
Severe protein calorie malnutrition
Other (please specify)
Dow Criteria ([facility] Hospitalist 2017)
2 or more criteria must be present for either
non severe or severe malnutrition
Note that the criteria differs related to the
presence of an acute or chronic illness
Chronic Illness
Energy Intake Non Severe: <75% for >1 month
Severe: <75% for >1 month
Weight Loss Non Severe: 5% over 1 month
7.5% over 3 months
10% over 6 months
20% over 1 year
Severe: >5% over 1 month
>7.5% over 3 months
>10% over 6 months
>20% over 1 year
Body Fat Non Severe: Mild Loss
Severe: Severe Loss
Muscle Mass Non Severe: Mild Loss
Severe: Severe Loss
Fluid Accumulation Non Severe: Mild Accumulation
Severe: Moderate to severe
accumulation
Reduced Caregivers Homecare Strength Non Severe: N/A
Severe: Measurably reduced
Use of terms such as suspected, likely, concern for, or probable (associated with a specific diagnosis that is being evaluated, monitored, or treated as if it exists) are acceptable and can be coded in the inpatient setting, when documented at the
time of discharge.
Thank you,
Carole PHILIPPE,RN,CCDS
CDI Specialist
Available via [place] text
Please use your independent medical judgment in providing your response.
--- NOTE | 2025-07-08 11:04 | CM ---
Reviewed the chart notes. Patient is a fpc resident of [facility]. CM continues to be available to patient/family and is monitoring medical plan for needs at discharge.
Plan: Discharge back to [facility] when medically stable.
Call report to: [phone]
Fax report to: [phone]
--- NOTE | 2025-07-08 16:00 | PTCARENOTE ---
Patient INC of one large loose stool. Turning and repositioning to off load sacral wound. Medicated patient with zofran x1 for nausea this AM. Patient appetite a little better today. VS stable,afebrile.
[2025-07-08] MEDS: LOVENOX 40 MG SC (18:30)
[2025-07-08] MEDS: NAPROSYN PO (18:30)
[2025-07-08 19:36] LABS: Hematocrit 29.9 % (37.0-47.0); Hemoglobin 9.9 g/dL (12.0-16.0)
[2025-07-08] MEDS: REMERON 15 MG PO (20:30)
[2025-07-08] MEDS: FEOSOL 325 MG PO (20:30)
[2025-07-08] MEDS: ROXICODONE 10 MG PO (20:31)
[2025-07-09] VITALS (11 sets, daily range): BP systolic 91–122; BP diastolic 54–92; BMI 17.7; BMI 17.3
[2025-07-09] MEDS: FIRVANQ 125 MG PO ×4 (01:48→20:50)
[2025-07-09] MEDS: ROXICODONE 10 MG PO ×2 (02:31→13:46)
--- NOTE | 2025-07-09 03:14 | PTCARENOTE ---
Leg wounds cleaned and redressed. Sacral wound cleaned and redressed. Pt given renetta 10mg twice this shift for pain in sacrum and legs. Resting comfortably in bed at this time. Q2T. VSS. Care ongoing.
[2025-07-09 06:42] LABS: Hematocrit 25.6 % (37.0-47.0); Hemoglobin 8.3 g/dL (12.0-16.0); Mean Corp Hgb Conc. 32.4 g/dL (33.0-37.0); Mean Corpuscular Volume 77.8 fL (81.0-99.0); Nucleated Red Blood Cells % 0 %; Platelet Count 383 10^3/uL (130-400); Red Cell Dist. Width 19.3 % (11.5-14.5)
[2025-07-09 07:05] LABS: ALT (SGPT) < 10 U/L (0-35); AST (SGOT) 13 U/L (14-36); Albumin 1.6 g/dl (3.5-5.0); Alkaline Phosphatase 95 U/L (38-126); Blood Urea Nitrogen 8 mg/dl (7-17); Calcium 7.1 mg/dl (8.4-10.2); Carbon Dioxide 20 mmol/L (22-30); Chloride 111 mmol/L (98-107); Estimated Creatinine Clearance 78 ml/min; Glucose 64 mg/dl (70-99); Potassium 4.2 mmol/L (3.5-5.1); Sodium 130 mmol/L (135-145); Total Protein 4.0 g/dl (6.3-8.2); eGFR > 60.00
--- NOTE | 2025-07-09 08:20 | W.PN.HOSP.TC ---
Today's Communication/Plan
-
Continue p.o. vancomycin
Continued physical therapy today
Continue IV fluids
Continue encouraging food intake
Assessment / Plan
Assessment / Plan
Assessment:
60-year-old female with past medical history of rheumatoid arthritis, malnutrition, bilateral lymphedema, cellulitis came to the ED due to recent history of increased profuse watery diarrhea around 6-10 instances per day. She is also reports some
possible increased frequency of urination. In the ED she was found to have sepsis and was started on IV fluids and given antibiotics. Urine culture shows possible UTI however there is concern of possible C. difficile infection due to recent
antibiotic use. Stool sample shows C. difficile antigen positivity however toxin is negative. Blood cultures and urine cultures were drawn. Admitted to the IMU for further fluids, antibiotics and supportive therapy. Patient symptoms continue to
improve however she had electrolyte imbalances due to her persistent diarrhea. Electrolytes continue to be repleted and she has diet as tolerated. Dietitian and branch office administrator were both consulted due to patient's malnutrition history. Patient
continues to have diarrhea however symptomatically feeling a lot better.
Plan:
# Sepsis likely from enterocolitis from C. difficile infection
- Patient was recently on antibiotic treatment, and her symptoms got worse after finishing the antibiotic course
- C. difficile antigen positive, toxin negative but highly suspicious of C. difficile
- Will give p.o. vancomycin 125 mg Q6
- C. difficile precautions
- CTA of abdomen/pelvis if symptoms worsen
- Can consider ID consult
- Salmonella Shigella Campylobacter negative, waiting Shiga toxin test. Patient continues to have multiple loose bowel movements
- Chest x-ray was unremarkable
- Continued watery diarrhea episodes, had multiple last night
- Continue IV fluids
# Anemia of chronic disease
- Hemoglobin fell to 6.5, transfused 1 unit of blood yesterday, hemoglobin improved after
- Will transfuse to keep hemoglobin > 7
- Continue monitoring CBC
- Has been anemic in the past, may be worsened with IV fluids dilution
- Iron levels showed decreased iron, decreased TIBC, but increased ferritin (most likely due to underlying inflammatory disease RA)
- Given a dose of IV iron, continue p.o. iron repletion
#Hypocalcemia
- Calcium was repleted
- Continue to monitor and repleting levels
- Severely protein malnourished,
#Hypokalemia
- Most likely due to GI losses
- Continue monitoring and repletion
# Possible UTI
- UA taken in the ED shows some leukocytes, and leukocyte esterase positivity
- Concern for possible UTI but urine culture is negative
- Was given a dose of vancomycin and cefepime in the ED
- Urine culture is negative, Zosyn was discontinued
# Acute metabolic encephalopathy
- Most likely secondary to sepsis however patient says that she usually has slurring in her speech. Unclear if she was actually altered mentally
- Did have some confusion while we saw her in the ED, and then continued confusion while admitted
- Will continue monitor mental status with precautions
- Will avoid sedating agents
- Mental status is much improved now, continue monitoring
# Hypovolemic hyponatremia
- Most likely secondary to diarrhea, Lasix, causing altered mentation
- Sodium was 127 on arrival
-Sodium has been improving
- Will continue monitoring BMP, will continue with IV fluid maintenance therapy
- Will check urine sodium if sodium levels continue to be altered
- Holding Lasix
# Multiple skin ulcerations
- Stage 3 Pressure ulcer sacrum, Stage 1 pressure ulcers bilateral heels
- wound care consulted, input appreciated
#Bilateral lower extremity healing cellulitis
- wound care consulted, input appreciated
# Rheumatoid arthritis
- Holding patient's Orencia, leflunomide
- Needs to follow-up with rheumatology in outpatient setting
# Lower extremity swelling
- Holding Lasix for now, will restart once patient stable
# Severe protein calorie malnutrition of chronic disease
- will encourage PO intake
- Regular diet, consulted branch office administrator, and dietitian services. Input appreciated
Full code
DVT prophylaxis: Lovenox
Anticipated Discharge: Within 24 hours
Subjective/Interval History
-
Date of Service: July 09, 2025
Patient seen this morning, reports that she has been feeling a lot better than before. Says she continues to have loose bowel movements however. Overall feeling like he is much improved and has a lot more energy. Looking forward to physical
therapy today.
Objective Data
-
Labs:
Laboratory Results
07/09/25
06:18
WBC 17.0 H
Hgb 8.3 L
Hct 25.6 L
Plt Count 383
Sodium 130 L
Potassium 4.2
Chloride 111 H
Carbon Dioxide 20 L
BUN 8
Creatinine 0.5 L
Glucose 64 L
Calcium 7.1 L
Total Bilirubin 0.5
AST 13 L
ALT < 10
Alkaline Phosphatase 95
Vital Signs:
Vital Signs
Temp Pulse Resp BP Pulse Ox
98.3 F 106 13 103/71 98
07/09/25 07:00 07/09/25 06:00 07/08/25 15:07 07/09/25 06:00 07/08/25 21:24
I&O
07/08/25 07/09/25 07/10/25
06:59 06:59 06:59
Intake Total 2240 / 2240 2785 / 2785
Balance 2240 / 2240 2785 / 2785
Review of Systems
-
History Source: Patient
Constitutional: Reports No Symptoms
EENT: Reports No Symptoms Reported
Respiratory: Reports No Symptoms
Cardiac: Reports No Symptoms
Abdomen/GI: Reports Diarrhea (Multiple loose stools); Denies Abdominal Pain, Nausea or Vomiting
Genitourinary: Reports No Symptoms
Musculoskeletal: Reports Joint Pain
Skin: Reports No Symptoms
Neuro: Reports No Symptoms
Physical Exam
-
General: No Apparent Distress, Comfortable, Conversant and Cachectic
HEENT: Normocephalic and Atraumatic
Respiratory: Clear to Auscultation and Non Labored Respirations
Cardiac: Regular Rhythm and S1/S2; Negative Murmur
GI: Soft, Nontender, Nondistended and Normal Bowel Sounds
Musculoskeletal: No Clubbing, No Cyanosis, No Edema and Other (Bilateral hand deformity, lower extremities bandaged, nonerythematous)
Skin: Warm, Dry and Decubitus Ulcers (Ulceration on the sacral area on her back)
Neuro: Awake, Alert, Oriented, AO x 3, No Motor Deficits and No Sensory Deficits
Psych: Calm
Data Reviewed
-
Labs: Labs Reviewed by me, Discussed with Physician, Discussed with Nurse and Discussed with Patient
[2025-07-09] MEDS: D5/0.9% SODIUM CHLORIDE 1000 IV ×2 (09:11→22:36)
[2025-07-09] MEDS: NAPROSYN PO (11:04)
--- NOTE | 2025-07-09 11:12 | PTCARENOTE ---
Pt refusing care such as turns and temps. Education provided, pt still unwilling to allow care.
--- NOTE | 2025-07-09 14:30 | PTCARENOTE ---
Patient transfer from IMU. Vs documented. No c/o at this time. call todd within reach. Plan of care ongoing.
--- NOTE | 2025-07-09 14:34 | PTCARENOTE ---
Caring for pt throughout the day. Aox3. ST on tele monitor. Sating mid 90's on RA. Wound dressings C/D/I. IVF infusing as ordered. Medications administered as ordered, see MAR. Ringing appropriately, call todd within reach.
--- NOTE | 2025-07-09 15:50 | PTCARENOTE ---
Pt for transfer to tele. Report called to receiving RN. Belongings collected from room and sent with pt. Transferred to 213 via stretcher.
--- NOTE | 2025-07-09 16:38 | CM ---
Discharge POC: Return to [facility] for resumption of LTC services.
[2025-07-09] MEDS: NAPROSYN 500 MG PO (17:34)
[2025-07-09] MEDS: LOVENOX SC (17:35)
[2025-07-09] MEDS: REMERON PO (22:38)
[2025-07-09] MEDS: FEOSOL 325 MG PO (22:38)
[2025-07-10] MEDS: FIRVANQ PO ×2 (00:39→06:04)
[2025-07-10 03:11] VITALS: BP 118/78
[2025-07-10 06:00] VITALS: BMI 17.4
[2025-07-10 07:40] VITALS: BP 114/73
--- NOTE | 2025-07-10 07:49 | W.PN.HOSP.TC ---
Addendum entered and electronically signed by Joao Vital DO 07/10/25 13:22:
Hypocalcemia. Vitamin D deficiency seen on labs. Will start vitamin D supplements at discharge. Encourage BMP 1 week after discharge
Original Note:
Today's Communication/Plan
-
Continue monitoring p.o. intake
Continue IV fluids
Continue p.o. vancomycin
Assessment / Plan
Assessment / Plan
Assessment:
60-year-old female with past medical history of rheumatoid arthritis, malnutrition, bilateral lymphedema, cellulitis came to the ED due to recent history of increased profuse watery diarrhea around 6-10 instances per day. She is also reports some
possible increased frequency of urination. In the ED she was found to have sepsis and was started on IV fluids and given antibiotics. Urine culture shows possible UTI however there is concern of possible C. difficile infection due to recent
antibiotic use. Stool sample shows C. difficile antigen positivity however toxin is negative. Blood cultures and urine cultures were drawn. Admitted to the IMU for further fluids, antibiotics and supportive therapy. Patient symptoms continue to
improve however she had electrolyte imbalances due to her persistent diarrhea. Electrolytes continue to be repleted and she has diet as tolerated. Dietitian and stem roller or crusher operator were both consulted due to patient's malnutrition history. Patient has
stopped having the diarrhea and is feeling much better.
Plan:
# Sepsis likely from enterocolitis from C. difficile infection
- Patient was recently on antibiotic treatment, and her symptoms got worse after finishing the antibiotic course
- C. difficile antigen positive, toxin negative but highly suspicious of C. difficile
- Finish course of p.o. vancomycin 125 mg Q6 (day 5)
- C. difficile precautions
- CTA of abdomen/pelvis if symptoms worsen
- Salmonella Shigella Campylobacter negative, waiting Shiga toxin test. Patient continues to have multiple loose bowel movements
- Chest x-ray was unremarkable
- Diarrhea seems to have resolved
- Continue IV fluids
- Continue encouraging p.o. intake
# Anemia of chronic disease
- Hemoglobin fell to 6.5, transfused 1 unit of blood yesterday, hemoglobin improved after
- Will transfuse to keep hemoglobin > 7
- Continue monitoring CBC
- Has been anemic in the past, may be worsened with IV fluids dilution
- Iron levels showed decreased iron, decreased TIBC, but increased ferritin (most likely due to underlying inflammatory disease RA)
- Given a dose of IV iron, continue p.o. iron repletion
#Hypocalcemia
- Calcium was repleted
- Continue to monitor and repleting levels
- Severely protein malnourished
#Hypokalemia
- Most likely due to GI losses
- Continue monitoring and repletion
# Possible UTI
- UA taken in the ED shows some leukocytes, and leukocyte esterase positivity
- Concern for possible UTI but urine culture is negative
- Was given a dose of vancomycin and cefepime in the ED
- Urine culture negative, Zosyn was discontinued
# Acute metabolic encephalopathy
- Most likely secondary to sepsis however patient says that she usually has slurring in her speech. Unclear if she was actually altered mentally
- Did have some confusion while we saw her in the ED, and then continued confusion while admitted
- Will continue monitor mental status with precautions
- Will avoid sedating agents
- Mental status is much improved now, continue monitoring
# Hypovolemic hyponatremia
- Most likely secondary to diarrhea, Lasix, causing altered mentation
- Sodium was 127 on arrival
- Sodium has been improving
- Will continue monitoring BMP, will continue with IV fluid maintenance therapy
- Will check urine sodium if sodium levels continue to be altered
- Holding Lasix, does not appear to be fluid overloaded
# Multiple skin ulcerations
- Stage 3 Pressure ulcer sacrum, Stage 1 pressure ulcers bilateral heels
- wound care consulted, input appreciated
#Bilateral lower extremity healing cellulitis
- wound care consulted, input appreciated
# Rheumatoid arthritis
- Holding patient's Orencia, leflunomide
- Needs to follow-up with rheumatology in outpatient setting
# Lower extremity swelling
- Holding Lasix for now, will restart once patient stable
# Severe protein calorie malnutrition of chronic disease
- will encourage PO intake
- Regular diet, consulted stem roller or crusher operator, and dietitian services. Input appreciated
- Added Ensure, easier to eat foods like pudding
Full code
DVT prophylaxis: Lovenox
Anticipated Discharge: Within 24 hours
Subjective/Interval History
-
Date of Service: July 10, 2025
Has been feeling much better, says that her condition is much improved from before. Did not have any incidence of diarrhea yesterday. Said that she has been enjoying her food as well, especially the new pudding that was added yesterday. Hoping to
work with physical therapy today. Feels like she can go back to her home soon, but wants to wait till tomorrow.
Objective Data
-
Labs:
Laboratory Results
07/10/25
06:00
WBC Pending
Hgb Pending
Hct Pending
Plt Count Pending
Sodium Pending
Potassium Pending
Chloride Pending
Carbon Dioxide Pending
BUN Pending
Creatinine Pending
Glucose Pending
Calcium Pending
Total Bilirubin Pending
AST Pending
ALT Pending
Alkaline Phosphatase Pending
Vital Signs:
Vital Signs
Temp Pulse Resp BP Pulse Ox
98.2 F 98 17 118/78 98
07/10/25 03:11 07/10/25 03:11 07/10/25 03:11 07/10/25 03:11 07/10/25 03:11
I&O
07/09/25 07/10/25 07/11/25
06:59 06:59 06:59
Intake Total 2785 / 2785 1767 / 176
Balance 2785 / 2785 [id number]
Review of Systems
-
History Source: Patient
Constitutional: Reports No Symptoms
EENT: Reports No Symptoms Reported
Respiratory: Reports No Symptoms
Cardiac: Reports No Symptoms
Abdomen/GI: Denies Abdominal Pain, Nausea, Vomiting or Diarrhea
Genitourinary: Reports No Symptoms
Musculoskeletal: Reports Joint Pain
Skin: Reports No Symptoms
Neuro: Reports No Symptoms
Physical Exam
-
General: No Apparent Distress, Comfortable, Conversant and Cachectic
HEENT: Normocephalic and Atraumatic
Respiratory: Clear to Auscultation and Non Labored Respirations
Cardiac: Regular Rhythm and S1/S2; Negative Murmur
GI: Soft, Nontender, Nondistended and Normal Bowel Sounds
Musculoskeletal: No Clubbing, No Cyanosis, No Edema and Other (Bilateral hand deformity, lower extremities bandaged, nonerythematous)
Skin: Warm, Dry and Decubitus Ulcers (Ulceration on the sacral area on her back)
Neuro: Awake, Alert, Oriented, AO x 3, No Motor Deficits and No Sensory Deficits
Psych: Calm
Data Reviewed
-
Labs: Labs Reviewed by me, Discussed with Physician and Discussed with Patient
[2025-07-10] MEDS: PROTONIX 20 MG PO (08:43)
[2025-07-10] MEDS: NAPROSYN 500 MG PO (08:45)
[2025-07-10 08:58] LABS: Hematocrit 27.4 % (37.0-47.0); Hemoglobin 8.9 g/dL (12.0-16.0); Mean Corp Hgb Conc. 32.5 g/dL (33.0-37.0); Mean Corpuscular Volume 79.0 fL (81.0-99.0); Platelet Count 380 10^3/uL (130-400); Red Cell Dist. Width 20.0 % (11.5-14.5)
[2025-07-10 09:55] LABS: ALT (SGPT) < 10 U/L (0-35); AST (SGOT) 14 U/L (14-36); Albumin 1.7 g/dl (3.5-5.0); Alkaline Phosphatase 85 U/L (38-126); Blood Urea Nitrogen 6 mg/dl (7-17); Calcium 6.7 mg/dl (8.4-10.2); Carbon Dioxide 18 mmol/L (22-30); Chloride 113 mmol/L (98-107); Estimated Creatinine Clearance 79 ml/min; Glucose 112 mg/dl (70-99); Potassium 4.1 mmol/L (3.5-5.1); Sodium 132 mmol/L (135-145); Total Protein 4.2 g/dl (6.3-8.2); eGFR > 60.00
--- NOTE | 2025-07-10 10:48 | CM ---
Reviewed the chart notes. Attending updated plan for discharge today. CM continues to be available to patient/family and is monitoring medical plan for needs at discharge.
Plan: Discharge back to [facility] when medically stable.
Call report to: [phone]
Fax report to: [phone]
Medical necessity and transport forms on chart.
[2025-07-10 11:15] VITALS: BP 99/83
[2025-07-10] MEDS: FIRVANQ 125 MG PO (11:28)
[2025-07-10] MEDS: D5/0.9% SODIUM CHLORIDE 1000 IV (11:34)
[2025-07-10 12:28] LABS: Vitamin D, 25-OH*** < 12.8 ng/mL (30-80)
--- NOTE | 2025-07-10 13:10 | W.DCSUMMARY ---
Documented by User: Vanessa Hall MD, Resident 07/10/25 13:19
Discharge Summary
Discharge Data
Date of Admission: 07/06/25
Date of Discharge: 07/10/25
-
Pending Results: No
Hospital Course
Discharging Physician : Dr. Joao Vital, Dr. Vanessa Hall
Disposition : SNF ([facility])
Primary care physician : Dr. Ish Hall
Principal Discharge diagnosis :
Sepsis secondary to C. difficile colitis
Severe protein calorie malnutrition, chronic
Acute metabolic encephalopathy
Chronic Discharge diagnosis :
Acute on chronic anemia
Hypovolemic hyponatremia
Rheumatoid arthritis
Hospital Course :
60-year-old female with past medical history of rheumatoid arthritis, malnutrition, bilateral lymphedema, cellulitis came to the ED due to recent history of increased profuse watery diarrhea, around 6-10 instances per day. She is reported some
possible increased frequency of urination. In the ED she was found to have sepsis and was started on IV fluids and given antibiotics. Urinalysis showed possible UTI however there was concern of possible C. difficile infection due to recent
antibiotic use. Stool sample showed C. difficile antigen positivity however toxin negative, patient was started on oral vancomycin. Blood cultures and urine cultures were drawn. Admitted to the IMU for further fluids, antibiotics and supportive
therapy. Patient symptoms continue to improve however she had electrolyte imbalances due to her persistent diarrhea. Electrolytes continue to be repleted she continued regular diet as tolerated. Patient's urine cultures were negative so Zosyn was
stopped, oral vancomycin continued. Dietitian and social media analyst were both consulted due to patient's malnutrition history and severe protein malnutrition.
Patient presented to the hospital with stage 3 sacral ulcer and lower extremity ulcers for which wound care was provided by the wound care team. Patient stopped having the diarrhea and was feeling much better. Patient was stable for discharge with
instructions to follow up with her primary care physician with in one week. Patient was also instructed to continue oral vancomycin 4 times daily to complete the 10 day course (she has 5 days remaining including today). Patient also counseled to
follow up with her [employer] [facility] for further management of her rheumatoid arthritis.
Important imaging findings :
Chest X-Ray: No acute disease of the chest
Procedure findings : None
Discharge Plan
-
Patient Disposition: Assisted/SNF
Discharge Diagnosis/Procedures: Sepsis secondary to C. difficile colitis
Acute on chronic anemia
Hypovolemic hyponatremia
Rheumatoid arthritis
Severe protein calorie malnutrition, chronic
Acute metabolic encephalopathy
Condition: Fair
Diet: Regular
Activity: As tolerated
Driving Restrictions: As prior to admission
Bathing Restrictions: None
Blood Work: BMP, magnesium, phosphorus, CBC with differential to be performed 7 days after discharge
Other Services: PT
Activity Restrictions/Additional Instructions:
Wound Care Instructions Bilateral LE wounds- Please medicate patient for pain prior to wound care. Clean LE wound with normal saline and apply adaptic dressing, ABD and wrap with ronda. Change daily and PRN drainage. No compressive dressings
Buttock Wounds - Apply Calazime to open areas OR Clean with incontinence care and apply Honey Gel, adaptic, gauze (2x2) and cover with Transparent Dressing. Change Q 3day or PRN if loose or soiled. Consider use of fecal management system as patient
can tolerate
Air Mattress
Turning Schedule
Keep heels off-loaded with pillow or air cushion under calves
Encourage PO intake
Follow up at wound care center call for an appointment.
Referrals:
Ish Hall MD [Family Provider] - in less than 1 week
Referral Note: Follow up with your PCP in less than 1 week
Additional Discharge Medication Instructions: Please follow up with your PCP in less than 1 week. You will need to discuss restarting your oral Lasix medication.
Please continue taking Vancomycin for 5 more days, 1 tablet 4 times daily
Please take Vitamin D supplements daily
Please continue your other medications as directed
Please follow wound care instructions as noted
Please follow up with your [employer] [facility] in the outpatient setting for further management of your Rheumatoid Arthritis
Please repeat CBC, BMP, Mag, Phos in 7 days
Prescriptions:
New
vancomycin 125 mg capsule
125 mg PO Q6 5 Days Qty: 20 0RF
cholecalciferol (vitamin D3) [Vitamin D3] 125 mcg (5,000 unit) tablet
125 mcg PO DAILY Qty: 30 0RF
Continued
oxycodone 10 mg Tablet
10 mg PO Q6HPRN PRN (Reason: severe pain )
acetaminophen 325 mg Tablet
650 mg PO Q4HPRN PRN (Reason: fever>100)
polyethylene glycol 3350 [Miralax] 17 gram Powder In Packet
17 g PO DAILYPRN PRN (Reason: Constipation)
leflunomide 20 mg Tablet
20 mg PO DAILY
naproxen [Naprosyn] 500 mg Tablet
500 mg PO BID@
Orencia 125 mg/mL Syringe
125 mg SC MO
ferrous sulfate 325 mg (65 mg iron) tablet
325 mg PO HS
mirtazapine 15 mg Tablet
15 mg PO HS
midodrine 5 mg tablet
5 mg PO TID
Rx Instructions:
hold for SBD>130
hydroxyzine HCl 25 mg Tablet
25 mg PO Q6HPRN PRN (Reason: ANXIETY)
Held
furosemide [Lasix] 40 mg Tablet
80 mg PO DAILY Qty: 0 0RF
Hold Instructions: Discuss with PCP regarding starting medication
Rx Instructions:
hold for systolic BP <105 and HR <60
Discontinued
sennosides [senna] 8.6 mg Tablet
8.6 mg PO DAILY
Discharge Orders:
Discharge Patient (As Directed); Ordered 07/10/25
Ordered By: Vanessa Hall
Discharge Date and Time
Print Language: GUINEAN

Documented by User: Joao Vital DO 07/10/25 14:49
Discharge Summary
Discharge Data
Date of Admission: 07/06/25
Date of Discharge: 07/10/25
Total time spent discharging patient (in min): 32
Discharge Plan
-
Patient Disposition: Assisted/SNF
Discharge Diagnosis/Procedures: Sepsis secondary to C. difficile colitis
Acute on chronic anemia
Hypovolemic hyponatremia
Rheumatoid arthritis
Severe protein calorie malnutrition, chronic
Acute metabolic encephalopathy
Condition: Fair
Diet: Regular
Activity: As tolerated
Driving Restrictions: As prior to admission
Bathing Restrictions: None
Blood Work: BMP, magnesium, phosphorus, CBC with differential to be performed 7 days after discharge
Other Services: PT
Activity Restrictions/Additional Instructions:
Wound Care Instructions Bilateral LE wounds- Please medicate patient for pain prior to wound care. Clean LE wound with normal saline and apply adaptic dressing, ABD and wrap with ronda. Change daily and PRN drainage. No compressive dressings
Buttock Wounds - Apply Calazime to open areas OR Clean with incontinence care and apply Honey Gel, adaptic, gauze (2x2) and cover with Transparent Dressing. Change Q 3day or PRN if loose or soiled. Consider use of fecal management system as patient
can tolerate
Air Mattress
Turning Schedule
Keep heels off-loaded with pillow or air cushion under calves
Encourage PO intake
Follow up at wound care center call for an appointment.
Referrals:
Ish Hall MD [Family Provider] - in less than 1 week
Referral Note: Follow up with your PCP in less than 1 week
Additional Discharge Medication Instructions: Please follow up with your PCP in less than 1 week. You will need to discuss restarting your oral Lasix medication.
Please continue taking Vancomycin for 5 more days, 1 tablet 4 times daily
Please take Vitamin D supplements daily
Please continue your other medications as directed
Please follow wound care instructions as noted
Please follow up with your [employer] [facility] in the outpatient setting for further management of your Rheumatoid Arthritis
Please repeat CBC, BMP, Mag, Phos in 7 days
Prescriptions:
New
vancomycin 125 mg capsule
125 mg PO Q6 5 Days Qty: 20 0RF
cholecalciferol (vitamin D3) [Vitamin D3] 125 mcg (5,000 unit) tablet
125 mcg PO DAILY Qty: 30 0RF
Continued
oxycodone 10 mg Tablet
10 mg PO Q6HPRN PRN (Reason: severe pain )
acetaminophen 325 mg Tablet
650 mg PO Q4HPRN PRN (Reason: fever>100)
polyethylene glycol 3350 [Miralax] 17 gram Powder In Packet
17 g PO DAILYPRN PRN (Reason: Constipation)
leflunomide 20 mg Tablet
20 mg PO DAILY
naproxen [Naprosyn] 500 mg Tablet
500 mg PO BID@,17
Orencia 125 mg/mL Syringe
125 mg SC MO
ferrous sulfate 325 mg (65 mg iron) tablet
325 mg PO HS
mirtazapine 15 mg Tablet
15 mg PO HS
midodrine 5 mg tablet
5 mg PO TID
Rx Instructions:
hold for SBD>130
hydroxyzine HCl 25 mg Tablet
25 mg PO Q6HPRN PRN (Reason: ANXIETY)
Held
furosemide [Lasix] 40 mg Tablet
80 mg PO DAILY Qty: 0 0RF
Hold Instructions: Discuss with PCP regarding starting medication
Rx Instructions:
hold for systolic BP <105 and HR <60
Discontinued
sennosides [senna] 8.6 mg Tablet
8.6 mg PO DAILY
Discharge Orders:
Discharge Patient (As Directed); Ordered 07/10/25
Ordered By: Vanessa Hall
Discharge Date and Time
Print Language: GUINEAN
[2025-07-10] MEDS: DRISDOL (VITAMIN D2) 50000 UNITS PO (14:14)
[2025-07-10 14:38] VITALS: BP 89/64; PULSE 101; O2SAT 99
[2025-07-10 15:01] VITALS: BP 103/65
== END 2025-07-10 14:52 | DRG 871 ==
LOC: 2 NORTH 17:00
PROVIDERS: Nurse Practitioner Family; Physician Assistant; ADMITTING PHYSICIAN Internal Medicine; EMERGENCY PHYSICIAN Emergency Medicine; FAMILY PHYSICIAN Internal Medicine
PROC: 30233N1 Transfusion of Nonautologous Red Blood Cells into Peripheral Vein, Percutaneous Approach (ICD-10-PCS; 2025-07-07)
DX: A41.4 Sepsis due to anaerobes (principal); E43 Unspecified severe protein-calorie malnutrition; L89.153 Pressure ulcer of sacral region, stage 3; G93.41 Metabolic encephalopathy; A04.72 Enterocolitis due to Clostridium difficile, not specified as recurrent; Z68.1 Body mass index [BMI] 19.9 or less, adult; E87.1 Hypo-osmolality and hyponatremia; R64 Cachexia; E86.1 Hypovolemia; M06.9 Rheumatoid arthritis, unspecified; L89.611 Pressure ulcer of right heel, stage 1; L89.621 Pressure ulcer of left heel, stage 1; K59.00 Constipation, unspecified; F41.9 Anxiety disorder, unspecified; R54 Age-related physical debility; E83.51 Hypocalcemia; I89.0 Lymphedema, not elsewhere classified; D50.9 Iron deficiency anemia, unspecified; E03.9 Hypothyroidism, unspecified; E78.5 Hyperlipidemia, unspecified; F32.9 Major depressive disorder, single episode, unspecified; I10 Essential (primary) hypertension; I73.9 Peripheral vascular disease, unspecified; I95.89 Other hypotension; K21.9 Gastro-esophageal reflux disease without esophagitis; Z11.52 Encounter for screening for COVID-19
CPT/HCPCS: 71046; 80048; 80053; 81003; 81015; 82306; 82607; 82728; 82746; 83540; 83550; 83605; 83735; 84100; 84132; 84443; 85014; 85018; 85025; 85027; 86850; 86900; 86901; 86920; 87040; 87045; 87046; 87077; 87086; 87324; 87427; 87449; 87811; 93005; 96365; 96375; 97163; 97530; 99285; J2916; P9016

== ENCOUNTER 2025-07-27 15:15 | Inpatient (IN) | payer MEDICAID, SELFPAY ==
[2025-07-27] VITALS (40 sets, daily range): BP systolic 53–99; BP diastolic 25–77; BMI 18.8
[2025-07-27] MEDS: NSS 1000 IV ×2 (12:15→15:18)
[2025-07-27 12:46] LABS: Hematocrit 34.4 % (37.0-47.0); Hemoglobin 10.8 g/dL (12.0-16.0); Mean Corp Hgb Conc. 31.4 g/dL (33.0-37.0); Mean Corpuscular Volume 81.1 fL (81.0-99.0); Platelet Count 486 10^3/uL (130-400); Red Cell Dist. Width 19.6 % (11.5-14.5)
[2025-07-27 12:55] LABS: Blood Urea Nitrogen 35 mg/dl (7-17); Calcium 7.3 mg/dl (8.4-10.2); Carbon Dioxide 22 mmol/L (22-30); Chloride 95 mmol/L (98-107); Estimated Creatinine Clearance 35 ml/min; Glucose 78 mg/dl (70-99); Sodium 128 mmol/L (135-145); eGFR 43.61
[2025-07-27 13:44] LABS: Absolute Neutrophils -Man Diff 25.0 10^3/uL (1.4-6.5)
[2025-07-27 13:45] LABS: Normal RBC Morphology No; Platelets Checked Yes
[2025-07-27 13:46] LABS: Anisocytosis 1+; Hypochromasia 1+; Poikilocytosis 1+; Polychromasia 1+
[2025-07-27 13:47] LABS: Total Cells Counted 100
--- NOTE | 2025-07-27 14:43 | W.PN.UPDATE ---
Update Note
Progress Note Update
Evaluated patient in the ED. On presentation to ED, pt had AMS, was nonverbal, and had MAP 40. Seen s/p 1 L NSS. Patient was oriented & conversant, with MAP improved to 60. Given hemodynamic & clinical improvement without pressors, deemed most
appropriate for IMU level care, rather than ICU.
[2025-07-27 15:28] LABS: Potassium 3.5 mmol/L (3.5-5.1)
--- NOTE | 2025-07-27 16:00 | HPS.HSE ---
Addendum entered and electronically signed by Renan Boland MD 07/27/25 20:08:
Attending Addendum-
I performed a history and physical exam of the patient and discussed his management with the resident. I reviewed the resident's note and agree with the documented findings and plan of care CC/HPI- Patient sent from [facility] due to decreased
responsiveness. Patient has limited recollection of events. In ed was found to have altered mental status and hypotensive. Given 1 liter bolus and labs drawn prior to admit requested. Patient states she feels improved and more mentally clear. MAP
improved. Feels weak and complains of sacral area pain. No other complaints. Denies fevers chills, diarrhea, urinary, respiratory, GI, or neurological complaints. Full 12 point ROS reviewed and negative except as documented Exam- vitals reviewed in
EMR GEN-appears in mild distress due to to pain. Heart tachycardic regular rhythm, lungs fine crackles at bases b/l abd soft NT ND pos BS LE wrapped with +1 pitting edema b/l. Skin wounds present B/L LE. Neuro AAO x 3
Plan:
# Septic Shock unclear source
- give 30ml/kg bolus
- qsofa -2
- start Levophed to maintain MAP > 65
- start zosyn reynaldo based on previous wound cx, c/s ID due to h/o c diff toxin neg, ag pos
- appears as if cefepime given by ED
- await blood and urine cx
- lactate-pending
- place in IMU, agree with ehs engineer hold off on ICU admission for now.
- place midline
# SABINA
- likely prerenal
- cont IVF follow BMP closely
- check PVR
- repeat BMP in am
# Hyponatremia
- chronic but appears hypovolemic/dehydrated
- cont IVF repeat BMP in am
# B/L LE wounds, stage 3 sacral ulcer
- c/s wound care
-cont zosyn for now
# LE edema
- unclear if taking lasix as OP as was held on last DC
- hold lasix, last echo 05/2025- WNL ef 60-65%
# Anemia of chronic disease
- follow cbc
# RA
-hold meds due to immunosuppression
-cont pain control
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
- c/s nutrition
# Orthostatic Hypotension
- cont midodrine
# Depression - cont remeron
DVT-p heparin
code full
Dispo from [facility]
ACP
Patient consented to discuss, was alone, time spent explanation of advance directives, changes in health status, patient�s health care wishes if the patient becomes unable to make health decisions, goals of care, code status, and prognosis patient
aao x 3 states POA are 2 friends, wants to be full code - 16 minutes
CC Note
Due to a high probability of clinically significant, life-threatening deterioration, the patient required a high level of preparedness to intervene emergently. I personally spent this critical care time directly and personally managing the patient.
This critical care time included obtaining a history; examining the patient; ordering and review of studies and STAT labs; arranging urgent treatment with development of a management plan; evaluation of patient's response to treatment; reassessment;
and, discussions with other providers.
This critical care time was performed to assess and manage the high probability of imminent, life-threatening deterioration that could result in multi-organ failure. It was exclusive of separately billable procedures and treating other patients and
teaching time. Total time documented is also exclusive of any additional time listed that was spent in advance care planning discussion
Total critical care time: Approximately 33 minutes
Original Note:
Family Physician
-
Family Physician: Ish Hall
Chief Complaint
-
Altered mental status with minimum response to stimuli
History of Present Illness
Patient is a 60-year-old female presents to the emergency department after being found at minimally responsive at her [facility]. She has a history of rheumatoid arthritis, bilateral lymphedema, peripheral vascular disease, cellulitis, and
malnutrition. she was recently admitted for sepsis secondary C Diff and was given vancomycin and IV fluid support. She was in her normal state of health the evening prior but unfortunately, when staff came to check on her this morning she was
minimally responsive and only moaned in pain when asked questions. Staff notes that the patient has had loose stools for the past few days. She responded minimally to sternal rub as per EMS. She was transported to the emergency department where
she received two liters of IV fluids and started to become more responsive almost by the time her first bag was completed. blood pressure was 66/51, her heartbeat was 129, respiratory rate was 18, and O2 saturation was 96% on room air. Patient had
leukocytosis with a white blood cell count of 28.5, lactic acid was 5.4, patient was hyponatremic with a sodium of 128, and has hypocalcemia with a calcium of 7.3. There was difficulty getting IV access to the patient and after 2 line failures it
was decided that a midline would be the most efficacious for treating this patient. Patient was admitted to the IMU for sepsis secondary to possible C. difficile infection.
Medical History
Past Medical History
Past Medical History: Reports Psychiatric (Severe major depressive disorder and anxiety)
Additional Past Medical History:
Rheumatoid arthritis on leflunomide and Orencia
Hypertension
Hypothyroidism
Chronic pain
Depression
Anxiety
Bilateral lower extremity lymphedema
Chronic bilateral lower extremity wounds
Nonambulatory patient
Past Surgical History: Reports None
Social History
Tobacco: Non-smoker
Alcohol: None
Drug: None
Personal:
Living: Alone
Employment: Disabled
Family History
Family History: Not pertinent
Allergies / Home Medications
Allergies reflects when Allergies were last updated in [employer].
Home Medications with original date entered in [employer]
Allergy/Medication List:
Allergies
Allergy/AdvReac Type Severity Reaction Status Date / Time
No Known Allergies Allergy Verified 06/20/25 19:08
Home Medications
acetaminophen 325 mg tablet 650 mg PO Q4HPRN PRN mild pain 05/18/25
leflunomide 20 mg tablet 20 mg PO DAILY Antirheumatic 05/18/25
oxycodone 10 mg tablet 10 mg PO Q6HPRN PRN severe pain 05/18/25
polyethylene glycol 3350 17 gram oral powder packet (Miralax) 17 g PO DAILYPRN PRN Constipation 05/18/25
abatacept 125 mg/mL subcutaneous syringe (Orencia) 125 mg SC MO Rheumatoid arthritis 06/04/25
ferrous sulfate 325 mg (65 mg iron) tablet 325 mg PO HS ANEMIA 06/04/25
naproxen 500 mg tablet (Naprosyn) 500 mg PO BID mild Pain 06/04/25
midodrine 5 mg tablet 5 mg PO TID Hypotension 06/20/25
mirtazapine 15 mg tablet 15 mg PO HS Depression 06/20/25
hydroxyzine HCl 25 mg tablet 25 mg PO Q6HPRN PRN ANXIETY 07/06/25
furosemide 40 mg tablet (Lasix) 80 mg PO DAILY 07/27/25
loperamide 2 mg capsule 2 mg PO Q8HPRN PRN diarrhea 07/27/25
Review of Systems
-
Unable to obtain full review of systems at this time due to: Acuity
History Source: Patient and Custodial
Constitutional: Reports Weight Loss and Other
EENT: Reports No Symptoms
Respiratory: Reports No Symptoms
Cardiac: Reports No Symptoms
Abdomen/GI: Reports Nausea and Diarrhea
: Reports No Symptoms
Musculoskeletal: Reports No Symptoms
Skin: Reports See HPI (Stage III sacral decubitus ulcer and bilateral anterior lower leg wounds along the tibia)
Neurological: Reports See HPI
Endocrine: Reports No Symptoms
Hematologic/Lymphatic: Reports See HPI
Psych: Reports No Symptoms
Physical Exam
Vital Signs
Vital Signs
Temp Pulse Resp BP Pulse Ox
97.4 F 122 18 63/39 96
07/27/25 13:54 07/27/25 16:30 07/27/25 16:30 07/27/25 17:11 07/27/25 16:51
Physical Exam
General: Appears in Distress, Appears Chronically Ill and Cachectic
HEENT: NormoCephalic and Anicteric
Respiratory: Clear and Non Labored Respirations; No Wheezes, Rales, Rhonchi or Crackles
Cardiac: S1/S2, Regular Rhythm and Tachycardia; No Murmur, Rub, Gallop or Peripheral Edema
Breast: Deferred by me
GI: Soft, Non Tender, Non Distended and Normal Bowel Sounds
Rectal: Deferred by Provider
Musculoskeletal: No Clubbing and No Cyanosis
Skin: Warm, Dry, Ulcers (Stage III sacral decubitus ulcer), Lesions (Bilateral lower extremity lesions. Lesions located over the tibial region on the anterior portion of the leg. Right greater then left) and Decubitus Ulcers (Stage III sacral
decubitus ulcer); No Rash or Jaundice
Neuro: Awake, Alert and Other (Oriented to self but not place or time)
Psych: Calm
Laboratory Results
-
07/27/25 12:08
07/27/25 14:55
Laboratory Results
Lactic Acid 5.4 mmol/L (0.7-2.0) H* 07/27/25 14:55
Total Bilirubin Cancelled 07/27/25 12:08
AST Cancelled 07/27/25 12:08
ALT Cancelled 07/27/25 12:08
Alkaline Phosphatase Cancelled 07/27/25 12:08
Impression/Plan
-
Assessment/Plan:
-Sepsis secondary to possible C. difficile infection:
-Diarrhea:
At presentation to the emergency department the patient's blood pressure was 70/52, pulse was elevated at 145, respiratory rate was 27, temperature was 97.4, white blood cell count was 28.5 with a neutrophil predominance - indicating sepsis
Stool culture conducted on 07/06/2025 was positive for C. difficile but there was no toxin detected. Speculation whether patient may be a carrier, colonized with nontoxigenic strain or if the sample is below detection limits. Based on these prior
results it lends suspicion for possible ongoing C. difficile infection with exacerbation. Patient has also had a recent history of loose stools which further suggests C. difficile exacerbation. Patient finished vancomycin on 15 July.
qSOFA score of 2
Stool culture sent with C. difficile sensitivities
Wound culture sent
Blood cultures sent
Lactics every 4 hours until downward trending
IV fluid support -patient received 2 L in the emergency department with improvement
Maintain MAP greater than 65
Levophed started to maintain MAP greater than 65 - will discontinue when patient hemodynamically stable
Patient received cefepime and vancomycin in the emergency department. Based on this patient's complex history and recent C. difficile infection with complications we will be consulting infectious diseases for fine-tuning of antibiotic regimen.
Midline placed due to difficulty of IV access. 2 IV lines were lost.
- Prerenal acute kidney injury secondary to hypovolemia:
Patient's creatinine is 1.4 on admission from a baseline of 0.5 indicative of acute kidney injury
Patient on physical exam has poor skin turgor and appears grossly malnutrition. Has poor oral intake. Likely cause of SABINA is hypovolemia.
Will give IV fluid support and monitor kidney function.
Bladder scan protocol ordered to rule out any postrenal causes of SABINA or urinary retention.
- Anemia of chronic disease:
Patient's hemoglobin is at 10.8 on admission which continues to trend with her chronic anemia state seen on prior hospital visits. During her last discharge on 07/10/2025 her hemoglobin was 8.9 and stable. Her normal trend is between 7 and 9 based
on prior lab work.
Will transfuse if needed if hemoglobin drops below 7
Continue to trend hemoglobin with CBC
Patient has decreased iron with decreased TIBC but has increased ferritin�possibly a consequence of ongoing inflammatory disease such as rheumatoid arthritis
-Stage III sacral decubitus ulcer:
-Bilateral leg wounds:
Sacral wound culture
Wound care consulted for ongoing wound care and management during the hospital admission
Positional changes to avoid ongoing pressure on the sacral region.
-Altered mental status secondary to sepsis:
-Severe protein calorie malnutrition:
Patient has a history of severe major depressive disorder with anxiety and severe protein calorie malnutrition. Her altered mental status on presentation may be secondary to her hypovolemic and malnutrition status. Will give the patient fluids
and nutrients and reassess.
Dietitian consulted for malnutrition
-Chronic hyponatremia:
Patient presented to the emergency department with a sodium of 128
Patient has a long-term history of hyponatremia spanning across multiple hospital admissions. This hyponatremia may be secondary to her poor oral intake.
Her current sodium appears to be at or near her baseline�we will continue to trend and monitor
- Hypocalcemia:
Initial lab work is a BMP without albumin values. Her albumin based on historical lab work shows a value of around 1.6-1.7. Corrected calcium based on these scores suggest a corrected calcium score of 8.8 -we will wait for CMP prior to repleting
calcium after calculating updated corrected calcium score.
-Rheumatoid arthritis:
Continue home meds
-Chronic pain:
Patient in pain due to ongoing sacral ulcer that is nonhealing
Continue home oxycodone pain management
-Hypotension:
Continue outpatient midodrine
FULL CODE STATUS
Stress Ulcer Prophylaxis: Heparin subcu
DVT Prophylaxis: Pantoprazole IV
Imaging:
Not applicable
Procedures:
Not applicable
--- NOTE | 2025-07-27 17:04 | PTCARENOTE ---
Addendum entered by Yary Purvis 07/27/25 17:19:
Levo hung per orders, see MAR and med titration.
Original Note:
Pt received from ED via stretcher. Aox2. Pt hypotensive with SBP in the 60-80's. Dr Alonso notified, order received to start Levo. Awaiting verification from pharmacy.
[2025-07-27] MEDS: LEVOPHED 250 IV (17:10)
[2025-07-27] MEDS: MAXIPIME 2000 MG IV (17:11)
[2025-07-27] MEDS: STERILE WATER FOR INJECTION 10 ML IV (17:11)
[2025-07-27] MEDS: FIRVANQ 250 MG PO (17:11)
[2025-07-27] MEDS: NSS (PRESERVATIVE FREE) 10 ML IV (17:52)
[2025-07-27] MEDS: PROTONIX IV 40 MG IV (17:52)
--- NOTE | 2025-07-27 18:13 | PTCARENOTE ---
Pt c/o midline dressing feeling tight. Upon initial assessment, no visible issues with site, flushing appropriately. Shortly after pt asking for dressing to be loosened-IVT team paged. Site noted to now be infiltrated and ecchymotic. IVT at bedside
at this time.
--- NOTE | 2025-07-27 18:47 | PTCARENOTE ---
Multiple attempts made to obtain ordered labs unsuccessful. IVT at bedside attempting to place central line, also unable to obtain labs. Dr. Alonso notified.
--- NOTE | 2025-07-27 19:06 | VATNOTE ---
STEPHANY Midline difficult to flush, no blood return, measures 23cm (was 21cm at insertion0, leaks when flushed. Arm bruised. Midline removed.
[2025-07-27] MEDS: HEPARIN 5000 UNITS SC (21:14)
[2025-07-27] MEDS: FEOSOL 325 MG PO (21:14)
[2025-07-27] MEDS: REMERON PO (21:19)
--- NOTE | 2025-07-27 21:51 | PN.IRAD.UPD ---
Update Note - IRAD
- -
right sided 16cm TLC placed, spoke with nurse Dale and asked for the central line to be added to the worklist, no complaints from patient
[2025-07-27] MEDS: NSS 500 IV (23:23)
[2025-07-28] VITALS (43 sets, daily range): BP systolic 74–117; BP diastolic 50–81; BMI 18.8
[2025-07-28] MEDS: NSS 1000 IV ×3 (00:27→23:12)
[2025-07-28] MEDS: ZOSYN 50 IV ×2 (00:29→05:06)
[2025-07-28] MEDS: FLEXBUMIN 50 IV (01:46)
--- NOTE | 2025-07-28 01:54 | PTCARENOTE ---
Upon receiving pt, levo gtt in place at 3mcg. MAP <65. Levo gtt increased until goal of MAP>65 met, 8mcg. Pt denies symptoms, but does appear drowsy. MAP< 65 again, WATERSHED TENDER contacted via TT. Bolus and midodrine given per MAR with improvement. MAP again
dropped below 65. WATERSHED TENDER contacted again. Fluids increased to 150ml/hr and albumin hung per MAR with improvement. Frequent monitoring continues. Remains SR-ST. SaO2 99% on RA. Care ongoing.
[2025-07-28] MEDS: LEVOPHED 250 IV ×2 (02:58→11:32)
[2025-07-28 05:10] LABS: ALT (SGPT) < 10 U/L (0-35); AST (SGOT) 12 U/L (14-36); Albumin 1.9 g/dl (3.5-5.0); Alkaline Phosphatase 79 U/L (38-126); Blood Urea Nitrogen 37 mg/dl (7-17); Calcium 6.5 mg/dl (8.4-10.2); Carbon Dioxide 18 mmol/L (22-30); Chloride 102 mmol/L (98-107); Estimated Creatinine Clearance 29 ml/min; Glucose 96 mg/dl (70-99); Potassium 3.5 mmol/L (3.5-5.1); Sodium 129 mmol/L (135-145); Total Protein 4.1 g/dl (6.3-8.2); eGFR 34.55
[2025-07-28 05:16] LABS: Hematocrit 24.4 % (37.0-47.0); Hemoglobin 7.8 g/dL (12.0-16.0); Mean Corp Hgb Conc. 32.0 g/dL (33.0-37.0); Mean Corpuscular Volume 79.7 fL (81.0-99.0); Platelet Count 317 10^3/uL (130-400); Red Cell Dist. Width 19.3 % (11.5-14.5)
--- NOTE | 2025-07-28 05:18 | W.PN.UPDATE ---
Update Note
Progress Note Update
critical calcium 6.7 corrected calcium based on hypoalbuminemia (1.9) is 8.4 Will give one gm ca+ iv
hh 7.8 from 10.8. likely due to dilution from fluids. Also likely 10.8 falsley elevated from dehydration. Repeat at noon
[2025-07-28] MEDS: CALCIUM GLUCONATE 100 IV ×2 (06:20→15:21)
--- NOTE | 2025-07-28 07:19 | W.PN.HOSP.TC ---
Addendum entered and electronically signed by Renan Boland MD 07/28/25 20:20:
Attending Addendum-I saw and evaluated the patient. I reviewed the resident�s note and agree with findings and plan as documented in the resident�s note. Sub: Complains of generalized pain more so in abdomen and sacral area. Patient refusing to
drink contrast. Complains of nausea no vomiting and extreme weakness. Denies urinary sxs. Denies fevers chills. Full 12 point ROS reviewed and negative except as documented Exam- vitals reviewed in EMR GEN-appears in mild distress due to to pain.
Heart tachycardic regular rhythm, lungs fine crackles at bases b/l abd soft, TTP epigastric area, no rebound guarding. LE wrapped with +1 pitting edema b/l. Skin wounds present B/L LE. Neuro AAO x 3, RIJ catheter in place, rectal trumpet in place
Plan:
# Septic Shock from Severe C diff colitis
- increase IVF
- cont Levophed to maintain MAP > 65
- DC zosyn cefepime started
- start high dose PO vanco and IV flagyl
- NPO
- appreciate ID input
- 1 dose PO vanco given in ED
- await blood and urine cx
- lactate-trended down
- cont care in IMU
- central access placed
- check CT A/P with PO contrast - low threshold to c/s surgery
# SABINA
- likely prerenal
- increase IVF
- place romero to monitor urine output
- repeat BMP in am
# Hypoalbuminemia- albumin give by overnight team
# Hyponatremia
- chronic but appears hypovolemic/dehydrated
- cont IVF repeat BMP in am
# B/L LE wounds, stage 3 sacral ulcer
- c/s wound care
-cont cefepime for now cx pending
# Hypocalcemia- replete, correct for hypoalbuminemia
# Hypokalemia- replete
# LE edema
- unclear if taking lasix as OP as was held on last DC
- hold lasix, last echo 05/2025- WNL ef 60-65%
# Anemia of chronic disease
- follow cbc
# RA
-hold meds due to immunosuppression
-cont pain control
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
- c/s nutrition
# Orthostatic Hypotension
- cont midodrine
# Depression - cont remeron
DVT-p heparin
code full
Dispo from [facility]
CC Note
Due to a high probability of clinically significant, life-threatening deterioration, the patient required a high level of preparedness to intervene emergently. I personally spent this critical care time directly and personally managing the patient.
This critical care time included obtaining a history; examining the patient; ordering and review of studies and STAT labs; arranging urgent treatment with development of a management plan; evaluation of patient's response to treatment; reassessment;
and, discussions with other providers.
This critical care time was performed to assess and manage the high probability of imminent, life-threatening deterioration that could result in multi-organ failure. It was exclusive of separately billable procedures and treating other patients and
teaching time.
Total critical care time: Approximately 35 minutes
Original Note:
Today's Communication/Plan
-
Patient received 4 mg of Levophed at 5:10 PM on 07/27 and at 2:58 AM on 07/28. Patient still hemodynamically unstable. Continue IV fluid support.
Appreciate infectious diseases recommendations in regards to antibiotics. They have switched the patient over to vancomycin 250 mg, metronidazole 500 mg, and cefepime 1000 mg. Renally dose medications
Patient had diarrhea with a large amount of loose stool. Rectal trumpet order placed in order to avoid infectious-contamination with sacral decubitus ulcer
Patient has abdominal pain located on the left mid abdomen. CT with oral contrast ordered.
Calcium repleted. Potassium repleted.
Assessment / Plan
Assessment / Plan
Assessment/Plan:
- Septic shock secondary to possible C. difficile infection:
- Diarrhea:
At presentation to the emergency department the patient's blood pressure was 70/52, pulse was elevated at 145, respiratory rate was 27, temperature was 97.4, white blood cell count was 28.5 with a neutrophil predominance - indicating sepsis
Stool culture conducted on 07/06/2025 was positive for C. difficile but there was no toxin detected. Speculation whether patient may be a carrier, colonized with nontoxigenic strain or if the sample is below detection limits. Based on these prior
results it lends suspicion for possible ongoing C. difficile infection with exacerbation. Patient has also had a recent history of loose stools which further suggests C. difficile exacerbation. Patient finished vancomycin on 15 July.
qSOFA score of 2
Patient received 30 mg/kg boluses in the emergency department -received 2 L in total in the emergency department with improvement -continue IV fluid support
Stool culture sent with C. difficile sensitivities -C. difficile antigens and toxins A and B are positive indicating positive C. difficile infection and the likely source of septic shock
Wound culture sent
Blood cultures sent
Initial lactic acid was 5.4 and subsequent draw showed a value of 0.9 -trending downwards
Maintain MAP greater than 65
Levophed started to maintain MAP greater than 65 - will discontinue when patient hemodynamically stable
Patient received cefepime and vancomycin in the emergency department. Based on this patient's complex history and recent C. difficile infection with complications we will be consulting infectious diseases for fine-tuning of antibiotic regimen.
Infectious diseases has started the patient on 250 mg of vancomycin, 500 mg metronidazole, and cefepime 1000 mg - medication adjustment made on 07/28/2025. These medications will need to be renally dosed
Midline placed due to difficulty of IV access. 2 IV lines were lost. Central line successfully placed late in the evening of 07/27/2025
Patient has generalized abdominal tenderness most pronounced along the left mid abdomen. CT abdomen and pelvis with oral contrast ordered.
- Prerenal acute kidney injury secondary to hypovolemia:
Patient's creatinine is 1.4 on admission from a baseline of 0.5 indicative of acute kidney injury
Patient on physical exam has poor skin turgor and appears grossly malnutrition. Has poor oral intake. Likely cause of SABINA is hypovolemia.
Will give IV fluid support and monitor kidney function.
Bladder scan protocol ordered to rule out any postrenal causes of SABINA or urinary retention.
Follow CMP
Renally dose medications
- Anemia of chronic disease:
Patient's hemoglobin is at 10.8 on admission which continues to trend with her chronic anemia state seen on prior hospital visits. During her last discharge on 07/10/2025 her hemoglobin was 8.9 and stable. Her normal trend is between 7 and 9 based
on prior lab work.
Will transfuse if needed if hemoglobin drops below 7
Continue to trend hemoglobin with CBC
Patient has decreased iron with decreased TIBC but has increased ferritin�possibly a consequence of ongoing inflammatory disease such as rheumatoid arthritis
-Stage III sacral decubitus ulcer:
-Bilateral leg wounds:
Sacral wound culture
Wound care consulted for ongoing wound care and management during the hospital admission
Positional changes to avoid ongoing pressure on the sacral region.
-Lower extremity edema:
It is unclear if the patient was taking her Lasix in the outpatient setting after being discharged. The medication was held on discharge.
Currently holding Lasix while patient hemodynamically unstable and on pressors
Last echo was 05/29 with an EF of 60 to 65%
-Altered mental status secondary to sepsis:
-Severe protein calorie malnutrition:
Patient has a history of severe major depressive disorder with anxiety and severe protein calorie malnutrition. Her altered mental status on presentation may be secondary to her hypovolemic and malnutrition status. Will give the patient fluids
and nutrients and reassess.
Dietitian consulted for malnutrition
-Chronic hyponatremia:
Patient presented to the emergency department with a sodium of 128
Patient has a long-term history of hyponatremia spanning across multiple hospital admissions. This hyponatremia may be secondary to her poor oral intake.
Her current sodium appears to be at or near her baseline�we will continue to trend and monitor with CMP
- Hypocalcemia:
Initial lab work is a BMP without albumin values. Her albumin based on historical lab work shows a value of around 1.6-1.7. Corrected calcium based on these scores suggest a corrected calcium score of 8.8 -we will wait for CMP prior to repleting
calcium after calculating updated corrected calcium score.
Albumin labs returned later on in the evening and corrected calcium score was 8.4
Calcium repleted -follow-up labs have a calcium of 6.7 with an albumin of 1.8. Corrected calcium score based on these results is 8.1 mg/dL -Will replete again
-Rheumatoid arthritis:
Continue home meds
-Chronic pain:
Patient in pain due to ongoing sacral ulcer that is nonhealing
Continue home oxycodone pain management
-Orthostatic hypotension:
Continue outpatient midodrine
-Depression: Stable
Continue Remeron
FULL CODE STATUS
Stress Ulcer Prophylaxis: Heparin subcu
DVT Prophylaxis: Pantoprazole IV
Imaging:
Not applicable
Procedures:
Not applicable
Anticipated Discharge: > 48 hours
Subjective/Interval History
-
Date of Service: July 28, 2025
Met with patient at the bedside. She was seen sleeping in bed and awoke for her morning encounter. She is uncomfortable in bed and complains of sacral pain and ongoing discomfort. She states that she 'should not have slept on that side last
night' in regards to her back pain. Patient asked for water and unfortunately had a difficult time holding onto the cup due to her contractures in her hands. Patient is oriented to self and place but appears to be possibly having visual
disturbances or hallucinations. During the encounter she stated that she thought that there was an JOSE in the room and that it had been present for quite some time. When she stated that there was an JOSE in the room she pointed towards the wall
where the TV is located. She spent time talking about her significant other who she was in a relationship with for around 30 years but did not . She stated that even though they did not she considered that relationship ramiro to marriage
but without the title.
Objective Data
-
Labs:
Laboratory Results
07/28/25 07/28/25
04:30 12:00
WBC 30.9 H
Hgb 7.8 L D Pending
Hct 24.4 L Pending
Plt Count 317 D
Sodium 129 L
Potassium 3.5
Chloride 102
Carbon Dioxide 18 L
BUN 37 H
Creatinine 1.7 H
Glucose 96
Calcium 6.5 L*
Total Bilirubin 0.9
AST 12 L
ALT < 10
Alkaline Phosphatase 79
Vital Signs:
Vital Signs
Temp Pulse Resp BP Pulse Ox
97.0 F 84 12 99/58 100
07/28/25 03:00 07/28/25 06:30 07/28/25 06:30 07/28/25 06:30 07/28/25 06:30
Review of Systems
-
History Source: Patient
Constitutional: Reports Fatigue
EENT: Reports Mouth Pain
Respiratory: Reports No Symptoms
Cardiac: Reports No Symptoms
Abdomen/GI: Reports No Symptoms
Breast: Reports No Symptoms
Genitourinary: Reports No Symptoms
Skin: Reports Sores (Sacral sore causing immense pain)
Neuro: Reports No Symptoms
Endocrine: Reports No Symptoms
Hematologic / Lymphatic: Reports No Symptoms
Allergy / Immunology: Reports No Symptoms
Psych: Reports Sad
Physical Exam
-
General: Appears Chronically Ill and Cachectic
HEENT: Normocephalic, Atraumatic and Moist Mucous Membranes
Respiratory: Clear to Auscultation and Non Labored Respirations; Negative Wheezes, Rales, Rhonchi or Crackles
Cardiac: Regular Rhythm and S1/S2; Negative Murmur, Rub, Calf Tenderness, Zoey's Sign or JVD
Breast: Deferred by me
GI: Soft, Nontender, Nondistended and Normal Bowel Sounds
Rectal: Deferred by Provider
Genito-urinary: Deferred by me
Musculoskeletal: No Clubbing, No Cyanosis, No Edema and Other (Contractures bilaterally of both hands impairing range of motion severely. Contractures of the feet bilaterally impairing the patient's ability to walk.)
Skin: Warm, Dry, Ulcers (Stage III sacral decubitus ulcer), Lesions (Bilateral lower extremity lesions. Lesions located over the tibial region on the anterior portion of the leg. Right greater then left) and Decubitus Ulcers (Stage III sacral
decubitus ulcer); Negative Jaundice
Neuro: Awake and Alert; Negative Oriented (Patient oriented to place and self)
Psych: Calm
[2025-07-28] MEDS: HEPARIN 5000 UNITS SC ×2 (08:22→19:45)
[2025-07-28] MEDS: PROTONIX IV 40 MG IV (08:23)
[2025-07-28] MEDS: NSS (PRESERVATIVE FREE) 10 ML IV (08:23)
--- NOTE | 2025-07-28 09:39 | CON.ID ---
Consultation
-
Date/Time Consultation Requested: July 27, 2025
Date/Time Consultation Performed: July 28, 2025
Requesting Provider: Dr. Mina Alonso
Performing Provider: Dr. Kitty Carpenter
Reason for Consultation: Hypotension, recent C. difficile
Chief Complaint / Past History
Chief Complaint
Change in mental status
History of Present Illness
59-year-old female with history of RA on leflunomide and biologic, bilateral lower extremity lymphedema with chronic bilateral lower extremity wound, recent 07/06 - 07/10 with watery diarrhea, C. difficile antigen positive, toxin negative, treated with
10-day course of oral vancomycin, who presents to the hospital 07/27 for decreased responsiveness. She states she felt unwell and lethargic. No fevers or chills. No cough. No headache. She complains of abdominal cramping with loose stools past
few days. No urinary urgency or dysuria or flank pain. She reports her leg wounds have been stable. Sacral wound stable. In the ED, her mental status improved with IV fluids. White count 28.5. Lactic acid 5.4. Blood pressure was in the 60s
despite fluid resuscitation and she was started on Levophed. She received 1 dose of oral vancomycin in the ER and cefepime. She is currently on Zosyn. Per nurse no diarrhea yet.
Past History
Additional Past Medical History:
RA on leflunomide and Orencia
HTN
Hypothyroidism
BLE lymphedema
Chronic BLE wounds s/p I+D 06/08/25
Chronic sacral decubitus
Chronic pain
Depression
Non-ambulatory
[facility] resident
Allergy History:
No Known Allergies Allergy (Verified 06/20/25 19:08)
Medications Reviewed: Yes
Current Antibiotics:
zosyn
Social History
Tobacco: Non-Smoker
Alcohol: None
Drug: None
Personal:
Living: Senior Living ([facility])
Family History
Family History: Not Pertinent
Review of Systems
Review of Systems
General: Change in Appetite; Negative Fever or Chills
HEENT: Negative Headache or Pharyngitis
Cardiovascular: Negative Chest Pain
Respiratory: Negative Dyspnea or Cough
Gasteroenterology: Nausea, Diarrhea and Other (abdominal cramping); Negative Vomiting
Genital / Urological: Negative Dysuria or Flank Pain
Endocrine: Weakness
Neurological: Negative Dizziness
All systems: All other systems were reviewed and were negative
Vital Signs
Temp Pulse Resp BP Pulse Ox
97.0 F 114 14 108/81 98
07/28/25 03:00 07/28/25 08:00 07/28/25 08:00 07/28/25 08:00 07/28/25 08:36
Physical Exam
Physical Exam
Constitutional: Acutely Ill, Chronically Ill and Cachetic
Head: Other (No frontal or maxillary sinus tenderness)
Eyes: No Conjunctival Hemorrhage and Sclera Anicteric
Cardiovascular: S1/S2 (tachycardic)
Pulmonary: Clear
Gastrointestinal: Soft, Tender (diffuse), Non Distended and Decreased Bowel Sounds
Genito-Urinary: Negative Trejo or CVA Tenderness
Extremities: Edema (BLE lymphedema)
Wound: Other (Wound photos in progress.)
Neurological: Awake
Lines: CVP (RIJ no erythema) and Other
Lab / Diagnostic Study Results
Total Counted 100 07/27/25 12:08
Abs Neuts (Manual) 25.0 10^3/uL (1.4-6.5) H 07/27/25 12:08
Segmented Neutrophils 64 % (42-75) 07/27/25 12:08
Band Neutrophils 24 % (0-3) H 07/27/25 12:08
Lymphocytes (Manual) 2 % (20-51) L 07/27/25 12:08
Lactic Acid Cancelled 07/28/25 02:30
Microbiology Results
Micro:
07/27/25 14:55 Wound Culture - Preliminary
Sacral Gram Stain - Preliminary
07/27/25 18:04 MRSA Screen - Pending
Nose
07/27/25 14:55 Blood Culture - Pending
Blood/Venous
07/27/25 12:08 Blood Culture - Pending
Blood/Venous
07/27/25 CXR: negative
Assessment / Plan
# Marked leukocytosis - trending up
# Hypotension requiring pressor
# SABINA
# Abd pain/cramping/loose stools
# Recent 10d po Vancomycin completed 07/15/25 for presumed C. diff diarrhea; 07/06/25 C. diff Ag+, toxin neg
# Chronic BLE lymphedema, non-healing wounds BLE
# Chronic sacral decubitus
# RA on Orencia, leflunomide
# Protein-calorie malnutrition
- CXR neg
- Follow blood cx's.
- CT a/p with po contrast.
- Stool for C. diff with next diarrhea/loose stool
- Cover empirically for suspected severe C. diff with Vancomycin 250mg po q6 and IV metronidazole
- replace empiric zosyn with cefepime
- Follow Bp/MAP, WBC
Conditions present on admission:
RA on leflunomide and Orencia
HTN
Hypothyroidism
BLE lymphedema
Chronic BLE wounds s/p I+D 06/08/25
Chronic sacral decubitus
Chronic pain
Depression
Non-ambulatory
SNF resident
Care Review
Plan reviewed with: Nurse (Yaniv) and Physician (Dr. Alonso)
--- NOTE | 2025-07-28 10:53 | CM ---
Initial Assessment Completed By Ashley
Patient lives at [facility]. Patient is here for sepsis, unknown source, and started on Antibiotics. Referral sent in [facility] for Facility to follow.
PLAN: Return to [facility] when ready.
[2025-07-28 11:00] LABS: Hematocrit 24.8 % (37.0-47.0); Hemoglobin 8.1 g/dL (12.0-16.0); Mean Corp Hgb Conc. 32.7 g/dL (33.0-37.0); Mean Corpuscular Volume 79.7 fL (81.0-99.0); Platelet Count 297 10^3/uL (130-400); Red Cell Dist. Width 19.4 % (11.5-14.5)
[2025-07-28 11:14] LABS: ALT (SGPT) < 10 U/L (0-35); AST (SGOT) 13 U/L (14-36); Albumin 1.8 g/dl (3.5-5.0); Alkaline Phosphatase 79 U/L (38-126); Blood Urea Nitrogen 36 mg/dl (7-17); Calcium 6.7 mg/dl (8.4-10.2); Carbon Dioxide 20 mmol/L (22-30); Chloride 101 mmol/L (98-107); Estimated Creatinine Clearance 31 ml/min; Glucose 80 mg/dl (70-99); Potassium 3.3 mmol/L (3.5-5.1); Sodium 128 mmol/L (135-145); Total Protein 4.0 g/dl (6.3-8.2); eGFR 37.15
--- NOTE | 2025-07-28 11:27 | PTCARENOTE ---
Pt noted to be grossly incontinent of liquid stool. Stool samples sent. Shaista care completed. D/t sacral wound, rectal trumpet inserted to divert stool from wound.
[2025-07-28] MEDS: FIRVANQ 250 MG PO (11:31)
[2025-07-28] MEDS: MAXIPIME 1000 MG IV ×2 (11:31→23:12)
[2025-07-28] MEDS: STERILE WATER FOR INJECTION 10 ML IV ×2 (11:31→23:12)
[2025-07-28] MEDS: ZOFRAN 4 MG IV (11:43)
--- NOTE | 2025-07-28 11:45 | PTCARENOTE ---
Pt for Abd CT. Pt c/o nausea and dry heaving. Refusing to drink oral contrast for CT. Pt also with soft BP on 6mcg/hr of levo. D/w narendra Butt to hold CT scan at this time. Pt made NPO, updated on plan of care.
--- NOTE | 2025-07-28 12:27 | PTCARENOTE ---
Critical lab result- Cdiff positive. Dr. Alonso and Dr. Boland notified. Pt continues on enhanced precautions.
[2025-07-28] MEDS: FLAGYL 500 MG 100 IV ×2 (13:19→22:12)
[2025-07-28] MEDS: DILAUDID 0.5 MG IV (13:19)
--- NOTE | 2025-07-28 16:26 | WOUNDNOTE ---
SACRAL Coccyx/BUTTOCK
--- NOTE | 2025-07-28 16:37 | WOUNDNOTE ---
[facility] RN NOTE: Reviewed chart and met with patient. Patient assessed with Yary CLARK. Patient known from prior admission, now here with C-diff and sepsis. Patient admitted with stage 3 PI to lower sacral/buttock area. Patient has been frequently
incontinent of stool and EDUARDO Pringle placed rectal tube today. See worklist for measurements and description of sacral wound. Wounds were cleaned and Calazime, 2x2 and transparent dressing applied. Sacral foam also added for additional protection.
Calazime applied to surrounding skin with areas of MASD related to frequent incontinence. Patient also has romero catheter. Patient declined wound care to due to pain and fatigue. EDUARDO Pringle dressed wounds appropriately yesterday with adapteliza, NESTOR
and kerlix. This was the same wound care patient was discharged with on on 07/10. Dressings were clean and intact. Will add orders and continue to follow with patient. Will confirm orders with hospitalist. Patient has several comorbidities including
low BMI, C-diff, pain and poor mobility. Wounds may worsen and new wounds may develop even with optimal care. Heels off-loaded with pillows under calves and patient positioned on her side as tolerated. Will continue to follow during in-patient stay.
[2025-07-28] MEDS: KCL 160 MEQ IV (16:54)
[2025-07-28] MEDS: FIRVANQ PO ×2 (18:10→18:16)
--- NOTE | 2025-07-28 18:52 | PTCARENOTE ---
Pt gagging and dry heaving when attempting to administer PO Vanco. Pt refusing medication. Dr Alonso notified.
--- NOTE | 2025-07-28 19:08 | W.PN.UPDATE ---
Update Note
Progress Note Update
Called to the bedside due to concerns of the patient not taking her oral vancomycin. When the medication is in her hand she starts to gag and pushes it away. Nursing staff tried to convince her to take her oral medication and were unsuccessful. I
went upstairs to speak with the patient and explained the need for the oral medication and its effectiveness in treating her current C. difficile infection. She states that the liquid form of the medication is making her nauseous and she would
prefer a pill form so she would not have to smell it. Unfortunately there are no pill forms available at this hospital. I have recommended that she try her best to take the oral medication as it is imperative that she continue her antibiotics.
She continues to be apprehensive and I am not certain if she will take her vancomycin this evening. I have educated the patient on the need for her vancomycin and have let her know that I am worried that if she is unable to take her oral vancomycin
we may have to try a vancomycin enema in order to effectively treat the bacterial infection she is suffering from. I reached out to the [facility]U pharmacy and they suggested discontinuing her ferrous sulfate as it may be a causative factor to her nausea.
I have discontinued the medication for the time being in hopes that it will reduce her nausea and allow her to take her oral vancomycin.
[2025-07-28] MEDS: REMERON PO (21:11)
[2025-07-28] MEDS: NSS IV (21:11)
[2025-07-28] MEDS: FIRVANQ 500 MG PO (23:14)
[2025-07-29] VITALS (46 sets, daily range): BP systolic 74–112; BP diastolic 50–77; BMI 17.6
--- NOTE | 2025-07-29 00:18 | PTCARENOTE ---
Pt gagging and dry heaving when attempted to administer firvanq. Pt tolerated about half of 00:00 dose before unable to continue. Refused HS dose of midodrine. Maintained on levo gtt, see worklist for titrations. Maintained on NSS. Abx administered
per JAN. Trejo catheter remains intact. RT remains intact. Care ongoing.
[2025-07-29 05:07] LABS: ALT (SGPT) < 10 U/L (0-35); AST (SGOT) 12 U/L (14-36); Albumin 1.5 g/dl (3.5-5.0); Alkaline Phosphatase 71 U/L (38-126); Blood Urea Nitrogen 31 mg/dl (7-17); Calcium 6.4 mg/dl (8.4-10.2); Carbon Dioxide 17 mmol/L (22-30); Chloride 108 mmol/L (98-107); Estimated Creatinine Clearance 31 ml/min; Glucose 73 mg/dl (70-99); Potassium 3.4 mmol/L (3.5-5.1); Sodium 131 mmol/L (135-145); Total Protein 3.5 g/dl (6.3-8.2); eGFR 40.14
[2025-07-29 05:10] LABS: Hematocrit 22.0 % (37.0-47.0); Hemoglobin 7.3 g/dL (12.0-16.0); Mean Corp Hgb Conc. 33.2 g/dL (33.0-37.0); Mean Corpuscular Volume 80.0 fL (81.0-99.0); Platelet Count 206 10^3/uL (130-400); Red Cell Dist. Width 19.3 % (11.5-14.5)
--- NOTE | 2025-07-29 05:18 | W.PN.UPDATE ---
Update Note
Progress Note Update
calcium and potassium repleted as needed
[2025-07-29] MEDS: FLAGYL 500 MG 100 IV ×3 (05:41→22:17)
[2025-07-29] MEDS: LEVOPHED 250 IV ×2 (05:41→20:23)
[2025-07-29] MEDS: CALCIUM GLUCONATE 100 IV (05:49)
[2025-07-29] MEDS: FIRVANQ PO (05:56)
[2025-07-29] MEDS: NSS IV (06:24)
[2025-07-29] MEDS: KCL 160 MEQ IV (08:04)
[2025-07-29] MEDS: NSS 1000 IV ×2 (08:07→15:08)
[2025-07-29] MEDS: NSS (PRESERVATIVE FREE) 10 ML IV (08:24)
[2025-07-29] MEDS: HEPARIN 5000 UNITS SC ×2 (08:24→20:23)
[2025-07-29] MEDS: PROTONIX IV 40 MG IV (08:24)
--- NOTE | 2025-07-29 08:53 | PN.CDI ---
CDI
- -
CDI:
Physician Documentation Request
Admit Date: 07/27/25 15:15
Dear Doctor,
Please review the following and provide your response in the progress notes.
Clinical Indicators:
Pt admitted with septic shock, altered mental status, and SABINA.
07/28 Progress Note: '-Altered mental status secondary to sepsis...- Patient is oriented to self and place but appears to be possibly having visual disturbances or hallucinations. During the encounter she stated that she thought that there was an
JOSE in the room and that it had been present for quite some time. When she stated that there was an JOSE in the room she pointed towards the wall where the TV is located.'
Based on the above, could you clarify in the Progress Notes and Discharge Summary which, if any of the following, is the most likely etiology of the confusion/altered mental status.
( metabolic, toxic, septic) Encephalopathy - indicate type, such as metabolic, toxic, septic, due to a specific condition such as UTI, CVA, hyponatremia etc.
Acute confusional state only
Other
Use of terms such as suspected, likely, concern for, or probable (associated with a specific diagnosis that is being evaluated, monitored, or treated as if it exists) are acceptable and can be coded in the inpatient setting, when documented at the
time of discharge.
Thank you,
Marta Raymond RN, BSN
CDI Specialist
[facility]
Please use your independent medical judgment in providing your response.
[2025-07-29] MEDS: ROXICODONE 10 MG PO ×2 (09:53→23:51)
[2025-07-29] MEDS: OMNIPAQUE 50 ML PO (09:53)
--- NOTE | 2025-07-29 09:53 | W.PN.ID1 ---
Date of Service
Date of Service: July 29, 2025
Today's Communication
See below.
Assessment / Plan
# Severe C. diff diarrhea
# Marked leukocytosis - trending down
# s/p Hypotension requiring pressor
# SABINA - improving
# Recent 10d po Vancomycin completed 07/15/25 for presumed C. diff diarrhea; 07/06/25 C. diff Ag+, toxin neg
- CXR neg
- Blood cx's neg to date.
- Stool + C. diff
- Continue po Vanco 500mg q6h and IV metronidazole 500mg q8 (d2)
If patient unable or refuses po meds, replace po Vanco with Vanco enema 500mg q6.
- If pt unable to take po contrast for CT a/p, check AXR instead.
- DC cefepime. Avoid unnecessary systemic abx.
- Follow diarrhea output and frequency.
- Trend WBC.
# Chronic BLE lymphedema, non-healing wounds BLE
# Chronic sacral decubitus - wounds do not appear infected
# MRSA colonized
- Wounds do not look infected.
- No need for abx.
# RA on Orencia, leflunomide
# Protein-calorie malnutrition
Conditions present on admission:
RA on leflunomide and Orencia
HTN
Hypothyroidism
BLE lymphedema
Chronic BLE wounds s/p I+D 06/08/25
Chronic sacral decubitus
Chronic pain
Depression
Non-ambulatory
SNF resident
Chief Complaint
-: C-diff
Subjective / Review of Systems
Per nurse, patient refused po meds last night. Pt denies nausea. She states po meds made her 'spit them out'
Complains of pain all over.
Vital Signs / Physical Exam
Vital Signs
Vital Signs
Temp Pulse Resp BP Pulse Ox
98.4 F 104 11 96/69 97
07/29/25 07:15 07/29/25 08:45 07/29/25 08:45 07/29/25 08:45 07/29/25 02:35
Physical Exam
Constitutional: Chronically Ill and Cachetic
Cardiovascular: S1/S2 (tachycardic)
Pulmonary: Clear
Gastrointestinal: Soft, Tender (diffuse), Non Distended, Decreased Bowel Sounds and Other (FMS:; liquid dark stool)
Genito-Urinary: Trejo and Clear Urine
Extremities: Edema (BLE lymphedema)
Wound: Other (Reviewed wound photos: sacrum pressure ulcer wounds with macerated soft tissue, no pus/exudate, no surrounding erythema)
Neurological: Awake
Lines: CVP (RIJ no erythema)
Objective Data
Lab Data
Lab Results
07/29/25 04:18
07/29/25 04:18
Estimated Creat Clear 31 ml/min 07/29/25 04:18
Lactic Acid Cancelled 07/28/25 02:30
Total Bilirubin 0.5 mg/dl (0.2-1.3) 07/29/25 04:18
AST 12 U/L (14-36) L 07/29/25 04:18
ALT < 10 U/L (0-35) 07/29/25 04:18
Alkaline Phosphatase 71 U/L (38-126) 07/29/25 04:18
Most recent labs reviewed.
Micro Results:
07/27/25 14:55 Wound Culture - Final
Sacral Gram negative bacilli
Enterococcus species
Staphylococcus aureus
Gram Stain - Final
07/27/25 18:04 MRSA Screen - Final
Nose Staph aureus MRSA
07/27/25 14:55 Blood Culture - Preliminary
Blood/Venous No Growth in 24 hours- Final report to follow
07/27/25 12:08 Blood Culture - Preliminary
Blood/Venous No Growth in 24 hours- Final report to follow
07/28/25 11:02 C. difficile GDH Antigen & Toxins - Final
Feces/Stool Toxigenic C.difficile Positive
07/28/25 11:02 Salmonella/Shigella Culture - Pending
Feces/Stool Campylobacter Culture - Pending
Shiga Toxin Test - Pending
07/27/25 CXR: negative
Care Review
Plan reviewed with: Physician (Dr. Meneses)
--- NOTE | 2025-07-29 10:50 | PTOTSP ---
Speech Language Pathology
Pt seen for clinical bedside swallow evaluation. Pt reported constant globus sensation in throat since IJ placed, and she feels this is making it hard to swallow. She also stated 'it might be mental.'
P.O. trials of thin liquids provided. Only able to provide oral contrast for CT, unable to trial solids. When actively questioning pt re: dysphagia, increased audibility of swallow noted with whole body moving forward for effort of initiating
swallow. When less focus on swallowing, this was not noted with sips of liquids. No overt signs of aspiration. Pt denied any odynophagia.
Inconsistencies noted, do not have a high suspicion for a true dysphagia, but unable to fully rule out at this time.
Recommend:
(1) Ok for thin liquids (will trial solids once allowed by MD)
(2) Aspiration precautions: sit upright, slow rate
(3) Meds as tolerated
(4) CRM CAMPAIGN MANAGER to continue to follow
[2025-07-29] MEDS: MAGIC OR MIRACLE MOUTHWASH 10 ML PO (10:52)
--- NOTE | 2025-07-29 11:11 | CM ---
Following up on Patient. Medical Progress notes states that patient has severe C-diff and sepsis so requiring antibiotics due to increased WBC. Patient refused antibiotics last night. Case Management following.
PLAN: Return to [facility] when ready.
--- NOTE | 2025-07-29 11:14 | WOUNDNOTE ---
WO RN NOTE: Patient visited today for wound care to legs. Right and left legs with healing venous ulcers. Patient is s/p debridement of bilateral legs from previous admission. Patient given PO pain medication prior to wound care. No odor was noted.
Patient finds wound care very painful and explained that moving her legs is 'excruciating' due to the RA. Wounds area also clean with minimal drainage and dressings placed 2 days ago were easily removed. For these reasons, the order of every other
day wound care to LE can remain. Patient has several comorbidities including protein calorie malnutrition and poor mobility due to RA and pain. Wounds may worsen and new wounds may develop even with optimal care. EDUARDO Skelton given update. Orders
confirmed and updated in care plan and discharge instructions. Will continue to follow during in-patient stay.
--- NOTE | 2025-07-29 11:15 | WOUNDNOTE ---
RIGHT LATERAL/POSTERIOR LOWER LEG
--- NOTE | 2025-07-29 11:16 | WOUNDNOTE ---
RIGHT ANTERIOR LOWER LEG
--- NOTE | 2025-07-29 11:16 | WOUNDNOTE ---
RIGHT MEDIAL LOWER LEG
--- NOTE | 2025-07-29 11:17 | WOUNDNOTE ---
LEFT MEDIAL LOWER LEG
--- NOTE | 2025-07-29 11:17 | WOUNDNOTE ---
LEFT ANTERIOR LOWER LEG
[2025-07-29 11:23] LABS: Magnesium 1.9 mg/dl (1.6-2.3)
[2025-07-29] MEDS: FIRVANQ 500 MG PO ×3 (11:39→23:52)
--- NOTE | 2025-07-29 13:52 | PTCARENOTE ---
Patient has been able to take oral medications today with encouragement and verbal cues. CT scan completed, Levophed weaned off. Wound care completed. Pain managed with Oxycodone 10mg as per doctors orders. Liquid stool output 800ml and urine output
500 via romero. IVF continue, discussed low blood pressures with Dr. Boland, MAP has been above goal without Levophed.
--- NOTE | 2025-07-29 14:38 | W.PN.HOSP.TC ---
Addendum entered and electronically signed by Renan Boland MD 07/29/25 20:39:
Attending Addendum-I saw and evaluated the patient. I reviewed the resident�s note and agree with findings and plan as documented in the resident�s note. Sub: complains if sacral pain. Abdominal pain improved. Continues to have profuse diarrhea.
Denies NV fevers chills Denies urinary sxs. Full 12 point ROS reviewed and negative except as documented Exam- vitals reviewed in EMR GEN-NAD Heart RRR, lungs fine crackles at bases b/l abd soft, mild epigastric area, no rebound guarding. LE wrapped
with +1 pitting edema b/l. LE wounds present B/L LE. Neuro AAO x 3, RIJ catheter in place, rectal trumpet in place
Plan:
# Septic Shock from Severe C diff colitis
- cont IVF
- cont Levophed to maintain MAP > 65
- DC cefepime
- cont high dose PO vanco and IV flagyl
- cont NPO for now
- appreciate ID input
- blood cx NGTD
- sacral wound cx- polymicrobial CTM avoid abx if able
- lactate-trended down
- cont care in IMU
- central access placed-right IJ
- check CT A/P with PO contrast - patient now amenable
- give albumin x 1 as patient likely third spacing
# TME
- resolved
# Anemia of chronic disease
- likely in part dilutional
- CTM
# SABINA
- prerenal
- cont IVF
- cont romero to monitor
- reasonable urine output roughly @ 0.5ml/kg/hr
- repeat BMP in am
# Hypoalbuminemia- albumin x 1 patient third spacing
# Dysphagia
- speech eval
# Hyperchloremic Metabolic Acidosis
- CTM
- change fluid to LR
# Hyponatremia
- improving
- chronic but appears hypovolemic/dehydrated
- cont IVF repeat BMP in am
# B/L LE wounds, stage 3 sacral ulcer
- c/s wound care
- wound cx - polymicrobial DC cefepime avoid unnecessary abx
# Hypocalcemia- replete, correct for hypoalbuminemia
# Hypokalemia- replete, check mag
# LE edema
- unclear if taking lasix as OP as was held on last DC
- hold lasix, last echo 05/2025- WNL ef 60-65%
# RA
-hold meds due to immunosuppression
-cont pain control
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
- NPO for now
- advance to clears in am
# Orthostatic Hypotension
- cont midodrine
# Depression - cont remeron
DVT-p heparin
code full
Dispo from [facility]
CC Note
Due to a high probability of clinically significant, life-threatening deterioration, the patient required a high level of preparedness to intervene emergently. I personally spent this critical care time directly and personally managing the patient.
This critical care time included obtaining a history; examining the patient; ordering and review of studies and STAT labs; arranging urgent treatment with development of a management plan; evaluation of patient's response to treatment; reassessment;
and, discussions with other providers.
This critical care time was performed to assess and manage the high probability of imminent, life-threatening deterioration that could result in multi-organ failure. It was exclusive of separately billable procedures and treating other patients and
teaching time.
Total critical care time: Approximately 32 minutes
Original Note:
Today's Communication/Plan
-
K supp'd
Albumin 12.5g in 50mls given
continue Abx
Assessment / Plan
Assessment / Plan
CT A/P with PO Contrast:
Minimal bilateral posterior pleural effusions.
Moderate to severe diffuse colitis with nodularity, in patient with reported history of C. difficile colitis. No significant colonic dilation with no findings to suggest toxic megacolon. No evidence of free intraperitoneal air.
Mild thickening of the wall the distal ileum suggesting mild enteritis. No evidence for bowel obstruction.
Anasarca, slightly asymmetric distribution within the subcutaneous soft tissues.
Possible 1.1 cm low-density lesion in the posterior right lobe liver, versus unopacified vessel. When clinically feasible, consider further evaluation with abdominal ultrasound or dedicated CT examination of the abdomen/liver without and with
contrast if there are no contraindications.
Several small central calcification within the right kidney, likely representing nephroliths. No evidence for ureteral calculus.
Severe degenerative change of both hip joints including bilateral protrusio acetabuli. Findings could be from inflammatory arthropathy or neuropathic arthropathy.
Assessment/Plan:
#Septic shock secondary to C. difficile infection:
#Diarrhea, resolving
At presentation to the emergency department the patient's blood pressure was 70/52, pulse was elevated at 145, respiratory rate was 27, temperature was 97.4, white blood cell count was 28.5 with a neutrophil predominance - indicating sepsis. Stool
culture conducted on 07/06/2025 was positive for C. difficile but there was no toxin detected. Patient has also had a recent history of loose stools which further suggests C. difficile exacerbation. Patient finished vancomycin on 15 July.
Midline placed due to difficulty of IV access. 2 IV lines were lost. Central line successfully placed late in the evening of 07/27.
- Stool culture: C. difficile antigens and toxins A and B are positive indicating positive C. difficile infection and the likely source of septic shock.
- Wound culture: Enterococcus and Staph A
- Blood cultures NGTD
- Levophed 4mcg to maintain MAP greater than 65 - VENUS
- ID following:
-- 250 mg of vancomycin, 500 mg metronidazole, and cefepime 1000 mg - medication adjustment made on 07/28/2025. These medications will need to be renally dosed.
- Follow-up CT abdomen and pelvis with oral contrast ordered.
#Dysphagia
She is reporting pain with swallowing on 07/29. Nursing noting bright red mouth and sensitivity.
- Speech consulted; following
- Magic mouthwash
#Prerenal acute kidney injury secondary to hypovolemia:
Patient's creatinine is 1.4 on admission from a baseline of 0.5 indicative of acute kidney injury. Patient on physical exam has poor skin turgor and appears grossly malnutrition. Has poor oral intake. Likely cause of SABINA is hypovolemia.
- mIVF 150mls/hr
- Follow CMP
- Renally dose medications
#Anemia of chronic disease:
Patient's hemoglobin is at 10.8 on admission which continues to trend with her chronic anemia state seen on prior hospital visits. During her last discharge on 07/10/2025 her hemoglobin was 8.9 and stable. Her normal trend is between 7 and 9 based
on prior lab work. Will transfuse if needed if hemoglobin drops below 7. Patient has decreased iron with decreased TIBC but has increased ferritin�possibly a consequence of ongoing inflammatory disease such as rheumatoid arthritis.
- Continue to trend hemoglobin with CBC
#Stage III sacral decubitus ulcer:
#Bilateral leg wounds:
- Sacral wound culture growing Enterococcus and Staph A
- Wound care consulted for ongoing wound care and management during the hospital admission
- Positional changes to avoid ongoing pressure on the sacral region
- ID following: s/p Cefepime
#Lower extremity edema:
It is unclear if the patient was taking her Lasix in the outpatient setting after being discharged. The medication was held on discharge. Currently holding Lasix while patient hemodynamically unstable and on pressors. Last echo was 05/29 with an EF
of 60 to 65%
#Altered mental status secondary to sepsis vs baseline
#Severe protein calorie malnutrition:
Patient has a history of severe major depressive disorder with anxiety and severe protein calorie malnutrition. Her altered mental status on presentation may be secondary to her hypovolemic and malnutrition status. Will give the patient fluids and
nutrients and reassess.
- Dietitian consulted for malnutrition
#Chronic hyponatremia, improving
Patient presented to the emergency department with a sodium of 128. Patient has a long-term history of hyponatremia spanning across multiple hospital admissions. This hyponatremia may be secondary to her poor oral intake.
- CTM
#Hypocalcemia
#Hypoalbuminemia
Initial lab work is a BMP without albumin values. Her albumin based on historical lab work shows a value of around 1.6-1.7. Corrected calcium based on these scores suggest a corrected calcium score of 8.8 -we will wait for CMP prior to repleting
calcium after calculating updated corrected calcium score. Albumin labs returned later on in the evening and corrected calcium score was 8.4.
- CTM and replete prn
- 12.5 g Albumin in 50 ml 07/29
#Rheumatoid arthritis:
- Continue home meds
#Chronic pain:
- Patient in pain due to ongoing sacral ulcer that is nonhealing
- Continue home oxycodone pain management
#Orthostatic hypotension:
- Continue outpatient midodrine
#Depression:
- Continue Remeron
FULL CODE STATUS
Stress Ulcer Prophylaxis: Pantoprazole IV
DVT Prophylaxis: Heparin subcu
Anticipated Discharge: 24 - 48 hours
Subjective/Interval History
-
Date of Service: July 29, 2025
- This morning, she is complaining of pain in her leg and sacral wound
- Per nursing, patient endorsed trouble swallowing and had painful/bright red mouth--speech study and Magic mouthwash ordered
Objective Data
-
Labs:
Laboratory Results
07/29/25
04:18
WBC 19.4 H
Hgb 7.3 L
Hct 22.0 L
Plt Count 206 D
Sodium 131 L
Potassium 3.4 L
Chloride 108 H
Carbon Dioxide 17 L
BUN 31 H
Creatinine 1.5 H
Glucose 73
Calcium 6.4 L*
Total Bilirubin 0.5
AST 12 L
ALT < 10
Alkaline Phosphatase 71
Vital Signs:
Vital Signs
Temp Pulse Resp BP Pulse Ox
98.7 F 101 12 100/69 100
07/29/25 11:15 07/29/25 13:40 07/29/25 13:40 07/29/25 13:40 07/29/25 13:40
I&O
07/28/25 07/29/25 07/30/25
06:59 06:59 06:59
Intake Total 1959 940 / 940
Output Total 50 / 50 1325 / 1325
Balance 1909 / 1909 -385 / -385
Review of Systems
-
History Source: Patient
All other systems: Reviewed and negative
Constitutional: Reports Weight Loss, No Appetite and Weakness
Abdomen/GI: Reports Abdominal Pain
Musculoskeletal: Reports Joint Pain, Joint Swelling, Muscle Pain and Muscle Stiffness
Physical Exam
-
General: Appears in Distress, Pain, Appears Chronically Ill and Cachectic
HEENT: Normocephalic, Atraumatic and Moist Mucous Membranes
Respiratory: Clear to Auscultation
Cardiac: Regular Rhythm and S1/S2
GI: Soft, Nondistended and Tender
Musculoskeletal: Clubbing and Other (severe UE & LE contractures)
Skin: Warm, Dry, Lesions (chronie, BLLE, wrapped) and Decubitus Ulcers (sacral)
[2025-07-29] MEDS: FLEXBUMIN 50 IV (15:03)
--- NOTE | 2025-07-29 20:00 | PTCARENOTE ---
Assumed care of Pt from dayshift RN after change of shift report. Pt is disoriented to time. sleeping, opens eyes to verbal stimuli. following commands. rectal trumpet draining liquid light brown/ green stool. Trejo draining yellow urine. HS oral
care provided. Assessment as documented. call light in reach.
--- NOTE | 2025-07-29 20:25 | PTCARENOTE ---
Addendum entered by Sara Ren RN 07/29/25 22:04:
levo remains at 1 mcg/min. BP 94/56(68).
Original Note:
BP 74/52(59). map not at goal of >65. Levophed restarted at 1mcg/min per order, see MAR. HR 85, satting 97% on RA. RR 14. Pt asymptomatic. restart of levo communicated to Chana SHELDON.
[2025-07-29] MEDS: LR 1000 IV (22:17)
[2025-07-29] MEDS: REMERON PO (22:17)
[2025-07-29] MEDS: REMERON 15 MG PO (22:35)
[2025-07-30] VITALS (29 sets, daily range): BP systolic 83–125; BP diastolic 54–84
[2025-07-30 05:41] LABS: ALT (SGPT) < 10 U/L (0-35); AST (SGOT) 10 U/L (14-36); Albumin 1.3 g/dl (3.5-5.0); Alkaline Phosphatase 56 U/L (38-126); Blood Urea Nitrogen 19 mg/dl (7-17); Calcium 6.7 mg/dl (8.4-10.2); Carbon Dioxide 18 mmol/L (22-30); Chloride 113 mmol/L (98-107); Estimated Creatinine Clearance 46 ml/min; Glucose 77 mg/dl (70-99); Potassium 3.1 mmol/L (3.5-5.1); Sodium 132 mmol/L (135-145); Total Protein 3.3 g/dl (6.3-8.2); eGFR > 60.00
[2025-07-30 05:52] LABS: Hematocrit 19.2 % (37.0-47.0); Hemoglobin 6.4 g/dL (12.0-16.0); Mean Corp Hgb Conc. 33.3 g/dL (33.0-37.0); Mean Corpuscular Volume 79.3 fL (81.0-99.0); Platelet Count 156 10^3/uL (130-400); Red Cell Dist. Width 18.9 % (11.5-14.5)
--- NOTE | 2025-07-30 05:55 | W.PN.UPDATE ---
Update Note
Progress Note Update
hgb this am 6.4, repeated to confirm 6.8. No signs of bleeding. type & screen ordered, blood consent signed and one unit of blood ordered.
K and calcium repleted as needed
[2025-07-30] MEDS: LR 1000 IV ×3 (05:56→21:14)
[2025-07-30] MEDS: FLAGYL 500 MG 100 IV ×3 (05:56→21:00)
[2025-07-30] MEDS: FIRVANQ 500 MG PO (05:56)
[2025-07-30] MEDS: CALCIUM GLUCONATE 100 IV (06:09)
[2025-07-30 06:31] LABS: Hematocrit 20.1 % (37.0-47.0); Hemoglobin 6.8 g/dL (12.0-16.0)
[2025-07-30] MEDS: KCL 270 MEQ IV (06:42)
--- NOTE | 2025-07-30 07:15 | PTCARENOTE ---
am hgb 6.4, repeat 6.8 no blood in urine or stool. nadja SHELDON made aware. T&S sent. SHUTTLE CAR OPERATOR to bedside for consent.
[2025-07-30] MEDS: NSS (PRESERVATIVE FREE) 10 ML IV (08:19)
[2025-07-30] MEDS: PROTONIX IV 40 MG IV (08:19)
[2025-07-30] MEDS: HEPARIN 5000 UNITS SC ×2 (08:20→19:16)
--- NOTE | 2025-07-30 09:21 | W.PN.ID1 ---
Date of Service
Date of Service: July 30, 2025
Today's Communication
Continue po Vancomycin and IV metronidazole.
Assessment / Plan
# Severe C. diff colitis
# Marked leukocytosis - resolved
# s/p Hypotension requiring pressor
# SABINA - resolved
# Recent 10d po Vancomycin completed 07/15/25 for presumed C. diff diarrhea; 07/06/25 C. diff Ag+, toxin neg
- CXR neg
- Blood cx's neg to date.
- Stool + C. diff
- CT a/p wo contrast: mod to severe diffuse colitis, no toxic megacolon
- Decrease po Vanco dose to 250 mg q6h and continue IV metronidazole 500mg q8 (d3)
- Avoid unnecessary systemic abx.
- Follow diarrhea output and frequency.
# Chronic BLE lymphedema, non-healing wounds BLE
# Chronic sacral decubitus - wounds do not appear infected
# MRSA colonized
- Wounds do not look infected.
- No need for abx.
# RA on Orencia, leflunomide
# Protein-calorie malnutrition
Conditions present on admission:
RA on leflunomide and Orencia
HTN
Hypothyroidism
BLE lymphedema
Chronic BLE wounds s/p I+D 06/08/25
Chronic sacral decubitus
Chronic pain
Depression
Non-ambulatory
SNF resident
Chief Complaint
-: C-diff
Subjective / Review of Systems
Feels weak.
Vital Signs / Physical Exam
Vital Signs
Vital Signs
Temp Pulse Resp BP Pulse Ox
98.7 F 97 16 104/66 99
07/30/25 09:06 07/30/25 09:06 07/30/25 09:06 07/30/25 09:06 07/30/25 07:00
Physical Exam
Constitutional: Chronically Ill and Cachetic
Cardiovascular: S1/S2 (tachycardic)
Pulmonary: Clear
Gastrointestinal: Soft, Tender (decreased), Non Distended, Decreased Bowel Sounds and Other (FMS: liquid dark stool)
Genito-Urinary: Trejo and Clear Urine
Extremities: Edema (BLE lymphedema)
Wound: Other (Reviewed wound photos: sacrum pressure ulcer wounds with macerated soft tissue, no pus/exudate, no surrounding erythema)
Neurological: AO x 3
Lines: CVP (RIJ no erythema)
Objective Data
Lab Data
Lab Results
07/30/25 06:05
07/30/25 04:58
Estimated Creat Clear 46 ml/min 07/30/25 04:58
Lactic Acid Cancelled 07/28/25 02:30
Total Bilirubin 0.5 mg/dl (0.2-1.3) 07/30/25 04:58
AST 10 U/L (14-36) L 07/30/25 04:58
ALT < 10 U/L (0-35) 07/30/25 04:58
Alkaline Phosphatase 56 U/L (38-126) 07/30/25 04:58
Most recent labs reviewed.
Micro Results:
07/28/25 11:02 Salmonella/Shigella Culture - Preliminary
Feces/Stool Culture in Progress
Campylobacter Culture - Final
No Campylobacter species isolated.
Shiga Toxin Test - Final
No E. coli Shiga Toxin 1 or 2 detected.
07/27/25 14:55 Blood Culture - Preliminary
Blood/Venous No Growth in 48 hours- Final report to follow
07/27/25 12:08 Blood Culture - Preliminary
Blood/Venous No Growth in 48 hours- Final report to follow
07/27/25 14:55 Wound Culture - Final
Sacral Gram negative bacilli
Enterococcus species
Staphylococcus aureus
Gram Stain - Final
07/27/25 18:04 MRSA Screen - Final
Nose Staph aureus MRSA
07/28/25 11:02 C. difficile GDH Antigen & Toxins - Final
Feces/Stool Toxigenic C.difficile Positive
07/27/25 CXR: negative
--- NOTE | 2025-07-30 09:33 | W.PN.HOSP.TC ---
Addendum entered and electronically signed by Renan Boland MD 07/30/25 19:44:
Attending Addendum-I saw and evaluated the patient. I reviewed the resident�s note and agree with findings and plan as documented in the resident�s note. Sub: transfused 1 unit PRBC overnight. feels greatly improved. pain limited to sacral area.
Diarrhea x 2. Denies NV fevers chills. Full 12 point ROS reviewed and negative except as documented Exam- vitals reviewed in EMR GEN-NAD Heart RRR, lungs fine crackles at bases b/l abd soft, mild epigastric area, no rebound guarding. LE wrapped
with +1 pitting edema b/l. LE wounds present B/L LE. Neuro AAO x 3, RIJ catheter in place, rectal trumpet in place romero in place
Plan:
# Septic Shock from Severe C diff colitis
- resolving
- cont IVF
- wean Levophed to maintain MAP > 65 down to 1
- cont PO vanco and IV flagyl day#3
- advanced to clears and joe well. advance to low res this evening
- appreciate ID input
- blood cx NGTD
- sacral wound cx- polymicrobial CTM hold on abx cont wound care
- cont care in IMU downgrade in am
- central access-right IJ
- CT A/P with PO contrast 07/29-Moderate to severe diffuse colitis with nodularity. No significant colonic dilation with no findings to suggest toxic megacolon. No evidence of free intraperitoneal air. Mild thickening of the wall the distal ileum
suggesting mild enteritis. No evidence for bowel obstruction. Anasarca, slightly asymmetric distribution within the subcutaneous soft tissues.
- wbc now wnl
# TME
- resolved
# Anemia of chronic disease
- likely in part dilutional
-no signs of active beed
-transfuse 1 unit 07/30
-check iron studies, repeat CBC in am
# SABINA
- resolved
- cont romero to monitor strict I and O and to avoid contamination of sacral wounds
- repeat BMP in am
# Dysphagia
- speech eval-regular/thins
# Hyperchloremic Metabolic Acidosis
- CTM
- continue LR
# Hyponatremia
- improving
- chronic
- cont IVF repeat BMP in am
# B/L LE wounds, stage 3 sacral ulcer
- c/s wound care
- wound cx - polymicrobial avoid unnecessary abx
# Hypocalcemia- replete, correct for hypoalbuminemia
# Hypokalemia- replete
# LE edema
- unclear if taking lasix as OP as was held on last DC
- hold lasix, last echo 05/2025- WNL ef 60-65%
# RA
-hold meds due to immunosuppression
-cont pain control
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
- advance diet
-nutrition c/s
# Orthostatic Hypotension
- cont midodrine
# Depression - cont remeron
DVT-p heparin
code full
Dispo from [facility]
Time spent coordinating care, review of plan of care with resident, personally reviewed records in EMR, med rec, consults, notes, labs, radiology, d/w nursing � 51 mins
Original Note:
Today's Communication/Plan
-
Follow-up Hbg after 1u pRBC this am
Continue Antibiotics
CLD, ADAT for dinner
Oxycodone scheduled (from prn)
Assessment / Plan
Assessment / Plan
CT A/P with PO Contrast:
Minimal bilateral posterior pleural effusions.
Moderate to severe diffuse colitis with nodularity, in patient with reported history of C. difficile colitis. No significant colonic dilation with no findings to suggest toxic megacolon. No evidence of free intraperitoneal air.
Mild thickening of the wall the distal ileum suggesting mild enteritis. No evidence for bowel obstruction.
Anasarca, slightly asymmetric distribution within the subcutaneous soft tissues.
Possible 1.1 cm low-density lesion in the posterior right lobe liver, versus unopacified vessel. When clinically feasible, consider further evaluation with abdominal ultrasound or dedicated CT examination of the abdomen/liver without and with
contrast if there are no contraindications.
Several small central calcification within the right kidney, likely representing nephroliths. No evidence for ureteral calculus.
Severe degenerative change of both hip joints including bilateral protrusio acetabuli. Findings could be from inflammatory arthropathy or neuropathic arthropathy.
Assessment/Plan:
#Septic shock secondary to C. difficile infection:
#Diarrhea, resolving
At presentation to the emergency department the patient's blood pressure was 70/52, pulse was elevated at 145, respiratory rate was 27, temperature was 97.4, white blood cell count was 28.5 with a neutrophil predominance - indicating sepsis. Stool
culture conducted on 07/06/2025 was positive for C. difficile but there was no toxin detected. Patient has also had a recent history of loose stools which further suggests C. difficile exacerbation. Patient finished vancomycin on 15 July.
Midline placed due to difficulty of IV access. 2 IV lines were lost. Central line successfully placed late in the evening of 07/27.
- Stool culture: C. difficile antigens and toxins A and B are positive indicating positive C. difficile infection and the likely source of septic shock.
- Wound culture: Enterococcus and Staph A
- Blood cultures NGTD
- Levophed 4mcg to maintain MAP greater than 65 - VENUS
- ID following:
-- 250 mg of vancomycin and 500 mg metronidazole
- CT A/P as above
- S/p albumin on 07/29
- Advance diet to clears yesterday afternoon: ADAT
- Possibly downgrade from IMU tomorrow
- PT/OT
#Dysphagia
She is reporting pain with swallowing on 07/29. Nursing noting bright red mouth and sensitivity.
- Speech consulted; following
- Magic mouthwash
#Prerenal acute kidney injury secondary to hypovolemia:
Patient's creatinine is 1.4 on admission from a baseline of 0.5 indicative of acute kidney injury. Patient on physical exam has poor skin turgor and appears grossly malnutrition. Has poor oral intake. Likely cause of SABINA is hypovolemia.
- mIVF 150mls/hr
- Follow CMP
- Renally dose medications
#Anemia of chronic disease:
Patient's hemoglobin is at 10.8 on admission which continues to trend with her chronic anemia state seen on prior hospital visits. During her last discharge on 07/10/2025 her hemoglobin was 8.9 and stable. Her normal trend is between 7 and 9 based
on prior lab work. Will transfuse if needed if hemoglobin drops below 7. Patient has decreased iron with decreased TIBC but has increased ferritin�possibly a consequence of ongoing inflammatory disease such as rheumatoid arthritis.
- Hemoglobin 6.8 on 07/25 5 AM. Ordered 1 unit of blood. Follow-up hemoglobin.
- Continue to trend hemoglobin with CBC
#Stage III sacral decubitus ulcer:
#Bilateral leg wounds:
- Sacral wound culture growing Enterococcus and Staph A
- Wound care consulted for ongoing wound care and management during the hospital admission
- Positional changes to avoid ongoing pressure on the sacral region
- ID following: s/p Cefepime
#Lower extremity edema:
It is unclear if the patient was taking her Lasix in the outpatient setting after being discharged. The medication was held on discharge. Currently holding Lasix while patient hemodynamically unstable and on pressors. Last echo was 05/29 with an EF
of 60 to 65%
#Altered mental status secondary to sepsis vs baseline
#Severe protein calorie malnutrition:
Patient has a history of severe major depressive disorder with anxiety and severe protein calorie malnutrition. Her altered mental status on presentation may be secondary to her hypovolemic and malnutrition status. Will give the patient fluids and
nutrients and reassess.
- Dietitian consulted for malnutrition
#Chronic hyponatremia, improving
Patient presented to the emergency department with a sodium of 128. Patient has a long-term history of hyponatremia spanning across multiple hospital admissions. This hyponatremia may be secondary to her poor oral intake.
- CTM
#Hypocalcemia
#Hypoalbuminemia
Initial lab work is a BMP without albumin values. Her albumin based on historical lab work shows a value of around 1.6-1.7. Corrected calcium based on these scores suggest a corrected calcium score of 8.8 -we will wait for CMP prior to repleting
calcium after calculating updated corrected calcium score. Albumin labs returned later on in the evening and corrected calcium score was 8.4.
- CTM and replete prn
- 12.5 g Albumin in 50 ml 07/29
#Rheumatoid arthritis:
- Continue home meds
#Chronic pain:
- Patient in pain due to ongoing sacral ulcer that is nonhealing
- Scheduled home oxycodone every 6 hours
#Orthostatic hypotension:
- Continue outpatient midodrine
#Depression:
- Continue Remeron
FULL CODE STATUS
Stress Ulcer Prophylaxis: Pantoprazole IV
DVT Prophylaxis: Heparin subcu
Anticipated Discharge: 24 - 48 hours
Subjective/Interval History
-
Date of Service: July 30, 2025
-Hemoglobin this morning 6.4, repeat 6.8. No signs of acute bleeding. Overnight provider ordered T&S, consented for blood, and gave 1 u pRBC.
-K and calcium repleted as needed.
-This morning, Ms. Day is conversant and alert. She is tolerating clears well. She reports 2 episodes of diarrhea in the last day. She complains of her room being cold, so I gave her warm blankets. We discussed her pain and she reported
relief with her home oxycodone. She denied relief from Tylenol and Dilaudid. I changed her home oxycodone order from as needed to scheduled.
Objective Data
-
Labs:
Laboratory Results
07/30/25 07/30/25
04:58 06:05
WBC 10.6
Hgb 6.4 L* 6.8 L*
Hct 19.2 L* 20.1 L*
Plt Count 156 D
Sodium 132 L
Potassium 3.1 L
Chloride 113 H
Carbon Dioxide 18 L
BUN 19 H
Creatinine 1.0
Glucose 77
Calcium 6.7 L*
Total Bilirubin 0.5
AST 10 L
ALT < 10
Alkaline Phosphatase 56
Vital Signs:
Vital Signs
Temp Pulse Resp BP Pulse Ox
98.6 F 101 18 122/81 99
07/30/25 09:25 07/30/25 09:25 07/30/25 09:25 07/30/25 09:25 07/30/25 07:00
I&O
07/29/25 07/30/25 07/31/25
06:59 06:59 06:59
Intake Total 1959 / 1959 2790 / 2790
Output Total 50 / 50 1570 / 1570
Balance 191 / 1909 1220 / 1220
Review of Systems
-
History Source: Patient
All other systems: Reviewed and negative
Constitutional: Reports Weight Loss and No Appetite
Abdomen/GI: Reports Abdominal Pain (TTP to left upper and lower quadrant)
[2025-07-30] MEDS: ROXICODONE 10 MG PO ×3 (10:16→20:55)
[2025-07-30] MEDS: FIRVANQ 250 MG PO ×3 (12:30→23:18)
--- NOTE | 2025-07-30 15:42 | PTOTSP ---
Speech Language Pathology
Pt seen for dysphagia tx. On clear liquids, but can advance as tolerated for dinner tonight. Pt reported no longer having any difficulty swallowing. Seen with P.O. trials of thin liquids and regular solids. She declined applesauce, stating 'I
think this is what gave me diarrhea in the first place.' Adequate mastication, bolus formation, and A-P transit noted with no oral residue. No overt signs of aspiration. Pt denied any globus sensation.
Recommend:
(1) Regular solids/thin liquids
(2) General aspiration precautions
(3) Meds as tolerated
(4) FORM [employer]TER [employer] FORMS to follow, likely briefly, to ensure diet tolerance once meals started
--- NOTE | 2025-07-30 15:43 | PTCARENOTE ---
Pt received 1 unit PRBC this am with out incident. Pt has a rectal trumpet and a Trejo . LR continue to infuse at 125 hr. Levo has been off since early am. Pt is very emotional with all care. Triple IJ in place.
[2025-07-30 19:13] LABS: Hemoglobin 8.4 g/dL (12.0-16.0)
[2025-07-30] MEDS: REMERON 15 MG PO (21:00)
--- NOTE | 2025-07-30 21:29 | PTCARENOTE ---
ax2- flat ,drowsy- difficulty with pills- ate some clear liquid broth. rectal trumpet intact- romero maribell- terrible pain with any care/turning etc. bp wnl afebrile sinus
[2025-07-31] VITALS (15 sets, daily range): BP systolic 85–124; BP diastolic 64–90; BMI 19.4
--- NOTE | 2025-07-31 01:23 | PTCARENOTE ---
stable off of levo- trumpet with liquid loose bm- goes from drowsy to extreme pain with any care -
[2025-07-31] MEDS: ROXICODONE 10 MG PO ×4 (02:43→20:27)
[2025-07-31 04:02] LABS: Hematocrit 26.9 % (37.0-47.0); Hemoglobin 9.1 g/dL (12.0-16.0); Mean Corp Hgb Conc. 33.8 g/dL (33.0-37.0); Mean Corpuscular Volume 79.1 fL (81.0-99.0); Platelet Count 187 10^3/uL (130-400); Red Cell Dist. Width 18.7 % (11.5-14.5)
[2025-07-31 04:24] LABS: ALT (SGPT) < 10 U/L (0-35); AST (SGOT) 13 U/L (14-36); Albumin 1.3 g/dl (3.5-5.0); Alkaline Phosphatase 70 U/L (38-126); Blood Urea Nitrogen 14 mg/dl (7-17); Calcium 6.8 mg/dl (8.4-10.2); Carbon Dioxide 17 mmol/L (22-30); Chloride 113 mmol/L (98-107); Estimated Creatinine Clearance 64 ml/min; Glucose 68 mg/dl (70-99); Potassium 3.8 mmol/L (3.5-5.1); Sodium 132 mmol/L (135-145); Total Protein 3.2 g/dl (6.3-8.2); eGFR > 60.00
--- NOTE | 2025-07-31 04:36 | GLUCOSE ---
Addendum entered by Alex Morgan RN 07/31/25 06:28:
06 glucose was 92- remains on q2h hypoglycemic protocol- will pass onto next shift for 0830 accucheck
Original Note:
SITUATION:
lab draw from [facility] resulted a glucose of 68- accucheck done at 0434- result was 83- will place pt on q2 hour glucose checks per protocol. will pass on to next shift
BACKGROUND:
ASSESSMENT:
RECOMMENDATION:
[2025-07-31 04:45] LABS: Glucose - Point of Care 83 mg/dl (70-99)
--- NOTE | 2025-07-31 04:47 | PTCARENOTE ---
critical calcium reported to pediatric np- order for rider see mar
--- NOTE | 2025-07-31 04:47 | PTCARENOTE ---
romero due out this am- order is for ghada- md note said to leave romero in due to incontinence with large stage 4 sacral wound. will leave in this am and pass on to next shift to review with attending md to see weather attending md wants to keep romero
in for wound and order will have to be changed
[2025-07-31] MEDS: CALCIUM GLUCONATE 100 IV (05:07)
[2025-07-31] MEDS: FLAGYL 500 MG 100 IV (05:08)
[2025-07-31] MEDS: LR 1000 IV (05:09)
[2025-07-31] MEDS: FIRVANQ 250 MG PO (05:10)
[2025-07-31] MEDS: NSS (PRESERVATIVE FREE) 10 ML IV (07:23)
[2025-07-31] MEDS: PROTONIX IV 40 MG IV (07:23)
--- NOTE | 2025-07-31 07:30 | PTCARENOTE ---
Pt AAOx2 LR infusing at 125 hr. Triple lumen IJ in place. Trejo in place. rectal trumpet in place.
[2025-07-31] MEDS: HEPARIN 5000 UNITS SC ×2 (07:35→20:08)
[2025-07-31 07:56] LABS: Glucose - Point of Care 92 mg/dl (70-99)
--- NOTE | 2025-07-31 09:44 | PTCARENOTE ---
Pt was ordered BLUE , pt has refused a it requires movement on her arms. resident aware
--- NOTE | 2025-07-31 09:51 | W.PN.ID1 ---
Date of Service
Date of Service: July 31, 2025
Today's Communication
DC IV metronidazole.
Continue po Vancomycin as below.
Assessment / Plan
# Severe C. diff colitis, clinically improving
# Marked leukocytosis - resolved
# s/p Hypotension requiring pressor
# SABINA - resolved
# Recent 10d po Vancomycin completed 07/15/25 for presumed C. diff diarrhea; 07/06/25 C. diff Ag+, toxin neg
- CXR neg
- Blood cx's neg to date.
- Stool + C. diff
- CT a/p wo contrast: mod to severe diffuse colitis, no toxic megacolon
- Stool output 800ml/24h
- DC metronidazole IV.
- Decrease po Vanco dose to 125 mg q6h
- SNF does not cover fidoxamicin.
- Plan for long taper with Vancomycin 125 mg po q6h through then q8 x 7d through 08/16, then bid x 7 d through 08/16, then qd x 7 days through 08/23, then qod x 14d through 09/06.
- Follow stool output.
# Chronic BLE lymphedema, non-healing wounds BLE
# Chronic sacral decubitus - wounds do not appear infected
# MRSA colonized
- Wounds do not look infected.
- No need for abx.
# RA on Orencia, leflunomide
# Protein-calorie malnutrition
Conditions present on admission:
RA on leflunomide and Orencia
HTN
Hypothyroidism
BLE lymphedema
Chronic BLE wounds s/p I+D 06/08/25
Chronic sacral decubitus
Chronic pain
Depression
Non-ambulatory
SNF resident
Chief Complaint
-: C-diff
Subjective / Review of Systems
Pt more alert.
Feeling better, hungry.
Vital Signs / Physical Exam
Vital Signs
Vital Signs
Temp Pulse Resp BP Pulse Ox
97.5 F 91 15 105/75 98
07/31/25 08:29 07/31/25 07:23 07/31/25 06:00 07/31/25 07:23 07/31/25 07:38
Physical Exam
Constitutional: Chronically Ill and Cachetic
Eyes: Sclera Anicteric
Cardiovascular: Regular Rate
Pulmonary: Clear
Gastrointestinal: Soft, Non Tender, Non Distended, Normal Bowel Sounds and Other (FMS: liquid green stool)
Extremities: Edema (lymphedema)
Neurological: AO x 3
Lines: CVP (RIJ no erytehma)
Objective Data
Lab Data
Lab Results
07/31/25 03:46
07/31/25 03:46
Estimated Creat Clear 64 ml/min 07/31/25 03:46
Lactic Acid Cancelled 07/28/25 02:30
Total Bilirubin 0.7 mg/dl (0.2-1.3) 07/31/25 03:46
AST 13 U/L (14-36) L 07/31/25 03:46
ALT < 10 U/L (0-35) 07/31/25 03:46
Alkaline Phosphatase 70 U/L (38-126) 07/31/25 03:46
Most recent labs reviewed.
Micro Results:
07/28/25 11:02 Salmonella/Shigella Culture - Final
Feces/Stool No Salmonella, Shigella, Aeromonas or Plesiomonas species
isolated.
Campylobacter Culture - Final
No Campylobacter species isolated.
Shiga Toxin Test - Final
No E. coli Shiga Toxin 1 or 2 detected.
07/27/25 14:55 Blood Culture - Preliminary
Blood/Venous No Growth in 72 hours- Final report to follow
07/27/25 12:08 Blood Culture - Preliminary
Blood/Venous No Growth in 72 hours- Final report to follow
07/27/25 14:55 Wound Culture - Final
Sacral Gram negative bacilli
Enterococcus species
Staphylococcus aureus
Gram Stain - Final
07/27/25 18:04 MRSA Screen - Final
Nose Staph aureus MRSA
07/28/25 11:02 C. difficile GDH Antigen & Toxins - Final
Feces/Stool Toxigenic C.difficile Positive
07/27/25 CXR: negative
[2025-07-31] MEDS: FLEXBUMIN 100 IV (12:20)
--- NOTE | 2025-07-31 12:34 | PTCARENOTE ---
Pt eating a cheese omelet more awakr today and more conversant.
[2025-07-31] MEDS: FIRVANQ 125 MG PO ×2 (13:01→20:07)
--- NOTE | 2025-07-31 14:30 | W.PN.HOSP.TC ---
Addendum entered and electronically signed by Renan Boland MD 07/31/25 20:25:
Attending Addendum-I saw and evaluated the patient. I reviewed the resident�s note and agree with findings and plan as documented in the resident�s note. Sub: feels greatly improved. pain limited to sacral area. Diarrhea decreased. Denies NV fevers
chills. Full 12 point ROS reviewed and negative except as documented Exam- vitals reviewed in EMR GEN-NAD Heart RRR, lungs fine crackles at bases b/l abd soft, mild tenderness in epigastric area, no rebound guarding. LE wrapped with +1 pitting edema
b/l. LE wounds present B/L LE. Neuro AAO x 3, RIJ catheter in place, rectal trumpet in place romero in place
Plan:
# Septic Shock from Severe C diff colitis
- CT A/P with PO contrast 07/29-Moderate to severe diffuse colitis with nodularity. No significant colonic dilation with no findings to suggest toxic megacolon. No evidence of free intraperitoneal air. Mild thickening of the wall the distal ileum
suggesting mild enteritis. No evidence for bowel obstruction. Anasarca, slightly asymmetric distribution within the subcutaneous soft tissues.
- resolving, leukocytosis resolved
- DC IVF
- weaned off Levophed
- cont PO vanco day #4 DC IV flagyl per ID- plan for long taper of vanco as OP as second occurrence of c diff
- tolerating LR diet
- appreciate ID input
- blood cx NGTD
- central access-right IJ
- transfer to tele from IMU
# TME
- resolved
# Anasarca, third spacing with hypoalbuminemia- give albumin x 1 to aide with diuresis
# Anemia of chronic disease
-likely in part dilutional
-no signs of active bleed
-transfused 1 unit 07/30
-repeat CBC in am
# SABINA
- resolved
- cont romero to monitor strict I and O and to avoid worsening of sacral wounds
- repeat BMP in am
# Dysphagia
- speech eval-regular/thins
# Hyponatremia
- improving
- chronic
- DC IVF
# B/L LE wounds, stage 3 sacral ulcer
-cont wound care
-wound cx - polymicrobial avoid unnecessary abx
# LE edema
- unclear if taking lasix as OP as was held on last DC
- hold lasix, last echo 05/2025- WNL ef 60-65%
# RA
-hold meds due to immunosuppression
-cont pain control on ATC oxycodone
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
-nutrition c/s
# Orthostatic Hypotension
- cont midodrine
# Depression - cont remeron
DVT-p heparin
code full
Dispo- from [facility], [place] planning underway
Time spent coordinating care, review of plan of care with resident, personally reviewed records in EMR, med rec, consults, notes, labs, radiology, d/w nursing � 52 mins
Original Note:
Today's Communication/Plan
-
Downgraded from IMU to tele
Diet advanced to low residue
dc'd IV flagyl; vanc 125mg q6h per ID
Albumin 25g given
dc'd IVF
Assessment / Plan
Assessment / Plan
CT A/P with PO Contrast:
Minimal bilateral posterior pleural effusions.
Moderate to severe diffuse colitis with nodularity, in patient with reported history of C. difficile colitis. No significant colonic dilation with no findings to suggest toxic megacolon. No evidence of free intraperitoneal air.
Mild thickening of the wall the distal ileum suggesting mild enteritis. No evidence for bowel obstruction.
Anasarca, slightly asymmetric distribution within the subcutaneous soft tissues.
Possible 1.1 cm low-density lesion in the posterior right lobe liver, versus unopacified vessel. When clinically feasible, consider further evaluation with abdominal ultrasound or dedicated CT examination of the abdomen/liver without and with
contrast if there are no contraindications.
Several small central calcification within the right kidney, likely representing nephroliths. No evidence for ureteral calculus.
Severe degenerative change of both hip joints including bilateral protrusio acetabuli. Findings could be from inflammatory arthropathy or neuropathic arthropathy.
Assessment/Plan:
#Septic shock secondary to C. difficile infection:
#Diarrhea, resolving
At presentation to the emergency department the patient's blood pressure was 70/52, pulse was elevated at 145, respiratory rate was 27, temperature was 97.4, white blood cell count was 28.5 with a neutrophil predominance - indicating sepsis. Stool
culture conducted on 07/06/2025 was positive for C. difficile but there was no toxin detected. Patient has also had a recent history of loose stools which further suggests C. difficile exacerbation. Patient finished vancomycin on 15 July.
Midline placed due to difficulty of IV access. 2 IV lines were lost. Central line successfully placed late in the evening of 07/27.
- Stool culture: C. difficile antigens and toxins A and B are positive indicating positive C. difficile infection and the likely source of septic shock.
- Wound culture: Enterococcus and Staph A
- Blood cultures NGTD
- s/p Levophed 4mcg to maintain MAP greater than 65
--off since 07/29, downgrade to tele today
- ID following:
-- 250 mg of vancomycin changed to 125 mg q6h per ID
----Plan for long taper with Vancomycin 125 mg po q6h through then q8 x 7d through 08/16, then bid x 7 d through 08/16, then qd x 7 days through 08/23, then qod x 14d through 09/06.
-- s/p 500 mg metronidazole 07/28-07/31
- CT A/P as above
- Low residue diet
- Downgrade to tele
- PT/OT
#Dysphagia
She is reporting pain with swallowing on 07/29. Nursing noting bright red mouth and sensitivity.
- Speech consulted; following
- Magic mouthwash
#Prerenal acute kidney injury secondary to hypovolemia:
Patient's creatinine is 1.4 on admission from a baseline of 0.5 indicative of acute kidney injury. Patient on physical exam has poor skin turgor and appears grossly malnutrition. Has poor oral intake. Likely cause of SABINA is hypovolemia.
- s/p mIVF 150mls/hr
- Follow CMP
- Renally dose medications
#Anemia of chronic disease:
Patient's hemoglobin is at 10.8 on admission which continues to trend with her chronic anemia state seen on prior hospital visits. During her last discharge on 07/10/2025 her hemoglobin was 8.9 and stable. Her normal trend is between 7 and 9 based
on prior lab work. Will transfuse if needed if hemoglobin drops below 7. Patient has decreased iron with decreased TIBC but has increased ferritin�possibly a consequence of ongoing inflammatory disease such as rheumatoid arthritis.
- Hemoglobin 6.8 on 07/30 5 AM. Ordered 1 unit of blood. Follow-up hemoglobin.
- Continue to trend hemoglobin with CBC
#Stage III sacral decubitus ulcer:
#Bilateral leg wounds:
- Sacral wound culture growing Enterococcus and Staph A
- Wound care consulted for ongoing wound care and management during the hospital admission
- Positional changes to avoid ongoing pressure on the sacral region
- ID following: s/p Cefepime
#Lower extremity edema:
It is unclear if the patient was taking her Lasix in the outpatient setting after being discharged. The medication was held on discharge. Currently holding Lasix while patient hemodynamically unstable and on pressors. Last echo was 05/29 with an EF
of 60 to 65%
#Altered mental status secondary to sepsis vs baseline
#Severe protein calorie malnutrition:
Patient has a history of severe major depressive disorder with anxiety and severe protein calorie malnutrition. Her altered mental status on presentation may be secondary to her hypovolemic and malnutrition status. Will give the patient fluids and
nutrients and reassess.
- Dietitian consulted for malnutrition
#Chronic hyponatremia, improving
Patient presented to the emergency department with a sodium of 128. Patient has a long-term history of hyponatremia spanning across multiple hospital admissions. This hyponatremia may be secondary to her poor oral intake.
- CTM
#Hypocalcemia
#Hypoalbuminemia
Initial lab work is a BMP without albumin values. Her albumin based on historical lab work shows a value of around 1.6-1.7. Corrected calcium based on these scores suggest a corrected calcium score of 8.8 -we will wait for CMP prior to repleting
calcium after calculating updated corrected calcium score. Albumin labs returned later on in the evening and corrected calcium score was 8.4.
- CTM and replete prn
- 12.5 g Albumin in 50 ml 07/29
- Albumin 25g 07/31
#Rheumatoid arthritis:
- Continue home meds
#Chronic pain:
- Patient in pain due to ongoing sacral ulcer that is nonhealing
- Scheduled home oxycodone every 6 hours
#Orthostatic hypotension:
- Continue outpatient midodrine
#Depression:
- Continue Remeron
FULL CODE STATUS
Stress Ulcer Prophylaxis: Pantoprazole IV
DVT Prophylaxis: Heparin subcu
Anticipated Discharge: 24 - 48 hours
Subjective/Interval History
-
Date of Service: July 31, 2025
- This morning, she's complaining of pain in her left arm and requesting I remove her BP cuff. Upon removal, I noticed her skin is adhering to the cuff and she's third spacing fluid from her upper extremities. She refused DVUs due to RA pain. Given
25g Albumin, dc'd IVF.
- She reports a better appetite and is excited to start low-residue foods.
Objective Data
-
Labs:
Laboratory Results
07/31/25
03:46
WBC 9.5
Hgb 9.1 L
Hct 26.9 L
Plt Count 187
Sodium 132 L
Potassium 3.8
Chloride 113 H
Carbon Dioxide 17 L
BUN 14
Creatinine 0.8
Glucose 68 L
Calcium 6.8 L*
Total Bilirubin 0.7
AST 13 L
ALT < 10
Alkaline Phosphatase 70
Vital Signs:
Vital Signs
Temp Pulse Resp BP Pulse Ox
97.5 F 107 14 89/64 97
07/31/25 08:29 07/31/25 12:00 07/31/25 12:00 07/31/25 10:00 07/31/25 09:00
I&O
07/30/25 07/31/25 08/01/25
06:59 06:59 06:59
Intake Total 2790 / 2790 960 / 960
Output Total 1570 / 1570 1100 / 1100
Balance 1220 / 1220 -140 / -140
Physical Exam
-
General: No Apparent Distress and Comfortable
HEENT: Normocephalic and Atraumatic
Respiratory: Clear to Auscultation
Cardiac: Regular Rhythm and S1/S2
GI: Soft, Nondistended and Tender (TTP slightly)
Musculoskeletal: Clubbing and Other (severe contractures of all extremities)
Skin: Lesions (BLLE, chronic), Decubitus Ulcers (known sacral ulcer) and Other (third spacing BL UE)
Neuro: AO x 3
Psych: Depressed
--- NOTE | 2025-07-31 14:33 | CM ---
Following up on Patient. RN stated that patient is still having active C-Diff and on medications for this. Patient still not ready.
PLAN: Return to [facility] when ready.
--- NOTE | 2025-07-31 16:32 | PTCARENOTE ---
Report to RN on . Pt aware of tx.
--- NOTE | 2025-07-31 17:03 | PTCARENOTE ---
Pt moved to 2125 without incident
[2025-07-31] MEDS: REMERON 15 MG PO (22:16)
[2025-07-31] MEDS: FEOSOL 325 MG PO (22:17)
[2025-08-01] MEDS: FIRVANQ 125 MG PO ×4 (00:20→18:08)
[2025-08-01] MEDS: ROXICODONE 10 MG PO ×3 (03:21→15:41)
[2025-08-01 03:31] VITALS: BP 114/72
[2025-08-01 03:37] LABS: Hematocrit 25.2 % (37.0-47.0); Hemoglobin 8.1 g/dL (12.0-16.0); Mean Corp Hgb Conc. 32.1 g/dL (33.0-37.0); Mean Corpuscular Volume 80.3 fL (81.0-99.0); Platelet Count 227 10^3/uL (130-400); Red Cell Dist. Width 19.0 % (11.5-14.5)
[2025-08-01 04:20] LABS: ALT (SGPT) < 10 U/L (0-35); AST (SGOT) 12 U/L (14-36); Albumin 1.6 g/dl (3.5-5.0); Alkaline Phosphatase 76 U/L (38-126); Blood Urea Nitrogen 11 mg/dl (7-17); Calcium 7.3 mg/dl (8.4-10.2); Carbon Dioxide 17 mmol/L (22-30); Chloride 114 mmol/L (98-107); Estimated Creatinine Clearance 57 ml/min; Glucose 84 mg/dl (70-99); Potassium 4.0 mmol/L (3.5-5.1); Sodium 133 mmol/L (135-145); Total Protein 3.4 g/dl (6.3-8.2); eGFR > 60.00
[2025-08-01 06:00] VITALS: BMI 19.3
[2025-08-01 07:11] VITALS: BP 128/84
--- NOTE | 2025-08-01 09:11 | W.PN.HOSP.TC ---
Addendum entered and electronically signed by Parker Resendiz MD 08/01/25 12:03:
will plan to dc back to [facility] on Po vanc taper
Original Note:
Today's Communication/Plan
-
Plan reviewed with attending.
Vancomycin taper per ID
Return to [facility]
Assessment / Plan
Assessment / Plan
CT A/P with PO Contrast:
Minimal bilateral posterior pleural effusions.
Moderate to severe diffuse colitis with nodularity, in patient with reported history of C. difficile colitis. No significant colonic dilation with no findings to suggest toxic megacolon. No evidence of free intraperitoneal air.
Mild thickening of the wall the distal ileum suggesting mild enteritis. No evidence for bowel obstruction.
Anasarca, slightly asymmetric distribution within the subcutaneous soft tissues.
Possible 1.1 cm low-density lesion in the posterior right lobe liver, versus unopacified vessel. When clinically feasible, consider further evaluation with abdominal ultrasound or dedicated CT examination of the abdomen/liver without and with
contrast if there are no contraindications.
Several small central calcification within the right kidney, likely representing nephroliths. No evidence for ureteral calculus.
Severe degenerative change of both hip joints including bilateral protrusio acetabuli. Findings could be from inflammatory arthropathy or neuropathic arthropathy.
Assessment/Plan:
#Septic shock secondary to C. difficile infection:
#Diarrhea, resolving
At presentation to the emergency department the patient's blood pressure was 70/52, pulse was elevated at 145, respiratory rate was 27, temperature was 97.4, white blood cell count was 28.5 with a neutrophil predominance - indicating sepsis. Stool
culture conducted on 07/06/2025 was positive for C. difficile but there was no toxin detected. Patient has also had a recent history of loose stools which further suggests C. difficile exacerbation. Patient finished vancomycin on 15 July.
Midline placed due to difficulty of IV access. 2 IV lines were lost. Central line successfully placed late in the evening of 07/27.
Today, pt is feeling better with resolving symptoms. Improving diarrhea and pain. She is anxious about going home on the medication but we discussed we will provide explicit instructions for Edelmira Black to ensure she receives vancomycin taper
properly. Can go home today.
- Stool culture: C. difficile antigens and toxins A and B are positive indicating positive C. difficile infection and the likely source of septic shock.
- Wound culture: Enterococcus and Staph A
- Blood cultures NGTD
- s/p Levophed 4mcg to maintain MAP greater than 65
--off since 07/29, downgrade to tele today
- ID following:
-- 250 mg of vancomycin changed to 125 mg q6h per ID
----Plan for long taper with Vancomycin 125 mg po q6h through then q8 x 7d through 08/16, then bid x 7 d through 08/16, then qd x 7 days through 08/23, then qod x 14d through 09/06.
-- s/p 500 mg metronidazole 07/28-07/31
- CT A/P as above
- Low residue diet
- Downgrade to tele
- PT/OT
#Dysphagia
She is reporting pain with swallowing on 07/29. Nursing noting bright red mouth and sensitivity.
- Speech consulted; following
- Magic mouthwash
#Prerenal acute kidney injury secondary to hypovolemia:
Patient's creatinine is 1.4 on admission from a baseline of 0.5 indicative of acute kidney injury. Patient on physical exam has poor skin turgor and appears grossly malnutrition. Has poor oral intake. Likely cause of SABINA is hypovolemia.
- s/p mIVF 150mls/hr
- Follow CMP
- Renally dose medications
#Anemia of chronic disease:
Patient's hemoglobin is at 10.8 on admission which continues to trend with her chronic anemia state seen on prior hospital visits. During her last discharge on 07/10/2025 her hemoglobin was 8.9 and stable. Her normal trend is between 7 and 9 based
on prior lab work. Will transfuse if needed if hemoglobin drops below 7. Patient has decreased iron with decreased TIBC but has increased ferritin�possibly a consequence of ongoing inflammatory disease such as rheumatoid arthritis.
- Hemoglobin 6.8 on 07/30 5 AM. Ordered 1 unit of blood. Follow-up hemoglobin.
- Continue to trend hemoglobin with CBC
#Stage III sacral decubitus ulcer:
#Bilateral leg wounds:
- Sacral wound culture growing Enterococcus and Staph A
- Wound care consulted for ongoing wound care and management during the hospital admission
- Positional changes to avoid ongoing pressure on the sacral region
- ID following: s/p Cefepime
#Lower extremity edema:
It is unclear if the patient was taking her Lasix in the outpatient setting after being discharged. The medication was held on discharge. Currently holding Lasix while patient hemodynamically unstable and on pressors. Last echo was 05/29 with an EF
of 60 to 65%
#Altered mental status secondary to sepsis vs baseline
#Severe protein calorie malnutrition:
Patient has a history of severe major depressive disorder with anxiety and severe protein calorie malnutrition. Her altered mental status on presentation may be secondary to her hypovolemic and malnutrition status. Will give the patient fluids and
nutrients and reassess.
- Dietitian consulted for malnutrition
#Chronic hyponatremia, improving
Patient presented to the emergency department with a sodium of 128. Patient has a long-term history of hyponatremia spanning across multiple hospital admissions. This hyponatremia may be secondary to her poor oral intake.
- CTM
#Hypocalcemia
#Hypoalbuminemia
Initial lab work is a BMP without albumin values. Her albumin based on historical lab work shows a value of around 1.6-1.7. Corrected calcium based on these scores suggest a corrected calcium score of 8.8 -we will wait for CMP prior to repleting
calcium after calculating updated corrected calcium score. Albumin labs returned later on in the evening and corrected calcium score was 8.4.
- CTM and replete prn
- 12.5 g Albumin in 50 ml 07/29
- Albumin 25g 07/31
#Rheumatoid arthritis:
- Continue home meds
#Chronic pain:
- Patient in pain due to ongoing sacral ulcer that is nonhealing
- Scheduled home oxycodone every 6 hours
#Orthostatic hypotension:
- Continue outpatient midodrine
#Depression:
- Continue Remeron
FULL CODE STATUS
Stress Ulcer Prophylaxis: Pantoprazole IV
DVT Prophylaxis: Heparin subcu
Anticipated Discharge: Today
Subjective/Interval History
-
Date of Service: August 01, 2025
Pt reports LE pain but improved abdominal pain. She also reports improving diarrhea, although not back to baseline, it has significantly improved from when she had BM multiple times an hr.
Objective Data
-
Labs:
Laboratory Results
08/01/25
03:20
WBC 9.7
Hgb 8.1 L
Hct 25.2 L
Plt Count 227 D
Sodium 133 L
Potassium 4.0
Chloride 114 H
Carbon Dioxide 17 L
BUN 11
Creatinine 0.9
Glucose 84
Calcium 7.3 L
Total Bilirubin 0.6
AST 12 L
ALT < 10
Alkaline Phosphatase 76
Vital Signs:
Vital Signs
Temp Pulse Resp BP Pulse Ox
98.4 F 102 16 128/84 99
08/01/25 07:11 08/01/25 07:11 08/01/25 07:11 08/01/25 07:11 08/01/25 07:11
I&O
07/31/25 08/01/25 08/02/25
06:59 06:59 06:59
Intake Total 960 / 960 480 / 480
Output Total 1100 / 1100 350 / 350
Balance -140 / -140 130 / 130
Physical Exam
-
General: Comfortable, Conversant and Appears Chronically Ill
HEENT: Normocephalic and Atraumatic
Respiratory: Clear to Auscultation and Non Labored Respirations
Cardiac: Regular Rhythm and S1/S2
GI: Soft, Nondistended and Tender
Musculoskeletal: No Edema
Skin: Warm and Dry
Neuro: AO x 3 and Nonfocal/Grossly Intact (contractions and edema at baseline)
Hematologic / Lymphatic: Other (lymphedema at baseline)
Psych: Anxious (worried [facility] will not administer medications properly)
[2025-08-01] MEDS: HEPARIN 5000 UNITS SC (09:21)
[2025-08-01] MEDS: PROTONIX 40 MG PO (09:21)
--- NOTE | 2025-08-01 09:23 | W.PN.ID1 ---
Date of Service
Date of Service: August 01, 2025
Today's Communication
Continue po vancomycin taper.
Assessment / Plan
# Severe C. diff colitis, clinically improving
# Marked leukocytosis - resolved
# s/p Hypotension requiring pressor
# SABINA - resolved
# Recent 10d po Vancomycin completed 07/15/25 for presumed C. diff diarrhea; 07/06/25 C. diff Ag+, toxin neg
- CXR neg
- Blood cx's neg to date.
- Stool + C. diff
- CT a/p wo contrast: mod to severe diffuse colitis, no toxic megacolon
- Plan for long taper with Vancomycin 125 mg po q6h through then q8 x 7d through 08/16, then bid x 7 d through 08/16, then qd x 7 days through 08/23, then qod x 14d through 09/06.
- Follow stool output.
- Avoid unnecessary systemic abx.
# Chronic BLE lymphedema, non-healing wounds BLE
# Chronic sacral decubitus - wounds do not appear infected
# MRSA colonized
- Wounds do not look infected.
- No need for abx.
# RA on Orencia, leflunomide
# Protein-calorie malnutrition
Conditions present on admission:
RA on leflunomide and Orencia
HTN
Hypothyroidism
BLE lymphedema
Chronic BLE wounds s/p I+D 06/08/25
Chronic sacral decubitus
Chronic pain
Depression
Non-ambulatory
SNF resident
Chief Complaint
-: C-diff
Subjective / Review of Systems
Abdominal cramping resolving.
Vital Signs / Physical Exam
Vital Signs
Vital Signs
Temp Pulse Resp BP Pulse Ox
98.4 F 102 16 128/84 99
08/01/25 07:11 08/01/25 07:11 08/01/25 07:11 08/01/25 07:11 08/01/25 07:11
Physical Exam
Constitutional: Chronically Ill and Cachetic
Eyes: Sclera Anicteric
Cardiovascular: Regular Rate
Pulmonary: Clear
Gastrointestinal: Soft, Non Tender, Non Distended, Normal Bowel Sounds and Other (FMS: not as liquidy, now light brown)
Extremities: Edema (lymphedema)
Neurological: AO x 3
Lines: CVP (RIJ no erytehma)
Objective Data
Lab Data
Lab Results
08/01/25 03:20
08/01/25 03:20
Estimated Creat Clear 57 ml/min 08/01/25 03:20
Lactic Acid Cancelled 07/28/25 02:30
Total Bilirubin 0.6 mg/dl (0.2-1.3) 08/01/25 03:20
AST 12 U/L (14-36) L 08/01/25 03:20
ALT < 10 U/L (0-35) 08/01/25 03:20
Alkaline Phosphatase 76 U/L (38-126) 08/01/25 03:20
Most recent labs reviewed.
Micro Results:
07/27/25 14:55 Blood Culture - Preliminary
Blood/Venous No Growth in 4 days- Final report to follow
07/27/25 12:08 Blood Culture - Preliminary
Blood/Venous No Growth in 4 days- Final report to follow
07/28/25 11:02 Salmonella/Shigella Culture - Final
Feces/Stool No Salmonella, Shigella, Aeromonas or Plesiomonas species
isolated.
Campylobacter Culture - Final
No Campylobacter species isolated.
Shiga Toxin Test - Final
No E. coli Shiga Toxin 1 or 2 detected.
07/27/25 14:55 Wound Culture - Final
Sacral Gram negative bacilli
Enterococcus species
Staphylococcus aureus
Gram Stain - Final
07/27/25 18:04 MRSA Screen - Final
Nose Staph aureus MRSA
07/28/25 11:02 C. difficile [facility] Antigen & Toxins - Final
Feces/Stool Toxigenic C.difficile Positive
07/27/25 CXR: negative
--- NOTE | 2025-08-01 11:02 | CM ---
CM following re: discharge planning.
Reviewed pt's chart, met with pt.
According to MD pt is medically stable to be discharged today. Pt is aware.
Pt is a LTC resident at [facility], requires total care, bed bound.
Updated clinical faxed to [facility], spoke to liaison Lauren and she confirmed that pt is accepted for admission today.
CM called Amadeo Otoole who listed as a son on contact list and he stated he has no relationship with the pt, expressed his very negative feelings regarding having multiple calls and he stated he will make legal actions if he receives any phone calls
again. Apology provided. CM called to secondary person on contact list and got only busy signals.
to arrange ambulance BLS. [facility] with
[facility] nursing report: [phone]
Discharge instructions fax: [phone].
D/C plan: return back o [facility] for a [facility] care.
--- NOTE | 2025-08-01 12:52 | W.DCSUMMARY ---
Discharge Summary
Discharge Data
Date of Admission: 07/27/25
Date of Discharge: 08/01/25
-
Pending Results: Yes
Additional Pending Results:
UE US
Hospital Course
Assessment/Plan:
On presentation
Sepsis secondary to possible C. difficile infection.
At presentation to the emergency department the patient's blood pressure was 70/52, pulse was elevated at 145, respiratory rate was 27, temperature was 97.4, white blood cell count was 28.5 with a neutrophil predominance - indicating sepsis. Stool
culture conducted on 07/06/2025 was positive for C. difficile but there was no toxin detected. Speculation whether patient may be a carrier, colonized with nontoxigenic strain or if the sample is below detection limits. Based on these prior results
it lends suspicion for possible ongoing C. difficile infection with exacerbation. Patient has also had a recent history of loose stools which further suggests C. difficile exacerbation. Patient finished vancomycin on 15 July. qSOFA score of
2. Stool culture sent with C. difficile sensitivities. Wound culture sent. Blood cultures sent. Lactics every 4 hours until downward trending. IV fluid support -patient received 2 L in the emergency department with improvement. Maintained MAP
greater than 65. Levophed started to maintain MAP greater than 65 - will discontinue when patient hemodynamically stable. Patient received cefepime and vancomycin in the emergency department. Based on this patient's complex history and recent C.
difficile infection with complications we will be consulting infectious diseases for fine-tuning of antibiotic regimen. Midline placed due to difficulty of IV access. 2 IV lines were lost. Prerenal acute kidney injury secondary to hypovolemia.
Patient's creatinine is 1.4 on admission from a baseline of 0.5 indicative of acute kidney injury.
Patient on physical exam has poor skin turgor and appears grossly malnutrition. Has poor oral intake. Likely cause of SABINA is hypovolemia. Will give IV fluid support and monitor kidney function. Bladder scan protocol ordered to rule out any
postrenal causes of SABINA or urinary retention. Altered mental status secondary to sepsis. Severe protein calorie malnutrition. Patient has a history of severe major depressive disorder with anxiety and severe protein calorie malnutrition. Her
altered mental status on presentation may be secondary to her hypovolemic and malnutrition status. Will give the patient fluids and nutrients and reassess. Dietitian consulted for malnutrition
Chronic hyponatremia. Patient presented to the emergency department with a sodium of 128. Patient has a long-term history of hyponatremia spanning across multiple hospital admissions. This hyponatremia may be secondary to her poor oral intake. Her
current sodium appears to be at or near her baseline�we will continue to trend and monitor. Hypocalcemia. Initial lab work is a BMP without albumin values. Her albumin based on historical lab work shows a value of around 1.6-1.7. Corrected calcium
based on these scores suggest a corrected calcium score of 8.8 -we will wait for CMP prior to repleting calcium after calculating updated corrected calcium score.
Anemia of chronic disease. Patient's hemoglobin is at 10.8 on admission which continues to trend with her chronic anemia state seen on prior hospital visits. During her last discharge on 07/10/2025 her hemoglobin was 8.9 and stable. Her normal trend
is between 7 and 9 based on prior lab work. Will transfuse if needed if hemoglobin drops below 7. Continue to trend hemoglobin with CBC. Patient has decreased iron with decreased TIBC but has increased ferritin�possibly a consequence of ongoing
inflammatory disease such as rheumatoid arthritis
Stage III sacral decubitus ulcer. Bilateral leg wounds. Sacral wound culture. Wound care consulted for ongoing wound care and management during the hospital admission. Positional changes to avoid ongoing pressure on the sacral region.
Rheumatoid arthritis. Hold home meds.
Chronic pain. Patient in pain due to ongoing sacral ulcer that is nonhealing. Continue home oxycodone pain management
Hypotension. Continue outpatient midodrine.
Stress Ulcer Prophylaxis: Heparin subcu
DVT Prophylaxis: Pantoprazole IV
Hospital course:
07/27 Pt admitted to IMU for severe sepsis started on broad spectrum abx, fluid resuscitated, PRN levophed. Given albumin and calcium. Mild hyponatremia 128 put on NS. Lactate 5.4 Sacral ulcer + gram neg bacilli, enterococcus, staph. MRSA screen +.
07/28 Zosyn switched to cefepime, high dose vancomycin and flagyl started. NPO. BC and urine pending. CT A/P w PO contrast. Central access placed. C Diff antigens and toxins A and B positive determined to be source of septic shock. Lactate improved
to 0.9.
07/29 Lactate trending down. Continued in IMU. Albumin x1 likely third spacing. TME resolved. Switch NS to LR. Midodrine. Ct demonstrated diffuse colitis, not concerning for dilation or toxic megacolon. Na 131.
07/30 IVF, Right IJ, WBC WNL. Continued Abx. Received 2 units pRBCs, anemia 6.4 improved to 8.4.
07/31 PO vancomycin. Low residue diet.
Discharge Plan
-
Patient Disposition: Correction/SNF
Discharge Diagnosis/Procedures: septic shock from severe c diff, TME
Diet: Low Residue
Activity: No restrictions
Driving Restrictions: As prior to admission
Bathing Restrictions: None
Activity Restrictions/Additional Instructions:
Wound Care Instructions Sacral/Buttock wounds- Clean with saline, cover with thin layer of Calazime and cover with 2x2 and secure with transparent dressing OR silicone border foam. Change daily and PRN if soiled.
Bilateral LE wounds- Clean with normal saline, apply adaptic to open areas and cover with ABD and wrap with ronda or kerlix. Change every other day and PRN if soiled.
Referrals:
Ish Hall MD [Family Provider]
Additional Discharge Medication Instructions: FOLLOW EXACTLY LISTED: Long taper with Vancomycin 125 mg po every 6 hrs through 08/09/25. Then every 8 hours x 7d through 08/16, then twice a day x 7 d through 08/16, then once per day x 7 days through
08/23, then every other day x 14d through 09/06.
Prescriptions:
New
vancomycin 125 mg capsule
125 mg PO DIRECTED Qty: 85 0RF
miconazole nitrate [Miconazorb AF] 2 % Powder
1 applic topical BID Qty: 85 0RF
Continued
oxycodone 10 mg Tablet
10 mg PO Q6HPRN PRN (Reason: severe pain )
acetaminophen 325 mg Tablet
650 mg PO Q4HPRN PRN (Reason: mild pain)
polyethylene glycol 3350 [Miralax] 17 gram Powder In Packet
17 g PO DAILYPRN PRN (Reason: Constipation)
leflunomide 20 mg Tablet
20 mg PO DAILY
naproxen [Naprosyn] 500 mg Tablet
500 mg PO BID
Orencia 125 mg/mL Syringe
125 mg SC MO
ferrous sulfate 325 mg (65 mg iron) tablet
325 mg PO HS
mirtazapine 15 mg Tablet
15 mg PO HS
midodrine 5 mg tablet
5 mg PO TID
Rx Instructions:
hold for SBD>130
hydroxyzine HCl 25 mg Tablet
25 mg PO Q6HPRN PRN (Reason: ANXIETY)
furosemide [Lasix] 40 mg Tablet
80 mg PO DAILY
loperamide 2 mg Capsule
2 mg PO Q8HPRN PRN (Reason: diarrhea)
Discharge Orders:
Discharge Patient (As Directed); Ordered 08/01/25
Ordered By: Yesenia Nicole
Discharge Date and Time
Print Language: KAZAKH
[2025-08-01 13:15] VITALS: BP 125/80
[2025-08-01] MEDS: DESENEX/MITRAZOL/ZEASORB 1 APPLIC TOPICAL (18:08)
[2025-08-01 18:42] VITALS: BP 110/77
== END 2025-08-01 19:22 | DRG 871 ==
LOC: 2 NORTH 15:15
PROVIDERS: Nurse Practitioner Family; ADMITTING PHYSICIAN Family Medicine; ATTENDING PHYSICIAN Hospitalist; CONSULT PHYSICIAN Internal Medicine Infectious Disease; EMERGENCY PHYSICIAN Emergency Medicine; FAMILY PHYSICIAN Internal Medicine
DX: A41.9 Sepsis, unspecified organism (principal); E43 Unspecified severe protein-calorie malnutrition; L89.153 Pressure ulcer of sacral region, stage 3; R65.21 Severe sepsis with septic shock; G92.8 Other toxic encephalopathy; A04.72 Enterocolitis due to Clostridium difficile, not specified as recurrent; N17.9 Acute kidney failure, unspecified; Z68.1 Body mass index [BMI] 19.9 or less, adult; E87.1 Hypo-osmolality and hyponatremia; D84.9 Immunodeficiency, unspecified; R64 Cachexia; E86.1 Hypovolemia; M06.9 Rheumatoid arthritis, unspecified; G89.29 Other chronic pain; D63.8 Anemia in other chronic diseases classified elsewhere; F32.9 Major depressive disorder, single episode, unspecified; F41.9 Anxiety disorder, unspecified; E83.51 Hypocalcemia; I95.1 Orthostatic hypotension; E88.09 Other disorders of plasma-protein metabolism, not elsewhere classified; E03.9 Hypothyroidism, unspecified; E86.0 Dehydration; I10 Essential (primary) hypertension; I73.9 Peripheral vascular disease, unspecified; I89.0 Lymphedema, not elsewhere classified
CPT/HCPCS: 36556; 71045; 74176; 76937; 80048; 80053; 82962; 83605; 83735; 84100; 84132; 85014; 85018; 85025; 85027; 86850; 86900; 86901; 86920; 87040; 87045; 87046; 87070; 87077; 87147; 87205; 87324; 87427; 87449; 92526; 92610; 93005; 97163; 97167; 97530; 99285; P9016; P9047

== ENCOUNTER 2025-08-09 08:27 | Emergency (ER) | payer MEDICAID, OTHER, SELFPAY ==
[2025-08-09 08:37] VITALS: BP 100/71
--- NOTE | 2025-08-09 08:39 | ED.GENMED ---
History of Present Illness
General
Chief Complaint: Abnormal Lab Value
Source: patient and records
Exam Limitations: none
Time Seen by Provider: 08/09/25 08:32
History of Present Illness
History of Present Illness:
60yoF with a history of rheumatoid arthritis, anemia of chronic disease, chronic leg/sacral wounds presenting for evaluation of anemia. Patient was recently hospitalized from 07/27-08/01/25 for sepsis. She initially presented with hypotension and
tachycardia. Source was thought to be possibly due to C.diff and she remains on PO vancomycin. She has baseline hemoglobin around 7-9 and did require a blood transfusion during her hospital stay. Hemoglobin was 6.4 at the lowest on 07/30. Patient
is currently a resident at [facility] and they have been doing blood work every 2 days. Hemoglobin was reportedly 7.2 three days ago and was 6.7 when it was checked yesterday. She is currently asymptomatic and denies any rectal bleeding,
melena, shortness of breath, dizziness, syncope.
Past History
Past History
ED Past Medical History: Other (RA, malnutrition, bilateral LE lymphedema, cellulitis, PVD, depression, GERD, RA, polyarthritis)
ED Past Surgical History: None
Social History
Tobacco: Non-smoker
Alcohol: None
Drug: None
Personal: Single
Living: custodial
Phy Exam
Physical Exam
Physical Exam:
Chronically ill appearing female, no acute distress noted
General Physical Exam
General Presentation: no apparent distress
General age: appears older than age
General Skin: warm and dry
General Habitus: normal and frail
General Mental: alert
ENT Exam
ENT Exam: normocephalic
Cardiovascular Exam
Cardiovascular Exam: regular rate/rhythm
Pulmonary Exam
Pulmonary Exam: lungs clear, no respiratory distress, no rales, no crackles, no rhonchi and no wheezing
Neurological Exam
Neurological Exam: alert
Dianelys Coma Scale
Eye Opening: Spontaneous
Verbal Response: Oriented
Motor Response: Obeys Commands
GCS Total Score: 15
Skin Exam
Skin Exam: pallor and other (Wounds noted to bilateral lower extremities. No overt signs of cellulitis. )
Psychiatric Exam
Psychiatric Exam: normal mood/affect
Course
Orders/Labs/Results
Orders:
Orders
08/09/25 08:57
Complete Blood Count/With Diff Urgent
08/09/25 09:23
Oxycodone [Roxicodone] 10 mg PO NOW STA
Abnormal Lab Results
08/09/25
08:57
WBC 18.1 H 10^3/uL
(4.8-10.8)
RBC 3.23 L 10^6/uL
(4.20-5.40)
Hgb 8.2 L g/dL
(12.0-16.0)
Hct 26.0 L %
(37.0-47.0)
MCV 80.5 L fL
(81.0-99.0)
MCH 25.4 L pg
(27.0-31.0)
MCHC 31.5 L g/dL
(33.0-37.0)
RDW 17.5 H %
(11.5-14.5)
Plt Count 648 H 10^3/uL
(130-400)
Abs Immat Gran (auto) 0.1 H 10^3/uL
(0-0.05)
Absolute Neuts (auto) 13.3 H 10^3/uL
(1.4-6.5)
Absolute Monos (auto) 2.0 H 10^3/uL
(0.1-0.6)
Lymphocytes % 14.4 L %
(20.5-51.1)
Monocytes % 11.1 H %
(1.7-9.3)
08/09/25 08:57
Vital Signs
Initial and Last Documented VS:
Initial Vital Signs
Temp Pulse Resp BP Pulse Ox
98.1 F 95 17 100/71 97
08/09/25 08:37 08/09/25 08:37 08/09/25 08:37 08/09/25 08:37 08/09/25 08:37
Last Documented Vital Signs
Temp Pulse Resp BP Pulse Ox
98.1 F 102 14 91/62 100
08/09/25 08:37 08/09/25 11:30 08/09/25 11:30 08/09/25 11:00 08/09/25 10:15
MDM/Problems Addressed
Differential Diagnosis Includes:
60yoF presenting from her custodial for a low hemoglobin level. Hx of chronic anemia, baseline hemoglobin around 7-9. Asymptomatic on arrival and denies bleeding. Differential diagnosis includes but is not limited to: anemia of chronic disease,
iron deficiency anemia, less likely acute blood loss anemia
Initial ED plan: Will check CBC and type and screen.
*Pulse Oximetry
SaO2: 97
Oxygen Mode of Delivery: Room air
Patient hypoxic: no
*Critical Care Note
Total Time (30-74mins, 75-104mins- exclusive of procedures): Not Applicable
Update Note
Update Note:
Hemoglobin is 8.2, no indication for blood transfusion. Leukocytosis noted with a WBC of 18. Patient is afebrile. BP soft but this is baseline for patient and she takes midodrine TID. No overt signs of cellulitis or infection on exam. Patient is
stable for discharge back to her nursing facility.
ED Attending Note
-
Portions of this chart may have been created with voice recognition software.� Occasional wrong word or��sound alike� substitutions may have occurred due to the inherent limitations of voice recognition software.
Discharge Plan
Departure
Patient Disposition: Home (Routine Discharge)
Date of Disposition: 08/09/25
Time of Disposition: 10:29
Patient with high blood pressure during this ER visit?: No
Discharge Problem:
Anemia
Instructions: Anemia in adults, possibly from low iron - ED (DC)
Prescriptions:
No Action
oxycodone 10 mg Tablet
10 mg PO Q6HPRN PRN (Reason: severe pain )
acetaminophen 325 mg Tablet
650 mg PO Q4HPRN PRN (Reason: mild pain)
polyethylene glycol 3350 [Miralax] 17 gram Powder In Packet
17 g PO DAILYPRN PRN (Reason: Constipation)
leflunomide 20 mg Tablet
20 mg PO DAILY
naproxen [Naprosyn] 500 mg Tablet
500 mg PO BID
Orencia 125 mg/mL Syringe
125 mg SC MO
ferrous sulfate 325 mg (65 mg iron) tablet
325 mg PO HS
mirtazapine 15 mg Tablet
15 mg PO HS
midodrine 5 mg tablet
5 mg PO TID
Rx Instructions:
hold for SBD>130
hydroxyzine HCl 25 mg Tablet
25 mg PO Q6HPRN PRN (Reason: ANXIETY)
furosemide [Lasix] 40 mg Tablet
80 mg PO DAILY
loperamide 2 mg Capsule
2 mg PO Q8HPRN PRN (Reason: diarrhea)
vancomycin 125 mg capsule
125 mg PO DIRECTED Qty: 85 0RF
miconazole nitrate [Miconazorb AF] 2 % Powder
1 applic topical BID Qty: 85 0RF
Referrals:
Ish Hall MD [Family Provider]
Activity Restrictions/Additional Instructions:
Repeat hemoglobin today is 8.2.
Return to the ER with any new or worsening symptoms.
Interventions
Interventions:
*Risk Screen - Suicide Last Done: 08/09/25 08:38
*General Assessment Last Done: 08/09/25 08:38
*Neglect/Abuse Screening Last Done: 08/09/25 08:38
*ED COVID-19 Vaccine History Last Done: 08/09/25 08:38
*ED Influenza Vaccine History Last Done: 08/09/25 08:38
*Nursing Disposition Last Done: 08/09/25 11:33
Discharge Date and Time
Discharge Date/Time: 08/09/25 11:37
Print Language: SWISS
[2025-08-09 09:15] LABS: Hematocrit 26.0 % (37.0-47.0); Hemoglobin 8.2 g/dL (12.0-16.0); Mean Corp Hgb Conc. 31.5 g/dL (33.0-37.0); Mean Corpuscular Volume 80.5 fL (81.0-99.0)
[2025-08-09 09:16] LABS: Nucleated Red Blood Cells % 0 %
[2025-08-09] MEDS: ROXICODONE 10 MG PO (09:45)
[2025-08-09 10:00] VITALS: BP 89/64
[2025-08-09 10:03] LABS: Platelet Count 648 10^3/uL (130-400); Red Cell Dist. Width 17.5 % (11.5-14.5)
[2025-08-09 10:31] VITALS: BP 89/62
[2025-08-09 11:00] VITALS: BP 91/62
== END 2025-08-09 11:37 | disposition home or self-care (01) ==
LOC: EMR 08:27
PROVIDERS: Physician Assistant; EMERGENCY PHYSICIAN Emergency Medicine; FAMILY PHYSICIAN Internal Medicine
DX: D64.9 Anemia, unspecified (principal); M06.9 Rheumatoid arthritis, unspecified; F32.A Depression, unspecified; I73.9 Peripheral vascular disease, unspecified; M13.0 Polyarthritis, unspecified
CPT/HCPCS: 99283; 85025

== ENCOUNTER 2025-08-12 21:00 | Inpatient (IN) | payer MEDICAID, SELFPAY ==
[2025-08-12] VITALS (10 sets, daily range): BP systolic 83–112; BP diastolic 62–93
--- NOTE | 2025-08-12 17:19 | ED.GENMED ---
History of Present Illness
General
Chief Complaint: Dizziness
Source: patient, records, ambulance crew and [facility] records
Exam Limitations: none
Time Seen by Provider: 08/12/25 16:40
Nursing documentation reviewed up to this point in time: agreed with
History of Present Illness
History of Present Illness:
60-year-old female with a past medical history of severe rheumatoid arthritis, major depressive disorder, hypertension, hypothyroidism, chronic pain, chronic sacral wound, chronic lymphedema who presents to the emergency department from [place]
[facility] where she has been living for 3 years; she presents to the emergency department for evaluation of dizziness. Patient was notably just admitted to this hospital 07/27 until 08/01�she presented with hypotension and tachycardia,
marked leukocytosis concerning for sepsis and was ultimately found to be positive for C. difficile and was treated with vancomycin. She returns to the ER today because she says she has been feeling dizzy�she describes feeling lightheaded over the
past few days. She feels the swelling in her legs has gotten worse over the past few days than usual. Came to the ER to be evaluated. She denies feeling any chest pain. She denies any shortness of breath. She denies any vomiting or diarrhea
recently.
Past History
Past History
ED Past Medical History: Other (RA, malnutrition, bilateral LE lymphedema, cellulitis, PVD, depression, GERD, RA, polyarthritis)
ED Past Surgical History: None
Social History
Tobacco: Non-smoker
Alcohol: None
Drug: None
Personal: Single
Living: [facility]
Review of Systems
Review of Systems
All Other Systems: ROS reviewed and negative except as documented in HPI and ROS
Constitutional: Reports fatigue; Denies fever
Respiratory: Denies trouble breathing
Cardiac: Denies chest pain
ABD/GI: Denies abdominal pain, nausea or diarrhea
Musculoskeletal: Reports edema
Neurological: Reports dizzy; Denies headache
Phy Exam
Physical Exam
Physical Exam:
General: Awake, alert, cachectic and chronically ill-appearing
Head: Normocephalic, atraumatic
Eyes: Conjunctiva normal, sclera anicteric
Throat: Airway intact, dry mucous membranes
Neck: Trachea midline, supple without meningismus
Lungs: Clear to auscultation bilaterally, no wheezing, rales, rhonchi
Heart: Tachycardia with regular rhythm, no murmurs, gallops, or rubs
Abd: Soft, non distended, nontender
Skin: Large sacral wound noted as pictured below
Extremities: Marked edema in the lower extremities as well as some edema in the upper extremities as well as in the abdominal wall; she has multiple wounds on the lower extremities bilaterally
Scores
Heart Failure Risk
Heart Failure Risk Score: Not Applicable
Heart Score for Chest Pain Patients
STEMI patient?: Not applicable
Withdrawal Assessment of Alcohol
Withdrawal Assessment Completed?: Not applicable
Course
Orders/Labs/Results
Orders:
Orders
08/12/25 16:41
Electrocardiogram (*1) Urgent
Reason for Study: Bradycardia / Tachycardia
EKG- Treatment ONCE
08/12/25 17:05
0.9% Sodium Chloride 1000 ml [Nss] 1,000 ml IV BOLUS
08/12/25 17:15
Comprehensive Metabolic Panel Urgent
NT-proBNP Urgent
08/12/25 17:16
COVID-19 Antigen Urgent
Source: Nasal Swab
Complete Blood Count/With Diff Urgent
Influenza A+B Rapid Molecular Urgent
VAL Source: Nasal Swab
Specimen Description:
08/12/25 17:25
US Periph Venous LOWER Ext RT Urgent
Reason For Exam: acute on chronic leg swelling
08/12/25 18:07
Urinalysis Reflex To Culture Urgent
08/12/25 18:15
Blood Culture Q30M
VAL Source: Blood/Venous
Specimen Description:
08/12/25 18:41
Bladder Scan- Treatment ONCE
CR Chest Portable - 1 View Urgent
Comment:
Reason For Exam: weakness, leg swelling
Reason Study Needs to be Portable: Unable to Transport
08/12/25 18:45
Blood Culture Q30M
VAL Source: Blood/Venous
Specimen Description:
Abnormal Lab Results
08/12/25 08/12/25
17:15 17:16
WBC 15.0 H 10^3/uL
(4.8-10.8)
RBC 2.77 L 10^6/uL
(4.20-5.40)
Hgb 7.3 L g/dL
(12.0-16.0)
Hct 22.1 L %
(37.0-47.0)
MCV 79.8 L fL
(81.0-99.0)
MCH 26.4 L pg
(27.0-31.0)
RDW 17.7 H %
(11.5-14.5)
Sodium 130 L mmol/L
(135-145)
Potassium 5.3 H mmol/L
(3.5-5.1)
Chloride 109 H mmol/L
(98-107)
Carbon Dioxide 17 L mmol/L
(22-30)
BUN 41 H mg/dl
(7-17)
Creatinine 2.8 H mg/dL
(0.6-1.0)
Calcium 7.3 L mg/dl
(8.4-10.2)
Total Protein 4.5 L g/dl
(6.3-8.2)
Albumin 1.8 L g/dl
(3.5-5.0)
08/12/25 17:16
08/12/25 17:15
Vital Signs
Initial and Last Documented VS:
Initial Vital Signs
Temp Pulse Resp BP Pulse Ox
37.3 C 110 16 100/68 98
08/12/25 16:36 08/12/25 16:36 08/12/25 16:36 08/12/25 16:36 08/12/25 16:36
Last Documented Vital Signs
Temp Pulse Resp BP Pulse Ox
36.8 C 112 12 92/79 99
08/12/25 19:10 08/12/25 19:10 08/12/25 19:10 08/12/25 19:10 08/12/25 19:10
MDM/Problems Addressed
Differential Diagnosis Includes:
Dizziness: Hypovolemia/third spacing, anemia, electrolyte abnormality, dysrhythmia
Edema: CHF, DVT, lymphedema
MDM/Problems Addressed:
60-year-old female with history as noted presents for evaluation of dizziness over the past few days as well as some increased leg swelling. She is mildly hypotensive and tachycardic on arrival here. Physical exam is as noted. Check EKG. Will
plan to check labs including a CBC and a CMP, proBNP. Will check viral swabs. Will check chest x-ray. Check ultrasound of the legs. Will provide some IV fluids. Will monitor closely reassess after the above.
Patient becoming increasingly hypotensive and tachycardic. Will provide IV fluids. Her initial labs returned and her CBC shows a leukocytosis to 15. Given this finding in concert with tachycardia and hypotension added lactate and blood cultures
with concern potentially for sepsis. She does have anemia but this appears essentially stable. Her chemistry shows acute renal failure with creatinine 2.8 from a baseline of less than 1 and mild hyperkalemia with a potassium of 5.3. Will check
bladder scan to rule out retention. Continue fluid resuscitation. Suspect intravascular depletion. Add urinalysis and chest x-ray for complete infectious workup. Will plan for admission pending rest of evaluation.
Ultrasound of the legs is positive for nonocclusive thrombus on the left side. Patient is anemic, however hemoglobin is stable. No reported GI bleeding. Hemoccult is negative today. Will plan to initiate treatment with heparin infusion.
Continue fluid resuscitation. Empiric antibiotic treatment broad-spectrum given hypotension and multiple SIRS criteria � possible wound infection as source. Will admit to the hospitalist for continued management. Discussed with hospitalist for
admission.
Chronic conditions affecting care:
Severe rheumatoid arthritis, chronic lymphedema
*Radiology
Radiology exam reviewed: radiology read reviewed
*Pulse Oximetry
SaO2: 98
Oxygen Mode of Delivery: Room air
Patient hypoxic: no (98%)
*Critical Care Note
Total Time (30-74mins, 75-104mins- exclusive of procedures): Not Applicable
Data Reviewed
Review of Other/Old Records Reveals: Labs, Records and Discharge Summary
Source: patient and records
Patient Management
Discussion with other providers: Hospitalist (Discussed with hospitalist)
Escalation/DeEscalation of care consider admission/obs:
Admission indicated
ED Attending Note
-
Portions of this chart may have been created with voice recognition software.� Occasional wrong word or��sound alike� substitutions may have occurred due to the inherent limitations of voice recognition software.
Discharge Plan
Departure
Patient Disposition: Admit
Date of Disposition: 08/12/25
Time of Disposition: 19:27
Admit to doctor: David
Presentation/result/management discussed w/ accepting MD/DO: Hospitalist
Discharge Problem:
Sepsis, DVT (deep venous thrombosis), Renal failure, Anasarca
Prescriptions:
No Action
oxycodone 10 mg Tablet
10 mg PO Q6HPRN PRN (Reason: severe pain )
acetaminophen 325 mg Tablet
650 mg PO Q4HPRN PRN (Reason: mild pain)
polyethylene glycol 3350 [Miralax] 17 gram Powder In Packet
17 g PO DAILYPRN PRN (Reason: Constipation)
leflunomide 20 mg Tablet
20 mg PO DAILY
naproxen [Naprosyn] 500 mg Tablet
500 mg PO BID
Orencia 125 mg/mL Syringe
125 mg SC MO
ferrous sulfate 325 mg (65 mg iron) tablet
325 mg PO HS
mirtazapine 15 mg Tablet
15 mg PO HS
midodrine 5 mg tablet
5 mg PO TID
Rx Instructions:
hold for SBD>130
hydroxyzine HCl 25 mg Tablet
25 mg PO Q6HPRN PRN (Reason: ANXIETY)
furosemide [Lasix] 40 mg Tablet
80 mg PO DAILY
loperamide 2 mg Capsule
2 mg PO Q8HPRN PRN (Reason: diarrhea)
vancomycin 125 mg capsule
125 mg PO DIRECTED Qty: 85 0RF
miconazole nitrate [Miconazorb AF] 2 % Powder
1 applic topical BID Qty: 85 0RF
Referrals:
Ish Hall MD [Family Provider]
Interventions
Interventions:
*Risk Screen - Suicide Last Done: 08/12/25 16:36
*General Assessment Last Done: 08/12/25 16:36
*Neglect/Abuse Screening Last Done: 08/12/25 16:36
*ED- Fall Risk Assessment Last Done: 08/12/25 17:44
*ED COVID-19 Vaccine History Last Done: 08/12/25 17:44
*ED Influenza Vaccine History Last Done: 08/12/25 17:44
ED- Neurological Assessment Last Done: 08/12/25 17:44
ED Swallowing Screen Last Done: 08/12/25 17:44
Discharge Date and Time
Print Language: PASHTO
[2025-08-12] MEDS: NSS 1000 IV (17:40)
[2025-08-12 18:02] LABS: Hematocrit 22.1 % (37.0-47.0); Hemoglobin 7.3 g/dL (12.0-16.0); Mean Corp Hgb Conc. 33.0 g/dL (33.0-37.0); Mean Corpuscular Volume 79.8 fL (81.0-99.0); Platelet Count 235 10^3/uL (130-400); Red Cell Dist. Width 17.7 % (11.5-14.5)
[2025-08-12 18:14] LABS: ALT (SGPT) < 10 U/L (0-35); AST (SGOT) 17 U/L (14-36); Albumin 1.8 g/dl (3.5-5.0); Alkaline Phosphatase 116 U/L (38-126); Blood Urea Nitrogen 41 mg/dl (7-17); Calcium 7.3 mg/dl (8.4-10.2); Carbon Dioxide 17 mmol/L (22-30); Chloride 109 mmol/L (98-107); Glucose 72 mg/dl (70-99); Potassium 5.3 mmol/L (3.5-5.1); Sodium 130 mmol/L (135-145); Total Protein 4.5 g/dl (6.3-8.2); eGFR 18.98
[2025-08-12 18:20] LABS: COVID-19 Antigen Negative (Negative)
[2025-08-12 19:19] LABS: Nucleated Red Blood Cells % 0 %
--- NOTE | 2025-08-12 19:56 | HPS.HSE ---
Family Physician
-
Family Physician: Ish Hall
Chief Complaint
-
Increased bilateral leg edema with left leg pain
History of Present Illness
60-year-old female from [facility] where she has been admitted for 3 years presents for dizziness feeling lightheaded over the past few days. She also reports increased swelling in bilateral legs over the past few days along
with bilateral leg pain. She denies fever, chills, chest pain, palpitations, cough, shortness of breath, abdominal pain, nausea, vomiting, diarrhea, urinary symptoms.
She had a recent admission 07/27 - 08/01/2025 with sepsis secondary to possible C. difficile infection acute hypotension treated with IV Levophed then midodrine, C. difficile positive toxin negative however treated with oral vancomycin, stage III
sacral wounds/bilateral leg wounds growing, Sacral ulcer (+ gram neg bacilli, enterococcus, staph. MRSA screen +.) SABINA secondary to hypovolemia, third spacing due to hypoalbuminemia treated with IV albumin, anemia to 6.4 treated with 2 units PRBCs.
She has past medical history of history C. difficile infection toxin negative, hypotension, stage III sacral wound/bilateral leg wounds growing( + gram neg bacilli, enterococcus, staph. MRSA screen +.) hypoalbuminemia with third spacing, chronic
anemia, chronic bedbound status, rheumatoid arthritis on Orencia and leflunomide, severe bilateral glenohumeral arthrosis, chronic rotator cuff arthropathy, chronic bilateral shoulder pain, depression, chronic pain on chronic oral opiates as needed,
chronic bilateral lower leg edema hypothyroidism, HTN, HLD,
Medical History
Past Medical History
Past Medical History: Reports Other
Additional Past Medical History:
history C. difficile infection toxin negative July 2025
hypotension, stage III sacral wound/bilateral leg wounds growing( + gram neg bacilli, enterococcus, staph. MRSA screen +.) 07/27/2025
hypoalbuminemia with third spacing 07/27/2025
chronic anemia
chronic bedbound status
=chronic pain on chronic oral opiates as needed,
rheumatoid arthritis on Orencia and leflunomide
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
severe bilateral glenohumeral arthrosis
chronic rotator cuff arthropathy
chronic bilateral shoulder pain
depression
chronic bilateral lower leg edema
hypothyroidism
HTN
HLD
Past Surgical History: Reports None
Social History
Tobacco: Non-smoker
Alcohol: None
Drug: None
Personal: (Patient reports last year at age 54 [place])
Living: Alone
Employment: Disabled
Family History
Family History: Not pertinent
Allergies / Home Medications
Allergies reflects when Allergies were last updated in [employer].
Home Medications with original date entered in [employer]
Allergy/Medication List:
Allergies
Allergy/AdvReac Type Severity Reaction Status Date / Time
No Known Allergies Allergy Verified 08/12/25 16:36
Home Medications
acetaminophen 325 mg tablet 650 mg PO Q4HPRN PRN mild pain 05/18/25
leflunomide 20 mg tablet 20 mg PO DAILY Antirheumatic 05/18/25
oxycodone 10 mg tablet 10 mg PO Q6HPRN PRN severe pain 05/18/25
polyethylene glycol 3350 17 gram oral powder packet (Miralax) 17 g PO DAILYPRN PRN Constipation 05/18/25
abatacept 125 mg/mL subcutaneous syringe (Orencia) 125 mg SC MO Rheumatoid arthritis 06/04/25
ferrous sulfate 325 mg (65 mg iron) tablet 325 mg PO DAILY ANEMIA 06/04/25
naproxen 500 mg tablet (Naprosyn) 500 mg PO BID mild Pain 06/04/25
midodrine 5 mg tablet 5 mg PO TID Hypotension 06/20/25
mirtazapine 15 mg tablet 15 mg PO HS Depression 06/20/25
furosemide 40 mg tablet (Lasix) 80 mg PO DAILY Fluid Retention/Swelling 07/27/25
vancomycin 125 mg capsule 125 mg PO DIRECTED c diff #85 caps 08/01/25
Lactobac no.2-Bifidobac no.1-S. thermo 112.5 billion cell capsule (Visbiome) 1 cap PO DAILY 08/12/25
calcium carbonate 500 mg PO DAILY 08/12/25
fluconazole 100 mg tablet 100 mg PO DAILY 08/12/25
magnesium oxide 400 mg PO DAILY 08/12/25
miconazole nitrate 2 % topical powder (Miconazorb AF) 1 applic topical BID skin integrity 08/12/25
pantoprazole 40 mg tablet,delayed release (Protonix) 40 mg PO DAILY 08/12/25
polyethylene glycol 3350 17 gram oral powder packet (Miralax) 8.6 g PO DAILYPRN PRN constipation 08/12/25
Review of Systems
-
History Source: Patient and Physician
A 12 point ROS was completed and negative except as noted: Yes
Constitutional: Reports Fatigue
EENT: Denies Sore Throat or Runny Nose
Respiratory: Denies Cough or Trouble Breathing
Cardiac: Denies Chest Pain, Diaphoresis, Palpitations or Syncope
Abdomen/GI: Reports Diarrhea; Denies Abdominal Pain, Nausea or Vomiting
: Denies Dysuria, Frequency, Flank Pain or Incontinence
Musculoskeletal: Reports Edema (Bilateral arms +1, bilateral legs +2 pitting with ulcerations); Denies Joint Pain
Skin: Reports Other (Sacral ulcer present on admission)
Neurological: Reports Dizzy; Denies Headache or Weakness
Endocrine: Reports No Symptoms
Hematologic/Lymphatic: Reports No Symptoms
Psych: Reports Calm
Physical Exam
Vital Signs
Vital Signs
Temp Pulse Resp BP Pulse Ox
98.2 F 112 12 92/79 99
08/12/25 19:10 08/12/25 19:10 08/12/25 19:10 08/12/25 19:10 08/12/25 19:10
Physical Exam
General: Pain; No Fever or Chills
HEENT: NormoCephalic, Anicteric, Moist mucous membranes, PERRLA, [place] Conjunctivae and No Ptosis
Respiratory: Clear; No Wheezes, Rales or Rhonchi
Cardiac: S1/S2, Regular Rhythm and Peripheral Edema (+2 bilateral lower legs with anterior cruz ulcerations); No Murmur, Rub or Gallop
Breast: Deferred by me
GI: Soft, Non Tender, Non Distended, Normal Bowel Sounds and No Hepatosplenomegaly
Rectal: Deferred by Provider
Genito-urinary: Deferred by me
Musculoskeletal: No Clubbing, No Cyanosis, Edema, Left Upper Extremity (+1 edema), Edema, Right Upper Extremity (+1 edema ), Edema, Left Lower Extremity (+2 edema anterior cruz ulcerations) and Edema, Right Lower Extremity (+2 edema anterior cruz
ulcerations)
Skin: Warm, Dry and Decubitus Ulcers (Sacral ulcer stage II-III); No Rash
Neuro: AO x 3, Cranial Nerves Intact and No Sensory Deficits; No Slurred Speech, Facial Droop, Tremors or Sedated
Psych: Calm
Laboratory Results
-
08/12/25 17:16
08/12/25 17:15
Laboratory Results
Total Bilirubin 0.7 mg/dl (0.2-1.3) 08/12/25 17:15
AST 17 U/L (14-36) 08/12/25 17:15
ALT < 10 U/L (0-35) 08/12/25 17:15
Alkaline Phosphatase 116 U/L (38-126) 08/12/25 17:15
Data Reviewed
-
Lab Data: Labs Reviewed by me
Impression/Plan
-
Impression/plan:
Admit to IMU
#Septic shock 2/2 likely secondary to sacral wound stage III versus bilateral leg wounds
07/27/2025 Sacral ulcer + gram neg bacilli, enterococcus, staph. MRSA screen +. (Treated with cefepime/Vanco)
- WBC 15 with left shift, afebrile 98.2, HR 112,
BP 89/62> 92/79 s/p 1L IV NSS
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
- Consult wound care
- IV vancomycin, IV cefepime will add Flagyl will continue her oral vancomycin x 2 days due to recent C. difficile
- Trend lactic acid follow CBC, CMP
-Will give patient midodrine 5 mg now
- Continue midodrine 5 mg 3 times daily
- Hold Lasix
- Consult Infectious disease
-PT/OT/case management consult
#Bilateral leg wounds due to edema/chronic bedbound
#Chronic peripheral edema
-Consult wound care continue IV vancomycin as above
# NEW DVT left leg likely secondary to bedbound status/immobility
-IV heparin bolus with drip
#Anasarca secondary to hypoalbuminemia
#Recent history of third spacing secondary to severe hypoalbuminemia
Albumin x 1 given on 07/29/2025
Albumin 1.8
- Will give 25 g albumin every 8 hours x 24 hours
#SABINA
Creat 2.8 > 0.9 on 08/01/2025
Hold Lasix 80 mg daily
Check UA PRIMARY CLASS TEACHER, urine sodium, urine creatinine
-Check mag, Phos
-Consult Nephro
-Hold naproxen 500 mg twice daily mild pain due to SABINA
#Anemia of chronic disease
Recent anemia Hgb 6.4> 8.4 status post 2 units PRBCs 07/30/2025
Hgb 7.3 Normal baseline appears 7-9 if drops below 7 will transfuse
-Type and screen
Follow CBC
#Recent diarrhea with C. difficile and infection but negative toxin detected
Patient was to finish vancomycin oral on July 15, 2025
#Severe protein calorie malnutrition
Had recent dietary consult for malnutrition
#Chronic hyponatremia
NA 130 patient typical range 128
#Rheumatoid arthritis
#Chronic bilateral shoulder pain with severe bilateral glenohumeral arthrosis
# Chronic rotator cuff arthropathy
# Chronic ambulatory dysfunction uses walker at baseline
-HOLD Orencia and Leflunomide due to sepsis/sacral and leg wounds
- Continue oxycodone 10 mg every 6 hours, hold naproxen given SABINA
#Hypothyroidism
Used to be on levothyroxine in May unsure when stopped
#Depression/anxiety
Continue mirtazapine 15 mg at bedtime
#Chronic pain on chronic oral opiates
-Continue oxycodone 10 mg p.o. every 6 hours as needed
-Hold naproxen 500 mg twice daily mild pain due to SABINA
Other PMH:
severe bilateral glenohumeral arthrosis
chronic rotator cuff arthropathy
chronic bilateral shoulder pain
DVT prophylaxis
Patient with current DVT left leg on IV heparin drip
Full code
[2025-08-12 20:29] LABS: APTT 40.7 Sec (23.4-35.0)
[2025-08-12] MEDS: HEPARIN 4500 UNITS IV (20:30)
[2025-08-12 20:31] LABS: Magnesium 2.0 mg/dl (1.6-2.3)
--- NOTE | 2025-08-12 20:44 | W.PN.UPDATE ---
Update Note
Progress Note Update
Patient seen and condition with documentation. I agree with the findings on history and physical. I concur with assessment and plan.
Briefly, this is a 60-year-old female with past medical history significant for rheumatoid arthritis on leflunomide and Orencia, hypothyroid, depression, anxiety, chronic lymphedema, chronic bilateral lower extremity wound, recent admission for
sepsis which was thought to be secondary to infectious C. difficile colitis without toxic megacolon with hospital course complicated by hypotension with need for on Levophed and ultimately discharged on midodrine, significant hypoalbuminemia, SABINA
that resolved with now presents again to the emergency department from residential facility with dizziness and found to have signs symptoms of sepsis.
She presented tachycardic and hypotensive but not febrile. Respiratory rate and oxygen saturation normal. She has anasarca, marked edema in the legs. She has multiple wounds most notably on the sacrum and legs bilaterally. Patient does self denies
any diarrhea. She denies any nausea or vomiting. She reports ongoing low appetite. She denies having any acute pain in extremities, sacral or anywhere else. Dizziness thought to be secondary to hypotension and tachycardia. She was prescribed 30
cc/kg crystalloid and she has had improved blood pressure since initiation of fluids.
Additional workup in the ED shows currently blood pressure of 90/70 with a pulse rate of 112 when she was satting 98% on room air. ECG was sinus tach at 102. Ultrasound of lower extremities shows nonocclusive thrombus. Chest x-ray shows no acute
infiltrates. Get a white count of 15, hemoglobin of 7.3 down from 8.2, platelet count is normal. Electrolytes notable for a sodium of 130 potassium of 5.3, bicarb 17, BUN of 41 and a creatinine of 2.8. COVID-negative, flu negative.
Assessment and plan
60-year-old with multiple medical comorbidities who now presents to the emergency department with dizziness and found to be hypotensive and tachycardic. Positive for sepsis with source likely from possible skin infection in the setting of deep
tissue wound, open, no drainage. She is afebrile. She does have leukocytosis. She has new SABINA but has no evidence of urinary obstruction on ED evaluation.
1. Hypotension -sepsis versus recent chronic hypotension in the setting of severe hypoalbuminemia third spacing and daily diuretics.
- Admit to IMU
- Blood culture sent
- check UA and urine culture
- Patient is currently on oral vancomycin for C. difficile, continue for now, no current diarrhea vancomycin to continue until August 14
- Will start broad-spectrum antibiotics with vancomycin and cefepime and Flagyl for now
- Resuscitation with 50 g of albumin as 25 g every 8 hours for 1 day and reassess.
- Midodrine 5 mg 3 times daily, 5 mg p.o. every 8 hours as needed hypotension. If persistently hypotensive or lactic acid elevated will start on Levophed
- ID consultation
2. SABINA -SABINA with creatinine of 2.8 up from less than 1 from prior discharge. BUN 41. No obstruction. She was discharged on Lasix and is severely hypoalbuminemic. Suspect possibly sepsis versus prerenal azotemia. Count completely rule out
interstitial nephritis given new medications.
-Hold Lasix
-Albumin, midodrine for now
-Oral bicarb supplementation
-Renal ultrasound
-UA for sediment, urine sodium creatinine and protein
-Nephrology consultation
3. CDIFF
- Continue oral vancomycin, IV metronidazole
4. Newfound DVT in the lower extremities -likely secondary to recent hospitalization and immobilization.
-Heparin subcu
5. Anemia -multifactorial, microcytic anemia with likely some iron deficiency and anemia of chronic disease. Heme-negative rectal exam. No evidence of bleeding at this time.
-Type and screen
-Transfuse for hemoglobin less than 7
- continue ppi
DVT PPX - on heparin sq
Code status - Full Code
[2025-08-12] MEDS: HEPARIN 25000 UNITS/250 ML IV (20:53)
[2025-08-12] MEDS: VANCOCIN 530 MG IV (20:55)
[2025-08-12] MEDS: MAXIPIME 1000 MG IV (22:45)
[2025-08-12] MEDS: STERILE WATER FOR INJECTION 10 ML IV (22:45)
[2025-08-12] MEDS: FLAGYL 500 MG 100 IV (22:46)
[2025-08-12] MEDS: SODIUM BICARBONATE 650 MG PO (23:01)
[2025-08-13] VITALS (53 sets, daily range): BP systolic 72–144; BP diastolic 41–102; BMI 19.0
[2025-08-13] MEDS: FLEXBUMIN 100 IV (00:05)
[2025-08-13] MEDS: REMERON PO (03:41)
--- NOTE | 2025-08-13 04:11 | W.PN.UPDATE ---
Update Note
Progress Note Update
RN reports that pt now only has one functioning IV. The only functioning Iv has heparin gtt infusing. The other IV was for albumin and abx. Pt is all caught up on abx for now but was to receive albumin at 4am. Unfortunately albumin is not compatible
with heparin. BP currently on soft side (sbp 90s) but stable. PT is a extreme difficult stick for both iv and blood draws. Also unable to obtain am labwork. Multiple RNS have attempted without success. RN with VAT team jaeight unable to do midline
or PICC. Last admit did have central line due to diffculty access. VAT RN will have day team VAT RN attempt midline or PICC first thing in am. If not successful will need IR consult.
--- NOTE | 2025-08-13 05:47 | PTCARENOTE ---
Admitted pt overnight, aaox3, pleasant but very anxious. Heparin running through L wrist. LAC iv no longer working, unable to continue the albumin that was running. VAT team to bedside with US, unable to place line. Unable to place central or
midline. Many nurses at bedside attempting IV's, all unsuccessful. NUMERICAL CONTROL PROGRAMMER aware. Unable to get PTT for hep gtt or morning labs. Unable to administer 0400 albumin. Will report off to daytime VAT. Remains ST low 100's. Remians RA. BPs running soft but
stable. No signs of bleeding. Q2T. WOC consulted, wounds were dressed. Will continue to monitor.
[2025-08-13] MEDS: DESENEX/MITRAZOL/ZEASORB 1 APPLIC TOPICAL ×2 (08:07→20:02)
[2025-08-13] MEDS: OSCAL CAL 500 500 MG PO (08:08)
[2025-08-13] MEDS: PROTONIX 40 MG PO (08:08)
[2025-08-13] MEDS: FEOSOL 325 MG PO (08:08)
[2025-08-13] MEDS: FIRVANQ 125 MG PO ×3 (08:08→23:06)
[2025-08-13] MEDS: SODIUM BICARBONATE 650 MG PO ×3 (08:08→23:07)
[2025-08-13] MEDS: VISBIOME 1 CAP PO (08:08)
[2025-08-13] MEDS: DIFLUCAN 100 MG PO (08:09)
--- NOTE | 2025-08-13 08:16 | CON.ID ---
Addendum entered and electronically signed by Kitty Carpenter MD 08/13/25 15:52:
Pt's sacral wound significantly deteriorated over few weeks. It is now very large, deep with fibrinous plaza slough at base, necrotic tissues on edge. Leg wounds do not look infected. Her wound healing potential is extremely poor given severe
protein-calorie malnutrition. I discussed with patient her overall poor prognosis. Continue Vancomycin and cefepime for now.
Original Note:
Consultation
-
Date/Time Consultation Requested: August 12, 20252241
Date/Time Consultation Performed: August 13, 2025 0815
Requesting Provider: PITO Lang
Performing Provider: Dr. Kitty Carpenter
Reason for Consultation: Foot wound
Chief Complaint / Past History
History of Present Illness
59-year-old female with history of RA on leflunomide and biologic, bilateral lower extremity lymphedema with chronic bilateral lower extremity wound, recent hospitalization July 27 - August 01 with first recurrence of severe C. difficile
diarrhea which she responded to oral vancomycin and discharged on long taper. She presented from [facility] to the ER August 12 complaining of bilateral lower extremity worsening edema. She complains of leg discomfort. She reports the chronic leg wounds
are improving. Otherwise no fever or chills. The diarrhea has resolved. No cough or shortness of breath. In the ED, afebrile, white count 15, BP in 80s. Venous ultrasound showed DVT of the right femoral veins. She is started on IV vancomycin,
cefepime, metronidazole, fluconazole, and continue with enteric vancomycin taper. She reports leg swelling improved this morning.
Past History
Additional Past Medical History:
RA on leflunomide and Orencia
HTN
Hypothyroidism
Recurrent C. diff
BLE lymphedema
Chronic BLE wounds s/p I+D 06/08/25
Chronic sacral decubitus
Chronic pain
Depression
Non-ambulatory
[facility] resident
Allergy History:
No Known Allergies Allergy (Verified 08/12/25 16:36)
Medications Reviewed: Yes
Current Antibiotics:
IV vancomycin
Cefepime
IV metronidazole
P.o. fluconazole
P.o. vancomycin
Social History
Tobacco: Non-Smoker
Alcohol: None
Drug: None
Personal:
Living: [facility] ([facility])
Family History
Family History: Not Pertinent
Review of Systems
Review of Systems
General: Negative Fever, Chills or Change in Appetite
HEENT: Negative Sinus Problems or Headache
Cardiovascular: Negative Chest Pain or Dyspnea
Respiratory: Negative Dyspnea or Cough
Gasteroenterology: Negative Nausea, Vomiting or Diarrhea
Genital / Urological: Negative Dysuria or Flank Pain
Endocrine: Weakness
All systems: All other systems were reviewed and were negative
Vital Signs
Temp Pulse Resp BP Pulse Ox
97.9 F 106 12 99/61 97
08/13/25 02:44 08/13/25 08:08 08/13/25 06:00 08/13/25 08:08 08/13/25 06:00
Physical Exam
Physical Exam
Constitutional: No Acute Distress and Chronically Ill
Eyes: No Conjunctival Hemorrhage and Sclera Anicteric
Cardiovascular: S1/S2 (tachycardic)
Pulmonary: Clear
Gastrointestinal: Soft, Non Tender, Non Distended and Normal Bowel Sounds
Genito-Urinary: Negative CVA Tenderness
Extremities: Edema (BLE 2-3+)
Wound: Other (BLE distal LE with dry dressing. Pt refuses for me undress gauze to examine wounds. She prefers to wait for wound care. )
Neurological: AO x 3
Lab / Diagnostic Study Results
Abs Immat Gran (auto) Cancelled 08/13/25 02:58
Absolute Neuts (auto) Cancelled 08/13/25 02:58
Absolute Lymphs (auto) Cancelled 08/13/25 02:58
Absolute Monos (auto) Cancelled 08/13/25 02:58
Absolute Basos (auto) Cancelled 08/13/25 02:58
Immature Gran % Cancelled 08/13/25 02:58
Neutrophils % Cancelled 08/13/25 02:58
Lymphocytes % Cancelled 08/13/25 02:58
Monocytes % Cancelled 08/13/25 02:58
Eosinophils % Cancelled 08/13/25 02:58
Basophils % Cancelled 08/13/25 02:58
Microbiology Results
Micro:
08/12/25 20:07 Blood Culture - Pending
Blood/Venous
08/12/25 20:08 Blood Culture - Pending
Blood/Venous
08/12/25 17:16 Influenza Types A & B (NANCIE) - Final
Nasal Swab Negative for Influenza A & B, NAAT
Negative results must be combined with clinical observations
and patient history.
Nucleic Acid Amplification test (NAAT)performed on the
[employer] NOW platform.
08/12/25 Peripheral Vascular US: Examination is positive for nonocclusive thrombus involving the right common femoral and femoral veins.
08/12/25 CXR: Focal parenchymal opacity involving the medial aspect of the right lower lung, new since previous examination. Appearance is most suggestive of atelectasis, although underlying pneumonia is also possible.
Assessment / Plan
# Leukocytosis
# Hypotension
# RLE acute DVT
# BLE worsening edema
# Chronic BLE lymphedema, non-healing wounds BLE
#Chronic sacral decubitus
# Recent severe C. difficile colitis - on tapering po Vancomycin course
# RA on Orencia, leflunomide
# Protein-calorie malnutrition, hypoalbuminemia
# Chronic pain
- Pt refuses dressing change at this time and therefore unable to examine wounds.
She is awaiting line access for pain meds prior to dressing change.
Wound Care and I will attempt to examine her later today.
- Can continue Vanco and cefepime for now pending examination of wounds. If wounds do not look infected, dc unnecessary antibiotics
- Continue po Vanc taper for recent C. diff. DC metronidazole.
- Trend wbc, BP
Care Review
Plan reviewed with: Nurse (Jennifer Rojas)
--- NOTE | 2025-08-13 10:35 | W.CON.NEPH ---
Addendum entered and electronically signed by Julissa Mackenzie MD 08/13/25 21:35:
addendum to PE: pt c/o pain every part of her body
c/o tender on abd palpation too
Original Note:
Consultation
-
Date/Time Consultation Requested: 08/12/25 6192
Date/Time Consultation Performed: 08/13/25 1045
Requesting Provider: Deep Hernandez MD
Performing Provider: Julissa Breen
Reason for Consultation: SABINA
Medical History
-
Chief Complaint: Acute kidney injury
History of Present Illness:
60-year-old female with past medical history significant for rheumatoid arthritis on leflunomide and Orencia, hypothyroid, depression, anxiety, chronic lymphedema, chronic bilateral lower extremity wound, GERD, malnutrition who had recent admission
for sepsis which was thought to be secondary to infectious C. difficile colitis without toxic megacolon with hospital course complicated by hypotension with need for pressor and ultimately discharged 08/01 on midodrine and SABINA that resolved at d/c,
presents to the emergency department with dizziness feeling lightheaded over the past few days. She also reports increased swelling in bilateral legs over the past few days along with bilateral leg pain. She denies fever, chills, chest pain,
cough, shortness of breath, abdominal pain, nausea, vomiting, diarrhea, urinary symptoms.
She has persistent hypoalbuminemia chronically and felt her LE edema is likely from it. She reports not liking the food at [facility] and was only staying on liquids. She reports not drinking much of fluid either. She is bedbound chronically. In ER she
noted in sepsis, hypotensive, tachy, anasarca, marked edema in the legs. She has multiple wounds most notably on the sacrum and legs bilaterally. Ultrasound of lower extremities shows nonocclusive thrombus. Electrolytes notable for a sodium of 130
potassium of 5.3, bicarb 17, BUN of 41 and a creatinine of 2.8. Has 1lit NS in ER. COVID-negative, flu negative. Nephrology consulted for SABINA. Previous admits she had similar electrolyte issues too. Due to poor access no repeat labs done this
morning.
Past Medical History
rheumatoid arthritis on Orencia and leflunomide
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
Chronic ambulatory dysfunction uses wheelchair
severe bilateral glenohumeral arthrosis
chronic rotator cuff arthropathy
chronic bilateral shoulder pain
depression
chronic pain on chronic oral opiates as needed,
chronic bilateral lower leg edema
hypothyroidism
HTN
HLD
Social History
Tobacco: Non-Smoker
Alcohol: None
Drug: None
Personal: (Patient reports last year at age 54 ME)
Living: [facility]
Employment: Disabled
Family History
Family History: Not Pertinent
Allergies / Home Medications
Allergy/AdvReac Type Severity Reaction Status Date / Time
No Known Allergies Allergy Verified 08/12/25 16:36
�Medication �Instructions �Recorded �Confirmed �Type
acetaminophen 325 mg tablet 650 mg PO Q4HPRN PRN mild pain 05/18/25 08/12/25 History
leflunomide 20 mg tablet 20 mg PO DAILY Antirheumatic 05/18/25 08/12/25 History
oxycodone 10 mg tablet 10 mg PO Q6HPRN PRN severe pain 05/18/25 08/12/25 History
polyethylene glycol 3350 17 gram 17 g PO DAILYPRN PRN Constipation 05/18/25 08/12/25 History
oral powder packet (Miralax)
abatacept 125 mg/mL subcutaneous 125 mg SC MO Rheumatoid arthritis 06/04/25 08/12/25 History
syringe (Orencia)
ferrous sulfate 325 mg (65 mg 325 mg PO DAILY ANEMIA 06/04/25 08/12/25 History
iron) tablet
naproxen 500 mg tablet (Naprosyn) 500 mg PO BID mild Pain 06/04/25 08/12/25 History
midodrine 5 mg tablet 5 mg PO TID Hypotension 06/20/25 08/12/25 History
mirtazapine 15 mg tablet 15 mg PO HS Depression 06/20/25 08/12/25 History
furosemide 40 mg tablet (Lasix) 80 mg PO DAILY Fluid 07/27/25 08/12/25 History
Retention/Swelling
vancomycin 125 mg capsule 125 mg PO DIRECTED c diff #85 08/01/25 08/12/25 Rx
caps
Lactobac no.2-Bifidobac no.1-S. 1 cap PO DAILY Supplement 08/12/25 08/12/25 History
thermo 112.5 billion cell capsule
(Visbiome)
calcium carbonate 500 mg PO DAILY Supplement 08/12/25 08/12/25 History
fluconazole 100 mg tablet 100 mg PO DAILY Infection 08/12/25 08/12/25 History
magnesium oxide 400 mg PO DAILY Supplement 08/12/25 08/12/25 History
miconazole nitrate 2 % topical 1 applic topical BID skin integrity 08/12/25 08/12/25 History
powder (Miconazorb AF)
pantoprazole 40 mg tablet,delayed 40 mg PO DAILY Gastrointestinal 08/12/25 08/12/25 History
release (Protonix) Issue
polyethylene glycol 3350 17 gram 8.6 g PO DAILYPRN PRN constipation 08/12/25 08/12/25 History
oral powder packet (Miralax)
Review of Systems
-
All other systems: Negative unless noted
Physical Exam
Vital Signs
Vital Signs
Temp Pulse Resp BP Pulse Ox
98.0 F 106 12 99/61 97
08/13/25 07:35 08/13/25 08:08 08/13/25 06:00 08/13/25 08:08 08/13/25 06:00
Lab Results
eGFR 18.98 08/12/25 17:15
Phosphorus 4.9 mg/dl (2.5-4.5) H 08/12/25 17:15
Rzz-C-Wpezvfthqsm Pept 3690 pg/ml 08/12/25 17:15
Abnormal Lab Results
08/12/25 08/12/25 08/12/25
17:15 17:16 20:07
WBC 15.0 H
RBC 2.77 L
Hgb 7.3 L
Hct 22.1 L
MCV 79.8 L
MCH 26.4 L
MCHC
RDW 17.7 H
Abs Immat Gran (auto) 0.1 H
Absolute Neuts (auto) 13.1 H
Immature Gran % 0.9 H
Neutrophils % 87.6 H
Lymphocytes % 8.8 L
Monocytes %
APTT 40.7 H
Sodium 130 L
Potassium 5.3 H
Chloride 109 H
Carbon Dioxide 17 L
BUN 41 H
Creatinine 2.8 H
Calcium 7.3 L
Phosphorus 4.9 H
Total Protein 4.5 L
Albumin 1.8 L
08/13/25
13:15
WBC 21.7 H
RBC 2.59 L
Hgb 6.6 L*
Hct 20.7 L*
MCV 79.9 L
MCH 25.5 L
MCHC 31.9 L
RDW 17.7 H
Abs Immat Gran (auto) 0.2 H
Absolute Neuts (auto) 19.9 H
Immature Gran % 1.1 H
Neutrophils % 91.7 H
Lymphocytes % 5.3 L
Monocytes % 1.6 L
APTT
Sodium
Potassium
Chloride
Carbon Dioxide
BUN
Creatinine
Calcium
Phosphorus
Total Protein
Albumin
Physical Exam
General: Awake, Alert, Oriented, AOx3 and No Distress
HEENT: EOMI, Anicteric and Facial Symmetry
Respiratory: Clear (anteriorly), Normal Excursion and Nonlabored Respirations
Cardiac: S1/S2 and Regular Rate/Rhythm (tachy)
Breast: Deferred by me
Abdomen: Soft, Nontender and Nondistended
Musculoskeletal: Edema (3+)
Skin: No Rash and Other
Neuro: Nonfocal/Grossly Intact
Psych: Appropriate
Assessment/Plan
-
IMP:
Hypotension -sepsis versus recent chronic hypotension
SABINA
h/o CDIFF
Newfound DVT in the lower extremities
Acute on chr Anemia
Mild hyperkalemia
Met acidosis-non gap
Anasarca, bilateral leg lymphedema
Hyponatremia
hypoalbuminemia
Hypothyroidism
Rheumatoid arthritis
Chronic bilateral shoulder pain with severe bilateral glenohumeral arthrosis
Chronic rotator cuff arthropathy
Chronic ambulatory dysfunction uses walker at baseline
Chronic debility
1.3 g proteinuria
Plan:
A/w sepsis and new LE DVT
SABINA-suspect prerenal, need urine studies, renal US non acute, possible R kidney stones
bladder echogenicity suspect blood products-need f/u later
ok for gentle IVF for hypotension and prn IV alb
due to hypoalbuminemia she is third spacing
could potentially try lasix as needed cr stabilized
working on IV access currently
hyponatremia multifactorial
on po bicarb for met acidosis
prn transfusion for anemia
BP soft chronically on low dose midodrine,prn pressor to keep MAP>65
avoid nephrotoxins and NSAIDs naproxen listed in home meds
corrected angel is normal
abx per ID
prognosis is seem poor with chr illness, bedbound, multiple medical issues, severe hypoalbuminemia and anasarca-suggest to have GOC discussion. d/w pt and nursing
--- NOTE | 2025-08-13 10:55 | PTCARENOTE ---
Patient received by shift lab technician RN, Patient AAOx3 flat affect,drowsy, and withdrawn. Heparin ( clot in R leg) infusing at @ 10ml/hr through a left wrist 22 . Patient pale and reports whole body pain 07/15. Anasarca throughout body +3/4 pitting edema.
Code status addressed, patient confirms full code. Patient having difficulty swallowing meds. Speech consult ordered. Patient refusing Q2 turns. Patient has a stage III sacral pressure wound and b/l LE venous ulcers per shift lab technician nurse. NIGHT VAT
team, IMU, and ICU NURSES tried to obtain labs and place an IV-unsuccessful. Dr. Lee made aware.
--- NOTE | 2025-08-13 11:15 | PTOTSP ---
Speech Therapy Evaluation:
Pt with acute risk factors for dysphagia including acute medical illness with sepsis, FTT, and pt reported trouble swallowing. Pt unable to elaborate on difficultly, however endorsed increased effort. At bedside, pt without s/sx of aspiration and
she denied globus sensation/odynophagia. Facial grimacing observed across trials, however pt reported no difficulty. Given overall weakness/deconditioning, recommend modified diet at this time.
Recommend:
1. Puree and thin liquids
2. Medications crushed in puree
3. General aspiration precautions
4. Upright as able during meal times
5. Close supervision with PO intake
6. EDUCATION COURSES SALES REPRESENTATIVE to follow to monitor tolerance of diet, assess candidacy for diet upgrades, and determine if pt would benefit from instrumental, although suspect pt would be unable to sit upright in VSE chair with stage III sacral wounds and limited
tolerance of upright positioning during assessment
--- NOTE | 2025-08-13 11:33 | CHAP ---
While I was speaking with Ms. Day, she shared her fears and her wishes not to be alone. She asked me to accompany her down to IR, which I did. I will follow up when she moves back to a room. During our conversation, she also said she did NOT
want to be resusitated with chest compressions, but that she didn't know if she would want to be intubated or not. Will follow more after she returns to a room.
--- NOTE | 2025-08-13 11:35 | W.PN.HOSP.TC ---
Today's Communication/Plan
-
See plan
Assessment / Plan
Assessment / Plan
Physical exam:
General: Acutely ill. Toxic.
HEENT: Normocephalic, Atraumatic and dry mucous Membranes
Respiratory: Decreased breath sounds bilaterally; Negative Wheezes, Rales or Rhonchi
Cardiac: Regular Rhythm, tachycardic, and S1/S2
GI: Soft, tender and distended
Musculoskeletal: No Clubbing, No Cyanosis. Bilateral lower extremity edema and anasarca
Neuro: Lethargic but responds to verbal stimuli and Oriented, somewhat contracted, generalized weakness present but no neurological deficits appreciated. Bedbound
Psych: Normal judgment and insight although very low tone voice
A/P:
Shock:
Likely etiology multifactorial septic shock, hemorrhagic shock, rule out other etiology.
On IV albumin
Blood transfusion
Bolus IV fluids if needed
Pressors as needed
Midodrine
There was no vascular access on her earlier this morning so I reached out to vascular team and IR and IR was able to place a PICC line double-lumen.
Reviewed latest echocardiogram back in May 2025 with normal EF and no valvulopathy
I reached out to video manager and they question if she needs to be in ICU due to not requiring pressors yet so we will keep an eye on her hemodynamics and reengage with them if needed.
I had lengthy discussions with patient multiple times throughout the day about plan of care, goals of care discussion and at the moment she would like to continue medical treatment but does understand poor prognosis and agrees to change CODE STATUS
to DNR and also agrees to discuss with hospice care and contemplating depending on conversations with hospice staff.
Septic shock due to infected sacral decubitus ulcer and nonhealing lower extremity wounds in an immunocompromised patient:
Continue IV cefepime and vancomycin
Continue oral vancomycin for C. difficile prophylaxis
Appears to be on ?oral fluconazole
WBC up to 21.7 neutrophils 91.7%
ID consult
Surgery consult-discussed with surgery today. I did mentioned to patient if she requires surgery if she would consent for and she is ambiguous in terms of that.
Acute blood loss anemia:
Hemoglobin 6.6 with microcytic index
Obtain blood transfusion consent from patient
Transfused 2 units of blood today
On Protonix orally but changed to IV twice daily
Obtain CT scan of the abdomen and pelvis to rule out retroperitoneal bleed
Continue to monitor hemoglobin
Acute kidney injury:
Multifactorial likely prerenal and ATN due to sepsis
Avoid nephrotoxic
Check urine lites
Monitor renal function
Nephrology consulted
Acute right lower extremity DVT:
Doppler with nonocclusive thrombus right common femoral and femoral veins
On heparin drip
Unfortunately due to significant anemia we will need to hold heparin drip until rule out active bleeding and restart down the road
IVC filter or vascular evaluation is a possibility if remains off heparin drip too long but will reevaluate
Also needs to align with goals of care discussions
Hyponatremia:
Monitor sodium closely
Hyperkalemia:
Monitor potassium closely and will give Lokelma if increased levels above 5.5
Metabolic acidosis:
Monitor acidosis status closely
On oral bicarb
If worsening might need bicarb drip
Severe protein calorie malnutrition:
Present on admission
Nutrition eval
Severe hypoalbuminemia:
Continue to monitor albumin
On IV albumin
Might need Lasix down the road
Dysphagia:
Speech therapy eval recommended pur�ed diet
Rheumatoid arthritis:
Hold Orencia and leflunomide given active infection
Chronic pain and narcotic dependence:
Continue oral oxycodone and add IV Dilaudid as needed but cautious with hemodynamics
DVT prophylaxis:
Heparin drip
CODE STATUS:
Lengthy discussions with patient as mentioned above and change CODE STATUS to DNR.
Prognosis very poor
Total Critical Care Time__70___ minutes. I was immediately available to the patient and staff. I personally examined, reviewed labs, diagnostic images/reports, interpretations, treatment plans, discussed patient care with other providers and
family or caregivers (if patient is unable to make decisions), entered orders as appropriate and documented the medical record.
Anticipated Discharge: > 48 hours
Subjective/Interval History
-
Date of Service: August 13, 2025
Patient seen and examined. She tells me that she is here for 'swelling and lightheadedness'. Looks frail, toxic, pale, and very ill.
Objective Data
-
Labs:
Laboratory Results
08/13/25 08/13/25 08/13/25
02:58 06:00 07:00
WBC Cancelled Pending
Hgb Cancelled Pending
Hct Cancelled Pending
Plt Count Cancelled Pending
APTT Pending
Sodium Pending
Potassium Pending
Chloride Pending
Carbon Dioxide Pending
BUN Pending
Creatinine Pending
Glucose Pending
Calcium Pending
Total Bilirubin Pending
AST Pending
ALT Pending
Alkaline Phosphatase Pending
Vital Signs:
Vital Signs
Temp Pulse Resp BP Pulse Ox
98.0 F 106 12 99/61 97
08/13/25 07:35 08/13/25 08:08 08/13/25 06:00 08/13/25 08:08 08/13/25 06:00
[2025-08-13] MEDS: DILAUDID 0.25 MG IV (12:51)
[2025-08-13] MEDS: MAXIPIME 1000 MG IV ×2 (12:54→23:12)
[2025-08-13] MEDS: STERILE WATER FOR INJECTION 10 ML IV ×2 (12:54→23:12)
--- NOTE | 2025-08-13 13:15 | WOUNDNOTE ---
RIGHT POSTERIOR LOWER LEG
--- NOTE | 2025-08-13 13:17 | WOUNDNOTE ---
LEFT HEEL DTI
--- NOTE | 2025-08-13 13:18 | WOUNDNOTE ---
LEFT HEEL DTI
--- NOTE | 2025-08-13 13:18 | WOUNDNOTE ---
LEFT POSTERIOR LEG
--- NOTE | 2025-08-13 13:19 | WOUNDNOTE ---
BILATERAL ANTERIOR LEGS
--- NOTE | 2025-08-13 13:19 | WOUNDNOTE ---
SACRAL WOUND POA 1967, [id number]
[2025-08-13 13:31] LABS: Hematocrit 20.7 % (37.0-47.0); Hemoglobin 6.6 g/dL (12.0-16.0); Mean Corp Hgb Conc. 31.9 g/dL (33.0-37.0); Mean Corpuscular Volume 79.9 fL (81.0-99.0); Nucleated Red Blood Cells % 0 %; Platelet Count 199 10^3/uL (130-400); Red Cell Dist. Width 17.7 % (11.5-14.5)
[2025-08-13 13:40] LABS: APTT 42.9 Sec (23.4-35.0)
[2025-08-13 13:46] LABS: Blood Urea Nitrogen 43 mg/dl (7-17); Calcium 7.4 mg/dl (8.4-10.2); Carbon Dioxide 14 mmol/L (22-30); Chloride 111 mmol/L (98-107); Estimated Creatinine Clearance 17 ml/min; Glucose 65 mg/dl (70-99); Potassium 5.1 mmol/L (3.5-5.1); Sodium 132 mmol/L (135-145); eGFR 17.47
--- NOTE | 2025-08-13 13:56 | WOUNDNOTE ---
[facility] RN note: Patient admitted with sepsis
See H&P for complete history.
PMH: RA on leflunomide and Orencia
HTN
Hypothyroidism
Recurrent C. diff
BLE lymphedema
Chronic BLE wounds s/p I+D 06/08/25
Chronic sacral decubitus
Chronic pain
Depression
Non-ambulatory
SNF resident
Allergy History:
Wound Location and type/assessment: Patient admitted with unstageable PI, DTI to left heel and chronic venous wounds to bilateral LE, MASD to right hip and fungal appearing skin of groin. All care provided with RN, Romina. Romina medicated patient with
IV Dilaudid prior to care. Patient known from previous admissions. Please see worklist for measurements and descriptions of wounds. Sacrum and buttocks has deteriorated since prior admission. Patient stated during assessment that she often refuses
to be turned at [facility]. Patient now with unstageable PI to sacrum that is likely a stage 4 PI. Wound is covered with adherent slough and some black eschar is also noted. There are multiple open areas surrounding the wound and ecchymotic areas at 6
o'clock. Patient reported to MASD noted to right hip due to drainage/anasarca. Shaista area and groin also with MASD and fungal appearing skin. Desenex was already in use at time of assessment. DTI to left heel is purple ecchymotic. Bilateral LE with
chronic venous ulcers as noted in worklist.
Appetite: Poor, just had swallowing eval and puree and thin liquids were recommended. BMI is low at 19.
Pressure redistribution devices in place: Centrella Max Air, turning schedule, keep heels off-loaded with pillow or air cushion under calves.
Plan: Pictures of sacral wound sent to Dr. Carpenter and Dr. Lee. Plan is for surgical consult of sacral wound. Local wound care provided to lower extremities as ordered. Patient declining use of boot to left heel due to pain.
Will confirm orders with hospitalist and update nurse. Desenex for fungal appearing skin to groin and barrier ointment to areas of MASD due to anasarca/drainage. Patient has several comorbidities including anemia, low BMI, pain and is bedbound.
Wounds may worsen and new wounds may develop even with optimal care.
Updated care plan and will follow as needed.
Note to case management of equipment requested for discharge:
Recommend follow up at wound care center upon discharge.
--- NOTE | 2025-08-13 15:02 | HOSPNOTE ---
Called and left a message with Ayla [email or web address] (friend) to discuss making end of life decisions and to help support the patient. More information to follow.
--- NOTE | 2025-08-13 15:16 | PHA.VAN.IN ---
Assessment
- Assessment
Renal Function: SCR Appears Elevated from baseline
Concomitant Antimicrobials: cefepime, vanco PO
Laboratory Tests
08/13/25
13:15
Random Vancomycin 20.1
Drawn ~16H after 1500mg loading dose
Plan
- Plan
Initial / Loading Dose: 1500mg - 08/12 20:55
Maintenance Regimen: dosing by level - hold off on dosing today based on level
Monitoring: random 08/14 600
Pharmacokinetics Vancomycin I
- -
Patient Age: 60
Patient Sex: Female
Vancomycin Day #: 1
Indication: Skin And Soft Tissue
Requesting Provider: Dr. Carpenter
Pertinent Antimicrobial Allergies:
NKDA
Height / Weight:
Height 5 ft 6 in
Actual Weight 53.4 kg
IBW in k
Pertinent Past Medical History: RA (leflunomide, abatacept); bedbound; BMI ~19
- Vital Signs / Lab Results
Temp Pulse Resp BP Pulse Ox
97.9 F 117 16 82/67 97
08/13/25 12:54 08/13/25 14:16 08/13/25 12:25 08/13/25 14:16 08/13/25 12:25
Lab Results - Hematology
08/12/25 08/13/25 08/13/25
17:16 02:58 07:00
WBC 15.0 H Cancelled Cancelled
08/13/25
13:15
WBC 21.7 H
Lab Results - Chemistry
08/12/25 08/13/25
17:15 13:15
BUN 41 H 43 H
Creatinine 2.8 H 3.0 H
Estimated Creat Clear 17
Albumin 1.8 L
Microbiology Results
08/12/25 17:16 Influenza Types A & B (NANCIE) - Final
Nasal Swab Negative for Influenza A & B, NAAT
Negative results must be combined with clinical observations
and patient history.
Nucleic Acid Amplification test (NAAT)performed on the
[employer] platform.
--- NOTE | 2025-08-13 15:25 | CM ---
Initial Assessment Completed By Ashley.
Patient resides there in LTC, she is A/O at baseline, assisted with ADLs, the patient is w/c bound and transfers independently, she is seen by their wound care nurse weekly, per Devan in admissions, the patient needs a lot of encouragement in
regard to her care,
She has been depressed since her boyfriend passed last year.
Today, patient has not been well medically, blood pressure has been dropping, almost was sent to the ICU, and Hospitalist as well as RN was wondering about NOK and he decision making capacity. DIO Ramirez spoke to Liaison at [facility] then
Admissions there. Patient was sent over from [place] 3 years ago, was homeless so stayed there, then about last her, her BF , and the patient gave up on her health.
The patient does not have family, never had, just a friend, and FULL CODE at [facility]. DIO Ramirez asked Director of [facility], Almita, to assist who can spend sometime with the patient. As a result, the patient was able to share how scared
she is, made herself a DNR/DNI, but still indecisive on what she wants for her health treatment. The patient did agree to speak to Hospice so DIO Ramirez is having Zuleima speak to her tomorrow.
PLAN: TBD, Hospice vs. Return to [facility]
[2025-08-13 15:44] LABS: ALT (SGPT) < 10 U/L (0-35); AST (SGOT) 15 U/L (14-36); Albumin 1.9 g/dl (3.5-5.0); Alkaline Phosphatase 103 U/L (38-126); Blood Urea Nitrogen 43 mg/dl (7-17); Calcium 7.3 mg/dl (8.4-10.2); Carbon Dioxide 15 mmol/L (22-30); Chloride 111 mmol/L (98-107); Estimated Creatinine Clearance 17 ml/min; Glucose 62 mg/dl (70-99); Potassium 5.0 mmol/L (3.5-5.1); Sodium 134 mmol/L (135-145); Total Protein 4.5 g/dl (6.3-8.2); eGFR 16.80
[2025-08-13] MEDS: PROTONIX IV 40 MG IV (20:01)
[2025-08-13] MEDS: NSS (PRESERVATIVE FREE) 10 ML IV (20:01)
[2025-08-13] MEDS: REMERON 15 MG PO (23:07)
[2025-08-14] VITALS (16 sets, daily range): BP systolic 75–144; BP diastolic 51–101; BMI 19.1
[2025-08-14 05:40] LABS: APTT 47.9 Sec (23.4-35.0)
[2025-08-14 05:51] LABS: Hematocrit 27.5 % (37.0-47.0); Hemoglobin 9.2 g/dL (12.0-16.0); Mean Corp Hgb Conc. 33.5 g/dL (33.0-37.0); Mean Corpuscular Volume 81.1 fL (81.0-99.0); Platelet Count 146 10^3/uL (130-400); Red Cell Dist. Width 16.2 % (11.5-14.5)
[2025-08-14 05:52] LABS: Nucleated Red Blood Cells % 0 %
--- NOTE | 2025-08-14 06:00 | PTCARENOTE ---
Caring for pt overnight. aaxo3 but forgetful, anxious, tearful, very sensitive. SR on monitor, bps running soft at times but remained stable, pt asymptomatic. Pt finished up 2nd unit of blood, ok to recheck hgb in am per ELECTRONIC DEVICE MONITOR. Q2T. Wound dressings
CDI. Purewick. +3 anasarca. No assessment changes. Will monitor.
[2025-08-14 06:16] LABS: ALT (SGPT) < 10 U/L (0-35); AST (SGOT) 14 U/L (14-36); Albumin 1.7 g/dl (3.5-5.0); Alkaline Phosphatase 103 U/L (38-126); Blood Urea Nitrogen 44 mg/dl (7-17); Calcium 7.6 mg/dl (8.4-10.2); Carbon Dioxide 14 mmol/L (22-30); Chloride 113 mmol/L (98-107); Estimated Creatinine Clearance 16 ml/min; Glucose 61 mg/dl (70-99); Magnesium 2.0 mg/dl (1.6-2.3); Potassium 4.9 mmol/L (3.5-5.1); Sodium 136 mmol/L (135-145); Total Protein 4.3 g/dl (6.3-8.2); eGFR 16.17
[2025-08-14 06:21] LABS: Cortisol, Random 27.6 ug/dl
--- NOTE | 2025-08-14 08:39 | PHA.VAN.FU ---
Vancomycin Assessment / Plan
- Assessment
Renal Function: SCR Increasing
WBC's are: Trending Down
In the past 24 hrs, patient has been: Afebrile
Concomitant Antimicrobials: cefepime, vancomycin PO
- Assessment - Therapeutic Drug Monitoring
Random Level: 18.5 - drawn ~15.5H after previous level of 20.1
Calculated ke: 0.0053
Calculated half life (H): 130
- Dosing Plan
Dosing by Level: Hold off on dosing today (expected to maintain therapeutic level for over 4 days based on current half-life)
- Monitoring Plan
No level(s) ordered at this time: consider repeat level for Sunday based on current half-life
Monitoring Comments: may add order for level tomorrow if significant improvement in SCR
- Follow Up
Pharmacy will continue to follow.
Vancomycin Follow UP
- -
Patient Age: 60
Patient Sex: Female
Vancomycin Day #: 2
Indication: Skin And Soft Tissue
Requesting Provider: Dr. Carpenter
Pertinent Antimicrobial Allergies:
NKDA
Height / Weight:
Height 5 ft 6 in
Actual Weight 53.7 kg
IBW in k
Pertinent Past Medical History: RA (leflunomide, abatacept); bedbound; BMI ~19
- Vital Signs / Lab Results
Temp Pulse Resp BP Pulse Ox
97.6 F 92 10 123/73 98
08/14/25 03:00 08/14/25 07:00 08/14/25 07:00 08/14/25 07:00 08/14/25 07:00
Lab Results - Hematology
08/12/25 08/13/25 08/13/25
17:16 02:58 07:00
WBC 15.0 H Cancelled Cancelled
08/13/25 08/14/25
13:15 04:51
WBC 21.7 H 18.7 H
Lab Results - Chemistry
08/12/25 08/13/25 08/13/25
17:15 13:15 15:15
BUN 41 H 43 H 43 H
Creatinine 2.8 H 3.0 H 3.1 H
Estimated Creat Clear 17 17
Albumin 1.8 L 1.9 L
08/14/25
04:51
BUN 44 H
Creatinine 3.2 H
Estimated Creat Clear 16
Albumin 1.7 L
08/13/25 08/14/25
15:15 06:00
Lactic Acid 1.0 Cancelled
Microbiology Results
08/12/25 20:08 Blood Culture - Preliminary
Blood/Venous No Growth in 24 hours- Final report to follow
08/12/25 20:07 Blood Culture - Preliminary
Blood/Venous No Growth in 24 hours- Final report to follow
08/12/25 17:16 Influenza Types A & B (NANCIE) - Final
Nasal Swab Negative for Influenza A & B, NAAT
Negative results must be combined with clinical observations
and patient history.
Nucleic Acid Amplification test (NAAT)performed on the
[employer] platform.
Therapeutic Drug Monitoring
Random Vancomycin 18.5 ug/ml 08/14/25 04:51
[2025-08-14] MEDS: OSCAL CAL 500 500 MG PO (09:16)
[2025-08-14] MEDS: SODIUM BICARBONATE 650 MG PO (09:16)
[2025-08-14] MEDS: FIRVANQ 125 MG PO (09:16)
--- NOTE | 2025-08-14 09:16 | W.PN.ID1 ---
Date of Service
Date of Service: August 14, 2025
Today's Communication
Overall poor prognosis/outcome.
Assessment / Plan
# Acute infection and deterioration of chronic sacral decubitus
# Leukocytosis
# s/p Hypotension
# RLE acute DVT
# SABINA - worse
# Anasarca due to protein-calorie malnutrition/hypoalbuminemia
# Chronic BLE lymphedema, non-healing wounds BLE: Leg wounds are not infected
# Recent severe C. difficile colitis - on tapering po Vancomycin course
# RA on Orencia, leflunomide
# Chronic pain
-Pt's sacral wound significantly deteriorated over few weeks, now very large, deep with fibrinous plaza slough at base, necrotic tissues on edge.
Suspect underlying osteo. Prolong abx is futile. Her wound healing potential is virtually zero with poor nutritional status.
- Overall prognosis is poor. Should address goals of care.
- Can continue Vanco and cefepime for now.
- Continue po Vanc taper for recent C. diff.
- DC fluconazole.
Chief Complaint
-: Other (Sacral wounds)
Subjective / Review of Systems
No diarrhea. Pain controlled at this time.
Vital Signs / Physical Exam
Vital Signs
Vital Signs
Temp Pulse Resp BP Pulse Ox
97.6 F 92 10 123/73 98
08/14/25 03:00 08/14/25 07:00 08/14/25 07:00 08/14/25 07:00 08/14/25 07:00
Physical Exam
Constitutional: Chronically Ill and Cachetic
Oropharyngeal: Negative Thrush
Cardiovascular: Regular Rate and S1/S2
Gastrointestinal: Non Tender and Non Distended
Extremities: Edema (anasarca)
Neurological: AO x 3
Lines: CVP (Right IJ no erythema)
Objective Data
Lab Data
Lab Results
08/14/25 04:51
08/14/25 04:51
APTT 47.9 Sec (23.4-35.0) H 08/14/25 04:51
Estimated Creat Clear 16 ml/min 08/14/25 04:51
Lactic Acid Cancelled 08/14/25 06:00
Total Bilirubin 1.2 mg/dl (0.2-1.3) 08/14/25 04:51
AST 14 U/L (14-36) 08/14/25 04:51
ALT < 10 U/L (0-35) 08/14/25 04:51
Alkaline Phosphatase 103 U/L (38-126) 08/14/25 04:51
Most recent labs reviewed.
Micro Results:
08/12/25 20:08 Blood Culture - Preliminary
Blood/Venous No Growth in 24 hours- Final report to follow
08/12/25 20:07 Blood Culture - Preliminary
Blood/Venous No Growth in 24 hours- Final report to follow
08/12/25 17:16 Influenza Types A & B (NANCIE) - Final
Nasal Swab Negative for Influenza A & B, NAAT
Negative results must be combined with clinical observations
and patient history.
Nucleic Acid Amplification test (NAAT)performed on the
[employer] platform.
08/12/25 Peripheral Vascular US: Examination is positive for nonocclusive thrombus involving the right common femoral and femoral veins.
08/12/25 CXR: Focal parenchymal opacity involving the medial aspect of the right lower lung, new since previous examination. Appearance is most suggestive of atelectasis, although underlying pneumonia is also possible.
[2025-08-14] MEDS: PROTONIX IV 40 MG IV (09:18)
[2025-08-14] MEDS: VISBIOME 1 CAP PO (09:18)
[2025-08-14] MEDS: NSS (PRESERVATIVE FREE) 10 ML IV (09:18)
[2025-08-14] MEDS: DESENEX/MITRAZOL/ZEASORB 1 APPLIC TOPICAL (09:19)
[2025-08-14] MEDS: DIFLUCAN PO (09:21)
--- NOTE | 2025-08-14 09:51 | W.PN.NEPH.PH ---
Today's Communication / Plan
-
increase bicarb
Assessment/Plan
-
IMP:
Hypotension -sepsis versus recent chronic hypotension
SABINA
h/o CDIFF
Newfound DVT in the lower extremities
Acute on chr Anemia
Mild hyperkalemia
Met acidosis-non gap
Anasarca, bilateral leg lymphedema
Hyponatremia
hypoalbuminemia
Hypothyroidism
Rheumatoid arthritis
Chronic bilateral shoulder pain with severe bilateral glenohumeral arthrosis
Chronic rotator cuff arthropathy
Chronic ambulatory dysfunction uses walker at baseline
Chronic debility
1.3 g proteinuria
Plan:
follow BMP
increase bicarb
check Urine studies
no IV vanco given high level
needs to eat or else will need PEG
she has a sister but has not spoken to her in years
prognosis is poor
-
-
Date of Service: August 14, 2025
CC / HPI / ROS
-
Chief Complaint:
SABINA
History of Present Illness:
SABINA/Cr unchanged at 3.2
Hgb up to 9.2 with PRBC
severe metabolic acidosis persists
Na better 136
BP low, stable on midodrine
Review of Systems:
BLE pain, edema
no CP
no appetite
Labs
-
Labs:
WBC 18.7 10^3/uL (4.8-10.8) H 08/14/25 04:51
RBC 3.39 10^6/uL (4.20-5.40) L 08/14/25 04:51
Hgb 9.2 g/dL (12.0-16.0) L D 08/14/25 04:51
Hct 27.5 % (37.0-47.0) L 08/14/25 04:51
Plt Count 146 10^3/uL (130-400) D 08/14/25 04:51
Sodium 136 mmol/L (135-145) 08/14/25 04:51
Potassium 4.9 mmol/L (3.5-5.1) 08/14/25 04:51
Chloride 113 mmol/L (98-107) H 08/14/25 04:51
Carbon Dioxide 14 mmol/L (22-30) L* 08/14/25 04:51
BUN 44 mg/dl (7-17) H 08/14/25 04:51
Creatinine 3.2 mg/dL (0.6-1.0) H 08/14/25 04:51
eGFR 16.17 08/14/25 04:51
Glucose 61 mg/dl (70-99) L 08/14/25 04:51
Calcium 7.6 mg/dl (8.4-10.2) L 08/14/25 04:51
Phosphorus 5.1 mg/dl (2.5-4.5) H 08/14/25 04:51
Zqn-D-Hajddzbzttb Pept 3690 pg/ml 08/12/25 17:15
Albumin 1.7 g/dl (3.5-5.0) L 08/14/25 04:51
Physical Exam
-
Vital Signs:
Vital Signs
Temp Pulse Resp BP Pulse Ox
97.6 F 118 10 123/68 98
08/14/25 03:00 08/14/25 09:17 08/14/25 07:00 08/14/25 09:17 08/14/25 07:00
[2025-08-14] MEDS: SODIUM BICARBONATE 1075 MEQ IV (10:41)
[2025-08-14] MEDS: DILAUDID 0.25 MG IV (10:48)
[2025-08-14] MEDS: MAXIPIME 1000 MG IV (11:04)
[2025-08-14] MEDS: STERILE WATER FOR INJECTION 10 ML IV (11:04)
[2025-08-14] MEDS: HEPARIN 25000 UNITS/250 ML IV (11:13)
--- NOTE | 2025-08-14 12:07 | HOSPNOTE ---
Patient will be admitted inpatient hospice today for pain management. Consents are signed and patient will be moved to [facility] when bed is available. Patient would like to be comfortable. Attending and CM aware of plan.
--- NOTE | 2025-08-14 12:14 | CON.GS ---
Addendum entered and electronically signed by Octavio Pedersen MD 08/14/25 13:27:
Patient seen and examined.
Patient is a 60 yo SNF resident with a h/o RA on Leflunomide and Orencia, nonambulatory, BLLE wounds and lymphedema, chronic pain who was admitted in June with infected wounds requiring surgical debridement at that time with subsequent admission
in July for severe c-diff. In June, she was noted to have a small stage II decubitus ulcer over her left ischial tuberosity (roughly 2.5 cm in diameter) and stage I ulcers were noted over the sacrum and right ischial tuberosity.
Unfortunately, her sacral decubitus ulcer has progressed and is now stage 4 with noted bone in the base of the wound with slough/eschar tissue present. The bilateral pressure ulcers over the ischial tuberosities have increased in size and
deteriorated to stage 2-3 as well. The BLLE are in various stages of healing without purulence noted. She presents with dizziness, lightheadedness and ongoing pain and anasarca.
Gen: NAD
Rectal: stage 4 sacral decub, bilateral stages 2-3 wounds over ischial tuberosities/buttocks
Ext: BL LE with clean, dressed wounds
Patient is a 60 yo F p/w failure to thrive and concern for possible sepsis
Found to have a stage IV sacral decubitus ulcer which is well-drained and with minimal necrotic tissue and no evidence of purulence. No indication or plan for surgical intervention as this is very unlikely to change clinical management. Report
from primary service that patient is moving towards hospice. Please call with any questions or concerns.
Original Note:
Consultation
-
Date/Time Consultation Performed: 08/14/25 1045
Medical History
-
Chief Complaint: wounds
History of Present Illness:
60 yo SNF resident with a h/o RA on Leflunomide and Orencia, nonambulatory, BLLE wounds and lymphedema, chronic pain who was admitted in June with infected wounds requiring surgical debridement at that time with subsequent admission in July
for severe c-diff. In June, she was noted to have a small stage II decubitus ulcer over her left ischial tuberosity (roughly 2.5 cm in diameter) and stage I ulcers were noted over the sacrum and right ischial tuberosity. Unfortunately, her sacral
decubitus ulcer has progressed and is now stage 4 with noted bone in the base of the wound with slough/eschar tissue present. The bilateral pressure ulcers over the ischial tuberosities have increased in size and deteriorated to stage 2-3 as well.
The BLLE are in various stages of healing without purulence noted. She presents with dizziness, lightheadedness and ongoing pain and anasarca.
Past Medical History
Past Medical History: HTN, Hypothyroidism, Psychiatric (major depression) and Other (RA on Leflunomide and Orencia, nonambulatory, BLLE wounds and lymphedema, chronic pain, infected BLLE wounds, recurrent c-diff)
Past Surgical History: Other (I&D of BLLE wounds on 06/08/25)
Social History
Tobacco: Non-Smoker
Personal:
Living: [facility]
Family History
Family History: Reviewed & Not Pertinent
Allergies / Home Medications
Allergy/AdvReac Type Severity Reaction Status Date / Time
No Known Allergies Allergy Verified 08/12/25 16:36
�Medication �Instructions �Recorded �Confirmed �Type
acetaminophen 325 mg tablet 650 mg PO Q4HPRN PRN mild pain 05/18/25 08/12/25 History
leflunomide 20 mg tablet 20 mg PO DAILY Antirheumatic 05/18/25 08/12/25 History
oxycodone 10 mg tablet 10 mg PO Q6HPRN PRN severe pain 05/18/25 08/12/25 History
polyethylene glycol 3350 17 gram 17 g PO DAILYPRN PRN Constipation 05/18/25 08/12/25 History
oral powder packet (Miralax)
abatacept 125 mg/mL subcutaneous 125 mg SC MO Rheumatoid arthritis 06/04/25 08/12/25 History
syringe (Orencia)
ferrous sulfate 325 mg (65 mg 325 mg PO DAILY ANEMIA 06/04/25 08/12/25 History
iron) tablet
naproxen 500 mg tablet (Naprosyn) 500 mg PO BID mild Pain 06/04/25 08/12/25 History
midodrine 5 mg tablet 5 mg PO TID Hypotension 06/20/25 08/12/25 History
mirtazapine 15 mg tablet 15 mg PO HS Depression 06/20/25 08/12/25 History
furosemide 40 mg tablet (Lasix) 80 mg PO DAILY Fluid 07/27/25 08/12/25 History
Retention/Swelling
vancomycin 125 mg capsule 125 mg PO DIRECTED c diff #85 08/01/25 08/12/25 Rx
caps
Lactobac no.2-Bifidobac no.1-S. 1 cap PO DAILY Supplement 08/12/25 08/12/25 History
thermo 112.5 billion cell capsule
(Visbiome)
calcium carbonate 500 mg PO DAILY Supplement 08/12/25 08/12/25 History
fluconazole 100 mg tablet 100 mg PO DAILY Infection 08/12/25 08/12/25 History
magnesium oxide 400 mg PO DAILY Supplement 08/12/25 08/12/25 History
miconazole nitrate 2 % topical 1 applic topical BID skin integrity 08/12/25 08/12/25 History
powder (Miconazorb AF)
pantoprazole 40 mg tablet,delayed 40 mg PO DAILY Gastrointestinal 08/12/25 08/12/25 History
release (Protonix) Issue
polyethylene glycol 3350 17 gram 8.6 g PO DAILYPRN PRN constipation 08/12/25 08/12/25 History
oral powder packet (Miralax)
Review of Systems
-
History Source: Patient
All other systems: Negative unless noted
A 10 point review of systems was completed, and was negative except as per HPI.
Physical Exam
Vital Signs
Temp Pulse Resp BP Pulse Ox
97.6 F 109 14 123/89 98
08/14/25 03:00 08/14/25 11:00 08/14/25 11:00 08/14/25 11:00 08/14/25 10:00
08/13/25 08/14/25 08/15/25
06:59 06:59 06:59
Actual Weight 53.4 kg 53.7 kg
Body Mass Index (BMI) 19.1
Lab Results
08/14/25 04:51
08/14/25 04:51
WBC 18.7 10^3/uL (4.8-10.8) H 08/14/25 04:51
Hgb 9.2 g/dL (12.0-16.0) L D 08/14/25 04:51
Hct 27.5 % (37.0-47.0) L 08/14/25 04:51
Plt Count 146 10^3/uL (130-400) D 08/14/25 04:51
Abs Immat Gran (auto) 0.4 10^3/uL (0-0.05) H 08/14/25 04:51
Neutrophils % 87.7 % (42.2-75.2) H 08/14/25 04:51
Physical Exam
General: Other (sleepy but arousable)
HEENT: Normocephalic
Respiratory: Non Labored Respirations
GI: Soft and Non Tender
Skin: Other (Stage 4 sacral decub, bilateral stages 2-3 wounds over ischial tuberosities/buttocks, BLLE with clean, dressed wounds)
Neuro: Other (sleepy, calling out with movement)
Psych: Calm
Assessment / Plan
-
60 yo SNF resident with a h/o with RA on Leflunomide and Orencia, nonambulatory, BLLE wounds and lymphedema, chronic pain who was admitted in June with infected wounds requiring surgical debridement at that time with subsequent admission for
severe c-diff the following month. Presenting once again with sepsis with deterioration of sacral and ischial tuberosity decubitus ulcers. Sacral decubitus is now a stage 4 with exposed bone/osteomyelitis. Slough/eschar present. Tachycardic with
stable BP. No fevers. Leukocytosis present.
Plan:
ID and wound care following, appreciate recs
Given involvement of bone, acute surgical debridement of her sacral wound would not be indicated. Eventual outpatient evaluation by plastic surgery for reconstructive flap.
Continue local wound care
--- NOTE | 2025-08-14 12:27 | W.PN.HOSP.TC ---
Addendum entered and electronically signed by Yordy Lee MD 08/14/25 12:39:
Discussed with hospice nurse and patient will be transition to inpatient hospice today. Will discontinue all medications and will transition to comfort care medications only.
Original Note:
Today's Communication/Plan
-
See plan
Assessment / Plan
Assessment / Plan
Physical exam:
General: Acutely ill. Toxic.
HEENT: Normocephalic, Atraumatic and dry mucous Membranes
Respiratory: Decreased breath sounds bilaterally; Negative Wheezes, Rales or Rhonchi
Cardiac: Regular Rhythm, tachycardic, and S1/S2
GI: Soft, tender and distended
Musculoskeletal: Unstageable infected sacral ulcer deep to the bone. No Clubbing, No Cyanosis. Bilateral lower extremity edema and anasarca
Neuro: Alert and Oriented, somewhat contracted, generalized weakness/deconditioning present but no neurological deficits appreciated. Bedbound
Psych: Normal judgment and insight although very low tone voice
A/P:
Shock:
Likely etiology multifactorial septic shock, hemorrhagic shock, rule out other etiology.
On IV albumin
Blood transfusion
Bolus IV fluids if needed
Pressors as needed
Midodrine
There was no vascular access on her earlier this morning so I reached out to vascular team and IR and IR was able to place a PICC line double-lumen.
Reviewed latest echocardiogram back in May 2025 with normal EF and no valvulopathy
I reached out to [facility] and they question if she needs to be in ICU due to not requiring pressors yet so we will keep an eye on her hemodynamics and reengage with them if needed.
I had lengthy discussions with patient multiple times throughout the day about plan of care, goals of care discussion and at the moment she would like to continue medical treatment but does understand poor prognosis and agrees to change CODE STATUS
to DNR and also agrees to discuss with hospice care and contemplating depending on conversations with hospice staff.
10/10:
Heparin drip restarted
Continue on broad-spectrum antibiotic
Continue pain medication
Started on bicarb drip fluids
Discussions about hospice and likely transitioning to hospice if decided.
Septic shock due to infected sacral decubitus ulcer and nonhealing lower extremity wounds in an immunocompromised patient:
Continue IV cefepime and vancomycin
Continue oral vancomycin for C. difficile prophylaxis
Appears to be on ?oral fluconazole
WBC up to 21.7 neutrophils 91.7%
ID consult
Surgery consult-discussed with surgery today. I did mentioned to patient if she requires surgery if she would consent for and she is ambiguous in terms of that.
Acute blood loss anemia:
Hemoglobin 6.6 with microcytic index--> up to 9.2 after transfusion
Obtain blood transfusion consent from patient
Transfused 2 units of blood today
On Protonix orally but changed to IV twice daily
Obtain CT scan of the abdomen and pelvis to rule out retroperitoneal bleed--> no bleed identified
Continue to monitor hemoglobin
Acute kidney injury:
Multifactorial likely prerenal and ATN due to sepsis
Avoid nephrotoxic
Check urine lites
Monitor renal function
Nephrology consulted
Acute right lower extremity DVT:
Doppler with nonocclusive thrombus right common femoral and femoral veins
On heparin drip
Unfortunately due to significant anemia we will need to hold heparin drip until rule out active bleeding and restart down the road--> heparin was restarted.
Also needs to align with goals of care discussions
Hyponatremia:
Monitor sodium closely
Hyperkalemia:
Monitor potassium closely and will give Lokelma if increased levels above 5.5
Metabolic acidosis:
Monitor acidosis status closely
On oral bicarb
If worsening might need bicarb drip
Severe protein calorie malnutrition:
Present on admission
Nutrition eval
Severe hypoalbuminemia:
Continue to monitor albumin
On IV albumin
Might need Lasix down the road
Dysphagia:
Speech therapy eval recommended pur�ed diet
Rheumatoid arthritis:
Hold Orencia and leflunomide given active infection
Chronic pain and narcotic dependence:
Continue oral oxycodone and add IV Dilaudid as needed but cautious with hemodynamics
DVT prophylaxis:
Heparin drip
CODE STATUS:
Lengthy discussions with patient as mentioned above and change CODE STATUS to DNR.
Prognosis very poor
Total Critical Care Time__37___ minutes. I was immediately available to the patient and staff. I personally examined, reviewed labs, diagnostic images/reports, interpretations, treatment plans, discussed patient care with other providers and
family or caregivers (if patient is unable to make decisions), entered orders as appropriate and documented the medical record.
Anticipated Discharge: Today
Subjective/Interval History
-
Date of Service: August 14, 2025
Patient doing poorly. She is alert and complains of significant amount of pain.
Objective Data
-
Labs:
Laboratory Results
08/14/25 08/14/25
04:51 17:15
WBC 18.7 H
Hgb 9.2 L D
Hct 27.5 L
Plt Count 146 D
APTT 47.9 H Pending
Sodium 136
Potassium 4.9
Chloride 113 H
Carbon Dioxide 14 L*
BUN 44 H
Creatinine 3.2 H
Glucose 61 L
Calcium 7.6 L
Total Bilirubin 1.2
AST 14
ALT < 10
Alkaline Phosphatase 103
Vital Signs:
Vital Signs
Temp Pulse Resp BP Pulse Ox
97.6 F 109 14 123/89 98
08/14/25 03:00 08/14/25 11:00 08/14/25 11:00 08/14/25 11:00 08/14/25 10:00
I&O
10/07/3008/14/25 08/15/25
06:59 06:59 06:59
Intake Total 500 / 500 300 / 300
Balance 500 / 500 300 / 300
--- NOTE | 2025-08-14 12:31 | W.DCSUMMARY ---
Discharge Summary
Discharge Data
Date of Admission: 08/12/25
Date of Discharge: 08/14/25
-
Pending Results: No
Hospital Course
Patient 60 years old female with multiple comorbidities presented to the hospital with septic shock due to infected sacral decubitus ulcer and found to be in multiorgan failure with SABINA, hypoalbuminemia, hyponatremia, metabolic acidosis, persistent
hypertension, severe protein calorie malnutrition, anasarca, and along with her chronic medical illness several discussion took place in terms of goals of care. She was treated with IV broad-spectrum antibiotics, bicarb drip, fluid resuscitation,
pain medications, midodrine, blood transfusions, among other medical therapy. Despite medical treatment her prognosis remains extremely poor and she agreed to change her CODE STATUS to DNR and also she agree with hospice care. Patient is being
transitioned to inpatient hospice care today.
Discharge Plan
-
Activity Restrictions/Additional Instructions:
Wound Care Instructions Unstageable Sacral Wound- Clean with Dakins and cover with alginate and dry dressing. Await surgical consult for plan.
Bilateral LE-Clean with normal saline and apply adaptic, ABD and wrap with ronda. Change every other day and PRN for drainage.
Bilateral Heels - Nosting barrier wipe and silicone adhesive foam dressing. Change Q 3 days and PRN.
Follow up at wound care center call for an appointment.
Referrals:
Ish Hall MD [Family Provider]
Prescriptions:
No Action
oxycodone 10 mg Tablet
10 mg PO Q6HPRN PRN (Reason: severe pain )
acetaminophen 325 mg Tablet
650 mg PO Q4HPRN PRN (Reason: mild pain)
polyethylene glycol 3350 [Miralax] 17 gram Powder In Packet
17 g PO DAILYPRN PRN (Reason: Constipation)
leflunomide 20 mg Tablet
20 mg PO DAILY
naproxen [Naprosyn] 500 mg Tablet
500 mg PO BID
Orencia 125 mg/mL Syringe
125 mg SC MO
ferrous sulfate 325 mg (65 mg iron) tablet
325 mg PO DAILY
mirtazapine 15 mg Tablet
15 mg PO HS
midodrine 5 mg tablet
5 mg PO TID
Rx Instructions:
hold for SBD>130
furosemide [Lasix] 40 mg Tablet
80 mg PO DAILY
vancomycin 125 mg capsule
125 mg PO DIRECTED Qty: 85 0RF
Rx Instructions:
125mg tid until 08/16/25 then daily until 08/23/25 then q48h
fluconazole 100 mg Tablet
100 mg PO DAILY
Rx Instructions:
for 7 days starting 08/12/25
polyethylene glycol 3350 [Miralax] 17 gram Powder In Packet
8.6 g PO DAILYPRN PRN (Reason: constipation)
calcium carbonate [Calcium 500] 500 mg calcium (1,250 mg) Tablet
500 mg PO DAILY
pantoprazole [Protonix] 40 mg Tablet,Delayed Release (Dr/Ec)
40 mg PO DAILY
Visbiome 112.5 billion cell Capsule
1 cap PO DAILY
magnesium oxide 400 mg magnesium Tablet
400 mg PO DAILY
miconazole nitrate [Miconazorb AF] 2 % powder
1 applic topical BID
Discharge Date and Time
Print Language: SAMI
--- NOTE | 2025-08-14 14:37 | CM ---
Following up on Patient. Zuleima from [facility] confirmed patient is going to Inpatient Hospice. DIO Ramirez informed [facility], Devan, and will now complete the final disposition.
PLAN: Inpatient Hospice with [facility]
--- NOTE | 2025-08-14 15:05 | TRANSFER ---
verbal report called to yun Ramirez from [address] [place] [address]. this Rn will transport pt with assistance of PCT.
== END 2025-08-14 15:08 | disposition hospice, inpatient (51) | DRG 871 ==
LOC: IMU 21:00
PROVIDERS: Clinical Nurse Specialist Family Health; Radiology Vascular & Interventional Radiology; ADMITTING PHYSICIAN Internal Medicine; ATTENDING PHYSICIAN Hospitalist; CONSULT PHYSICIAN Internal Medicine; CONSULT PHYSICIAN Internal Medicine Infectious Disease; EMERGENCY PHYSICIAN Emergency Medicine; FAMILY PHYSICIAN Internal Medicine; OTHER PHYSICIAN Surgery
PROC: B5131ZA Fluoroscopy of Right Jugular Veins using Low Osmolar Contrast, Guidance (ICD-10-PCS; 2025-08-13)
PROC: 30243N1 Transfusion of Nonautologous Red Blood Cells into Central Vein, Percutaneous Approach (ICD-10-PCS; 2025-08-13)
PROC: 05HM33Z Insertion of Infusion Device into Right Internal Jugular Vein, Percutaneous Approach (ICD-10-PCS; 2025-08-13)
DX: A41.9 Sepsis, unspecified organism (principal); E43 Unspecified severe protein-calorie malnutrition; L89.153 Pressure ulcer of sacral region, stage 3; R65.21 Severe sepsis with septic shock; E87.1 Hypo-osmolality and hyponatremia; E87.20 Acidosis, unspecified; N17.9 Acute kidney failure, unspecified; D84.9 Immunodeficiency, unspecified; D62 Acute posthemorrhagic anemia; I10 Essential (primary) hypertension; E88.09 Other disorders of plasma-protein metabolism, not elsewhere classified; Z66 Do not resuscitate; F32.9 Major depressive disorder, single episode, unspecified; F41.9 Anxiety disorder, unspecified; G89.29 Other chronic pain; M06.9 Rheumatoid arthritis, unspecified; M19.012 Primary osteoarthritis, left shoulder; M19.011 Primary osteoarthritis, right shoulder; Z74.01 Bed confinement status; E78.5 Hyperlipidemia, unspecified; E03.9 Hypothyroidism, unspecified; D50.9 Iron deficiency anemia, unspecified; D63.8 Anemia in other chronic diseases classified elsewhere; E86.1 Hypovolemia; E87.5 Hyperkalemia; I89.0 Lymphedema, not elsewhere classified; K21.9 Gastro-esophageal reflux disease without esophagitis; Z79.899 Other long term (current) drug therapy; Z11.52 Encounter for screening for COVID-19
CPT/HCPCS: 36556; 71045; 74176; 76770; 76937; 77001; 80048; 80053; 80202; 82533; 83605; 83735; 83880; 84100; 85025; 85730; 86850; 86900; 86901; 86920; 87040; 87502; 87811; 92526; 92610; 93005; 93971; 96360; 99285; C1751; J7030; P9016; P9047

== ENCOUNTER 2025-08-14 15:14 | Inpatient (IN) | payer OTHER, SELFPAY ==
--- NOTE | 2025-08-14 12:46 | HPS.HSE ---
Family Physician
-
Family Physician: NO INTERVIEW UNKNOWN
Chief Complaint
-
Sacral pain
History of Present Illness
Patient 60 years old female with multiple comorbidities presented to the hospital with septic shock due to infected sacral decubitus ulcer and found to be in multiorgan failure with SABINA, hypoalbuminemia, hyponatremia, metabolic acidosis, persistent
hypotension, severe protein calorie malnutrition, anasarca, and along with her chronic medical illness several discussion took place in terms of goals of care. She was treated with IV broad-spectrum antibiotics, bicarb drip, fluid resuscitation,
pain medications, midodrine, blood transfusions, among other medical therapy. Despite medical treatment her prognosis remains extremely poor and she agreed to change her CODE STATUS to DNR and also she agree with hospice care. Patient is being
transitioned to inpatient hospice care today.
Medical History
Past Medical History
Past Medical History: Reports Other
Additional Past Medical History:
history C. difficile infection toxin negative July 2025
hypotension, stage III sacral wound/bilateral leg wounds growing( + gram neg bacilli, enterococcus, staph. MRSA screen +.) 07/27/2025
hypoalbuminemia with third spacing 07/27/2025
chronic anemia
chronic bedbound status
=chronic pain on chronic oral opiates as needed,
rheumatoid arthritis on Orencia and leflunomide
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
severe bilateral glenohumeral arthrosis
chronic rotator cuff arthropathy
chronic bilateral shoulder pain
depression
chronic bilateral lower leg edema
hypothyroidism
HTN
HLD
Past Surgical History: Reports None
Social History
Tobacco: Non-smoker
Alcohol: None
Drug: None
Personal: (Patient reports last year at age 54 [place])
Living: Alone
Employment: Disabled
Family History
Family History: Not pertinent
Allergies / Home Medications
Allergies reflects when Allergies were last updated in [facility].
Home Medications with original date entered in [facility]
Allergy/Medication List:
Allergies
Allergy/AdvReac Type Severity Reaction Status Date / Time
No Known Allergies Allergy Verified 08/12/25 16:36
Home Medications
acetaminophen 325 mg tablet 650 mg PO Q4HPRN PRN mild pain 05/18/25
leflunomide 20 mg tablet 20 mg PO DAILY Antirheumatic 05/18/25
oxycodone 10 mg tablet 10 mg PO Q6HPRN PRN severe pain 05/18/25
polyethylene glycol 3350 17 gram oral powder packet (Miralax) 17 g PO DAILYPRN PRN Constipation 05/18/25
abatacept 125 mg/mL subcutaneous syringe (Orencia) 125 mg SC MO Rheumatoid arthritis 06/04/25
ferrous sulfate 325 mg (65 mg iron) tablet 325 mg PO DAILY ANEMIA 06/04/25
naproxen 500 mg tablet (Naprosyn) 500 mg PO BID mild Pain 06/04/25
midodrine 5 mg tablet 5 mg PO TID Hypotension 06/20/25
mirtazapine 15 mg tablet 15 mg PO HS Depression 06/20/25
furosemide 40 mg tablet (Lasix) 80 mg PO DAILY Fluid Retention/Swelling 07/27/25
vancomycin 125 mg capsule 125 mg PO DIRECTED c diff #85 caps 08/01/25
Lactobac no.2-Bifidobac no.1-S. thermo 112.5 billion cell capsule (Visbiome) 1 cap PO DAILY Supplement 08/12/25
calcium carbonate 500 mg PO DAILY Supplement 08/12/25
fluconazole 100 mg tablet 100 mg PO DAILY Infection 08/12/25
magnesium oxide 400 mg PO DAILY Supplement 08/12/25
miconazole nitrate 2 % topical powder (Miconazorb AF) 1 applic topical BID skin integrity 08/12/25
pantoprazole 40 mg tablet,delayed release (Protonix) 40 mg PO DAILY Gastrointestinal Issue 08/12/25
polyethylene glycol 3350 17 gram oral powder packet (Miralax) 8.6 g PO DAILYPRN PRN constipation 08/12/25
Review of Systems
-
A 12 point ROS was completed and negative except as noted: Yes
Physical Exam
Vital Signs
General: Acutely ill. Toxic.
HEENT: Normocephalic, Atraumatic and dry mucous Membranes
Respiratory: Decreased breath sounds bilaterally; Negative Wheezes, Rales or Rhonchi
Cardiac: Regular Rhythm, tachycardic, and S1/S2
GI: Soft, tender and distended
Musculoskeletal: Unstageable infected sacral ulcer deep to the bone. No Clubbing, No Cyanosis. Bilateral lower extremity edema and anasarca
Neuro: Alert and Oriented, somewhat contracted, generalized weakness/deconditioning present but no neurological deficits appreciated. Bedbound
Psych: Normal judgment and insight although very low tone voice
Physical Exam
General: Other
Data Reviewed
-
CT Scan: Image Personally Visualized and interpreted
Lab Data: Labs Reviewed by me
Impression/Plan
-
IMPRESSION:
Patient 60 years old female with multiple comorbidities presented to the hospital with generalized anasarca, hypotension, pain, septic shock and multiple other acute critical illnesses. She has been transition to inpatient hospice care.
PLAN:
Sacral pain:
IV Dilaudid as needed
IV Dilaudid drip if indicated
Bowel regimen as needed
Comfort care medications in general
Anxiety:
Benzodiazepines as needed
Other medical problems:
Septic shock
Sacral decubitus ulcer
Acute right lower extremity DVT
Severe anemia, unclear etiology
Acute kidney injury
Hyponatremia
Hyperkalemia
Hypoalbuminemia
Hypotension
Metabolic acidosis
Nonhealing bilateral lower extremity wounds
Chronic lymphedema
Chronic pain, chronic narcotic dependence
History of C. difficile in the past
Hypertension
Depression
Rheumatoid arthritis
Hypothyroidism
CODE STATUS: DNR and comfort care
Time spent 55-minutes
[2025-08-14 16:00] VITALS: BP 138/62
--- NOTE | 2025-08-14 16:00 | PTCARENOTE ---
Received patient from IMU. Patient refusing to be turned to remove soiled sheets, patient refusing to have softcare placed on bed. Patient crying and screaming with any movement or touching of her arms or legs. Patient finally let staff remove
soiled linen, but started screaming when cleaning she edita area. Patient with large open unstageable decub, surrounding skin on buttocks is macerated and bleeding. patient with generalized anasarca. Patient unable to drink due to painful mouth
sores. RN attempted mouth care with sponges, but patient screamed. Vaseline applied to lips. Dilaudid given and PO Ativan. Ativan was crushed and mixed with 2ml of water and patient was agreeable to have it squirted in mouth with a syringe. Call
todd in reach and patient asked for TV to be on.
[2025-08-14] MEDS: DILAUDID 1 MG IV ×2 (16:28→23:14)
[2025-08-14] MEDS: ATIVAN 1 MG PO (16:28)
--- NOTE | 2025-08-14 18:00 | PTCARENOTE ---
Patient sleeping and resting comfortably. No sign or symptoms of distress.
[2025-08-14 23:12] VITALS: BP 122/83
[2025-08-15] MEDS: DILAUDID 1 MG IV ×5 (00:17→22:06)
[2025-08-15 07:07] VITALS: BP 141/88
[2025-08-15] MEDS: DILAUDID 50 IV (08:22)
--- NOTE | 2025-08-15 09:44 | CM ---
Chart review completed.
Pt was signed onto In hospice as of 08/14 for septic shock and mutli organ failure.
SW and CM team will remain available for support and assistance as needed.
--- NOTE | 2025-08-15 11:06 | W.PN.HOSP.TC ---
Today's Communication/Plan
-
Comfort care
Assessment / Plan
Assessment / Plan
General acutely ill
Heart regular rate and rhythm S1-S2
Lungs clear to auscultation bilateral decreased breath sounds
Abdomen soft nontender
Skin multiple wounds on the lower extremities and large sacral wound
Lethargic, minimally responsive
A/P:
Sacral pain:
Started on IV Dilaudid drip today
Bowel regimen as needed
Anxiety:
Benzodiazepines as needed
Other medical problems:
Septic shock
Sacral decubitus ulcer
Acute right lower extremity DVT
Severe anemia, unclear etiology
Acute kidney injury
Hyponatremia
Hyperkalemia
Hypoalbuminemia
Hypotension
Metabolic acidosis
Nonhealing bilateral lower extremity wounds
Chronic lymphedema
Chronic pain, chronic narcotic dependence
History of C. difficile in the past
Hypertension
Depression
Rheumatoid arthritis
Hypothyroidism
CODE STATUS: DNR
Anticipated Discharge: 24 - 48 hours
Subjective/Interval History
-
Date of Service: August 15, 2025
pte in pain earlier, more comfortable after initiating narcotic drip
Objective Data
-
Vital Signs:
Vital Signs
Temp Pulse Resp BP Pulse Ox
97.6 F 115 16 141/88 96
08/15/25 07:07 08/15/25 07:07 08/15/25 07:07 08/15/25 07:07 08/15/25 07:07
I&O
08/14/25 08/15/25 08/16/25
06:59 06:59 06:59
Intake Total 0 / 0
Balance 0 / 0
[2025-08-15] MEDS: DILAUDID 0.5 MG IV ×3 (12:23→14:52)
[2025-08-15] MEDS: VALIUM INJECTION 5 MG IV (12:41)
[2025-08-15 22:31] VITALS: BP 92/64
[2025-08-16] MEDS: DILAUDID 1 MG IV ×3 (04:57→06:22)
[2025-08-16 07:10] VITALS: BP 108/88
[2025-08-16] MEDS: VALIUM INJECTION 5 MG IV ×2 (07:58→18:18)
[2025-08-16] MEDS: DILAUDID 1.5 MG IV ×3 (07:59→09:56)
[2025-08-16 08:20] VITALS: BP 108/88
--- NOTE | 2025-08-16 09:20 | HOSPNOTE ---
Patient actively dying, minimally responsive, will open eyes to gentle touch then close them again. Flacc 0 at rest. Dilauded gtt increased to step 4 this morning, difficult to get pain under control over night, needed several PRN doses of Dilauded
with increased doses. Received Diazepam x1 with as well. Seems comfortable during visit. skin pale and warm, weak PP, hypoactive BS. Breathing nonlabored, lungs coarse, short periods of apnea observed. Patient to remain GIP for management of pain,
anxiety and dyspnea.
--- NOTE | 2025-08-16 13:50 | W.PN.HOSP.TC ---
Today's Communication/Plan
-
Comfort care measures
Assessment / Plan
Assessment / Plan
General acutely ill
Heart regular rate and rhythm S1-S2
Lungs clear to auscultation bilateral decreased breath sounds
Abdomen soft nontender
Skin multiple wounds on the lower extremities and large sacral wound
Lethargic, minimally responsive
A/P:
Sacral pain:
Continue IV Dilaudid drip
Bowel regimen as needed
Anxiety:
Benzodiazepines as needed
Other medical problems:
Septic shock
Sacral decubitus ulcer
Acute right lower extremity DVT
Severe anemia, unclear etiology
Acute kidney injury
Hyponatremia
Hyperkalemia
Hypoalbuminemia
Hypotension
Metabolic acidosis
Nonhealing bilateral lower extremity wounds
Chronic lymphedema
Chronic pain, chronic narcotic dependence
History of C. difficile in the past
Hypertension
Depression
Rheumatoid arthritis
Hypothyroidism
CODE STATUS: DNR
Anticipated Discharge: 24 - 48 hours
Subjective/Interval History
-
Date of Service: August 16, 2025
Patient seen and examined.
Objective Data
-
Vital Signs:
Vital Signs
Temp Pulse Resp BP Pulse Ox
98.1 F 119 17 108/88 96
08/16/25 07:10 08/16/25 07:10 08/16/25 07:10 08/16/25 07:10 08/16/25 07:10
I&O
08/15/25 08/16/25 08/17/25
06:59 06:59 06:59
Intake Total 0 / 0 0 / 0
Balance 0 / 0 0 / 0
[2025-08-16] MEDS: DILAUDID 50 IV (13:58)
[2025-08-16] MEDS: DILAUDID 2 MG IV ×2 (14:21→18:18)
[2025-08-16] MEDS: ROBINUL 0.2 MG IV (18:18)
[2025-08-16 20:47] VITALS: BP 93/57
[2025-08-16 23:29] VITALS: BP 82/45
[2025-08-17 07:05] VITALS: BP 82/52
--- NOTE | 2025-08-17 09:21 | W.PN.HOSP.TC ---
Today's Communication/Plan
-
Hospice care
Assessment / Plan
Assessment / Plan
Gen-comatose, agonal breathing
HEENT-NC, AT
Neck-supple
CV-reg, no M, +S1/S2
Lungs-clear B/L
Abd-soft, NT, ND
Ext-no edema
Musculoskeletal-no cyanosis, clubbing
Skin-warm and dry, bilateral lower extremity dressings, lymphedema
Neuro-grossly non-focal
Psych-calm, cooperative
End-of-life care/hospice -continue supportive measures. IV Dilaudid. She will likely pass today.
Septic shock
Sacral decubitus ulcer
Acute right lower extremity DVT
Severe anemia, unclear etiology
Acute kidney injury
Hyponatremia
Hyperkalemia
Hypoalbuminemia
Hypotension
Metabolic acidosis
Nonhealing bilateral lower extremity wounds
Chronic lymphedema
Chronic pain, chronic narcotic dependence
History of C. difficile in the past
Hypertension
Depression
Rheumatoid arthritis
Hypothyroidism
CODE STATUS: DNR
Anticipated Discharge: Today
Subjective/Interval History
-
Date of Service: August 17, 2025
Patient seen and examined, remains comatose. Agonal breathing.
Objective Data
-
Vital Signs:
Vital Signs
Temp Pulse Resp BP Pulse Ox
101.6 F H 134 14 82/52 92
08/17/25 07:05 08/17/25 07:05 08/17/25 07:05 08/17/25 07:05 08/17/25 07:05
I&O
08/16/25 08/17/25 08/18/25
06:59 06:59 06:59
Intake Total 0 / 0 0 / 0
Balance 0 / 0 0 / 0
Review of Systems
-
Unable to obtain full review of systems at this time due to: Acuity and Patient Non-verbal
--- NOTE | 2025-08-17 09:40 | HOSPNOTE ---
Yeimi was sleeping comfortably, non-responsive. She did not show signs of pain. No family or friends were present. Report Analyst spoke with acoustical tile drill press operator Zuleima before visiting, then provided emotional and spiritual support through presence, gentle
touch, words of comfort and prayer. Report Analyst provided update and emotional support to Yeimi's friend Malick by phone. Report Analyst remains available.
--- NOTE | 2025-08-17 11:23 | HOSPNOTE ---
Patient is actively dying, no one present at bedside. Patient continues to meet inpatient hospice for management of pain requiring IV medications. Patient is on step 4. Periods of apnea noted and encouraged nurse to medicate prior to any care or
repositioning. Patient will be seen daily.
--- NOTE | 2025-08-17 11:39 | CM ---
CM following re: discharge planning.
Pt is under care of inpatient hospice with hospice GIP.
Per chart review, patient is actively dying.
CM is available for emotional support.
[2025-08-17] MEDS: ROBINUL 0.2 MG IV (11:44)
[2025-08-17] MEDS: DILAUDID 2 MG IV ×3 (11:44→21:57)
--- NOTE | 2025-08-17 13:26 | HOSPNOTE ---
[employer] Technician visited 60 year old patient to conduct Initial ANGLESMITH HELPER Assessment. Nurse reported patient's medications administered and patient is comfortable. ANGLESMITH HELPER greeted patient and patient's family member upon entering the room. Yeimi
asleep and appeared to be resting comfortably, no signs of pain and/or distress observed, ANGLESMITH HELPER gently touched patient's shoulder, no response. Yeimi's friend Ayla sitting at her bedside introduced herself to ANGLESMITH HELPER. Ayla reported she and Yeimi
have been friends since grade school over 40 years, they lost contact here and there but always remain to reconnect, they're more like sisters. Ayla reported Yeimi lost her mother when she was 8 years of age and her father when she was in her
early 20's. She is the youngest of 4 sisters, her only sister she communicated with a few years ago, her sister Lin that lives here doesn't communicate with her nor does her sister Lakeisha who lives in another state. Her finance' passed 2 years
ago, they were together for over 30 years. Ayla reported she and her friend Eris are the only family Yeimi have. Ayla reported Yeimi was so kind and sweet. 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 She loved
her black Camaro and cats. Yeimi is a [employer] and has no christian affiliations. Ayla reported she and Yeimi never discussed her wishes and that's why she's been trying to get in contact with sisters Lin and Lakeisha. ANGLESMITH HELPER provided Ayla with
information on crematories and body donation organizations. ANGLESMITH HELPER offered to assist Ayla with contacting Yeimi's sisters. Yeimi's nurse came in to assess, change, and reposition her, she opened her eyes, moaned, and grunted upon being moved. She
held a book of her cat pictures in her hand. Ayla declined Bereavement Services at this time. Prayer and Much Emotional Support Provided
Patient meets GIP criteria for SN assessments, management of pain, anxiety and dyspnea that could not be managed in an Outpatient setting. Discharge planning continues.
ANGLESMITH HELPER will provide supportive services once a week while on GIP Level of Care.
[2025-08-17 19:00] VITALS: BP 98/54
[2025-08-17 19:49] VITALS: BP 139/69
[2025-08-17] MEDS: DILAUDID 50 IV (20:43)
[2025-08-18] MEDS: DILAUDID 2 MG IV ×8 (03:50→21:57)
[2025-08-18 07:05] VITALS: BP 88/50
--- NOTE | 2025-08-18 11:23 | CM ---
CM reviewed chart
Remains on GIP service
--- NOTE | 2025-08-18 12:27 | HOSPNOTE ---
Patient appears very comfortable on present medications. Patient is on a dilaudid drip and is given PRN doses prior to care or repositioning. No family present during visit. Patient continues to be inpatient appropriate for management of pain
requiring IV medications. Patient will be seen daily by hospice.
--- NOTE | 2025-08-18 13:03 | W.PN.HOSP.TC ---
Today's Communication/Plan
-
Continue hospice care
Assessment / Plan
Assessment / Plan
Gen-comatose, agonal breathing
HEENT-NC, AT
Neck-supple
CV-reg, no M, +S1/S2
Lungs-clear B/L
Abd-soft, NT, ND
Ext-no edema
Musculoskeletal-no cyanosis, clubbing
Skin-warm and dry, bilateral lower extremity dressings, lymphedema
Neuro-grossly non-focal
Psych-calm, cooperative
End-of-life care/hospice -continue supportive measures. IV Dilaudid. She will likely pass today.
Septic shock
Sacral decubitus ulcer
Acute right lower extremity DVT
Severe anemia, unclear etiology
Acute kidney injury
Hyponatremia
Hyperkalemia
Hypoalbuminemia
Hypotension
Metabolic acidosis
Nonhealing bilateral lower extremity wounds
Chronic lymphedema
Chronic pain, chronic narcotic dependence
History of C. difficile in the past
Hypertension
Depression
Rheumatoid arthritis
Hypothyroidism
CODE STATUS: DNR
Anticipated Discharge: Today
Subjective/Interval History
-
Date of Service: August 18, 2025
Patient seen and examined. Looks comfortable, comatose.
Objective Data
-
Vital Signs:
Vital Signs
Temp Pulse Resp BP Pulse Ox
99.3 F 111 16 88/50 94
08/18/25 07:05 08/18/25 07:05 08/18/25 07:05 08/18/25 07:05 08/18/25 07:05
I&O
08/17/25 08/18/25 08/19/25
06:59 06:59 06:59
Intake Total 0 / 0 0 / 0
Balance 0 / 0 0 / 0
Review of Systems
-
Unable to obtain full review of systems at this time due to: Acuity
[2025-08-18] MEDS: DILAUDID 50 IV (17:03)
[2025-08-18 19:52] VITALS: BP 104/66
[2025-08-19] MEDS: DILAUDID 2 MG IV ×2 (04:58→11:19)
[2025-08-19 07:00] VITALS: BP 91/59
[2025-08-19] MEDS: DILAUDID 50 IV ×2 (10:21→22:35)
--- NOTE | 2025-08-19 11:20 | W.PN.HOSP.TC ---
Today's Communication/Plan
-
Continue hospice care
Assessment / Plan
Assessment / Plan
Gen-comatose, agonal breathing
HEENT-NC, AT
Neck-supple
CV-reg, no M, +S1/S2
Lungs-clear B/L
Abd-soft, NT, ND
Ext-no edema
Musculoskeletal-no cyanosis, clubbing
Skin-warm and dry, bilateral lower extremity dressings, lymphedema
Neuro-grossly non-focal
Psych-calm, cooperative
End-of-life care/hospice -continue supportive measures. IV Dilaudid. She will likely pass today.
Septic shock
Sacral decubitus ulcer
Acute right lower extremity DVT
Severe anemia, unclear etiology
Acute kidney injury
Hyponatremia
Hyperkalemia
Hypoalbuminemia
Hypotension
Metabolic acidosis
Nonhealing bilateral lower extremity wounds
Chronic lymphedema
Chronic pain, chronic narcotic dependence
History of C. difficile in the past
Hypertension
Depression
Rheumatoid arthritis
Hypothyroidism
CODE STATUS: DNR
Anticipated Discharge: Within 24 hours
Subjective/Interval History
-
Date of Service: August 19, 2025
Patient seen and examined. Looks comfortable. Nonverbal.
Objective Data
-
Vital Signs:
Vital Signs
Temp Pulse Resp BP Pulse Ox
97 F 107 12 91/59 95
08/19/25 07:00 08/19/25 07:00 08/19/25 07:00 08/19/25 07:00 08/19/25 07:00
I&O
08/18/25 08/19/25 08/20/25
06:59 06:59 06:59
Intake Total 0 / 0 0 / 0
Balance 0 / 0 0 / 0
Review of Systems
-
Unable to obtain full review of systems at this time due to: Acuity
--- NOTE | 2025-08-19 12:39 | HOSPNOTE ---
Patient is completely unresponsive and appears comfortable. Patient continues to be medicated prior to care or repositioning. No family is present, patient continues to be inpatient appropriate for titration of pain medication. Patient is on a
dilaudid drip. PRN doses given with valium. Patient will be seen daily.
--- NOTE | 2025-08-19 13:20 | CM ---
CM following re: discharge planning.
Reviewed pt's chart.
Patient continues to be inpatient hospice with hospice GIP.
CM is available for emotional support.
[2025-08-19 19:35] VITALS: BP 113/73
[2025-08-20] MEDS: ROBINUL 0.2 MG IV ×3 (05:00→18:08)
[2025-08-20] MEDS: DILAUDID 2 MG IV ×5 (05:00→18:08)
[2025-08-20 07:00] VITALS: BP 89/53
[2025-08-20] MEDS: VALIUM INJECTION 5 MG IV ×2 (08:11→18:08)
--- NOTE | 2025-08-20 08:33 | W.PN.HOSP.TC ---
Today's Communication/Plan
-
Continue hospice care
Assessment / Plan
Assessment / Plan
Gen-comatose, agonal breathing
HEENT-NC, AT
Neck-supple
CV-reg, no M, +S1/S2
Lungs-clear B/L
Abd-soft, NT, ND
Ext-no edema
Musculoskeletal-no cyanosis, clubbing
Skin-warm and dry, bilateral lower extremity dressings, lymphedema
Neuro-grossly non-focal
Psych-calm, cooperative
End-of-life care/hospice -continue supportive measures. IV Dilaudid.
Septic shock
Sacral decubitus ulcer
Acute right lower extremity DVT
Severe anemia, unclear etiology
Acute kidney injury
Hyponatremia
Hyperkalemia
Hypoalbuminemia
Hypotension
Metabolic acidosis
Nonhealing bilateral lower extremity wounds
Chronic lymphedema
Chronic pain, chronic narcotic dependence
History of C. difficile in the past
Hypertension
Depression
Rheumatoid arthritis
Hypothyroidism
CODE STATUS: DNR
Anticipated Discharge: Today
Subjective/Interval History
-
Date of Service: August 20, 2025
Patient seen and examined. Looks comfortable, comatose. Agonal breathing.
Objective Data
-
Vital Signs:
Vital Signs
Temp Pulse Resp BP Pulse Ox
98.3 F 116 13 113/73 92
08/19/25 19:35 08/19/25 19:35 08/19/25 19:35 08/19/25 19:35 08/20/25 00:23
I&O
08/19/25 08/20/25 08/21/25
06:59 06:59 06:59
Intake Total 0 / 0 0 / 0
Output Total 0 / 0
Balance 0 / 0 0 / 0
Review of Systems
-
Unable to obtain full review of systems at this time due to: Acuity
--- NOTE | 2025-08-20 10:53 | HOSPNOTE ---
Patient still continues to be active and is now on step 6 dilaudid drip. Patient continues to need medications prior to care or repositioning. No family at bedside. Patient still continues to be inpatient hospice appropriate for pain management
requiring IV medications. Patient will be seen daily.
--- NOTE | 2025-08-20 11:43 | CM ---
CM following re: discharge planning.
Reviewed pt's chart.
Patient continues to be inpatient hospice with hospice GIP. Continue supportive measures.
CM is available for emotional support.
[2025-08-20] MEDS: DILAUDID 50 IV (14:53)
[2025-08-21 03:00] VITALS: BP 113/71
[2025-08-21] MEDS: DILAUDID 2 MG IV ×7 (03:08→16:17)
[2025-08-21] MEDS: ROBINUL 0.2 MG IV ×2 (03:08→13:29)
[2025-08-21] MEDS: VALIUM INJECTION 5 MG IV ×4 (03:09→16:16)
[2025-08-21] MEDS: DILAUDID 50 IV ×2 (03:40→17:17)
[2025-08-21 07:00] VITALS: BP 95/66
--- NOTE | 2025-08-21 10:57 | HOSPNOTE ---
Patient assessed laying in bed, largely unresponsive except for moaning with provision of care such as mouth care. Lungs coarse with rhonchi to auscultation and diminished bases, heart rate and rhythm is tachycardic, hypoactive bowel sounds. Pallor
to the feet bilaterally. Patient moans and grimaces with mouth care but quickly settles once more to a FLACC 0. Has received 6 prn doses of dilaudid in the last 24hrs. Facility RN reports they have been premedicating prior to turning and
repositioning. No family presently at bedside. Patient is actively dying. Remains GIP appropriate for titration of medications, and pain/dyspnea management.
--- NOTE | 2025-08-21 13:16 | W.PN.HOSP.TC ---
Today's Communication/Plan
-
Continue hospice care.
Assessment / Plan
Assessment / Plan
Gen-comatose, agonal breathing
HEENT-NC, AT
Neck-supple
CV-reg, no M, +S1/S2
Lungs-clear B/L
Abd-soft, NT, ND
Ext-no edema
Musculoskeletal-no cyanosis, clubbing
Skin-warm and dry, bilateral lower extremity dressings, lymphedema
Neuro-grossly non-focal
Psych-calm, cooperative
End-of-life care/hospice -continue supportive measures. IV Dilaudid.
Septic shock
Sacral decubitus ulcer
Acute right lower extremity DVT
Severe anemia, unclear etiology
Acute kidney injury
Hyponatremia
Hyperkalemia
Hypoalbuminemia
Hypotension
Metabolic acidosis
Nonhealing bilateral lower extremity wounds
Chronic lymphedema
Chronic pain, chronic narcotic dependence
History of C. difficile in the past
Hypertension
Depression
Rheumatoid arthritis
Hypothyroidism
CODE STATUS: DNR
Anticipated Discharge: Today
Subjective/Interval History
-
Date of Service: August 21, 2025
Patient seen and examined. Looks relatively comfortable, comatose.
Objective Data
-
Vital Signs:
Vital Signs
Temp Pulse Resp BP Pulse Ox
99.7 F 136 20 95/66 97
08/21/25 07:00 08/21/25 07:00 08/21/25 07:00 08/21/25 07:00 08/21/25 07:00
I&O
08/20/25 08/21/25 08/22/25
06:59 06:59 06:59
Intake Total 0 / 0
Output Total 0 / 0
Balance 0 / 0
Review of Systems
-
Unable to obtain full review of systems at this time due to: Acuity
[2025-08-21 19:45] VITALS: BP 94/61
[2025-08-22] MEDS: DILAUDID 50 IV ×3 (05:14→22:55)
[2025-08-22] MEDS: ROBINUL 0.2 MG IV ×2 (05:22→12:10)
[2025-08-22] MEDS: DILAUDID 2 MG IV ×7 (05:22→20:13)
[2025-08-22] MEDS: VALIUM INJECTION 5 MG IV ×3 (06:12→12:11)
[2025-08-22 07:10] VITALS: BP 129/86
--- NOTE | 2025-08-22 11:10 | W.PN.HOSP.TC ---
Today's Communication/Plan
-
Continue hospice care
Assessment / Plan
Assessment / Plan
Gen-comatose, agonal breathing
HEENT-NC, AT
Neck-supple
CV-reg, no M, +S1/S2
Lungs-clear B/L
Abd-soft, NT, ND
Ext-no edema
Musculoskeletal-no cyanosis, clubbing
Skin-warm and dry, bilateral lower extremity dressings, lymphedema
Neuro-grossly non-focal
Psych-calm, cooperative
End-of-life care/hospice -continue supportive measures. IV Dilaudid.
Septic shock
Sacral decubitus ulcer
Acute right lower extremity DVT
Severe anemia, unclear etiology
Acute kidney injury
Hyponatremia
Hyperkalemia
Hypoalbuminemia
Hypotension
Metabolic acidosis
Nonhealing bilateral lower extremity wounds
Chronic lymphedema
Chronic pain, chronic narcotic dependence
History of C. difficile in the past
Hypertension
Depression
Rheumatoid arthritis
Hypothyroidism
CODE STATUS: DNR
Anticipated Discharge: Within 24 hours
Subjective/Interval History
-
Date of Service: August 22, 2025
Patient seen and examined, looks comfortable, comatose.
Objective Data
-
Vital Signs:
Vital Signs
Temp Pulse Resp BP Pulse Ox
99.5 F 138 12 129/86 94
08/22/25 07:10 08/22/25 07:10 08/22/25 07:10 08/22/25 07:10 08/22/25 10:01
I&O
08/21/25 08/22/25 08/23/25
06:59 06:59 06:59
Intake Total 100.7 / 100.7
Output Total 0 / 0
Balance 100.7 / 100.7
Review of Systems
-
History Source: Patient
All other systems: Reviewed and negative
[2025-08-22] MEDS: TYLENOL/FEVERALL 650 MG RECTAL (11:13)
--- NOTE | 2025-08-22 11:50 | HOSPNOTE ---
Assessed patient in the bed, eyes half open, unresponsive, nonverbal. FLACC 0 at rest, elevated when disturbed or with any care, worse with oral care; Settles when left alone. On Dilauded drip step 9, received PRN Dilauded x 7 doses in 24 hours and
Valium x 4 doses in 24 hours. Breathing shallow, nonlabored RR 15 no apnea observed during visits. Lungs coarse with crackles. Robinul for terminal secretions. No family or visitors at bedside. Coordinated care with Julienne CLARK, no new concerns. Will
remain GIP for management of pain, dyspnea and anxiety.
[2025-08-22 19:31] VITALS: BP 127/79
[2025-08-23] MEDS: VALIUM INJECTION 5 MG IV ×4 (00:10→14:12)
[2025-08-23] MEDS: DILAUDID 2 MG IV ×9 (00:11→18:15)
[2025-08-23] MEDS: DILAUDID 50 IV ×3 (06:21→22:33)
[2025-08-23 07:15] VITALS: BP 106/74
--- NOTE | 2025-08-23 11:25 | HOSPNOTE ---
Assessed patient in the bed, eyes were closed, opened them and began moaning out loud when attempted to assess and provide care. Appeared to be tracking my movements FLACC 7 with care or repositioning. Does settle and fall back to sleep when
undisturbed. Dilauded drip at step 7 with 6 prn doses of Dilauded in 24 hours and 3 prn doses of Diazepam. Would recommend to pre-medicate with prn Dilauded and Diazepam prior to any care or repositioning. Incont of small amount of urine. Lungs
coarse, breathing non-labored and shallow. Secretions minimum at this time. No visitors present at bedside during visit. Patient to remain GIP for management of pain, dyspnea, and anxiety.
--- NOTE | 2025-08-23 13:00 | W.PN.HOSP.TC ---
Today's Communication/Plan
-
Continue hospice care
Assessment / Plan
Assessment / Plan
Gen-comatose, agonal breathing
HEENT-NC, AT
Neck-supple
CV-reg, no M, +S1/S2
Lungs-clear B/L
Abd-soft, NT, ND
Ext-no edema
Musculoskeletal-no cyanosis, clubbing
Skin-warm and dry, bilateral lower extremity dressings, lymphedema
Neuro-grossly non-focal
Psych-calm, cooperative
End-of-life care/hospice -continue supportive measures. IV Dilaudid.
Septic shock
Sacral decubitus ulcer
Acute right lower extremity DVT
Severe anemia, unclear etiology
Acute kidney injury
Hyponatremia
Hyperkalemia
Hypoalbuminemia
Hypotension
Metabolic acidosis
Nonhealing bilateral lower extremity wounds
Chronic lymphedema
Chronic pain, chronic narcotic dependence
History of C. difficile in the past
Hypertension
Depression
Rheumatoid arthritis
Hypothyroidism
CODE STATUS: DNR
Anticipated Discharge: Within 24 hours
Subjective/Interval History
-
Date of Service: August 23, 2025
Patient seen and examined. Looks comfortable. Eyes are open but unresponsive.
Objective Data
-
Vital Signs:
Vital Signs
Temp Pulse Resp BP Pulse Ox
98.7 F 120 12 106/74 94
08/23/25 07:15 08/23/25 07:15 08/23/25 07:15 08/23/25 07:15 08/23/25 07:15
I&O
08/22/25 08/23/25 08/24/25
06:59 06:59 06:59
Intake Total 100.7 / 100.7 0 / 0
Output Total 0 / 0 0 / 0
Balance 100.7 / 100.7 0 / 0
Review of Systems
-
Unable to obtain full review of systems at this time due to: Acuity
[2025-08-23 19:36] VITALS: BP 108/70
[2025-08-24] MEDS: DILAUDID 50 IV (05:39)
[2025-08-24] MEDS: DILAUDID 2 MG IV (05:42)
--- NOTE | 2025-08-24 06:33 | W.PN.DEATH ---
Pronouncement of
-
Called to see patient to pronounce.
No spontaneous heart tones or respirations noted.
Patient not responsive to verbal stimuli.
Patient is pronounced .
Time of : 06:00
Date of : 08/24/25
Cause of : septic shock R/t sacral ulcer and b/l LE wounds
Family Notified: Yes
--- NOTE | 2025-08-24 06:36 | PTCARENOTE ---
Pt at 08/24/25 0600. Family members and friend notified. They will try to come if they can with the 4 hrs. Postmortem care provided and IV taken out. IV team notified for the Right IJ and give of life called.
--- NOTE | 2025-08-24 08:25 | W.DCSUMMARY ---
Discharge Summary
Discharge Data
Date of Admission: 08/14/25
Date of Discharge: 08/24/25
-
Pending Results: No
Hospital Course
Patient 60 years old female with multiple comorbidities presented to the hospital with septic shock due to infected sacral decubitus ulcer and went into multiorgan failure. Patient was initially treated with IV antibiotics IV fluid and multiple
other measures but despite aggressive treatment patient continued to deteriorate clinically and she decided to pursue comfort care measures. Patient was admitted to inpatient hospice care and she was placed on comfort care medications. Patient
on 08/24/2025 at 6:00 AM.
Discharge Plan
-
Patient Disposition:
Date/Time
Date/Time: 08/24/25 06:00
Discharge Date and Time
Discharge Date/Time: 08/24/25 06:00
Print Language: MACEDONIAN
--- NOTE | 2025-08-24 09:17 | PTCARENOTE ---
Pt passed during nightshift. GOL called by nightshift RN. No friends/family in to visit. IV team called to remove right IJ. Post-mortem care complete, no assessment available.
== END 2025-08-24 06:00 | disposition expired | DRG 951 ==
LOC: 2 NORTH 15:14
PROVIDERS: ADMITTING PHYSICIAN Hospitalist
DX: Z51.5 Encounter for palliative care (principal); A41.9 Sepsis, unspecified organism; E43 Unspecified severe protein-calorie malnutrition; R65.21 Severe sepsis with septic shock; E87.1 Hypo-osmolality and hyponatremia; E87.20 Acidosis, unspecified; N17.9 Acute kidney failure, unspecified; F11.20 Opioid dependence, uncomplicated; E88.09 Other disorders of plasma-protein metabolism, not elsewhere classified; L89.159 Pressure ulcer of sacral region, unspecified stage; Z66 Do not resuscitate; Z63.4 Disappearance and death of family member; F41.9 Anxiety disorder, unspecified; G89.29 Other chronic pain; M06.9 Rheumatoid arthritis, unspecified; E03.9 Hypothyroidism, unspecified; F32.A Depression, unspecified; E78.5 Hyperlipidemia, unspecified; E87.5 Hyperkalemia; I10 Essential (primary) hypertension; Z74.01 Bed confinement status